=== PATIENT | female | born 1965 | race Caucasian/White ===

== ENCOUNTER 2018-07-09 03:44 | Emergency (ER) | payer OTHER, SELFPAY ==
[2018-07-09 03:46] VITALS: BP 130/84; PULSE 90; RESP 16; TEMP 36.6; O2SAT 98; BMI 28.3
--- NOTE | 2018-07-09 03:50 | RAD_ITS ---
STUDY: X-RAY - RIGHT WRIST REASON FOR EXAM: Female, 53 years old. Status post fall at work. Pain in the region of the navicular bone. TECHNIQUE: 4 view(s) of the wrist were obtained. COMPARISON: None. FINDINGS: Normal visualized distal radius. The ulnar styloid is truncated and the visualized styloid has a concave surface, possibly due to chronic erosion.. This might be the result of remote trauma, however, the eroded appearance suggests that there may be an overlying process such as synovial chondromatosis.. No widespread erosive destruction is seen, making pigmented villonodular synovitis unlikely. The ulna otherwise appears normal.. Normal radiocarpal articulation. Normal distal radioulnar articulation. The greater multangular bone is absent, which may represent remote trauma and subsequent resorption. Articular surfaces of the adjacent distal navicular and proximal first metacarpal have been eroded appearance which again may represent synovial chondromatosis. Otherwise normal carpal bones. Normal carpal articulations. There is disarticulation of the first metacarpal, due to destruction of the radial multangular.. Normal second through fifth carpometacarpal articulations. Normal visualized metacarpal bones. There is nonspecific soft tissue swelling. 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 Truncation of the ulnar styloid may also be due to an old fracture. 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 No evidence for acute fracture or acute dislocation.. Electronically Signed: Vasquez Lee MD at 4:17 EDT , Service support ,
--- NOTE | 2018-07-09 03:55 | ED.DCSUM_ITS ---
- ER Visit Summary Date of Service: 07/09/18 Chief Complaint: Right hand/wrist injury History of Present Illness: The patient is a 53 F who had surgery at the base of her right thumb in December of this year. She tripped and fell tonight at work putting her right hand out to catch herself. She now has some slight pain with mild swelling along the radial side of her wrist near the base of her thumb. She denies paresthesias. She is right-hand dominant Physical Examination: Vital signs are unremarkable. Patient sitting upright in bed no acute distress. Head neck examination was no sign of trauma. No C-spine tenderness. Pulse is regular. Back examination reveals mild tenderness in the right lumbar paraspinals. No lumbar tenderness. No overlying skin changes to this area. Right upper extremity examination reveals mild tenderness along the radial aspect of the right wrist. She has minimal edema. She has mild tenderness at the base of the thumb with axial load. She has full range of motion with normal cap refill. No tenderness noted at the elbow or shoulder. Test Results: Right wrist x-rays are read as chronic changes with no evidence of acute fracture. Emergency Department Course and Treatment: Patient will be given a thumb spica Velcro splint and follow-up with her hand surgeon if any ongoing difficulties. Treatment Plan: [] Disposition: Discharge Impression: Right wrist sprain status post fall Right lumbar paraspinal strain This note was generated with [employer] dictation software. It may contain incorrect words, spelling, and punctuation that were not noted in review of the chart prior to signing ED Disposition - Plan for ED Patient: Disposition: Home or Assisted Living Chief Complaint: Upper Extremity Injury Instructions: ED Sprain Wrist Referrals: [facility] [GROUP OF PHYSICIANS] - 2 Days Earl Lara MD [STAFF PHYSICIAN] - As Needed
--- NOTE | 2018-07-09 04:20 | ED.DEP ---
ED Disposition - Plan for ED Patient: Disposition: Home or Assisted Living Chief Complaint: Upper Extremity Injury Instructions: ED Sprain Wrist Referrals: Earl Lara MD [STAFF PHYSICIAN] - As Needed [facility] [GROUP OF PHYSICIANS] - 2 Days
== END 2018-07-09 04:35 | disposition home or self-care (01) ==
PROVIDERS: Emergency Provider Emergency Medicine; Family Provider Internal Medicine; PCP Internal Medicine
DX: S63.501A Unspecified sprain of right wrist, initial encounter (principal); S39.012A Strain of muscle, fascia and tendon of lower back, initial encounter; W01.0XXA Fall on same level from slipping, tripping and stumbling without subsequent striking against object, initial encounter; Y93.9 Activity, unspecified; Y99.0 Civilian activity done for income or pay; F32.9 Major depressive disorder, single episode, unspecified; Z87.891 Personal history of nicotine dependence
CPT/HCPCS: 73110; 99283

== ENCOUNTER 2021-12-21 15:12 | Emergency (ER) | payer BC, SELFPAY ==
[2021-12-21 15:13] VITALS: BP 133/72; PULSE 94; RESP 16; TEMP 36.9; O2SAT 98; BMI 26.4
--- NOTE | 2021-12-21 15:37 | ED.VIS.FEGU ---
HPI HPI - Female History of Present Illness Chief Complaint: Abd Pain Informant: patient Pain Pain: Positive for Pelvic Pain Onset: Days (3) Context: Gradual Onset Timing: Continuous Quality: Positive for Aching Location: Suprapubic Current Severity: Mild Maximum Severity: Moderate Worsened by: - (bearing down to urinate) Relieved by: - (nothing) Associated Symptoms Associated Symptoms: Positive for Frequency; Negative for Dysuria, Urgency and Hematuria Narrative Narrative: Patient having suprapubic discomfort and urinary frequency without hematuria, nausea, vomiting, fevers, low back discomfort aside from her chronic low back pain. No history of UTIs but she wonders if it is 1 because she has been urinating a lot without drinking more fluids than normal. She denies any leon dysuria but when she bears down it makes her suprapubic discomfort worse. It is not lateralizing. No history of any prior abdominal surgeries. [facility] Medical History (Updated 12/21/21 @ 18:[address] Earl Fatima MD) Anxiety and depression Home Medications bupropion HCl 150 mg PO BID 09/13/13 [History Last Taken 09/13/13 08:00] meloxicam 15 mg PO DAILY PRN PRN 09/13/13 [History Last Taken 09/13/13 08:00] pregabalin 75 mg PO BID 09/13/13 [History Last Taken 09/13/13 08:00] cyclobenzaprine 10 mg PO BID PRN PRN 10/19/13 [History Last Taken Unknown] furosemide 40 mg PO DAILY PRN 07/09/18 [History Last Taken Unknown] hydrocodone-acetaminophen 1 ea PO Q6H PRN 07/09/18 [History Last Taken Unknown] biotin 1 mg capsule 1 mg PO DAILY 07/11/18 [History Last Taken Unknown] calcium carbonate 260 mg calcium (648 mg) tablet 260 mg PO TID tab 07/11/18 [History Last Taken Unknown] cholecalciferol (vitamin D3) 25 mcg (1,000 unit) capsule 1,000 unit PO DAILY 07/11/18 [History Last Taken Unknown] ciprofloxacin HCl 500 mg PO BID #20 tablet 12/21/21 [Rx Last Taken Unknown] metronidazole 500 mg PO Q12H #20 tab 12/21/21 [Rx Last Taken Unknown] tramadol 50 mg PO Q4H PRN PRN 2 Days #10 tab 12/21/21 [Rx Last Taken Unknown] Allergy/AdvReac Type Severity Reaction Status Date / Time amoxicillin trihydrate Allergy Rash Verified 12/21/21 15:14 [From Augmentin] Penicillins Allergy Rash Verified 12/21/21 15:14 potassium clavulanate Allergy Rash Verified 12/21/21 15:14 [From Augmentin] morphine AdvReac Nausea/Vom/ Verified 12/21/21 15:14 Diarrhea Surgical History History of hysterectomy History of knee replacement history of thumb joint replacement Social History Smoking Status: Former smoker alcohol intake: never ROS ROS ED Constitutional Constitutional ED: Denies chills or fever(s) Eyes Eyes: Denies change in vision or diplopia ENT ENT ED: Denies rhinorrhea or sore throat Cardiovascular Cardiovascular: Denies chest pain or palpitations Respiratory/Chest Respiratory/Chest: Denies cough or dyspnea Gastrointestinal Gastrointestinal: Reports abdominal pain; Denies diarrhea, nausea or vomiting Genitourinary Genitourinary ED: Reports urinary frequency; Denies dysuria or hematuria Musculoskeletal Musculoskeletal: Reports as per HPI and back pain; Denies neck pain Integumentary Denies abscess or rash Neurologic Neurologic: Denies headache(s), paresthesias or weakness Psychiatric Psychiatric: Denies anxiety or suicidal thoughts EXAM Physical Exam Const Vital Signs: 12/21/21 15:13 Temperature 98.5 F Temperature Source Temporal Pulse Rate 94 Respiratory Rate 16 Blood Pressure 133/72 H Blood Pressure Mean 92 Pulse Ox 98 Oxygen Delivery Method Room Air Positive well nourished and well developed General Appearance ED: well developed and NAD HEENT Reports moist mucous membranes normocephalic and atraumatic Eyes PERRL and EOMs intact bilaterally Neck full ROM and supple Resp normal respiratory effort and clear to auscultation bilaterally Cardio regular rate, regular rhythm and no murmurs GI non-distended GI Narrative: Suprapubic tenderness without guarding or rebound tenderness, no right or left lower quadrant tenderness and otherwise benign abdomen. Auscultation: normoactive bowel sounds Palpation: soft Back/Spine no CVA tenderness General Back: other FROM Extremity normal to inspection General Extremety ED: Negative for edema, pulses abnormal or tenderness General Extremity: Negative for edema or pulses abnormal Neuro oriented x3, CN's II-XII intact bilaterally, no sensory deficits noted and gait normal Sensorium / Orientation: awake and alert Motor Exam: strength 5/5 throughout Skin no rashes or lesions noted and no wounds MDM MDM MDM Narrative Medical decision making narrative: Initial urinalysis obtained, it does not show evidence for infection. Therefore alternative etiologies were sought, labs were obtained including a CT of the abdomen and pelvis with IV contrast which shows acute diverticulitis. She does not have significant leukocytosis or leftward shift and she is clinically and hemodynamically stable. She was given pain medications after offered, and antibiotics. She agrees she can be treated as an outpatient we discussed reasons to return, and we also discussed follow-up. Lab Data Attestation: I reviewed the patient's lab results. Labs: Laboratory Results - last 24 hr 12/21/21 12/21/21 12/21/21 15:30 16:50 16:50 WBC 9.3 RBC 4.13 L Hgb 11.6 L Hct 36.3 L MCV 87.9 MCH 28.1 MCHC 32.0 RDW Std Deviation 39.9 RDW Coeff of Chrissy 12.4 Plt Count 297 MPV 9.8 Immature Gran % (Auto) 0.300 Neut % (Auto) 64.3 Lymph % (Auto) 22.0 [place] % (Auto) 10.5 H Eos % (Auto) 1.7 Baso % (Auto) 1.2 H Absolute Neuts (auto) 6.0 Absolute Lymphs (auto) 2.04 Nucleated RBC % 0 Sodium 138 Potassium 4.2 Chloride 106 Carbon Dioxide 28.0 Anion Gap 4 L BUN 9 Creatinine 0.76 Estim Creat Clear Calc 70.52 Est GFR (MDRD) Af Amer 100 Est GFR (MDRD) Non-Af 83 BUN/Creatinine Ratio 11.8 Glucose 101 Calcium 8.8 Urine Color Yellow Urine Clarity Clear Urine pH 6.5 Ur Specific [place] 1.015 Urine Protein Negative Urine Glucose (UA) Normal Urine Ketones Negative Urine Occult Blood Negative Urine Nitrite Negative Urine Bilirubin 1 H Urine Urobilinogen Normal Ur Leukocyte Esterase 25 H Urine RBC 0 SEEN Urine WBC 0 SEEN Ur Squamous Epith Cells 0 SEEN Urine Bacteria 0 SEEN Urine Mucus 0 SEEN Radiography Diagnostic Testing: Clinical Impression(s) from Imaging Studies Abdomen/Pelvis CT 12/21/21 17:10 IMPRESSION: Only axial images were provided for interpretation. Acute sigmoid diverticulitis. No free air or peridiverticular abscess. Electronically Signed: Sohail Whyte MD at 17:40 EDT , Discharge Plan Triage Chief Complaint: Abd Pain ED Provider: Earl Fatima Dx/Rx/DC Orders Clinical Impression: Acute diverticulitis Instructions: ED Diverticulitis Prescriptions: New metronidazole [metronidazole] 500 MG tablet 500 mg PO Q12H Qty: 20 RF: 0 ciprofloxacin HCl [ciprofloxacin HCl] 500 MG tablet 500 mg PO BID Qty: 20 RF: 0 tramadol 50 MG tablet 50 mg PO Q4H PRN PRN (Reason: Pain) 2 Days Qty: 10 RF: 0 No Action calcium carbonate 260 mg calcium (648 mg) tablet 260 mg PO TID RF: 0 cholecalciferol (vitamin D3) 1,000 unit capsule 1,000 unit PO DAILY RF: 0 biotin 1 mg capsule 1 mg PO DAILY RF: 0 bupropion HCl 150 MG tablet sustained-release 12 hr 150 mg PO BID RF: 0 meloxicam 15 MG tablet 15 mg PO DAILY PRN PRN (Reason: Pain) RF: 0 pregabalin 75 MG capsule 75 mg PO BID RF: 0 cyclobenzaprine 10 MG tablet 10 mg PO BID PRN PRN (Reason: Muscle Spasm) RF: 0 furosemide 40 MG tablet 40 mg PO DAILY PRN (Reason: DIURETIC) RF: 0 hydrocodone-acetaminophen 1 EACH tablet 1 ea PO Q6H PRN (Reason: Pain) RF: 0 Primary Care Provider: Ingrid Trejo Referrals: Ingrid Trejo MD [Primary Care Provider] - 1-2 Weeks Activity Restrictions/Additional Instructions: Avoid taking your Flexeril (cyclobenzaprine) while on the pain medication that you are prescribed. Disposition Disposition: Home, Self Care
[2021-12-21 15:48] LABS: Bacteria 0 SEEN /hpf (None Seen); Mucous, Urine 0 SEEN /hpf (<or=2+); Red Blood Cells-Urine 0 SEEN /hpf (0-5); Squamous Epithelial Cells - UA 0 SEEN /hpf (5-10); White Blood Cells 0 SEEN /hpf (0-5)
[2021-12-21 15:49] LABS: Color, Urine Yellow (Yellow); Glucose, Dipstick Normal (Normal); Ketone-Dipstick Negative (Negative); Leukocyte Esterase-Dipstick 25 /ul (Negative); Nitrite-Dipstick Negative (Negative); Occult Blood-Urine Negative /ul (Negative); Protein-Dipstick Negative (Negative); Specific Gravity, Urine 1.015 (1.002-1.030); Urine Clarity Clear (Clear); Urine Urobilinogen Normal (Normal); Urine pH 6.5 (5.0 - 8.0)
[2021-12-21 15:50] LABS: Urine Bilirubin Dipstick 1 mg/dL (Negative)
[2021-12-21 16:57] LABS: Absolute Lymphocyte Count 2.04 X10^3/uL (0.83-4.51); Basophil# 0.11 X10^3/uL; Basophil% 1.2 % (0-1); Eosinophil# 0.16 X10^3/uL; Eosinophils% 1.7 % (0-5); Hematocrit 36.3 % (37-47); Hemoglobin 11.6 g/dL (12.0-15.0); Lymphocyte # 2.04 X10^3/ul (0.83-4.51); Mean Corpuscular Hgb 28.1 pg (27.0-32.0); Mean Corpuscular Volume 87.9 fL (81-99); Mean Platelet Vol. 9.8 fl (6.2-12.0); Monocyte# 0.97 X10^3/uL; Monocyte% 10.5 % (0-10); NRBC Flagged by Analyzer 0 % (0-5); Neutrophil # 5.96 X10^3/uL (2.7-7.7); Neutrophil % 64.3 % (47-70); Platelet Count 297 K/mm3 (150-450); RBC Distribution Width CV 12.4 % (11.6-14.6); RBC Distribution Width SD 39.9 fl (35.1-43.9); Red Blood Count 4.13 M/mm3 (4.2-5.4); White Blood Count 9.3 K/mm3 (4.4-11.0)
--- NOTE | 2021-12-21 17:10 | CT_ITS ---
STUDY: CT ABDOMEN AND PELVIS WITH CONTRAST REASON FOR EXAM: Female, 56 years old. lower abd pain RADIATION DOSAGE (If Supplied By Facility): CTDIvol = ( 13.745 ) mGy, DLP = ( 856.15 ) mGycm TECHNIQUE: Transaxial images were obtained from the dome of the diaphragm to the symphysis pubis without oral contrast. IV 100mL Isovue-300 was administered. Sagittal and coronal images were reconstructed. Individualized dose optimization techniques were used for this CT. COMPARISON: None. FINDINGS: Only axial images were provided for interpretation. Minimal bibasilar dependent atelectasis. Gallbladder not seen and likely removed. Associated mild biliary dilatation. No focal hepatic lesion on this single phase study. Unremarkable spleen, pancreas, adrenals, and bilateral kidneys. No CT evidence of acute appendicitis. Moderate amount of retained stool in the colon with no evidence of bowel obstruction. Distal colonic diverticulosis. Circumferential wall thickening of the mid sigmoid colon with surrounding fat stranding, compatible with acute diverticulitis. No free air or peridiverticular abscess. Trace free fluid in the pelvis. Vascular constipation with no abdominal aortic aneurysm. No adenopathy. Sections through the pelvis demonstrate evidence of prior hysterectomy. No adnexal mass. Urinary bladder grossly unremarkable. Multilevel thoracolumbar spondylosis. Bilateral osteitis condensans ilii. CT/Abdomen/Pelvis W IV Cont ONLY IMPRESSION: Only axial images were provided for interpretation. Acute sigmoid diverticulitis. No free air or peridiverticular abscess. Electronically Signed: Sohail Whyte MD at 17:40 EDT ,
[2021-12-21 17:25] LABS: Anion Gap 4 (5-15); BUN 9 mg/dL (7-18); BUN/Creat Ratio 11.8 RATIO (10-20); Calcium,Total 8.8 mg/dL (8.5-10.1); Chloride 106 mmol/L (98-107); Creatinine, Serum 0.76 mg/dL (0.55-1.02); EST Glomerular Filtration Rate 83 mL/min (>60); Est Glom Filt Rate - Afr Amer 100 mL/min (>60); Estimated Creatinine Clearance 70.52 ml/min; Glucose 101 mg/dL (74-106); Potassium 4.2 mmol/L (3.5-5.1); Sodium Level 138 mmol/L (136-145)
[2021-12-21] MEDS: traMADol 50 MG Tablet PO (18:31)
[2021-12-21] MEDS: metroNIDAZOLE 500 MG Tablet PO (18:32)
[2021-12-21] MEDS: Ciprofloxacin 500 MG Tablet PO (18:32)
[2021-12-21] MEDS: Ketorolac 30 MG/ML Syringe IV (18:32)
== END 2021-12-21 18:40 | disposition home or self-care (01) ==
PROVIDERS: Emergency Provider Emergency Medicine; PCP Internal Medicine; Visit Provider Emergency Medicine
DX: K57.32 Diverticulitis of large intestine without perforation or abscess without bleeding (principal); Z87.891 Personal history of nicotine dependence
CPT/HCPCS: 74177; 80048; 81001; 85025; 96361; 96374; 99284; J7030; A4216

== ENCOUNTER 2021-12-28 02:29 | Emergency (ER) | payer BC, SELFPAY ==
[2021-12-28 02:31] VITALS: BP 138/80; PULSE 92; RESP 17; TEMP 36.3; O2SAT 98; BMI 27.8
--- NOTE | 2021-12-28 02:38 | EDS_ITS ---
HPI HPI - GI History of Present Illness Chief Complaint: Abd Pain Detail of Chief Complaint: Persistent abdominal pain since diagnosed with diverticulitis December 21 Informant: patient Abdominal Pain/Flank Pain Onset: Days Context: Gradual Onset Timing: Continuous Quality: Aching Location: LLQ and - (And suprapubic region) Current Severity: Mild Maximum Severity: Moderate Worsened by: Car ride and Movement Relieved by: Nothing Nausea/Vomiting/Emesis GI Symptom: Positive for Nausea; Negative for Vomiting Diarrhea/Melena/Hematochezia GI Symptom: Negative for Diarrhea, Melena and Hematochezia Associated Symptoms Associated Symptoms: Negative for Dysuria, Frequency, Hematuria and Urgency Narrative Narrative: Patient is a 56-year-old woman who was seen on December 21 and diagnosed with acute sigmoid diverticulitis. Patient was prescribed antibiotic and pain medicine. Patient states she is still having pain. Patient denies fever or chills. She does report nausea without vomiting. She denies melena, hematochezia or maroon-colored stool. She states the car ride to the emergency department from work and walking causes her increased pain. She states her appetite has been very poor. She has not had much to eat. She denies dysuria, frequency, urgency or hematuria. She is status post laparoscopic cholecystectomy and laparoscopic hysterectomy. She states both of her ovaries were not removed. She has no history of renal or ureterolithiasis. Her last colonoscopy was 4 years ago. Prior similar symptoms: Yes Recent Illness/Hospitalization: Yes [facility] Medical History (Updated 12/28/21 @ 03:[address] Franklin Bruce MD) Anxiety and depression Normal colonoscopy Home Medications bupropion HCl 150 mg PO BID 09/13/13 [History Last Taken 09/13/13 08:00] meloxicam 15 mg PO DAILY PRN PRN 09/13/13 [History Last Taken 09/13/13 08:00] pregabalin 75 mg PO BID 09/13/13 [History Last Taken 09/13/13 08:00] cyclobenzaprine 10 mg PO BID PRN PRN 10/19/13 [History Last Taken Unknown] furosemide 40 mg PO DAILY PRN 07/09/18 [History Last Taken Unknown] hydrocodone-acetaminophen 1 ea PO Q6H PRN 07/09/18 [History Last Taken Unknown] biotin 1 mg capsule 1 mg PO DAILY 07/11/18 [History Last Taken Unknown] calcium carbonate 260 mg calcium (648 mg) tablet 260 mg PO TID tab 07/11/18 [History Last Taken Unknown] cholecalciferol (vitamin D3) 25 mcg (1,000 unit) capsule 1,000 unit PO DAILY 07/11/18 [History Last Taken Unknown] ciprofloxacin HCl 500 mg PO BID #20 tablet 12/21/21 [Rx Last Taken Unknown] metronidazole 500 mg PO Q12H #20 tab 12/21/21 [Rx Last Taken Unknown] tramadol 50 mg PO Q4H PRN PRN 2 Days #10 tab 12/21/21 [Rx Last Taken Unknown] oxycodone-acetaminophen 1 tab PO Q6H PRN PRN 3 Days #12 tablet 12/28/21 [Rx Last Taken Unknown] Allergy/AdvReac Type Severity Reaction Status Date / Time amoxicillin trihydrate Allergy Rash Verified 12/28/21 02:34 [From Augmentin] Penicillins Allergy Rash Verified 12/28/21 02:34 potassium clavulanate Allergy Rash Verified 12/28/21 02:34 [From Augmentin] morphine AdvReac Nausea/Vom/ Verified 12/28/21 02:34 Diarrhea Surgical History History of hysterectomy History of knee replacement history of thumb joint replacement Social History (Updated 12/28/21 @ 02:[address] Franklin Bruce MD) Smoking Status: Former smoker alcohol intake: never substance use type: does not use ROS ROS ED Constitutional Constitutional ED: Denies chills, fever(s), subjective, sweats or weight loss ENT ENT ED: Denies ear pain, rhinorrhea or sore throat Cardiovascular Cardiovascular: Denies chest pain, palpitations or racing heartbeat Respiratory/Chest Respiratory/Chest: Denies cough, dyspnea or dyspnea on exertion Gastrointestinal Gastrointestinal: Reports abdominal pain, constipation and nausea; Denies diarrhea, melena or vomiting Genitourinary Genitourinary ED: Denies dysuria, hematuria or urinary frequency Musculoskeletal Musculoskeletal: Reports back pain; Denies arthralgias, myalgias or neck pain Integumentary Denies abscess, Abrasions or rash Neurologic Neurologic: Denies paresthesias or weakness Hematologic/Lymphatic Hematologic/Lymphatic: Denies easy bleeding or easy bruising EXAM Physical Exam Const Vital Signs: 12/28/21 02:31 Temperature 97.4 F L Temperature Source Temporal Pulse Rate 92 Respiratory Rate 17 Blood Pressure 138/80 H Blood Pressure Mean 99 Pulse Ox 98 Oxygen Delivery Method Room Air Positive well nourished and well developed General Appearance ED: well developed and NAD; Negative for pallor HEENT Reports moist mucous membranes normocephalic Eyes PERRL and EOMs intact bilaterally General Eye ED: Negative for pale conjunctiva or scleral icterus Neck no lymphadenopathy, supple and no JVD Resp normal respiratory effort and clear to auscultation bilaterally Cardio regular rate, regular rhythm, S1 normal heart sound, S2 normal heart sound and no murmurs GI non-distended and no masses; Negative for non-tender Inspection: Negative for abdominal distention Auscultation: hypoactive bowel sounds; Negative for normoactive bowel sounds Palpation: soft, tender LLQ and guarding LLQ; Negative for rigid, hepatomegaly, splenomegaly, mass, pulsatile mass or rebound tenderness present Back/Spine no CVA tenderness Extremity full ROM General Extremety ED: Negative for edema or tenderness General Extremity: Negative for edema Neuro CN's II-XII intact bilaterally and moves all extremities Sensorium / Orientation: alert, oriented to person, oriented to place and oriented to time Psych mental status grossly normal and thought process normal Skin no wounds General Skin Exam: Negative for jaundice or pallor Lesions: no lesions Rashes: no rashes MDM MDM MDM Narrative Medical decision making narrative: Patient presents because of persistent left lower quadrant abdominal pain. She was diagnosed with acute sigmoid diverticulitis. Will obtain CBC to assess white count and differential. Also because of poor p.o. intake will obtain basic metabolic panel to assess renal function, electrolytes and CO2/anion gap. Since her creatinine and GFR were normal on the she was treated with IV Toradol for her pain and Zofran for her nausea. Patient is lying on her left side. She has no discomfort. She was informed of results. She was informed of plan. She understands. Lab Data Attestation: I reviewed the patient's lab results. Lab results narrative: White count differential unchanged from the . Basic metabolic panel is remarkable for slight elevation in glucose of 121. Renal function is normal. Labs: Laboratory Results - last 24 hr 12/28/21 12/28/21 02:45 02:45 WBC 9.4 RBC 4.77 Hgb 13.1 Hct 42.3 MCV 88.7 MCH 27.5 MCHC 31.0 L RDW Std Deviation 38.1 RDW Coeff of Chrissy 11.9 Plt Count 399 MPV 9.4 Immature Gran % (Auto) 0.400 Neut % (Auto) 59.7 Lymph % (Auto) 30.8 [place] % (Auto) 6.4 Eos % (Auto) 1.2 Baso % (Auto) 1.5 H Absolute Neuts (auto) 5.6 Absolute Lymphs (auto) 2.89 Nucleated RBC % 0 Sodium 135 L Potassium 3.4 L Chloride 100 Carbon Dioxide 26.0 Anion Gap 9 BUN 7 Creatinine 1.00 Estim Creat Clear Calc 53.60 Est GFR (MDRD) Af Amer 73 Est GFR (MDRD) Non-Af 61 BUN/Creatinine Ratio 7.0 L Glucose 121 H Calcium 8.6 Discharge Plan Triage Chief Complaint: Abd Pain ED Provider: Franklin Bruce Dx/Rx/DC Orders Clinical Impression: Diverticulitis of sigmoid colon Instructions: Discharge Instructions for ..., ED Diverticulitis Prescriptions: New oxycodone-acetaminophen [oxycodone-acetaminophen] 1 TABLET tablet 1 tab PO Q6H PRN PRN (Reason: Pain) 3 Days Qty: 12 RF: 0 No Action calcium carbonate 260 mg calcium (648 mg) tablet 260 mg PO TID RF: 0 cholecalciferol (vitamin D3) 1,000 unit capsule 1,000 unit PO DAILY RF: 0 biotin 1 mg capsule 1 mg PO DAILY RF: 0 bupropion HCl 150 MG tablet sustained-release 12 hr 150 mg PO BID RF: 0 meloxicam 15 MG tablet 15 mg PO DAILY PRN PRN (Reason: Pain) RF: 0 pregabalin 75 MG capsule 75 mg PO BID RF: 0 cyclobenzaprine 10 MG tablet 10 mg PO BID PRN PRN (Reason: Muscle Spasm) RF: 0 furosemide 40 MG tablet 40 mg PO DAILY PRN (Reason: DIURETIC) RF: 0 hydrocodone-acetaminophen 1 EACH tablet 1 ea PO Q6H PRN (Reason: Pain) RF: 0 metronidazole [metronidazole] 500 MG tablet 500 mg PO Q12H Qty: 20 RF: 0 ciprofloxacin HCl [ciprofloxacin HCl] 500 MG tablet 500 mg PO BID Qty: 20 RF: 0 tramadol 50 MG tablet 50 mg PO Q4H PRN PRN (Reason: Pain) 2 Days Qty: 10 RF: 0 Primary Care Provider: Ingrid Trejo Referrals: Ingrid Trejo MD [Primary Care Provider] - 3-5 Days if not improving Disposition Disposition: Home, Self Care
[2021-12-28] MEDS: Ketorolac 15 MG/ML Vial IV (02:51)
[2021-12-28] MEDS: Ondansetron 4 MG/2 ML Vial IV (02:52)
[2021-12-28 02:54] LABS: Absolute Lymphocyte Count 2.89 X10^3/uL (0.83-4.51); Absolute Neutrophil Count 5.6 X10^3/uL (2.0-7.7); Basophil# 0.14 X10^3/uL; Basophil% 1.5 % (0-1); Eosinophil# 0.11 X10^3/uL; Eosinophils% 1.2 % (0-5); Hematocrit 42.3 % (37-47); Hemoglobin 13.1 g/dL (12.0-15.0); Lymphocyte # 2.89 X10^3/ul (0.83-4.51); Lymphocyte % 30.8 % (19-41); Mean Corpuscular Hgb 27.5 pg (27.0-32.0); Mean Corpuscular Volume 88.7 fL (81-99); Mean Platelet Vol. 9.4 fl (6.2-12.0); Monocyte% 6.4 % (0-10); NRBC Flagged by Analyzer 0 % (0-5); Neutrophil # 5.61 X10^3/uL (2.7-7.7); Neutrophil % 59.7 % (47-70); Platelet Count 399 K/mm3 (150-450); RBC Distribution Width CV 11.9 % (11.6-14.6); RBC Distribution Width SD 38.1 fl (35.1-43.9); Red Blood Count 4.77 M/mm3 (4.2-5.4); White Blood Count 9.4 K/mm3 (4.4-11.0)
[2021-12-28 03:09] LABS: Anion Gap 9 (5-15); BUN 7 mg/dL (7-18); Calcium,Total 8.6 mg/dL (8.5-10.1); Chloride 100 mmol/L (98-107); EST Glomerular Filtration Rate 61 mL/min (>60); Est Glom Filt Rate - Afr Amer 73 mL/min (>60); Glucose 121 mg/dL (74-106); Potassium 3.4 mmol/L (3.5-5.1); Sodium Level 135 mmol/L (136-145)
--- NOTE | 2021-12-28 03:38 | ED.RN ---
patient does not have her insurance card for pharmacy coverage and says it is a separate card so she will come back to get it or have her daughter get it sat [phone]
--- NOTE | 2021-12-28 03:40 | ED.RN ---
offered for pharm to run as seo pay to see hoe much it is for the rx but patient states she will just come back for it.
== END 2021-12-28 03:40 | disposition home or self-care (01) ==
PROVIDERS: Emergency Provider Emergency Medicine; PCP Internal Medicine; Visit Provider Emergency Medicine
DX: K57.32 Diverticulitis of large intestine without perforation or abscess without bleeding (principal); F32.A Depression, unspecified; F41.9 Anxiety disorder, unspecified; Z79.899 Other long term (current) drug therapy; Z87.891 Personal history of nicotine dependence
CPT/HCPCS: 80048; 85025; 96374; 96375; 99283; A4216; J2405

== ENCOUNTER 2022-05-17 06:13 | Emergency (ER) | payer OTHER, BC, SELFPAY ==
[2022-05-17 06:15] VITALS: BP 120/79; PULSE 89; RESP 18; TEMP 37.2; O2SAT 98; BMI 25.7
--- NOTE | 2022-05-17 06:33 | EDS_ITS ---
HPI History of Present Illness Chief Complaint: Upper Extremity Injury Informant: patient Narrative Narrative: [id number] female sent here from work for evaluation right shoulder pain has been intermittent for the past 2 months. 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 She was not evaluated. Symptoms worsen this evening. She is on Tylenol and Vicodin at home for headache and neck pain symptoms. Denies history of gastric ulcers or kidney injury. No paresthesias. She had a previous tennis elbow repair by Dr. Herber Tirado in the past. Prior similar symptoms: No [facility] Medical History Anxiety and depression Normal colonoscopy Home Medications bupropion HCl 150 mg tablet,12 hr sustained-release 150 mg PO BID 09/13/13 [History Last Taken 09/13/13 08:00] meloxicam 15 mg tablet 15 mg PO DAILY PRN PRN Pain 09/13/13 [History Last Taken 09/13/13 08:00] pregabalin 75 mg capsule 75 mg PO BID 09/13/13 [History Last Taken 09/13/13 08:00] cyclobenzaprine 10 mg tablet 10 mg PO BID PRN PRN Muscle Spasm 10/19/13 [History Last Taken Unknown] furosemide 40 mg tablet 40 mg PO DAILY PRN DIURETIC 07/09/18 [History Last Taken Unknown] hydrocodone-acetaminophen 5-325mg 5mg-325mg 1 ea PO Q6H PRN Pain 07/09/18 [History Last Taken Unknown] biotin 1 mg capsule 1 mg PO DAILY 07/11/18 [History Last Taken Unknown] calcium carbonate 260 mg calcium (648 mg) tablet 260 mg PO TID 07/11/18 [History Last Taken Unknown] cholecalciferol (vitamin D3) 25 mcg (1,000 unit) capsule 1,000 unit PO DAILY 07/11/18 [History Last Taken Unknown] ciprofloxacin HCl 500 mg tablet 500 mg PO BID #20 TABLETS 12/21/21 [Rx Last Taken Unknown] metronidazole 500 mg tablet 500 mg PO Q12H #20 tabs 12/21/21 [Rx Last Taken Unknown] tramadol 50 mg tablet 50 mg PO Q4H PRN PRN Pain 2 days #10 tabs 12/21/21 [Rx Last Taken Unknown] oxycodone-acetaminophen 5 mg-325 mg tablet 1 tab PO Q6H PRN PRN Pain 3 days #12 TABLETS 12/28/21 [Rx Last Taken Unknown] Allergy/AdvReac Type Severity Reaction Status Date / Time amoxicillin trihydrate Allergy Rash Verified 05/17/22 06:14 [From Augmentin] Penicillins Allergy Rash Verified 05/17/22 06:14 potassium clavulanate Allergy Rash Verified 05/17/22 06:14 [From Augmentin] morphine AdvReac Nausea/Vom/ Verified 05/17/22 06:14 Diarrhea Surgical History History of hysterectomy History of knee replacement history of thumb joint replacement Social History Smoking Status: Former smoker alcohol intake: never substance use type: does not use ROS ROS ED Constitutional Constitutional ED: Denies chills, fever(s) or sweats Eyes Eyes: Denies change in vision ENT ENT ED: Denies dysphagia or sore throat Cardiovascular Cardiovascular: Denies chest pain, leg edema, palpitations or racing heartbeat Respiratory/Chest Respiratory/Chest: Denies cough, dyspnea or dyspnea on exertion Gastrointestinal Gastrointestinal: Denies abdominal pain, diarrhea, nausea or vomiting Genitourinary Genitourinary ED: Denies dysuria, hematuria or urinary frequency Musculoskeletal Musculoskeletal: Reports extremity pain and other Details: Right shoulder pain. ; Denies back pain or neck pain Integumentary Denies rash or wounds Neurologic Neurologic: Denies headache(s), paresthesias or weakness EXAM Physical Exam Const Vital Signs: 05/17/22 06:15 Temperature 98.9 F Temperature Source Oral Pulse Rate 89 Respiratory Rate 18 Blood Pressure 120/79 Blood Pressure Mean 92 Pulse Ox 98 Positive well nourished and well developed General Appearance ED: well developed and NAD HEENT Reports moist mucous membranes normocephalic and atraumatic Eyes PERRL, EOMs intact bilaterally and conjunctivae normal General Eye ED: Yes normal appearance of both eyes Neck no lymphadenopathy and supple General: Negative for tenderness Chest Wall Chest: Negative for tenderness Resp normal respiratory effort and normal air movement Effort and Inspection: symmetric chest movement; Negative for respiratory distress Cardio regular rate, regular rhythm and no murmurs Peripheral Pulses: pulses 2+ throughout GI normal to inspection, nondistended, normoactive bowel sounds and non-tender Palpation: Negative for guarding or rebound tenderness present Back/Spine no CVA tenderness and no thoracic nor lumbar tenderness Extremity normal to inspection Extremity Narrative: Right upper extremity: Mild positive empty cans, reproducible pain with external rotation of the shoulder against resistance. Positive speeds test. Negative Apley's. No deformities. Skin intact. Neuro vas intact. General Extremety ED: Negative for edema or tenderness General Extremity: Negative for edema Neuro oriented x3 and no sensory deficits noted Sensorium / Orientation: awake and alert Skin no rashes or lesions noted and no wounds MDM MDM MDM Narrative Medical decision making narrative: Patient exam concerns for rotator cuffs strain along with biceps tendinitis of the right shoulder. Work restrictions given. She has Tylenol and Vicodin at home to take for pain. Discussed modified range of motion with work and activities. She will follow-up with occupational health for continued evaluation and clearance. Discharge Plan Triage Chief Complaint: Upper Extremity Injury ED Provider: Elvis Barbour Dx/Rx/DC Orders Clinical Impression: Strain of muscle(s) and tendon(s) of the rotator cuff of right shoulder, initial encounter, Biceps tendinitis of right shoulder Instructions: Repetitive Motion Injury Shoulder, Biceps Tendonitis Proximal Prescriptions: No Action calcium carbonate 260 mg calcium (648 mg) tablet 260 mg PO TID cholecalciferol (vitamin D3) 1,000 unit capsule 1,000 unit PO DAILY biotin 1 mg capsule 1 mg PO DAILY bupropion HCl 150 MG tablet sustained-release 12 hr 150 mg PO BID meloxicam 15 MG tablet 15 mg PO DAILY PRN PRN (Reason: Pain) pregabalin 75 MG capsule 75 mg PO BID cyclobenzaprine 10 MG tablet 10 mg PO BID PRN PRN (Reason: Muscle Spasm) furosemide 40 MG tablet 40 mg PO DAILY PRN (Reason: DIURETIC) hydrocodone-acetaminophen 1 EACH tablet 1 ea PO Q6H PRN (Reason: Pain) metronidazole [metronidazole] 500 MG tablet 500 mg PO Q12H Qty: 20 0RF ciprofloxacin HCl [ciprofloxacin HCl] 500 MG tablet 500 mg PO BID Qty: 20 0RF tramadol 50 MG tablet 50 mg PO Q4H PRN PRN (Reason: Pain) 2 Days Qty: 10 0RF oxycodone-acetaminophen [oxycodone-acetaminophen] 1 TABLET tablet 1 tab PO Q6H PRN PRN (Reason: Pain) 3 Days Qty: 12 0RF Primary Care Provider: Ingrid Trejo Referrals: Ingrid Trejo MD [Primary Care Provider] - [facility] - 3-5 Days Activity Restrictions/Additional Instructions: History exam concerns for rotator cuff strain with biceps tendinitis. Continue Tylenol every 6 hours. May use ibuprofen 600 mg every 6 hours also for additional pain control. Work restrictions as given. Follow-up with occupational health. Disposition Disposition: Home, Self Care Discharge Date/Time: 05/17/22 07:15
[2022-05-17 07:03] VITALS: BP 138/77; PULSE 62; RESP 15; O2SAT 97
== END 2022-05-17 07:15 | disposition home or self-care (01) ==
PROVIDERS: Emergency Provider Emergency Medicine; PCP Internal Medicine; Visit Provider Emergency Medicine
DX: S46.011A Strain of muscle(s) and tendon(s) of the rotator cuff of right shoulder, initial encounter (principal); M75.21 Bicipital tendinitis, right shoulder; Z87.891 Personal history of nicotine dependence; F41.9 Anxiety disorder, unspecified; F32.A Depression, unspecified; Z79.899 Other long term (current) drug therapy; X50.0XXA Overexertion from strenuous movement or load, initial encounter
CPT/HCPCS: 99282

== ENCOUNTER 2022-10-20 09:25 | Outpatient (RCR) | payer OTHER, BC, SELFPAY ==
--- NOTE | 2022-10-20 10:20 | HP.PTEVAL_ITS ---
Patient's Visit Information IVAN KHAN is a 57 year old F referred to Physical Therapy by Dr. 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 Date of Evaluation: 10/20/22 Physical Therapist: Kamaljit Rodriguez, DPT, OCS, CSCS - Visit Plan Frequency: 1x/Week Duration: 4 Months Plan: PROM only to g-h joint. weekly x 12-16 for PROM to start adn progressions once allowed. Current limitation to 50PROM elevation and 15 ext rotations PROM only. Doctor f/u 10/31, Ensure all other joints working full ROM - Subjective Large RCR 10/02/22. Was a repetitive motion injury. Been hurting for about a year. Insidious onset. Been in sling for 2 weeks but takes it off to sit at home. Pain level is about 5/10 worse in the morning. Sleeping not bad in a recliner, getting enough. Works 3rd shift at [employer]. Is off for 15 weeks ...maybe back in January. No exercises yet, uses ice packs that she uses. Has percoset but has not used it. Therapy prior to surgery did not help. Lives with dtr and can do what she needs to do with modifications and increase. Hobbies : crafting with hands and cannot right now. Is currently binge watching. - Pain r shoulder Pain Intensity (Out of 10): 5 Pain Intensity Range: 5 - Objective Walks in I, transfers I bed and chair. Incisions are healed and dry with mild scar tissue and no signs of excessive redness heat or swelling. PROM 50 elevation adn 30 ext rotation both where doctors limitations are for now. No AAROM or AROM allowed at g-h joint. Scap circles are limited on R 50% vs L. elbow, wrist and finger AROM WFL B. Strength elbow and shoulder not tested today. reflexes 2/3 bi and tri. Sensation WNL to gross light touch. Dons and doffs sling I today. - Balance/Special Test Scores Quick DASH Score: 79.5450 - Goals Goal 1:: ST: PROM to 150 as doctor allows elevation and 60 ext rotation Goal Time Frame: 4-6 Weeks Goal 2:: ST: sleep without interruption and pain 0-1/10 at rest. Goal Time Frame: 2-4 Weeks Goal 3:: LT: AROM full and painfree to 150 elevation and 65 ext rotation and PSIS IR when allowed by doctor Goal Time Frame: 8-12 Weeks Goal 4:: Do hair and put on shirt without pain and 90% better outside of work Goal Time Frame: 8-12 Weeks Goal 5:: Plant to return to work safely Goal Time Frame: 12-16 Weeks - Rehabilitation Potential Physical Therapy Diagnosis: RCR stiff and weak. Rehabilitation Potential: Good - Anticipated Interventions Patient/Client Instruction: Educate patient on: Condition, Plan of Care For the Purpose of:: To decrease pain, To increase ROM, To improve nutrient delivery to tissue, To improve muscle performance and motor function, To increase tolerance to activity/condition/position Therapeutic Exercise to Include: Strength training, Postural training, Flexibilty training, Passive ROM, Active ROM For the Purpose of:: To decrease pain, To increase ROM, To improve muscle performance and motor function, To increase tolerance to activity/condition/position Manual Therapy Techniques to Include: Scar massage, Passive ROM For the Purpose of:: To increase ROM, To improve nutrient delivery to tissue Cryotherapy (ice pack, ice massage): Yes For the Purpose of:: To decrease swelling/inflammation Thank you for the opportunity to evaluate your patient. For Medicare and Medicare HMO plans, please review the plan of care and approve it. It will need to be FAXED BACK to us at [phone] for Medicare purposes. For Medicare only, by signing this I certify the plan of care. Please let me know if there are questions or concerns regarding this plan of care. Physician Signature: Date:
--- NOTE | 2022-10-25 16:14 | HP.PT.NRP ---
IVAN KHAN was seen in my office for initial evaluation on 10/20/22. The following Plan of Care was established for this patient: Initial Frequency: 1x/Week Initial Duration: 4 Months Patient/Client Instruction: Educate patient on: Condition, Plan of Care For the Purpose of:: To decrease pain, To increase ROM, To improve nutrient delivery to tissue, To improve muscle performance and motor function, To increase tolerance to activity/condition/position Therapeutic Exercise to Include: Strength training, Postural training, Flexibilty training, Passive ROM, Active ROM For the Purpose of:: To decrease pain, To increase ROM, To improve muscle performance and motor function, To increase tolerance to activity/condition/position Manual Therapy Techniques to Include: Scar massage, Passive ROM For the Purpose of:: To increase ROM, To improve nutrient delivery to tissue Cryotherapy (ice pack, ice massage): Yes For the Purpose of:: To decrease swelling/inflammation This patient was last seen in our office 10/20/22. Pertinent comments regarding their Physical therapy will appear below: Pt seen for IE and then called to cancel her POC here at [facility] as she is going back to her old therapy place for her therapy. Will discontinue her chart at this time at her request. At this point I will be discontinuing this patient from physical therapy. I would be happy to see this patient again in the future if found appropriate by the physician. Thank you! Kamaljit Rodriguez, DPT, OCS, CSCS Balance/Gait/Functional tests - Balance/Special Test Scores Quick DASH Score: 79.5450
== END 2022-10-20 19:00 | disposition home or self-care (01) ==
LOC: PT 09:25
PROVIDERS: PCP Internal Medicine; Referring Provider Orthopaedic Surgery; Visit Provider Orthopaedic Surgery
DX: M75.01 Adhesive capsulitis of right shoulder (principal); M75.41 Impingement syndrome of right shoulder
CPT/HCPCS: 97110; 97161

== ENCOUNTER 2023-01-24 20:36 | Emergency (ER) | payer BC, SELFPAY ==
[2023-01-24 20:38] VITALS: BP 140/78; PULSE 83; RESP 18; TEMP 36.6; O2SAT 100; BMI 26.9
[2023-01-24 21:01] LABS: Bacteria 0 SEEN /hpf (None Seen); Mucous, Urine 0 SEEN /hpf (<or=2+); Red Blood Cells-Urine 0 SEEN /hpf (0-5); Squamous Epithelial Cells - UA 0 SEEN /hpf (5-10); White Blood Cells 0 SEEN /hpf (0-5)
--- NOTE | 2023-01-24 21:04 | CT_ITS ---
INDICATION: low abd pain, hx diverticulitis EXAMINATION: CT Abdomen And Pelvis W/ Contrast Injection TECHNIQUE: Helically acquired images were obtained of the abdomen and pelvis after IV contrast. A radiation dose optimization technique was used for this scan. IV Contrast dosage and agent: IV 100mL [id number] Oral contrast: None. COMPARISON: None. FINDINGS: Visualized lung bases: Unremarkable Liver: Unremarkable Gallbladder: Surgically absent. Spleen: Unremarkable Pancreas: Unremarkable Adrenal Glands: Unremarkable Kidneys: Unremarkable Vasculature: Unremarkable GI Tract: Unremarkable Lymphadenopathy: None Peritoneum: No ascites. Bladder: Unremarkable Reproductive organs: Unremarkable Bones/Soft tissues: Mild scattered degenerative changes of the visualized spine. CT/Abdomen/Pelvis W IV Cont ONLY IMPRESSION: No acute abnormalities in the abdomen or pelvis. Electronically Signed: Julian Singh MD at 22:15 EDT ,
--- NOTE | 2023-01-24 21:05 | ED.VIS.GI ---
HPI HPI - GI History of Present Illness Chief Complaint: Abd Pain Informant: patient Narrative Narrative: Patient complains of returning lower abdominal pain. She states she started about 2 3 weeks ago with lower abdominal pain and a little pressure in her back. This is typical when she has diverticulitis. Her last colonoscopy was just a few months ago. Evidently there is no inflammation at the time. She has never had surgery for the diverticulitis. She has had a hysterectomy and cholecystectomy in the past. She was placed on Cipro and Flagyl for about 7 days. She was getting better but not completely better. This ended about 1 week ago. Since then the symptoms have slowly been returning. She has some mild nausea but no vomiting. She is able to eat and drink but just does not have a great appetite. She has had some softer bowel movements but no blood. No urinary symptoms. Nothing specifically makes this significantly better or worse other than antibiotics as above. Of note, she is allergic to Augmentin. [facility] Medical History Anxiety and depression Normal colonoscopy Home Medications bupropion HCl 150 mg tablet,12 hr sustained-release 150 mg PO BID 09/13/13 [History Last Taken 09/13/13 08:00] meloxicam 15 mg tablet 15 mg PO DAILY PRN PRN Pain 09/13/13 [History Last Taken 09/13/13 08:00] pregabalin 75 mg capsule 75 mg PO BID 09/13/13 [History Last Taken 09/13/13 08:00] cyclobenzaprine 10 mg tablet 10 mg PO BID PRN PRN Muscle Spasm 10/19/13 [History Last Taken Unknown] furosemide 40 mg tablet 40 mg PO DAILY PRN DIURETIC 07/09/18 [History Last Taken Unknown] hydrocodone-acetaminophen 5-325mg 5mg-325mg 1 ea PO Q6H PRN Pain 07/09/18 [History Last Taken Unknown] biotin 1 mg capsule 1 mg PO DAILY 07/11/18 [History Last Taken Unknown] calcium carbonate 260 mg calcium (648 mg) tablet 260 mg PO TID 07/11/18 [History Last Taken Unknown] cholecalciferol (vitamin D3) 25 mcg (1,000 unit) capsule 1,000 unit PO DAILY 07/11/18 [History Last Taken Unknown] ciprofloxacin HCl 500 mg tablet 500 mg PO BID #20 TABLETS 12/21/21 [Rx Last Taken Unknown] metronidazole 500 mg tablet 500 mg PO Q12H #20 tabs 12/21/21 [Rx Last Taken Unknown] tramadol 50 mg tablet 50 mg PO Q4H PRN PRN Pain 2 days #10 tabs 12/21/21 [Rx Last Taken Unknown] oxycodone-acetaminophen 5 mg-325 mg tablet 1 tab PO Q6H PRN PRN Pain 3 days #12 TABLETS 12/28/21 [Rx Last Taken Unknown] Allergy/AdvReac Type Severity Reaction Status Date / Time amoxicillin trihydrate Allergy Rash Verified 01/24/23 20:40 [From Augmentin] Penicillins Allergy Rash Verified 01/24/23 20:40 potassium clavulanate Allergy Rash Verified 01/24/23 20:40 [From Augmentin] morphine AdvReac Nausea/Vom/ Verified 01/24/23 20:40 Diarrhea Surgical History History of hysterectomy History of knee replacement history of thumb joint replacement Social History Smoking Status: Former smoker alcohol intake: never substance use type: does not use ROS ROS ED Constitutional Constitutional ED: Denies chills or fever(s) ENT ENT ED: Denies rhinorrhea Cardiovascular Cardiovascular: Denies chest pain or palpitations Respiratory/Chest Respiratory/Chest: Denies cough Gastrointestinal Gastrointestinal: Reports abdominal pain, diarrhea and nausea; Denies constipation, melena or vomiting Genitourinary Genitourinary ED: Denies dysuria, hematuria or urinary frequency Musculoskeletal Musculoskeletal: Denies arthralgias Integumentary Denies rash Neurologic Neurologic: Denies paresthesias or weakness Hematologic/Lymphatic Hematologic/Lymphatic: Reports easy bleeding and easy bruising Allergic/Immunologic Allergic/Immunologic ED: Denies urticaria EXAM Physical Exam Narrative Exam Narrative: CONSTITUTIONAL: Patient is nontoxic in appearance. The patient looks comfortable. HEENT: No notable trauma. Mucous membranes are still moist. No sinus tenderness. EYES: No conjunctival injection. No proptosis. CARDIOVASCULAR: Regular rate. Regular rhythm. No notable murmur. No JVD. RESPIRATORY: No respiratory distress. Breathing is unlabored. No wheezes. No rhonchi. No rales. No pain with a deep breath. GASTROINTESTINAL: Not distended. Bowel sounds are normal. She does have some mild suprapubic and mild left lower quadrant tenderness. No guarding. No rebound. No palpable mass. No bruit. I feel no hernia or inguinal fullness. No umbilical hernia. GENITOURINARY: No CVA tenderness. MUSCULOSKELETAL: Atraumatic. No peripheral edema. No cord. No tenderness along the deep venous system. No asymmetry. No abdominal pain with rotation of lower extremities. NEUROLOGICAL: Patient is alert and appropriate. No focal deficit noted. SKIN: No noted rashes. No diaphoresis. PSYCHIATRIC: Patient is calm. Mood is appropriate. Const Vital Signs: 01/24/23 20:38 Temperature 97.9 F Temperature Source Temporal Pulse Rate 83 Respiratory Rate 18 Blood Pressure 140/78 H Blood Pressure Mean 98 Pulse Ox 100 Oxygen Delivery Method Room Air MDM MDM MDM Narrative Medical decision making narrative: Patient CBC shows no acute process. Patient's electrolytes are normal. Patient's liver function test are normal. Patient's urinalysis is normal My independent interpretation of her CT of the abdomen with IV contrast shows no sign of perforation abscess or diverticulitis. Final reading is similar. I discussed the findings with the patient. She is comfortable with this. I did state that her CT showed a moderate amount of stool through the colon. It may be that she has a component of constipation. We recommended some MiraLAX for a few days. Going back to a very bland clear liquid diet. If she develops fever or worsening pain she should return. I will write for some Zofran as she has occasionally felt a little nauseated but never vomited. Lab Data Attestation: I reviewed the patient's lab results. Labs: Laboratory Results - last 24 hr 01/24/23 01/24/23 01/24/23 20:35 20:55 20:55 WBC 8.9 RBC 4.40 Hgb 12.4 Hct 39.0 MCV 88.6 MCH 28.2 MCHC 31.8 L RDW Std Deviation 40.4 RDW Coeff of Chrissy 12.3 Plt Count 335 MPV 10.2 Immature Gran % (Auto) 0.200 Neut % (Auto) 44.1 L Lymph % (Auto) 46.1 H [place] % (Auto) 5.9 Eos % (Auto) 1.8 Baso % (Auto) 1.9 H Absolute Neuts (auto) 3.9 Absolute Lymphs (auto) 4.09 Nucleated RBC % 0 Sodium 142 Potassium 3.8 Chloride 107 Carbon Dioxide 29.0 Anion Gap 6 BUN 7 Creatinine 0.73 Estim Creat Clear Calc 72.54 Est GFR (MDRD) Af Amer 105 Est GFR (MDRD) Non-Af 87 BUN/Creatinine Ratio 9.6 L Glucose 104 Calcium 8.7 Total Bilirubin 0.30 AST 18 ALT 23 Alkaline Phosphatase 56 Total Protein 6.9 Albumin 3.4 Globulin 3.5 Albumin/Globulin Ratio 1.0 Urine Color Yellow Urine Clarity Clear Urine pH 8.0 Ur Specific [place] 1.015 Urine Protein Negative Urine Glucose (UA) Normal Urine Ketones Negative Urine Occult Blood Negative Urine Nitrite Negative Urine Bilirubin Negative Urine Urobilinogen Normal Ur Leukocyte Esterase Negative Urine RBC 0 SEEN Urine WBC 0 SEEN Ur Squamous Epith Cells 0 SEEN Urine Bacteria 0 SEEN Urine Mucus 0 SEEN Radiography Diagnostic Testing: Clinical Impression(s) from Imaging Studies Abdomen/Pelvis CT 01/24/23 21:04 IMPRESSION: No acute abnormalities in the abdomen or pelvis. Electronically Signed: Julian Singh MD at 22:15 EDT , Discharge Plan Triage Chief Complaint: Abd Pain ED Provider: Denilson Hernandez Dx/Rx/DC Orders Clinical Impression: Lower abdominal pain, Constipation in female, History of diverticulitis Instructions: ED Abdominal Pain Unkn Cause Fem Prescriptions: No Action calcium carbonate 260 mg calcium (648 mg) tablet 260 mg PO TID cholecalciferol (vitamin D3) 1,000 unit capsule 1,000 unit PO DAILY biotin 1 mg capsule 1 mg PO DAILY bupropion HCl 150 MG tablet sustained-release 12 hr 150 mg PO BID meloxicam 15 MG tablet 15 mg PO DAILY PRN PRN (Reason: Pain) pregabalin 75 MG capsule 75 mg PO BID cyclobenzaprine 10 MG tablet 10 mg PO BID PRN PRN (Reason: Muscle Spasm) furosemide 40 MG tablet 40 mg PO DAILY PRN (Reason: DIURETIC) hydrocodone-acetaminophen 1 EACH tablet 1 ea PO Q6H PRN (Reason: Pain) metronidazole [metronidazole] 500 MG tablet 500 mg PO Q12H Qty: 20 0RF ciprofloxacin HCl [ciprofloxacin HCl] 500 MG tablet 500 mg PO BID Qty: 20 0RF tramadol 50 MG tablet 50 mg PO Q4H PRN PRN (Reason: Pain) 2 Days Qty: 10 0RF oxycodone-acetaminophen [oxycodone-acetaminophen] 1 TABLET tablet 1 tab PO Q6H PRN PRN (Reason: Pain) 3 Days Qty: 12 0RF Primary Care Provider: Ingrid Trejo Referrals: Ingrid Trejo MD [Primary Care Provider] - 3-5 Days if not improving Disposition Disposition: Home, Self Care
[2023-01-24 21:08] LABS: Color, Urine Yellow (Yellow); Glucose, Dipstick Normal (Normal); Ketone-Dipstick Negative (Negative); Leukocyte Esterase-Dipstick Negative /ul (Negative); Nitrite-Dipstick Negative (Negative); Occult Blood-Urine Negative /ul (Negative); Protein-Dipstick Negative (Negative); Specific Gravity, Urine 1.015 (1.002-1.030); Urine Bilirubin Dipstick Negative (Negative); Urine Clarity Clear (Clear); Urine Urobilinogen Normal (Normal)
[2023-01-24] MEDS: 0.9% Normal Saline 1,000 ML 1000 ML IV (21:09)
[2023-01-24 21:15] LABS: Absolute Lymphocyte Count 4.09 X10^3/uL (0.83-4.51); Absolute Neutrophil Count 3.9 X10^3/uL (2.0-7.7); Basophil# 0.17 X10^3/uL; Basophil% 1.9 % (0-1); Eosinophil# 0.16 X10^3/uL; Eosinophils% 1.8 % (0-5); Hemoglobin 12.4 g/dL (12.0-15.0); Lymphocyte # 4.09 X10^3/ul (0.83-4.51); Lymphocyte % 46.1 % (19-41); Mean Corp Hgb Conc 31.8 g/dL (32-36); Mean Corpuscular Hgb 28.2 pg (27.0-32.0); Mean Corpuscular Volume 88.6 fL (81-99); Mean Platelet Vol. 10.2 fl (6.2-12.0); Monocyte# 0.52 X10^3/uL; Monocyte% 5.9 % (0-10); NRBC Flagged by Analyzer 0 % (0-5); Neutrophil # 3.92 X10^3/uL (2.7-7.7); Neutrophil % 44.1 % (47-70); Platelet Count 335 K/mm3 (150-450); RBC Distribution Width CV 12.3 % (11.6-14.6); RBC Distribution Width SD 40.4 fl (35.1-43.9); White Blood Count 8.9 K/mm3 (4.4-11.0)
[2023-01-24 21:17] LABS: AST(SGOT) 18 U/L (15-37); Alanine Aminotransfer ALT/SGPT 23 U/L (13-56); Albumin, Serum 3.4 g/dL (3.2-5.0); Alkaline Phosphatase 56 U/L (45-117); Anion Gap 6 (5-15); BUN 7 mg/dL (7-18); BUN/Creat Ratio 9.6 RATIO (10-20); Calcium,Total 8.7 mg/dL (8.5-10.1); Chloride 107 mmol/L (98-107); Creatinine, Serum 0.73 mg/dL (0.55-1.02); EST Glomerular Filtration Rate 87 mL/min (>60); Est Glom Filt Rate - Afr Amer 105 mL/min (>60); Estimated Creatinine Clearance 72.54 ml/min; Globulin 3.5 g/dL (2.2-4.2); Glucose 104 mg/dL (74-106); Potassium 3.8 mmol/L (3.5-5.1); Protein, Total 6.9 g/dL (6.4-8.2); Sodium Level 142 mmol/L (136-145)
[2023-01-24 23:28] VITALS: BP 132/69; PULSE 78; RESP 16; O2SAT 99
== END 2023-01-24 23:29 | disposition home or self-care (01) ==
PROVIDERS: Emergency Provider Emergency Medicine; PCP Internal Medicine; Visit Provider Emergency Medicine
DX: K59.00 Constipation, unspecified (principal); R10.32 Left lower quadrant pain; Z90.49 Acquired absence of other specified parts of digestive tract; Z87.19 Personal history of other diseases of the digestive system; Z87.891 Personal history of nicotine dependence
CPT/HCPCS: 74177; 80053; 81001; 85025; 96360; 99283; J7030; Q9967; A4216

== ENCOUNTER 2025-03-01 13:24 | Emergency (ER) | payer SELFPAY ==
[2025-03-01 13:25] VITALS: BP 120/68; PULSE 58; RESP 16; TEMP 36.7; O2SAT 99; BMI 26.4
--- OUTSIDE RECORDS SUMMARY | 2025-03-01 14:09 | XMS RPT_ITS | CCD ---
Author Organization [facility] CliniSyin Care Team Providers Care Training Developer Name Role Phone EARL SINGER Unavailable Unavailable EARL SINGER Unavailable Unavailable EARL SINGER Unavailable Unavailable VETOVITZ, HEATHER (PA) Unavailable Unavailabl e VETOVITZ, HEATHER (PA) Unavailable Unavailabl e VETOVITZ, HEATHER (PA) Unavailable Unavailabl e VETOVITZ, HEATHER (PA) Unavailable Unavailabl e VETOVITZ, HEATHER (PA) Unavailable Unavailabl e VETOVITZ, HEATHER (PA) Unavailable Unavailabl e VETOVITZ, HEATHER (PA) Unavailable Unavailabl e VETOVITZ, HEATHER (PA) Unavailable UnavailKatey Arboleda MD Primary Care Provider Katey Chester MD Primary Care Provider Pramod Cleaning Referring Unavailable Talampas, Katey D Primary Care Unavailable Pramod Cleaning Attending Unavailable Elvis Barbour Attending Unavailable Talampas, Katey D Primary Care Unavailable Talampas, Katey D Primary Care Unavailable Denilson Hernandez Attending Unavailable DILCIA VALDERRAMA MD Attending Unavailable ANTHONY ISRAEL Attending Unavailable Katey Chester MD Primary Care Provider DELMI DA SILVA Referring Unavailable TALAMPAS, KATEY D Primary Care Unavailable JOSH ALLISON Referring Unavailable TALAMPAS, KATEY D Primary Care Unavailable TALAMPAS, KATEY D Primary Care Unavailable TALAMPAS, KATEY D Attending Unavailable TALAMPAS, KATEY D Primary Care Unavailable CAROLYN HOYOS Attending Unavailable TALAMPAS, KATEY D Primary Care Unavailable CAROLYN HOYOS Attending Unavailable TALAMPAS, KATEY D Primary Care Unavailable CAROLYN HOYOS Attending Unavailable TALAMPAS, KATEY D Primary Care Unavailable TALAMPAS, KATEY D Referring Unavailable TALAMPAS, KATEY D Primary Care Unavailable TALAMPAS, KATEY D Attending Unavailable KEEGAN, JOSH Referring Unavailable TALAMPAS, KATEY D Primary Care Unavailable TALAMPAS, KATEY D Primary Care Unavailable LY, CAROLYN Referring Unavailable TALAMPAS, KATEY D Primary Care Unavailable LY, CAROLYN Referring Unavailable TALAMPAS, KATEY D Primary Care Unavailable TALAMPAS, KATEY D Attending Unavailable TALAMPAS, KATEY D Primary Care Unavailable DELMI DA SILVA Attending Unavailable TALAMPAS, KATEY D Primary Care Unavailable FELIBERTO MELCHOR Attending Unavailable TALAMPAS, KATEY D Primary Care Unavailable TALAMPAS, KATEY D Primary Care Unavailable LY, CAROLYN Referring Unavailable Price ELECTRIC 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.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 ERECTOR APPRENTICE, Heidy Unavailable [phone] Keegan ELECTRIC STOVE INSTALLER.MANAGER [employer]MENT [employer]ING, Josh Unavailable REFERRING, ANGI KOLB Attending Unavailable Allergies Allergy Classification Reported Allergen(s) Allergy Type Date of Onset Reaction(s) Facility (20 sources) morphine; Translations: [MORPHINE] Drug Allergy 2 Vomiting [facility] Repository (20 sources) Penicillins; Translations: [PENICILLINS] Propensity to adverse reactions to drug (disorder) 5 Other: See Comments [facility] Repository (20 sources) AMOXICILLIN-POT CLAVULANATE; Translations: [AMOXICILLIN-PO T CLAVULANATE] Propensity to adverse reactions to drug (disorder) 5 Rash [facility] Repository (20 sources) Amitriptyline; Translations: [AMITRIPTYLINE] Drug Allergy 1 Intolerance [facility] Work Phone: (3 sources) Amoxicillin; Translations: [amoxicillin trihydrate] Drug Allergy 2 Rash [facility] Repository (3 sources) potassium clavulanate; Translations: [potassium clavulanate] Allergy to substance 2 [facility] Repository Medications Current Medications Medication Drug Class(es) Dates Sig (Normalized) Sig (Original) acetaminophen 325 mg / HYDROcodone bitartrate 5 mg oral tablet (19 sources) Opioid Agonist Start: 02-11-2024 take 1 tablet by mouth twice daily as needed HYDROcodone-acetam inophen (NORCO) 5-325 mg per tablet Indications: Chronic midline low back pain with sciatica, sciatica laterality unspecified , Chronic SI joint pain Take 1 tablet by mouth two times a day as needed. 10/21/2023 Active Start: 07-09-2018 Hydrocodone-Ac etaminophen Active 1 EACH PO EVERY 6 HOURS July 09, 2018 3:51am Comment on above: Take 1 tablet by bib two times a day as needed. acetaminophen 325 mg / oxyCODONE hydrochloride 5 mg oral tablet (4 sources) Opioid Agonist Start: 12-28-2021 take 1 tablet by mouth every six hours as needed Oxycodone-Acetam inophen Active 1 TABLET PO EVERY 6 HOURS NEEDED 12 December 28, 2021 Start: 09-13-2013 End: 10-19-2013 take 1 tablet by mouth every four hours as needed Oxycodone-Acetaminophen Discontinued 1 TABLET PO EVERY 4 HOURS NEEDED September 13, 2013 11:30pm October 19, 2013 5:59pm azithromycin 250 mg oral tablet (2 sources) Macrolide Antimicrobial Start: 03-22-2024 End: 03-27-2024 take 2 tablets by mouth once daily, then take 1 tablet by mouth once daily azithromycin (ZITHROMAX) 250 mg tablet Take 2 tablets by mouth once daily for 1 day, THEN 1 tablet once daily for 4 days. 6 tablet 0 03/22/2024 03/27/2024 Active Start: 11-29-2022 End: 12-04-2022 azithromycin (ZITHROMAX Z-PA K) 250 mg tablet Indications: Acute non-recurrent maxillary sinusitis Take 2 tablets day one, then, 1 tablet daily until gone. 6 tablet 0 11/29/2022 12/04/2022 Comment on above: Take 2 tablets day o ne, then, 1 tablet daily until gone. biotin 1 mg oral capsule (2 sources) Start: 8 take 1 mg by mouth once daily Biotin Active 1 MG PO DAILY July 11, 2018 7:35am 12 hr buPROPion hydrochloride 150 mg extended release oral tablet (20 sources) Aminoketone Start: 2 End: 5 take 1 tablet by mouth twice daily buPROPion SR (WELLBUTRIN SR) 150 mg 12 hr tablet Indications: Dysthymic disorder Take 1 tablet by mouth two times a day. 180 tablet 12/01/2024 Active Start: 09-13-2013 take 1 tablet by bib th twice daily buPROPion SR (WELLBUTRIN SR) 150 mg 12 hr tablet Indications: Dysthymic disorder Take 1 tablet by mouth twice daily. 180 tablet 3 07/20/2021 Active Comment on above: Take 1 tablet by bib th twice daily. Take 1 tablet by bib th two times a day. calcium carbonate 648 mg oral tablet (2 sources) Start: 07-11-2018 take 260 mg by mouth three times daily Calcium Carbonate Active 260 MG PO THREE TIMES A DAY July 11, 2018 7:34am Calcium Carbonate / vitamin D3 (20 sources) calcium carbonate/vitamin D3 (CALCIUM + D ORAL) Take by mouth once daily. Active calcium carbonat e/vitamin D3 (CALCIUM + D ORAL) Take by mouth once daily. 0 Active Comment on above: Take by mouth once d aily. cholecalciferol 0.025 mg oral capsule (2 sources) Vitamin D Start: 8 take 1000 [IU] by mouth once daily Cholecalciferol (Vitamin D3) Active 1000 UNIT PO DAILY July 11, 2018 7:34am cholecalciferol, vitamin D3, (VITAMIN D3 ORAL) (20 sources) cholecalciferol, vitamin D3, (VITAMIN D3 ORAL) Take by mouth once daily. Active cholecalciferol, vitamin D3, (VITAMIN D3 ORAL) Take by mouth once daily. 0 Active Comment on above: Take by mouth once d aily. ciprofloxacin 500 mg oral tablet (7 sources) Quinolone Antimicrobial Start: 01-13-20 23 End: 01-20-20 23 take 1 tablet by mouth twice daily ciprofloxacin HCl (CIPRO) 500 mg tablet Indications: Diverticulitis Take 1 tablet by mouth twice daily for 7 days. 14 tablet 0 01/12/2023 01/19/2023 Active Start: 12-21-2021 End: 01-18-2022 take 1 tablet by mouth twice daily ciprofloxacin HCl (CIPRO) 500 mg tablet Indications: Diverticulitis Take 1 tablet by mouth twice daily for 7 days. 14 tablet 0 01/11/2022 01/18/2022 Active Comment on above: Take 1 tablet by bib twice daily for 7 days. clonazePAM 0.5 mg oral tablet (20 sources) Benzodiazepine Start: End: take 1-2 tablets by mouth at bedtime as needed for anxiety and anxiety, then take 1 tablet by mouth twice daily as needed for anxiety and anxiety clonazePAM (KLONOPIN) 0.5 mg tablet Indications: Insomnia, unspecified type , Anxiety , Bereavement reaction May take 1-2 tablets by mouth at bedtime as needed (insomnia and anxiety). May also take 1 tablet two times a day as needed (insomnia and anxiety). Do all this for 30 days. 60 tablet 10/25/2024 11/24/2024 Active Start: 08-03-2023 End: 10-23-2024 take 1-2 tablets by mouth at bedtime as needed for anxiety and anxiety, then take 1 tablet by mouth twice daily as needed for anxiety and anxiety clonazePAM (KLONOPIN) 0.5 mg tablet Indications: Insomnia, unspecified type , Anxiety , Bereavement reaction May take 1-2 tablets by mouth at bedtime as needed (insomnia and anxiety). May also take 1 tablet two times a day as needed (insomnia and anxiety). Do all this for 30 days. 60 tablet 02/23/2024 10/23/2024 Discontinued Start: 06-21-2023 End: 07-21-2023 take 1-2 tablets by mouth at bedtime as needed for anxiety and anxiety, then take 1 tablet by mouth twice daily as needed for anxiety and anxiety clonazePAM (KLONOPIN) 0.5 mg tablet Indications: Insomnia, unspecified type , Anxiety , Bereavement reaction May take 1-2 tablets by mouth at bedtime as needed (insomnia and anxiety). May also take 1 tablet two times a day as needed (insomnia and anxiety). Do all this for 30 days. 60 tablet 0 06/21/2023 07/21/2023 Active Start: 04-16-2023 End: 06-15-2023 clonazePAM (KLONOPIN) 0.5 mg tablet Indications: Insomnia, unspecified type , Anxiety , Bereavement reaction May take 1-2 tablets by mouth at bedtime as needed (insomnia and anxiety). May also take 1 tablet twice daily as needed (insomnia and anxiety). Do all this for 60 days. Do not start before April 16, 2023. 60 tablet 1 04/16/2023 06/15/2023 Active Start: 07-28-2022 End: 04-11-2023 take 1-2 tablets by mouth at bedtime as needed for anxiety and anxiety, then take 1 tablet by mouth twice daily as needed for anxiety and anxiety clonazePAM (KLONOPIN) 0.5 mg tablet Indications: Insomnia, unspecified type , Anxiety , Bereavement reaction May take 1-2 tablets by mouth at bedtime as needed (insomnia and anxiety). May also take 1 tablet twice daily as needed (insomnia and anxiety). Do all this for 60 days. 60 tablet 1 11/29/2022 02/07/2023 Discontinued Start: 11-25-2021 End: 06-20-2022 take 1-2 tablets by mouth at bedtime as needed for anxiety and anxiety, then take 1 tablet by mouth twice daily as needed for anxiety and anxiety clonazePAM (KLONOPIN) 0.5 mg tablet Indications: Insomnia, unspecified type , Anxiety , Bereavement reaction May take 1-2 tablets by mouth at bedtime as needed (insomnia and anxiety). May also take 1 tablet twice daily as needed (insomnia and anxiety). Do all this for 60 days. 60 tablet 1 02/14/2022 06/20/2022 Active Comment on above: May take 1-2 tablets by mouth at bedtime as needed (insomnia and anxiety). May also take 1 tablet twice daily as needed (insomnia and anxiety). Do all this for 60 days. May take 1-2 tablets by mouth at bedtime as needed (insomnia and anxiety). May also take 1 tablet twice daily as needed (insomnia and anxiety). Do all this for 60 days. Do not start before April 16, 2023. May take 1-2 tablets by mouth at bedtime as needed (insomnia and anxiety). May also take 1 tablet two times a day as needed (insomnia and anxiety). Do all this for 30 days. cyanocobalamin, vitamin B-12, (VITAMIN B-12 ORAL) (20 sources) cyanocobalamin, vitamin B-12, (VITAMIN B-12 ORAL) Take by mouth once daily. Active cyanocobalamin, vitamin B-12, (VITAMIN B-12 ORAL) Take by mouth once daily. 0 Active Comment on above: Take by mouth once d aily. cyclobenzaprine hydrochloride 10 mg oral tablet (20 sources) Muscle Relaxant Start: 014 End: 024 take 1 tablet by mouth twice daily as needed for muscle spasms cyclobenzaprine (FLEXERIL) 10 mg tablet Indications: Cervicalgia , Chronic midline low back pain with sciatica, sciatica laterality unspecified Take 1 tablet by mouth two times a day as needed for muscle spasm. 40 tablet 5 11/27/2023 Active Comment on above: Take 1 tablet by bib th twice daily as needed for muscle spasm. Take 1 tablet by bib th two times a day as needed for muscle spasm. dicyclomine hydrochloride 20 mg oral tablet (20 sources) Anticholinergic Start: 023 End: 023 take 1 tablet by mouth at bedtime dicyclomine (BENTYL) 20 mg tablet Take 1 tablet by mouth before meals and at bedtime. As directed 360 tablet 3 05/08/2023 Active Comment on above: Take 1 tablet by bib th before meals and at bedtime. Take 1 tablet by bib th before meals and at bedtime. As directed 24 hr etodolac 500 mg extended release oral tablet (20 sources) Nonsteroidal Anti-inflammatory Drug Start: 022 End: 025 take 1 tablet by mouth once daily etodolac (LODINE-XL) 500 mg 24 hr tablet Indications: Sternal pain Take 1 tablet by mouth once daily. 90 tablet 12/01/2024 Active Start: 03-05-2022 take 1 tablet by bib th once daily etodolac (LODINE-XL) 500 mg 24 hr tablet Indications: Sternal pain Take 1 tablet by mouth once daily. 30 tablet 11 03/05/2022 Active Start: 03-05-2022 take 1 tablet by bib th once daily etodolac (LODINE-XL) 500 mg 24 hr tablet Indications: Sternal pain Take 1 tablet by mouth once daily. 30 tablet 11 03/05/2022 Active Start: 03-05-2022 take 1 tablet by bib th once daily etodolac (LODINE-XL) 500 mg 24 hr tablet Indications: Sternal pain Take 1 tablet by mouth once daily. 30 tablet 11 03/05/2022 Active Start: 03-05-2022 take 1 tablet by bib th once daily etodolac (LODINE-XL) 500 mg 24 hr tablet Indications: Sternal pain Take 1 tablet by mouth once daily. 30 tablet 03/05/2022 Active Start: 03-05-2022 take 1 tablet by bib th once daily etodolac (LODINE-XL) 500 mg 24 hr tablet Indications: Sternal pain Take 1 tablet by mouth once daily. 30 tablet 03/05/2022 Active Start: 03-05-2022 take 1 tablet by bib th once daily etodolac (LODINE-XL) 500 mg 24 hr tablet Indications: Sternal pain Take 1 tablet by mouth once daily. 30 tablet 03/05/2022 Active Start: 03-05-2021 End: 01-06-2022 take 1 tablet by mouth once daily etodolac (LODINE-XL) 500 mg 24 hr tablet Indications: Sternal pain Take 1 tablet by mouth once daily. 30 tablet 03/05/2021 01/06/2022 Discontinued Start: 01-18-2015 End: 03-31-2015 take 300 mg by mouth three times daily at mealtime Etodolac Discontinued 300 MG PO 3 TIMES DAILY WITH MEALS January 18, 2015 1:24pm March 31, 2015 11:20am with food Comment on above: Take 1 tablet by bib once daily. fidaxomicin 200 mg oral tablet (2 sources) Macrolide Antibacterial Start: 02-01-20 End: 02-11-20 take 1 tablet by mouth twice daily fidaxomicin (DIFICID) 200 mg tablet Indications: C. difficile diarrhea Take 1 tablet by mouth twice daily for 10 days. 20 tablet 0 01/31/2023 02/10/2023 Active Comment on above: Take 1 tablet by bib twice daily for 10 days. fluticasone propionate 0.05 mg/actuat metered dose nasal spray (20 sources) Corticosteroid Start: 07-28-20 End: 02-22-20 take 2 spray(s) nasal route once daily for congestion fluticasone (FLONASE) 50 mcg/actuation nasal spray Use 2 Sprays in each nostril once daily. As directed for nasal and/or sinus congestion. Rinse mouth after use. 1 Each 02/23/2024 Active Start: 11-23-2020 take 2 spray(s) nasa l route once daily for congestion fluticasone (FLONASE) 50 mcg/actuation nasal spray Use 2 Sprays in each nostril once daily. As directed for nasal and/or sinus congestion. Rinse mouth after use. 1 Bottle 11 11/23/2020 Active Comment on above: Use 2 Sprays in each nostril once daily. As directed for nasal and/or sinus congestion. Rinse mouth after use. furosemide 20 mg oral tablet (20 sources) Loop Diuretic Start: 2 End: 4 take 1-2 tablets by mouth once daily for edema furosemide (LASIX) 20 mg tablet Indications: Fluid retention Take 1-2 tablets by mouth once daily. As directed for fluid retention 60 tablet 5 11/27/2023 Active Start: 09-06-2016 End: 07-09-2018 take 40 mg by mouth once daily Furosemide Active 40 MG PO DAILY July 09, 2018 3:51am Comment on above: Take 1-2 tablets by mouth once daily. As directed for fluid retention iv contrast (will be provided with radiology test) (20 sources) Start: 06-22-2023 iv contrast (will be provided with radiology test) CT ABD/PEL -Inject, intravenously, once for 1 dose.No IV access, insert saline lock prior to the beginning of sedation, infusion, injection of imaging exam. Discontinue saline lock post exam. If Pt. has a central line or IVAD, may access for administration according to line specific nursing protocol. Once exam is complete flush line and de-access according to line specific nursing protocol in the CT contrast administration guidelines link. 1 Each 06/22/2023 Active Start: 06-22-2023 iv contrast (w ill be provided with radiology test) CT ABD/PEL -Inject, intravenously, once for 1 dose.No IV access, insert saline lock prior to the beginning of sedation, infusion, injection of imaging exam. Discontinue saline lock post exam. If Pt. has a central line or IVAD, may access for administration according to line specific nursing protocol. Once exam is complete flush line and de-access according to line specific nursing protocol in the CT contrast administration guidelines link. 1 Each 0 06/22/2023 Active Comment on above: CT ABD/PEL -Inject, intravenously, once for 1 dose.No IV access, insert saline lock prior to the beginning of sedation, infusion, injection of imaging exam. Discontinue saline lock post exam. If Pt. has a central line or IVAD, may access for administration according to line specific nursing protocol. Once exam is complete flush line and de-access according to line specific nursing protocol in the CT contrast administration guidelines link. ketoconazole 20 mg/ml topical cream (18 sources) Azole Antifungal Start: End: ketoconazole (NIZORAL) 2 % cream Indications: Rash Apply 1 application to affected area once daily. Treat for 1 more week after rash resolves 15 g 02/22/2024 Active Comment on above: Apply 1 application to affected area once daily. Treat for 1 more week after rash resolves linaclotide 0.145 mg oral capsule (16 sources) Guanylate Cyclase-C Agonist Start: End: take 1 capsule by mouth once daily in the morning linaclotide (LINZESS) 145 mcg capsule Take 1 capsule by mouth daily at 6 am. 90 capsule 2 10/19/2023 Active Comment on above: Take 1 capsule by mo [facility] daily at 6 am. meloxicam 15 mg oral tablet (2 sources) Nonsteroidal Anti-inflammatory Drug Start: take 15 mg by mouth once daily as needed Meloxicam Active 15 MG PO DAILY NEEDED September 13, 2013 9:03pm metroNIDAZOLE 500 mg oral tablet (7 sources) Nitroimidazole Antimicrobial Start: End: take 1 tablet by mouth twice daily metroNIDAZOLE (FLAGYL) 500 mg tablet Indications: Diverticulitis Take 1 tablet by mouth twice daily for 7 days. 14 tablet 0 01/12/2023 01/19/2023 Active Start: 01-11-2022 End: 01-18-2022 take 1 tablet by mouth every eight hours metroNIDAZOLE (FLAGYL) 500 mg tablet Indications: Diverticulitis Take 1 tablet by mouth every 8 hours for 7 days. 21 tablet 0 01/11/2022 01/18/2022 Active Start: 12-21-2021 take 500 mg by mouth every twelve hours Metronidazole Active 500 MG PO Q12H December 21, 2021 6:16pm Comment on above: [facility] 7 days. Take 1 tablet by bib th twice daily for 7 days. pantoprazole 40 mg delayed release oral tablet (18 sources) Proton Pump Inhibitor Start: End: 5 take 1 tablet by mouth once daily pantoprazole DR (PROTONIX) 40 mg tablet Take 1 tablet by mouth once daily. 90 tablet 10/22/2024 04/20/2025 Active predniSONE 10 mg oral tablet (20 sources) Start: 5 predniSONE (DELTASONE) 10 mg tablet Indications: Chronic SI joint pain Take 2 pills as directed for flare up of back pain. 60 tablet 1 10/25/2024 Active Start: 02-14-2022 End: 10-23-2024 predniSONE (DELTASONE) 10 mg tablet Indications: Chronic SI joint pain Take 2 pills as directed for flare up of back pain. 60 tablet 1 02/22/2024 10/23/2024 Discontinued Start: 11-25-2021 End: 02-12-2022 predniSONE (DELTASONE) 10 mg tablet Indications: Chronic SI joint pain Take 2 pills as directed for flare up of back pain. 60 tablet 1 11/25/2021 02/12/2022 Discontinued Comment on above: Take 2 pills as dire cted for flare up of back pain. pregabalin 75 mg oral capsule (20 sources) Start: 4 take 2 capsules by mouth twice daily pregabalin 75 mg capsule Indications: Lumbar disc herniation with radiculopathy Take 2 capsules by mouth twice daily. 0 09/29/2013 Active Start: 09-13-2013 take 75 mg by mouth twice ignacio y Pregabalin Active 75 MG PO TWICE A DAY September 13, 2013 9:03pm Comment on above: Take 2 capsules by [facility] twice daily. psyllium 3400 mg powder for oral suspension (17 sources) Start: 4 Psyllium Husk-Aspartame (METAMUCIL SUGAR-FREE, ASPART,) 3.4 gram/5.8 gram powd Indications: Constipation, unspecified constipation type Take 1 Capful by mouth two times a day. 11/27/2023 Active Comment on above: Take 1 Capful by bib th two times a day. sennosides, detention 8.6 mg oral tablet (17 sources) Start: 4 take 2 tablets by mouth twice daily senna (SENOKOT) 8.6 mg tab Indications: Constipation, unspecified constipation type Take 2 tablets by mouth two times a day. 11/27/2023 Active Comment on above: Take 2 tablets by mo [facility] two times a day. sertraline 50 mg oral tablet (12 sources) Serotonin Reuptake Inhibitor Start: 2 End: 3 take 1 tablet by mouth once daily sertraline (ZOLOFT) 50 mg tablet Take 1 tablet by mouth once daily. 30 tablet 11 03/25/2022 03/25/2023 Active Start: 03-25-2021 End: 01-06-2022 take 1 tablet by mouth once daily sertraline (ZOLOFT) 50 mg tablet Take 1 tablet by mouth once daily. 30 tablet 5 03/25/2021 01/06/2022 Discontinued Comment on above: Take 1 tablet by bib once daily. TENS UNIT ELECTRODES (TENS UNITS ELECTRODES) 2X2 pads (20 sources) Start: 6 TENS UNIT ELECTRODES (TENS UNITS ELECTRODES) 2X2 pads Use electrodes with pads with TENS as directed for back pain. Dispense 1 set monthly 2 Each 5 11/26/2015 Active Comment on above: Use electrodes with pads with TENS as directed for back pain. Dispense 1 set monthly traMADol hydrochloride 50 mg oral tablet (2 sources) Opioid Agonist Start: 2 take 50 mg by mouth every four hours as needed Tramadol Active 50 MG PO EVERY 4 HOURS NEEDED 10 December 21, 2021 6:17pm Completed/Discontinued Medications Medication Drug Class(es) Dates Sig (Normalized) Sig (Original) diazePAM 5 mg oral tablet (2 sources) Benzodiazepine Start: 09-13-2013 End: 10-19-2013 take 5 mg by mouth three times daily Diazepam Discontinued 5 MG PO THREE TIMES A DAY September 13, 2013 11:30pm October 19, 2013 6:00pm enteric contrast (will be provided with radiology test) (9 sources) Start: 06-22-2023 End: 11-27-2023 enteric contrast (will be provided with radiology test) For CT ABD/PEL W IVCON Routine order Administer, As Directed One Time Only, via Oral, Rectal, both Oral and Rectal, Enteric Tube, Stoma or Indwelling Catheter, Enteric Contrast as designated per enteric contrast guidelines 1 Each 0 06/22/2023 11/27/2023 Discontinued (Other) Start: 06-22-[address] (will be provided with radiology test) For CT ABD/PEL W IVCON Routine order Administer, As Directed One Time Only, via Oral, Rectal, both Oral and Rectal, Enteric Tube, Stoma or Indwelling Catheter, Enteric Contrast as designated per enteric contrast guidelines 1 Each 0 06/22/2023 Active Comment on above: For CT ABD/PEL W IVC ON Routine order Administer, As Directed One Time Only, via Oral, Rectal, both Oral and Rectal, Enteric Tube, Stoma or Indwelling Catheter, Enteric Contrast as designated per enteric contrast guidelines naproxen 500 mg oral tablet (2 sources) Nonsteroidal Anti-inflammatory Drug Start: 09-13-19 End: 10-19-19 take 1 tablet by mouth twice daily Naproxen (Naprosyn) 500 MG tablet Discontinued 500 MG PO TWICE A DAY September 13, 2013 11:30pm October 19, 2013 5:59pm polyethylene glycol 3350 [id number] mg / potassium chloride 2970 mg / sodium bicarbonate 6740 mg / sodium chloride 5860 mg / sodium sulfate 89754 mg powder for oral solution (8 sources) Osmotic Laxative Start: 01-17-20 End: 11-30-19 peg 3350-Electrolytes (GOLYTELY) 236-22.74-6.74 -5.86 gram suspension Indications: Diverticulitis , Left lower quadrant abdominal pain Refer to printed prep instructions from your provider. 4000 mL 0 01/16/2022 11/29/2022 Discontinued Comment on above: Refer to printed pre p instructions from your provider. vancomycin 50 mg/ml oral solution (2 sources) Glycopeptide Antibacterial Start: 03-23-20 End: 04-06-20 take 2.5 mL by mouth four times daily Vancomycin HCl (FIRVANQ) 50 mg/mL oral liquid Indications: C. difficile diarrhea Take 2.5 mL by mouth four times daily for 14 days. 140 mL 0 03/23/2023 04/06/2023 Comment on above: Take 2.5 mL by mouth four times daily for 14 days. Problems Active Problems Problem Classification Problem Date Documented Da te Episodic/Chronic Adjustment disorders (5 sources) Bereavement; Translations: [Adjustment disorder, unspecified] Chronic Administrative/social admission (1 source) Bereavement; Translations: [Disappearance and of family member] Episodic Anxiety disorders (6 sources) Anxiety; Translations: [Anxiety disorder, unspecified] Chronic Diverticulosis and diverticulitis (9 sources) Diverticulitis of intestine; Translations: [Diverticulitis of intestine, part unspecified, without perforation or abscess without bleeding] Chronic Esophageal disorders (20 sources) Gastroesophageal reflux disease; Translations: [Gastro-esophageal reflux disease without esophagitis] 07-15-2005 Chronic Immunizations and screening for infectious disease (2 sources) Vaccination needed; Translations: [Encounter for immunization] Episodic Inflammation; infection of eye (except that caused by tuberculosis or sexually transmitteddisease) (20 sources) Bilateral punctate keratitis of eyes; Translations: [Punctate keratitis, bilateral] Onset: 8 07-25-2018 Chronic Mood disorders (20 sources) Dysthymia; Translations: [Dysthymic disorder] 07-15-2005 Chronic Nonspecific chest pain (6 sources) Chest pain; Translations: [Chest pain, unspecified] Episodic Open wounds of extremities (2 sources) Open wound of right lower leg; Translations: [Unspecified open wound, right lower leg, initial encounter] Episodic Osteoarthritis (20 sources) Primary osteoarthritis, right hand; Translations: [Unilateral primary osteoarthritis of first carpometacarpal joint, right hand] Onset: 2 Resolved: 5 12-13-2017 Chronic Other connective tissue disease (20 sources) History of total knee arthroplasty; Translations: [Presence of unspecified artificial knee joint] Onset: 2 09-05-2012 Chronic Other connective tissue disease (20 sources) Fibromyalgia; Translations: [Fibromyalgia] 04-26-2015 Episodic Other connective tissue disease (1 source) Biceps tendinitis; Translations: [Bicipital tendinitis, right shoulder] Episodic Other connective tissue disease (1 source) Swelling of lower limb; Translations: [Other specified soft tissue disorders] 05-13-2023 Episodic Other eye disorders (20 sources) Bilateral vitreous floaters; Translations: [Other vitreous opacities, bilateral] Onset: 8 07-25-2018 Chronic Other gastrointestinal disorders (3 sources) Constipation; Translations: [Constipation, unspecified] 03-28-2023 Episodic Other gastrointestinal disorders (2 sources) Constipation alternates with diarrhea; Translations: [Other specified symptoms and signs involving the digestive system and abdomen] 05-13-2023 Episodic Other gastrointestinal disorders (3 sources) History of diverticulitis; Translations: [Personal history of other diseases of the digestive system] 06-22-2023 Episodic Other gastrointestinal disorders (2 sources) Chronic constipation; Translations: [Other constipation] 10-19-2023 Episodic Other gastrointestinal disorders (2 sources) Abdominal bloating; Translations: [Abdominal distension (gaseous)] 01-18-2024 Episodic Other gastrointestinal disorders (1 source) Abdominal distension (gaseous); Translations: [Abdominal bloating] Onset: 4 Episodic Other gastrointestinal disorders (1 source) Other constipation; Translations: [Chronic constipation] Onset: 4 Episodic Other gastrointestinal disorders (1 source) Diarrhea; Translations: [Diarrhea, unspecified] 01-31-2023 Episodic Other screening for suspected conditions (not mental disorders or infectious disease) (8 sources) Patient encounter status; Translations: [Encounter for screening mammogram for malignant neoplasm of breast] Onset: Episodic Other skin disorders (2 sources) Eruption; Translations: [Rash and other nonspecific skin eruption] 12-01-2023 Episodic Other upper respiratory infections (1 source) Acute maxillary sinusitis; Translations: [Acute maxillary sinusitis, unspecified] Episodic Residual codes; unclassified (5 sources) Insomnia; Translations: [Insomnia, unspecified] Episodic Residual codes; unclassified (1 source) Body fluid retention; Translations: [Edema, unspecified] 12-01-2023 Episodic Residual codes; unclassified (1 source) Family history of celiac disease; Translations: [Family history of other diseases of the digestive system] 01-18-2024 Episodic Residual codes; unclassified (1 source) Family history of other diseases of the digestive system; Translations: [Family history of celiac disease] Onset: 4 Episodic Sprains and strains (5 sources) Low back strain; Translations: [Strain of muscle, fascia and tendon of lower back, initial encounter] Episodic Unclassified (1 source) Unknown / UNK(Unknown) Onset: 8 Past or Other Problems Problem Classification Problem Date Documented Da te Episodic/Chronic Abdominal pain (20 sources) Left lower quadrant pain; Translations: [Left lower quadrant pain] Onset: 09-23-2015 Resolved: 12-17-2017 Episodic Biliary tract disease (17 sources) Chronic cholecystitis without calculus; Translations: [Chronic cholecystitis] Onset: 11-10-2015 Resolved: 12-17-2017 12-17-2017 Episodic Blindness and vision defects (20 sources) Presbyopia; Translations: [Presbyopia] Onset: 07-25-2018 07-25-2018 Episodic Diabetes mellitus without complication (3 sources) Hyperglycemia; Translations: [Impaired fasting glucose] Onset: 05-16-2023 Episodic Gastritis and duodenitis (17 sources) Acute gastritis; Translations: [Acute gastritis] Resolved: 04-26-2015 04-26-2015 Episodic Intestinal infection (4 sources) Clostridium difficile diarrhea; Translations: [Enterocolitis due to Clostridium difficile, not specified as recurrent] Onset: 05-25-2023 03-23-2023 Episodic Joint disorders and dislocations; trauma-related (17 sources) Tear of meniscus of knee; Translations: [Unspecified tear of unspecified meniscus, current injury, right knee, initial encounter] Onset: 03-18-2012 Resolved: 04-26-2015 04-26-2015 Episodic Menstrual disorders (17 sources) Dysmenorrhea; Translations: [Dysmenorrhea, unspecified] Resolved: 04-23-2012 04-23-2012 Chronic Other and unspecified benign neoplasm (17 sources) Dermatofibroma of left lower limb; Translations: [Other benign neoplasm of skin of left lower limb, including hip] Onset: 01-08-2014 Resolved: 04-26-2015 04-26-2015 Episodic Other connective tissue disease (20 sources) Pain in right thumb; Translations: [Pain in right finger(s)] Onset: 12-13-2017 12-13-2017 Episodic Other connective tissue disease (17 sources) Enthesopathy of ankle AND/OR tarsus; Translations: [Other enthesopathy of unspecified foot and ankle] Onset: 10-02-2013 Resolved: 04-26-2015 04-26-2015 Episodic Other connective tissue disease (17 sources) Foot pain; Translations: [Pain in unspecified foot] Onset: 10-02-2013 Resolved: 04-26-2015 04-26-2015 Episodic Other connective tissue disease (1 source) Other specified soft tissue disorders; Translations: [Leg swelling] Onset: 05-16-2023 Episodic Other gastrointestinal disorders (1 source) Personal history of other diseases of the digestive system; Translations: [History of diverticulitis of colon] Onset: 07-04-2023 Episodic Other gastrointestinal disorders (1 source) Constipation, unspecified; Translations: [Constipation, unspecified constipation type] Onset: 05-25-2023 Episodic Other gastrointestinal disorders (1 source) Other specified symptoms and signs involving the digestive system and abdomen; Translations: [Alternating constipation and diarrhea] Onset: 05-16-2023 Episodic Other non-traumatic joint disorders (1 source) Pain in right shoulder; Translations: [Pain in right shoulder] Onset: 05-24-2022 Episodic Other non-traumatic joint disorders (17 sources) Pain in unspecified knee; Translations: [Pain in joint, lower leg] Onset: 12-14-2011 Resolved: 04-26-2015 04-26-2015 Episodic Screening and history of mental health and substance abuse codes (20 sources) Tobacco use and exposure - finding; Translations: [Personal history of nicotine dependence] Onset: 07-22-2012 04-26-2015 Episodic Spondylosis; intervertebral disc disorders; other back problems (20 sources) Neck pain; Translations: [Cervicalgia] Onset: 10-17-2013 Resolved: 04-26-2015 Episodic Unclassified (1 source) history of thumb joint replacement Viral infection (17 sources) Verruca vulgaris; Translations: [Viral wart, unspecified] Onset: 01-04-2014 Resolved: 04-26-2015 04-26-2015 Episodic Results Test Name Value Interpretation Reference Range Facility MRI SHOULDER W/O CONTRAST [facility] 11-05-2024 MRI SHOULDER W/O CONTRAST LEFT ORIGINAL EXAMINATION: MRI OF THE LEFT SHOULDER WITHOUT CONTRAST 11/05/2024 11:34 am TECHNIQUE: Multiplanar multisequence MRI of the left shoulder was performed without the administration of intravenous contrast. COMPARISON: MRI of the left shoulder dated 01/15/2023 HISTORY: ORDERING SYSTEM PROVIDED HISTORY: Reason for Exam: SPRAIN OF LT SHOULDER; TEAR OF LT SHOULDER Follow-up FINDINGS: There is motion degradation of images. There is no evidence of acute fracture, osteonecrosis or suspicious marrow lesion. Enthesopathy and subchondral cysts at the greater tuberosity at the supraspinatus footprint. Some focal marrow edema in the posterior lateral humeral head which may be related to internal impingement.. The acromioclavicular joint appears intact. A type 1 acromial undersurface is seen. The coracoclavicular and coracoacromial ligaments are intact. The teres minor is intact. Supraspinatus tendinosis with partial-thickness articular surface footprint tear measuring 1.0 cm by 0.9 cm medial to lateral. There are some areas of undersurface scarring. There are likely areas of focal pinhole perforation given that there is trivial subacromial subdeltoid bursitis. Low-grade undersurface tearing of the infraspinatus tendon involving the upper most fibers at the supraspinatus junction. The subscapularis is intact. The long head of the biceps tendon is maintained in anatomic location, without tear. There is no biceps tenosynovitis. There is no acute Hill-Sacks or Bankart lesion. Suboptimal visualization of the labrum with lack of intra-articular contrast. Posterosuperior labrum attenuated and blunted. Some questionable increased signal at the chondrolabral junction of the inferior labrum (series 10, image 11). No high-grade chondral lesions are present in the glenohumeral joint. There is no glenohumeral joint effusion or synovitis. The suprascapular and spinoglenoid notches as well as the quadrilateral space have preserved fat planes. There is no evidence of muscle atrophy or acute muscle denervation. IMPRESSION: 1. Supraspinatus tendinosis with partial-thickness articular surface footprint tear measuring 1.0 x 0.9 cm with some areas of scarring. There are likely areas of focal pinhole perforation given that there is trivial subacromial subdeltoid bursitis. 2. Low-grade undersurface tearing of the infraspinatus tendon involving the upper most fibers at the supraspinatus junction. There is also some bone marrow edema in the posterolateral humeral head which may be related to internal impingement. 3. Suboptimal visualization of the labrum with lack of intra-articular contrast. Posterosuperior labrum is attenuated and blunted. There is some questionable increased signal at the chondrolabral junction of the inferior labrum which may be related to posterosuperior to inferior labral tearing. As clinically warranted correlation can be made with MR arthrogram. Interpreted by: Estelita Tobin Preliminary Report By: Estelita Tobin Electronically signed By Estelita Tobin Dictated Date: 11/05/2024 2:01:27 PM Prelim Date: 11/05/2024 2:11:16 PM Sign Date: 11/05/2024 2:11:16 PM Ordering Provider: ANGI REFERRING Normal [facility] CNOVon 01-28-2024 CNOV Office Visit (OBGYWM ) IVAN KHAN ([id number]) 1965 F NFR Date Time Provider Department 01/28/24 8:20 AM FELIBERTO MELCHOR OBTABBY During your visit today, we recorded the following information about you: Blood pressure Weight Height 100/60 71.1 kg 1.6 m Feliberto Melchor MD 01/28/2024 9:09 AM Signed Manager Sterile offered: Patient accepts, visit chaperoned by Linda Lim LPN. Ivan is a 58 year old who presents for an annual gynecologic exam without complaints noting occ hot flashes. Pursuing disability related to a work related shoulder injury. Postmenopausal: Yes since age ~ 50 HRT use: No. Last Pap: 12/01/2002 HPV: N/A History of abnormal pap: Yes 30 years ago?? 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 Meniscus tear Rt knee Tenosynovitis of elbow right Tinnitus PAST SURGICAL HISTORY Procedure Laterality Date ABDOMINAL SURGERY HX ARTHRP INTERPOS INTERCARPAL/METACARPAL JOINTS Right 12/28/2017 Right thumb, CMC arthroplasty with ligament reconstruction and tendon interposition ARTHRP KNE CONDYLEANDPLATU MEDIALANDLAT COMPARTMENTS Right 2012 Knee replacement, total COLONOSCOPY 02/17/2022 repeat in 10 years COLONOSCOPY W/BIOPSY 12/17/2015 Normal; Diverticulosis sigmoid colon EGD TRANSORAL BIOPSY SINGLE/MULTIPLE 09/28/2015 EGD TRANSORAL BIOPSY SINGLE/MULTIPLE 12/17/2015 Minimal gastritis JOINT REPLACEMENT HX LAPS SURG CHOLECYSTECTOMY W/CHOLANGIOGRAPHY 10/26/2015 Normal IOC NEUROPLASTY AND/TRANSPOS MEDIAN NRV CARPAL TUNNE 12/1977 Carpal tunnel decomp right PAST SURGICAL HISTORY OF 1995 Right knee arthroscopy PAST SURGICAL HISTORY OF sinus surgery PAST SURGICAL HISTORY OF right elbow- tennis elbow PAST SURGICAL HISTORY OF Right Rotator cuff tear VAGINAL HYSTERECTOMY VAGINAL HYSTERECTOMY UTERUS 250 GM/< 2000 FAMILY HISTORY Problem Relation Age of Onset Breast Cancer Mother None Father Breast Cancer Sister Fibromyalgia, Mental Health Issues Liver Disease Sister other (Gall Bladder) Brother None Brother No Ocular Disease No Family History Colon Cancer No Family History SOCIAL HISTORY Social History Tobacco Use Smoking status: Former Packs/day: 0.50 Years: 15.00 Additional pack years: 0.00 Total pack years: 7.50 Types: Cigarettes Quit date: 10/11/2015 Years since quittin.3 Passive exposure: Never Smokeless tobacco: Former Quit date: 08/10/2013 Vaping Use Vaping Use: Never used Substance Use Topics Alcohol use: No Comment: occasionally Drug use: No REVIEW OF SYSTEMS Abdomen: Intermittent loose stools and constipation being being treated by GI in [place] Bladder: No dysuria, gross hematuria, urinary frequency, urinary urgency, or incontinence Breast: No breast lumps, nipple d/c, overlying skin changes, redness or skin retraction Allergies and current medication updated:Yes EXAM: Ht 5' 3 (1.60m) Wt 156 lb 12.8 oz (71.1kg) BMI 27.78 kg/(m2). GENERAL: pleasant, female in no apparent distress HEENT: Normocephalic, atraumatic, mucus membranes moist, and no lesions NECK: Supple, full range of motion, no adenopathy, and thyroid normal DERMATOLOGY: Normal, without lesions, non-icteric, and non-hirsute BREAST: soft, non-tender, symmetric, no dominant mass, normal nipple-areolar complex, no lymphadenopathy, and no nipple discharge CHEST: Normal inspiratory effort ABDOMEN: soft, non-tender, and no masses PELVIC: external genitalia normal, normal Bartholin's glands, urethra, [place]'s glands, no vulvar lesions, good vaginal support, physiologic discharge present, normal appearing perineal body and perianal region, atrophic changes BIMANUAL: no adnexal masses, non-tender, and uterus surgically absent RECTOVAGINAL: deferred. NEURO: alert and oriented x3,exam grossly non-focal EXTREMITIES: deferred ASSESSMENT/PLAN: 1) Health maintenance: Pap done with reflex HPV 2) Follow up one year or sooner as needed rto annual and prn Feliberto Melchor MD Allergies As of Date: 01/28/2024 Noted Allergy Reaction AUGMENTIN (AMOXICILLIN-POT CLAVUL*05/11/2005 2 - Rash ELAVIL (AMITRIPTYLINE) 03/25/2021 5 - Intolerance Comments: Woke up with panic attacks MORPHINE 01/08/2012 11 - Vomiting PENICILLINS 05/11/2005 14 - Other: See Comments Comments (more content not included)... Normal [facility] PAP TESTon 01-28-2024 ADEQUACY Satisfactory for interpretation. Normal [facility] Comment on above: Order Comment: Speci men Type: FLUID SPECIMENOrdering Facility: [facility] Address: [address] [place] [address] Performed By: #### L [id number] ####[facility] LAB[facility]IA [id number] [place] [address] [place] CASE REPORT Normal [facility] Comment on above: Order Comment: Speci men Type: FLUID SPECIMENOrdering Facility: [facility] Address: [address] [place] [address] Result Comment: Gyne cologic Cytology Report Case: [id number] Authorizing Provider: Feliberto Melchor MD Collected: 01/28/2024 09:16 AM Ordering Location: OB/Gynecology Received: 01/28/2024 12:15 PM First Screen: Finn, Selena, CT, ASCP Specimen: Pap Test, ThinPrep, Vagina Performed By: #### L [id number] ####[facility] LAB[facility] [id number] [address] [address] [place] CLINICAL HISTORY, CYTOLOGY, SIGN WIRER Hysterectomy, Total Normal [facility] Comment on above: Order Comment: Speci men Type: FLUID SPECIMENOrdering Facility: [facility] Address: [address] [place], [place] [id number] Performed By: #### L [id number] ####[facility] LAB[facility] [id number] [place] [address] [place] FINAL PERFORMING LAB Normal [facility] Comment on above: Order Comment: Speci men Type: FLUID SPECIMENOrdering Facility: [facility] Address: [address] [place] [address] Result Comment: Tech nical component, building custodial supervisor screening performed at [facility], [address] [place], [place] [id number] CLIA# [id number] Diagnostic interpretation performed at [facility], [address] [place], [place] [id number] CLIA# [id number] Tar Leveler: Bora Savage M.D. Performed By: #### L [id number] ####[facility] LAB[facility] [id number] [place] [address] [place] HPV REFLEX HPV if Atypical Normal [facility] Comment on above: Order Comment: Speci men Type: FLUID SPECIMENOrdering Facility: [facility] Address: [address] [place] [address] Performed By: #### L [id number] ####[facility] LAB[facility] [id number] [place] [id number] [place] INTERPRETATION, CYTOLOGY, SIGN WIRER Normal [facility] Comment on above: Order Comment: Speci men Type: FLUID SPECIMENOrdering Facility: [facility] Address: [address] [place] [address] Result Comment: Nega tive for intraepithelial lesion or malignancy. Performed By: #### L [id number] ####[facility] [id number] [place] [id number] [place] PAP DISCLAIMER COMMENT The Pap Smear is a screening test for cervical cancer. False negative results occur with all screening tests, emphasizing the need for rescreening at recommended intervals, and clinical correlation. Normal [facility] Comment on above: Order Comment: Speci men Type: FLUID SPECIMENOrdering Facility: [facility] Address: [address] [place] [address] Performed By: #### L [id number] ####[facility] LABIA [id number] [address] [place] PAP BRAZE OPERATOR COMMENT This specimen has be en analyzed by the ThinPrep Imaging System, an automated imaging and review system, which assists the laboratory in evaluating cells on ThinPrep Pap tests. Following automated imaging, selected singh from every slide are reviewed by a building custodial supervisor. Normal [facility] Comment on above: Order Comment: Speci men Type: FLUID SPECIMENOrdering Facility: [facility] Address: [address] [place] [address] Performed By: #### L [id number] ####[facility] LABIA [id number] [address] [place] CNCOon 01-22-2024 CNCO HNO ID: [id number] Author: COORDINATOR, MAMMOGRAPHY, ? Service: ? Author Type: Physician Type: Letter Filed: 01/22/2024 08:00 Note Text: January 22, 2024 PID: [id number] Ivan Khan [address] [place] [address] Dear Ms. Khan, We are pleased to inform you that the results of your recent breast imaging exam on 01/21/2024 are normal. Early detection of cancer is very important. We also understand recommendations regarding breast cancer screening are controversial. Please discuss with your primary care provider which strategy is best for you and whether a mammogram is right for you. Your imaging studies and report will be kept on file at [facility] as part of your permanent medical record and are available for your continuing care. Thank you for allowing us to help in meeting your health care needs. Sincerely, Dr. Yates Interpreting Radiologist [facility] (Normal over 40) Normal [facility] SCREENINGon 01-21-2024 [facility] SCREENING * * *Final Report* * * DATE OF EXAM: Jan 21 2024 1:14PM W 0581 - [facility] SCREENING / PROCEDURE REASON: Encounter for screening mammogram for breast cancer * * * * Physician Interpretation * * * * RESULT: #[id number] - [facility] SCREENING BILATERAL DIGITAL SCREENING MAMMOGRAM WITH CAD: 01/21/2024 HISTORY: /Screening Mammogram - patient reports NO breast symptoms /priors available for comparison Encounter For Screening Mammogram For Breast Cancer. RESULT: TECHNIQUE: The study was acquired using full field digital technology and interpreted from soft copy. Current study was also evaluated with a Computer Aided Detection (CAD). Comparison is made to exams dated: 12/28/2022 mammogram, 10/20/2021 mammogram, and 10/07/2020 mammogram - [facility]. There are scattered areas of fibroglandular density. No significant masses, calcifications, or other findings are seen in either breast. There has been no significant interval change. IMPRESSION: NEGATIVE There is no mammographic evidence of malignancy. A 1 year screening mammogram is recommended. Bill Yates M.D. tr/dann:01/22/2024 08:00:39 Vice President Research(s): RT Tawnya(R)(M), [facility] letter sent: Normal over 40 Mammogram BI-RADS: 1 Negative Multiple national specialty organizations have released breast cancer screening guidelines for women at average risk for developing breast cancer - guidelines that are based on both evidence and opinion, yet differ on when to start and how often to screen for breast cancer. With representation from Breast Imaging, Internal Medicine, Women's Health, Family Medicine, and Medical/Surgical Oncology, the [facility] has carefully reviewed the data and reached the following consensus: 1) All women should engage in shared decision-making with their providers to decide when to start and how often to screen; 2) All women should have the opportunity to start screening mammography at age 40; 3) For women ages 45-55, we recommend annual screening mammograms; 4) For women ages 55 and over, we support both the transition from an annual to a biennial interval if this aligns more with patient's values and preferences, or continuation with annual screening; 5) All women should discuss with their providers when to stop screening mammograms. Electric Cutter Operator: Dann Transcribe Date/Time: Jan 21 2024 12:56P Dictated by: BILL YATES MD This examination was interpreted and the report reviewed and electronically signed by: BILL YATES MD on Jan 22 2024 8:00AM EST [id number] Normal [facility] CELIAC SCREENon 01-18-2024 GLIAD DEAMIDATED IGA QUAL Negative Normal Negative, Test not Indicated [facility] Comment on above: Order Comment: Speci men Type: BLOOD SPECIMENOrdering Facility: [facility] Address: [address] [place] [address] Result Comment: This is used as an aid in diagnosis of celiac disease. Clinical correlation is required. The following results were obtained with an Gluster QUANTA Lite Gliadin IgA ANASTASIIA Gliadin. Gliadin IgA values obtained with different manufacturers' assay methods may not be used interchangeably. The magnitude of the reported IgA levels cannot be correlated to an endpoint titer. Performed By: #### L [id number] ####[facility] LAB[facility] [id number] [place] [address] [place] Gliadin peptide IgA Qn (S) 3 Units Normal <20 [facility] Comment on above: Order Comment: Speci men Type: BLOOD SPECIMENOrdering Facility: [facility] Address: [address] [place] [address] Performed By: #### L [id number] ####[facility] [id number] [place] [address] [place] INTERPRETATION No serological evide nce of celiac disease, however, if celiac disease is clinically suspected and patient is not on gluten-free diet, histological diagnosis may be considered. HLA testing may help with risk assessment. Normal [facility] Comment on above: Order Comment: Speci men Type: BLOOD SPECIMENOrdering Facility: [facility] Address: [address] [place] [address] Performed By: #### L [id number] ####[facility] LABIA [id number] [place] [address] [place] TRANSGLUTAMINASE IGA ABS INTERPRETATION Negative Normal Negative [facility] Comment on above: Order Comment: Speci men Type: BLOOD SPECIMENOrdering Facility: [facility] Address: [address] [place] [address] Result Comment: The following results were obtained with Invent[employer] Pro Hoop Strengthe R h-tTG IgA ANASTASIIA.???R h-tTG IgA values obtained with different manufacturers' assay methods may not be used interchangeably. The magnitude of the reported IgA levels cannot be corelated to an endpoint???concentration. This is used as an aid in diagnosis of celiac disease. Clinical correlation is required. Performed By: #### L [id number] ####[facility] LABIA [id number] [place] [address] [place] tTG IgA Qn (S) <2 Normal <4 [facility] Comment on above: Order Comment: Speci men Type: BLOOD SPECIMENOrdering Facility: [facility] Address: [address] [place] [address] Performed By: #### L [id number] ####[facility] LABIA [id number] [address] [place] [facility] Nurse Visit (JAEL) IVAN KHAN ([id number]) 1965 F NFR Date Time Provider Department 01/18/24 10:15 AM NURSE [facility] JAEL During your visit today, we recorded the following information about you: Luly Prado MA 01/18/2024 11:33 AM Signed H Pylori Breath test Results - NEGATIVE Allergies As of Date: 01/18/2024 Noted Allergy Reaction AUGMENTIN (AMOXICILLIN-POT CLAVUL*05/11/2005 2 - Rash ELAVIL (AMITRIPTYLINE) 03/25/2021 5 - Intolerance Comments: Woke up with panic attacks MORPHINE 01/08/2012 11 - Vomiting PENICILLINS 05/11/2005 14 - Other: See Comments Comments: augmentin cross sensitivity Date Reviewed: 01/18/2024 Reviewed by: Ryanne Acosta MA - Fully Assessed Reason for Visit: H. Pylori Breath Test [477] Visit Diagnosis:Abdominal bloating [R14.0] Order(s):BREATH TEST FOR HELICOBACTER PYLORI [SQHPYLBR] Order #: [id number] Prescriptions as of 01/18/2024 - pantoprazole DR (PROTONIX) 40 mg tablet Take 1 tablet by mouth once daily. - HYDROcodone-acetaminophen (NORCO) 5-325 mg per tablet Take 1 tablet by mouth two times a day as needed. - clonazePAM (KLONOPIN) 0.5 mg tablet May take 1-2 tablets by mouth at bedtime as needed (insomnia and anxiety). May also take 1 tablet two times a day as needed (insomnia and anxiety). Do all this for 30 days. - cyclobenzaprine (FLEXERIL) 10 mg tablet Take 1 tablet by mouth two times a day as needed for muscle spasm. - furosemide (LASIX) 20 mg tablet Take 1-2 tablets by mouth once daily. As directed for fluid retention - predniSONE (DELTASONE) 10 mg tablet Take 2 pills as directed for flare up of back pain. - buPROPion SR (WELLBUTRIN SR) 150 mg 12 hr tablet Take 1 tablet by mouth two times a day. - etodolac (LODINE-XL) 500 mg 24 hr tablet Take 1 tablet by mouth once daily. - Psyllium Husk-Aspartame (METAMUCIL SUGAR-FREE, ASPART,) 3.4 gram/5.8 gram powd Take 1 Capful by mouth two times a day. - senna (SENOKOT) 8.6 mg tab Take 2 tablets by mouth two times a day. - ketoconazole (NIZORAL) 2 % cream Apply 1 application to affected area once daily. Treat for 1 more week after rash resolves - linaclotide (LINZESS) 145 mcg capsule Take 1 capsule by mouth daily at 6 am. - iv contrast (will be provided with radiology test) CT ABD/PEL -Inject, intravenously, once for 1 dose.No IV access, insert saline lock prior to the beginning of sedation, infusion, injection of imaging exam. Discontinue saline lock post exam. If Pt. has a central line or IVAD, may access for administration according to line specific nursing protocol. Once exam is complete flush line and de-access according to line specific nursing protocol in the CT contrast administration guidelines link. - dicyclomine (BENTYL) 20 mg tablet Take 1 tablet by mouth before meals and at bedtime. As directed - fluticasone (FLONASE) 50 mcg/actuation nasal spray Use 2 Sprays in each nostril once daily. As directed for nasal and/or sinus congestion. Rinse mouth after use. - calcium carbonate/vitamin D3 (CALCIUM + D ORAL) Take by mouth once daily. - cholecalciferol, vitamin D3, (VITAMIN D3 ORAL) Take by mouth once daily. - cyanocobalamin, vitamin B-12, (VITAMIN B-12 ORAL) Take by mouth once daily. - TENS UNIT ELECTRODES (TENS UNITS ELECTRODES) 2X2 pads Use electrodes with pads with TENS as directed for back pain. Dispense 1 set monthly - pregabalin 75 mg capsule Take 2 capsules by mouth twice daily. Meds Comments as of 07/07/2015: No longer taking levaquin 07/07/15. Problem List As Of Date 01/18/2024 Noted Resolved ESOPHAGEAL REFLUX [K21.9] Acute gastritis [535.0] 04/26/2015 Dysmenorrhea [N94.6] 04/23/2012 DYSTHYMIC DISORDER [F34.1] Knee pain [M25.569] 12/14/2011 04/26/2015 Degenerative arthritis of right knee [M17.11] 01/08/2012 04/26/2015 Right knee meniscal tear [S83.206A] 03/18/2012 04/26/2015 History of tobacco use [Z87.891] 07/22/2012 History of total knee arthroplasty [Z96.659] 09/05/2012 Enthesopathy of ankle and tarsus, unspecified [*10/02/2013 04/26/2015 Foot pain [M79.673] 10/02/2013 04/26/2015 Back pain [M54.9] 10/17/2013 04/26/2015 Backache, unspecified [M54.9] 11/13/2013 Viral wart, Right thumb at prox mid lateral asp*01/04/2014 04/26/2015 Dermatofibroma of left lower leg [D23.72] 01/08/2014 04/26/2015 Fibromyalgia [M79.7] Pain of upper abdomen [R10.10] 09/23/2015 12/17/2017 Chronic cholecystitis without calculus [K81.1] 11/10/2015 12/17/2017 Primary osteoarthritis of first carpometacarpal*12/13/2017 Primary osteoarthritis of first carpometacarpal*12/13/2017 Pain of right thumb [M79.644] 12/13/2017 Vitreous floaters of both eyes [H43.393] 07/25/2018 Punctate keratitis, bilateral [H16.143] 07/25/2018 Presbyopia [H52.4] 07/25/2018 Visit Notes: >> Luly Prado MA SunJanuary 18, 2024 11:32 AM Status: Signed H Pylori Breath test Res (more content not included)... Normal [facility] CNOVon 01-18-2024 CNOV Office Visit (JAEL ) IVAN KHAN ([id number]) 1965 F NFR Date Time Provider Department 01/18/24 11:00 AM DELMI DA SILVA During your visit today, we recorded the following information about you: Pulse Blood pressure Weight Height 75/minute 109/68 73.9 kg 1.626 m Delmi Da Silva APRN.[employer] 01/18/2024 9:58 AM Addendum Thank you for seeing me in clinic today. It was very nice to meet you! As we discussed, my recommendations are as follows: Get abdominal XR 2. Celiac blood work 3. Start pantoprazole 40 mg daily- take 30 minutes before meals If you have any questions about the above treatment plan, please do not hesitate to send me a [employer] message or call. Delmi Da Silva APRN.Delmi Carney APRN.CNP 01/18/2024 12:30 PM Signed ESTABLISHED PATIENT VISIT REASON FOR VISIT: follow up HPI: Ivan Khan is a 58 year old female who presents for follow up for constipation. She is currently taking MiraLAX twice daily, senna 2 tablets twice daily, and Linzess 145 mcg 1-2 times a week as needed. She endorses with this regimen, she has bowel movements daily (3-4 times), these are always liquid, loose, and mushy. She denies any blood or black stool. She has tried decreasing MiraLAX in the past, and instantly has abdominal bloating and feels constipated. She will also get abdominal pain this is offering her lower abdomen that radiates to her back. This pain often improves after multiple bowel movements. She reports that her symptoms started after her . She endorses a 10 pound weight gain. She has recently experienced increase in heartburn, she takes Tums with some improvement. Patient denies dysphagia,, regurgitation, early satiety, nausea, vomiting, changes in appetite, change in bowel habits, unintentional weight loss or GI bleeding. Last EGD - 2015 Last colonoscopy -2021 known FHx of GI tract disease or malignancy. -daughter - celiac -son -Crohns Prior abdominopelvic surgeries include lap ph[place], hysterectomy Past Clinical Work-up: Last OV 10/19/23- Ly ASSESSMENT/PLAN Patient is a 58 year old year old femalewith PMH significant for GERD, fibromylagia, OA, dysthymic d/o, hx of diverticulosis and diverticulitis, hx of cdiff x 3-responded to therapy per pt who presents for follow up constipation, abd pain as described above. will switch to linzess 145 mcg daily -continue current bowel regimen until that gets approved other than the fiber for now. -low residue diet in case she is having a mild diverticulitis flare. Will hold on abx though unless symptoms worsen, then would repeat imaging to confirm prior to treatment given her hx of recurrent cdiff. -check abd XR to assess stool burden. -follow up in 3 months 07/06/23 CT ABD/PEL W IVCON No acute process in the abdomen or pelvis. Inflammatory changes in the sigmoid colon, noted on the prior study, are no longer seen. 06/22/23 last OV notes as follows Ivan Khan is a 58 year old female with PMH significant for GERD, fibromylagia, OA, dysthymic d/o, hx of diverticulosis and diverticulitis, hx of cdiff x 3-responded to therapy per pt who presents for constipation, diarrhea, generalized abdominal pain. Has been taking miralax and senna. Feels like she is going more frequently than previously but still has days where she does not go at all. Stools are still loose but pt taking miralax. Abd pain is better but still present. No new complaints otherwise. -continue miralax BID -increase senna to 2 tabs in the morning and 1 tab at night. -fiber rich diet -repeat CT to rule out smoldering diverticulitis, stricture, other 01/31/23 XR ABDOMEN 1V SUPINE Nonobstructive bowel gas pattern. 01/24/23 CTAP w/IV cpntrast was done for lower abdominal pain and h/o diverticulitis No acute abnormalities 02/17/22 Colonoscopy was done for Abdominal pain in the left lower quadrant, Abnormal CT of the GI tract, per Vero Hill MD Diverticulosis in the sigmoid colon. Non-bleeding external and internal hemorrhoids. No specimens collected. 12/17/15 EGD/colonoscopy were done per Dr. Morgan for epigastric pain, GERD and change in bowel habits Normal examined duodenum. Gastritis. Biopsied. Normal esophagus The entire examined colon is normal on direct and retroflexion views. The entire examined colon is normal. Biopsied. Diverticulosis in the sigmoid colon Path as follows: 1. Gastric antrum, biopsy Reactive gastropathy. 2. Cecum and sigmoid colon, biopsies No significant pathologic change. - No evidence of lymphocytic or collagenous colitis 10/28/15 path from cholecystectomy Gallbladder, cholecystectomy - Gallbladder parenchyma with mild chronic inflammation. ALLERGIES Allergen Reactions Augmentin [Amoxicil* Rash Elavil [Amitriptyli* Intolerance Woke up with panic attacks Morphine Vomitin (more content not included)... Normal [facility] CO2 post dose urea Qn (Exhl gas)on 01-18-2024 NEGATIVE [facility] CO2 post dose urea Qn (Exhl gas)Ordered By: Luly Prado on 01-18-2024 [facility] HISTORY PHYSICALon HISTORY PHYSICAL HNO ID: [id number] Author: DELMI DA SILVA APRN.[employer] Service: ? Author Type: Nurse Practitioner Type: H&P Filed: 01/18/2024 12:30 Note Text: ESTABLISHED PATIENT VISIT REASON FOR VISIT: follow up HPI: Ivan Khan is a 58 year old female who presents for follow up for constipation. She is currently taking MiraLAX twice daily, senna 2 tablets twice daily, and Linzess 145 mcg 1-2 times a week as needed. She endorses with this regimen, she has bowel movements daily (3-4 times), these are always liquid, loose, and mushy. She denies any blood or black stool. She has tried decreasing MiraLAX in the past, and instantly has abdominal bloating and feels constipated. She will also get abdominal pain this is offering her lower abdomen that radiates to her back. This pain often improves after multiple bowel movements. She reports that her symptoms started after her . She endorses a 10 pound weight gain. She has recently experienced increase in heartburn, she takes Tums with some improvement. Patient denies dysphagia,, regurgitation, early satiety, nausea, vomiting, changes in appetite,change in bowel habits, unintentional weight loss or GI bleeding. Last EGD - 2015 Last colonoscopy -2021 known FHx of GI tract disease or malignancy. -daughter - celiac -son -Crohns Prior abdominopelvic surgeries include lap philly, hysterectomy Past Clinical Work-up: Last OV 10/19/23- Ly ASSESSMENT/PLAN Patient is a 58 year old year old femalewith PMH significant for GERD, fibromylagia, OA, dysthymic d/o, hx of diverticulosis and diverticulitis, hx of cdiff x 3-responded to therapy per pt who presents for follow up constipation, abd pain as described above. will switch to linzess 145 mcg daily -continue current bowel regimen until that gets approved other than the fiber for now. -low residue diet in case she is having a mild diverticulitis flare. Will hold on abx though unless symptoms worsen, then would repeat imaging to confirm prior to treatment given her hx of recurrent cdiff. -check abd XR to assess stool burden. -follow up in 3 months 07/06/23 CT ABD/PEL W IVCON No acute process in the abdomen or pelvis. Inflammatory changes in the sigmoid colon, noted on the prior study, are no longer seen. 06/22/23 last OV notes as follows Ivan Khan is a 58 year old female with PMH significant for GERD, fibromylagia, OA, dysthymic d/o, hx of diverticulosis and diverticulitis, hx of cdiff x 3-responded to therapy per pt who presents for constipation, diarrhea, generalized abdominal pain. Has been taking miralax and senna. Feels like she is going more frequently than previously but still has days where she does not go at all. Stools are still loose but pt taking miralax. Abd pain is better but still present. No new complaints otherwise. -continue miralax BID -increase senna to 2 tabs in the morning and 1 tab at night. -fiber rich diet -repeat CT to rule out smoldering diverticulitis, stricture, other 01/31/23 XR ABDOMEN 1V SUPINE Nonobstructive bowel gas pattern. 01/24/23 CTAP w/IV cpntrast was done for lower abdominal pain and h/o diverticulitis No acute abnormalities 02/17/22 Colonoscopy was done for Abdominal pain in the left lower quadrant, Abnormal CT of the GI tract, per Vero Hill MD Diverticulosis in the sigmoid colon. Non-bleeding external and internal hemorrhoids. No specimens collected. 12/17/15 EGD/colonoscopy were done per Dr. Morgan for epigastric pain, GERD and change in bowel habits Normal examined duodenum. Gastritis. Biopsied. Normal esophagus The entire examined colon is normal on direct and retroflexion views. The entire examined colon is normal. Biopsied. Diverticulosis in the sigmoid colon Path as follows: 1. Gastric antrum, biopsy Reactive gastropathy. 2. Cecum and sigmoid colon, biopsies No significant pathologic change. - No evidence of lymphocytic or collagenous colitis 10/28/15 path from cholecystectomy Gallbladder, cholecystectomy - Gallbladder parenchyma with mild chronic inflammation. ALLERGIES Allergen Reactions Augmentin [Amoxicil* Rash Elavil [Amitriptyli* Intolerance Woke up with panic attacks Morphine Vomiting Penicillins Other: See Comments augmentin cross sensitivity PAST MEDICAL HISTORY Diagnosis Date Acute gastritis Carpal tunnel syndrome Degenerative arthritis of right knee Dysmenorrhea Dysthymic disorder Depression (non-psychotic) Esophageal reflux Fibromyalgia 2006 Headache(784.0) Knee pain Rt. Meniscus tear Rt knee Tenosynovitis of elbow right Tinnitus PAST SURGICAL HISTORY Procedure Laterality Date ABDOMINAL SURGERY HX ARTHRP INTERPOS INTERCARPAL/METACARPAL JOINTS Right 12/28/2017 Right thumb, CMC arthroplasty with ligament reconstruction and tendon interposition ARTHRP KNE CONDYLEANDPLATU MEDIALANDLAT COMPARTMENTS Right 2011 Knee replacement, total CO (more content not included)... Normal [facility] IgA SerPl-mCncon 01-18-2024 IgA [Mass/Vol] 124 mg/dL Normal 70-400 [facility] Comment on above: Order Comment: Speci men Type: BLOOD SPECIMENOrdering Facility: [facility] Address: [address] [place] [address] Performed By: #### 2 [id number] ####[facility] LAB[facility] [id number] [place] [address] [place] XR ABD 2V SUPINE W UPR/DECUB /CTLon 01-18-2024 XR ABD 2V SUPINE W UPR/DECUB/CTL * * *Final Report* * * DATE OF EXAM: Jan 18 2024 3:18PM [id number] - XR ABD 2V SUPINE W UPR/DECUB/CTL / PROCEDURE REASON: Chronic constipation * * * * Physician Interpretation * * * * EXAM TITLE: XR ABD 2V SUPINE W UPR/DECUB/CTL EXAM DATE/TIME: 01/18/2024 3:18 PM COMPARISON: X-ray abdomen on 01/31/2023 CLINICAL INDICATION/HISTORY: Chronic constipation. TECHNIQUE: AP views of the abdomen including upright view are presented. FINDINGS: Borderline distended small bowel loops seen in the left abdomen. No abnormally dilated large bowel loops identified. No evidence of free air. There are no abnormal calcifications. The bony structures appear intact. IMPRESSION: Borderline distended small bowel loops in the left abdomen. Electric Cutter Operator: JUMANA Transcribe Date/Time: Jan 23 2024 12:39P Dictated by : ANDERSON MOTA MD This examination was interpreted and the report reviewed and electronically signed by: ANDERSON MOTA MD on Jan 23 2024 12:41PM EST [id number] Normal [facility] CNOVon 11-27-2023 CNOV Office Visit (INTMWS ) IVAN KHAN ([id number]) 1965 F NFR Date Time Provider Department 11/27/23 9:40 AM KATEY CHESTER INTMWS During your visit today, we recorded the following information about you: Pulse Blood pressure Weight Height 84/minute 92/66 71.2 kg 1.638 m Katey Chester MD 12/01/2023 5:43 PM Signed This note was created using [employer]. Subjective Ivan Khan is a 58 year old female. Chief complaint Request for medication refills History of present illness - Reports feeling emotionally low due to the three-year anniversary of 's - Reports job loss after shoulder surgery in September - Reports financial difficulties due to job loss, but now receiving long-term disability payments - Reports bloating and weight gain - Reports trying alkaline water for two weeks - Reports skin inflammation and itching; has tried steroid cream for rash but only helps some for the itching but rash does not resolve. Past medical history - Reports chronic SI joint pain and back pain - Reports psoriasis Past surgical history Shoulder surgery in September Social history - Reports being single income family - Reports weekly visits to father - Reports interest in crafting Current medications - Clonazepam, Flexeril, Lasix, Lodine, Wellbutrin, Flonase, Linzess, Prednisone, Pregabalin - Whay-pvi-cbgzbhg: Metamucil, Senokot - Psoriasis cream Review of Systems Objective BP 92/66 Pulse 84 Ht 163.8 cm (5' 4.5) Wt 71.2 kg (157 lb) SpO2 98% BMI 26.53 kg/m? Physical Exam Constitutional: Appearance: Normal appearance. HENT: Head: Normocephalic. Eyes: Conjunctiva/sclera: Conjunctivae normal. Cardiovascular: Rate and Rhythm: Normal rate and regular rhythm. Heart sounds: Normal heart sounds. Pulmonary: Effort: Pulmonary effort is normal. Breath sounds: Normal breath sounds. Musculoskeletal: Right lower leg: No edema. Left lower leg: No edema. Skin: General: Skin is warm and dry. Neurological: General: No focal deficit present. Mental Status: She is alert and oriented to person, place, and time. Psychiatric: Mood and Affect: Mood normal. Behavior: Behavior normal. Thought Content: Thought content normal. Judgment: Judgment normal. Assessment and Plan Encounter Diagnosis ICD-10-CM 1. Chronic midline low back pain with sciatica, sciatica laterality unspecified M54.40 HYDROcodone-acetaminophen (NORCO) 5-325 mg per tablet G89.29 cyclobenzaprine (FLEXERIL) 10 mg tablet 2. Insomnia, unspecified type G47.00 clonazePAM (KLONOPIN) 0.5 mg tablet Medications still helping 3. Bereavement reaction F43.20 clonazePAM (KLONOPIN) 0.5 mg tablet Z63.4 Today is anniversary of 's . Doing okay considering.Continue present management 4. Anxiety F41.9 clonazePAM (KLONOPIN) 0.5 mg tablet Stable on current meds 5. Constipation, unspecified constipation type K59.00 Psyllium Husk-Aspartame (METAMUCIL SUGAR-FREE, ASPART,) 3.4 gram/5.8 gram powd senna (SENOKOT) 8.6 mg tab Following with GI though had to switch providers since hers left the Clinic.Doing fair on current meds 6. Cervicalgia M54.2 cyclobenzaprine (FLEXERIL) 10 mg tablet Pain better since not working now 7. Fluid retention R60.9 furosemide (LASIX) 20 mg tablet Controlled with as needed Lasix 8. Chronic SI joint pain M53.3 HYDROcodone-acetaminophen (NORCO) 5-325 mg per tablet G89.29 predniSONE (DELTASONE) 10 mg tablet Pain es better now since not working. Medication management still effective. 9. Dysthymic disorder F34.1 buPROPion SR (WELLBUTRIN SR) 150 mg 12 hr tablet Stable overalll. See above 10. Sternal pain R07.89 etodolac (LODINE-XL) 500 mg 24 hr tablet sternomanubrial junction and sternocostal margin 11. Rash R21 ketoconazole (NIZORAL) 2 % cream Treat for possible fungal superinfection over psoriasis type rash Plan - Recommendation to explore job services for training opportunities - Recommendation to explore [employer] as a potential business - Recommendation to try antifungal cream for skin inflammation - Recommendation to try coconut oil for skin irritation - Continue current medication management as note above. - Emotional support given. Does have support from family. Also supportive of father ( (her mom) had recently too. Prescription - Refills for Clonazepam, Flexeril, Lasix, Lodine, Wellbutrin, Linzess, Prednisone - Antifungal cream Appointments Next appointment in July I spent a total of 31 minutes on the date of the service which included [id number] patient care, completing clinical documentation, obtaining and/or reviewing separately obtained history, performing a medically appropriate examination, counseling and educating the patient/family/caregiver, and ordering medications, tests, or procedures. Note drafted (more content not included)... Normal [facility] [place] 10-23-2023 [place] Telephone (JAEL) IVAN KHAN ([id number]) 1965 F NFR Date Time Provider Department 10/23/23 CAROLYN HOYOS During your visit today, we recorded the following information about you: Dawood Hall LPN 10/23/2023 11:41 AM Signed PA for Linzess initiated through [facility] P[facility]RO:[id number] BERYL Leyva Danielle, LPN 10/23/2023 1:05 PM Signed PA for Linzess approved until 10/17/24. Medicaid # [id number] Dawood Hall LPN Allergies As of Date: 10/23/2023 Noted Allergy Reaction AUGMENTIN (AMOXICILLIN-POT CLAVUL*05/11/2005 2 - Rash ELAVIL (AMITRIPTYLINE) 03/25/2021 5 - Intolerance Comments: Woke up with panic attacks MORPHINE 01/08/2012 11 - Vomiting PENICILLINS 05/11/2005 14 - Other: See Comments Comments: augmentin cross sensitivity Date Reviewed: 08/03/2023 Reviewed by: Radha Grullon LPN - Fully Assessed Reason for Visit: Insurance Authorization [[id number]] Cmt: Linzess-APPROVED Prescriptions as of 10/23/2023 - linaclotide (LINZESS) 145 mcg capsule Take 1 capsule by mouth daily at 6 am. - clonazePAM (KLONOPIN) 0.5 mg tablet May take 1-2 tablets by mouth at bedtime as needed (insomnia and anxiety). May also take 1 tablet two times a day as needed (insomnia and anxiety). Do all this for 30 days. - iv contrast (will be provided with radiology test) CT ABD/PEL -Inject, intravenously, once for 1 dose.No IV access, insert saline lock prior to the beginning of sedation, infusion, injection of imaging exam. Discontinue saline lock post exam. If Pt. has a central line or IVAD, may access for administration according to line specific nursing protocol. Once exam is complete flush line and de-access according to line specific nursing protocol in the CT contrast administration guidelines link. - enteric contrast (will be provided with radiology test) For CT ABD/PEL W IVCON Routine order Administer, As Directed One Time Only, via Oral, Rectal, both Oral and Rectal, Enteric Tube, Stoma or Indwelling Catheter, Enteric Contrast as designated per enteric contrast guidelines - cyclobenzaprine (FLEXERIL) 10 mg tablet Take 1 tablet by mouth two times a day as needed for muscle spasm. - dicyclomine (BENTYL) 20 mg tablet Take 1 tablet by mouth before meals and at bedtime. As directed - etodolac (LODINE-XL) 500 mg 24 hr tablet Take 1 tablet by mouth once daily. - buPROPion SR (WELLBUTRIN SR) 150 mg 12 hr tablet Take 1 tablet by mouth twice daily. - fluticasone (FLONASE) 50 mcg/actuation nasal spray Use 2 Sprays in each nostril once daily. As directed for nasal and/or sinus congestion. Rinse mouth after use. - predniSONE (DELTASONE) 10 mg tablet Take 2 pills as directed for flare up of back pain. - furosemide (LASIX) 20 mg tablet Take 1-2 tablets by mouth once daily. As directed for fluid retention - calcium carbonate/vitamin D3 (CALCIUM + D ORAL) Take by mouth once daily. - cholecalciferol, vitamin D3, (VITAMIN D3 ORAL) Take by mouth once daily. - cyanocobalamin, vitamin B-12, (VITAMIN B-12 ORAL) Take by mouth once daily. - TENS UNIT ELECTRODES (TENS UNITS ELECTRODES) 2X2 pads Use electrodes with pads with TENS as directed for back pain. Dispense 1 set monthly - pregabalin 75 mg capsule Take 2 capsules by mouth twice daily. Meds Comments as of 07/07/2015: No longer taking levaquin 07/07/15. Problem List As Of Date 10/23/2023 Noted Resolved ESOPHAGEAL REFLUX [K21.9] Acute gastritis [535.0] 04/26/2015 Dysmenorrhea [N94.6] 04/23/2012 DYSTHYMIC DISORDER [F34.1] Knee pain [M25.569] 12/14/2011 04/26/2015 Degenerative arthritis of right knee [M17.11] 01/08/2012 04/26/2015 Right knee meniscal tear [S83.206A] 03/18/2012 04/26/2015 History of tobacco use [Z87.891] 07/22/2012 History of total knee arthroplasty [Z96.659] 09/05/2012 Enthesopathy of ankle and tarsus, unspecified [*10/02/2013 04/26/2015 Foot pain [M79.673] 10/02/2013 04/26/2015 Back pain [M54.9] 10/17/2013 04/26/2015 Backache, unspecified [M54.9] 11/13/2013 Viral wart, Right thumb at prox mid lateral asp*01/04/2014 04/26/2015 Dermatofibroma of left lower leg [D23.72] 01/08/2014 04/26/2015 Fibromyalgia [M79.7] Pain of upper abdomen [R10.10] 09/23/2015 12/17/2017 Chronic cholecystitis without calculus [K81.1] 11/10/2015 12/17/2017 Primary osteoarthritis of first carpometacarpal*12/13/2017 Primary osteoarthritis of first carpometacarpal*12/13/2017 Pain of right thumb [M79.644] 12/13/2017 Vitreous floaters of both eyes [H43.393] 07/25/2018 Punctate keratitis, bilateral [H16.143] 07/25/2018 Presbyopia [H52.4] 07/25/2018 Encounter Status:Closed by DAWOOD HALL LPN on 10/23/23 Normal [facility] CNOVon 10-19-2023 CNOV Office Visit (JAEL ) IVAN KHAN ([id number]) 1965 F NFR Date Time Provider Department 10/19/23 11:00 AM CAROLYN HOYOS During your visit today, we recorded the following information about you: Pulse Blood pressure Weight Height 77/minute 103/62 68.5 kg 1.638 m Carolyn Hoyos DO 10/19/2023 12:21 PM Signed Chief Compliant: follow up constipation, abd pain. HPI: Ivan Lozano Satish is a 58 year old female with PMH significant for GERD, fibromylagia, OA, dysthymic d/o, hx of diverticulosis and diverticulitis, hx of cdiff x 3-responded to therapy per pt who presents for follow up constipation, abd pain. Reviewed her CT abd/pel from 07/02. She reports was doing well actually until the last 4-5 days started having lower abd pain-mostly in the LLQ. Having bm on the miralax BID, senna 2 tabs BID and add metamucil but more incomplete also in this time. Feels different than her diverticulitis pain. No fevers, chills, nausea, vomiting, signs of bleeding. Took one of her dghts linzess tabs which she did feel helped her. No new complaints otherwise. 07/06/23 CT ABD/PEL W IVCON No acute process in the abdomen or pelvis. Inflammatory changes in the sigmoid colon, noted on the prior study, are no longer seen. 06/22/23 last OV notes as follows Ivan Khan is a 58 year old female with PMH significant for GERD, fibromylagia, OA, dysthymic d/o, hx of diverticulosis and diverticulitis, hx of cdiff x 3-responded to therapy per pt who presents for constipation, diarrhea, generalized abdominal pain. Has been taking miralax and senna. Feels like she is going more frequently than previously but still has days where she does not go at all. Stools are still loose but pt taking miralax. Abd pain is better but still present. No new complaints otherwise. -continue miralax BID -increase senna to 2 tabs in the morning and 1 tab at night. -fiber rich diet -repeat CT to rule out smoldering diverticulitis, stricture, other 01/31/23 XR ABDOMEN 1V SUPINE Nonobstructive bowel gas pattern. 01/24/23 CTAP w/IV cpntrast was done for lower abdominal pain and h/o diverticulitis No acute abnormalities 02/17/22 Colonoscopy was done for Abdominal pain in the left lower quadrant, Abnormal CT of the GI tract, per Vero Hill MD Diverticulosis in the sigmoid colon. Non-bleeding external and internal hemorrhoids. No specimens collected. 12/17/15 EGD/colonoscopy were done per Dr. Morgan for epigastric pain, GERD and change in bowel habits Normal examined duodenum. Gastritis. Biopsied. Normal esophagus The entire examined colon is normal on direct and retroflexion views. The entire examined colon is normal. Biopsied. Diverticulosis in the sigmoid colon Path as follows: 1. Gastric antrum, biopsy Reactive gastropathy. 2. Cecum and sigmoid colon, biopsies No significant pathologic change. - No evidence of lymphocytic or collagenous colitis 10/28/15 path from cholecystectomy Gallbladder, cholecystectomy - Gallbladder parenchyma with mild chronic inflammation. Component Latest Ref Rng AND Units 01/31/2023 03/21/2023 C. difficile PCR Negative for C. difficile toxin by PCR Positive for C. difficile toxin by PCR (A) Positive for C. difficile toxin by PCR (A) Occult Blood, Stool Negative Negative C. difficile Toxin EIA Negative for C. difficile toxin C. difficile toxin NOT DETECTED by EIA. C. difficile toxin NOT DETECTED by EIA. Component Latest Ref Rng AND Units 11/28/2022 05/16/2023 WBC 3.70 - 11.00 k/uL 7.95 10.13 RBC 3.90 - 5.20 m/uL 4.33 4.93 Hemoglobin 11.5 - 15.5 g/dL 12.4 13.9 Hematocrit 36.0 - 46.0 % 38.3 43.0 MCV 80.0 - 100.0 fL 88.5 87.2 MCH 26.0 - 34.0 pg 28.6 28.2 MCHC 30.5 - 36.0 g/dL 32.4 32.3 RDW-CV 11.5 - 15.0 % 12.7 12.9 Platelet Count 150 - 400 k/uL 304 342 MPV 9.0 - 12.7 fL 9.5 10.2 NRBC /100 WBC 0.0 Absolute nRBC <0.01 k/uL <0.01 <0.01 Neut% % 65.5 Abs Neut (ANC) 1.45 - 7.50 k/uL 6.64 Lymph% % 27.6 Abs Lymph 1.00 - 4.00 k/uL 2.80 [place]% % 4.3 Abs [place] <0.87 k/uL 0.44 Eosin% % 0.9 Abs Eosin <0.46 k/uL 0.09 Baso% % 1.7 Abs Baso <0.11 k/uL 0.17 (H) Platelet Estimate Adequate Red Cell Morph Reviewed: see results of individual morphologies Ovalocytes Few DTYPE Manual Protein, Total 6.3 - 8.0 g/dL 6.7 7.1 Albumin 3.9 - 4.9 g/dL 4.2 4.4 Calcium 8.5 - 10.2 mg/dL 9.2 9.7 Bilirubin, Total 0.2 - 1.3 mg/dL 0.4 0.3 Alkaline Phosphatase 34 - 123 U/L 70 87 AST 13 - 35 U/L 19 17 ALT 7 - 38 U/L 14 10 Glucose 74 - 99 mg/dL 111 (H) 103 (H) BUN 7 - 21 mg/dL 9 12 Creatinine 0.58 - 0.96 mg/dL 0.67 0.71 Sodium 136 - 144 mmol/L 138 137 Potassium 3.7 - 5.1 mmol/L 3.9 4.4 Chloride 97 - 105 mmol/L 101 103 CO2 22 - 30 mmol/L 27 23 Anion Gap 9 - 18 mmol/L 10 11 eGFR >=60 mL/min/1.73mA? 101 98 Cholesterol, Total <200 mg/dL 186 Triglyceride <150 mg/dL 104 HDL Cholesterol >39 mg/dL 85 (more content not included)... Normal [facility] CNOVon 08-03-2023 CNOV Office Visit (INTMWS ) IVAN KHAN ([id number]) 1965 F NFR Date Time Provider Department 08/03/23 9:20 AM KATEY CHESTER INTMWS During your visit today, we recorded the following information about you: Temperature Pulse Respiration Blood pressure 97.4 degrees 73/minute 18/minute 122/80 Weight 70.3 kg Katey Chester MD 09/07/2023 1:38 AM Signed This note was created using Netcordiar[employer]. Subjective Ivan Khan is a 58 year old female. Patient presents with: F/U 4 month SUBJECTIVE: Ivan Khan is a 58 year old year old lady here today for 4 month follow up appointment for review of medical conditions. [facility] paperwork reviewed. Will fax as directed. Still waiting to get back to work after healing from shoulder surgery. Plans for [place] travel. Ongoing GI issues going back and forth between diarrhea and constipation. Working with GI--trying to get appointment. PAST MEDICAL HISTORY Diagnosis Date Acute gastritis Carpal tunnel syndrome Degenerative arthritis of right knee Dysmenorrhea Dysthymic disorder Depression (non-psychotic) Esophageal reflux Fibromyalgia 2006 Headache(784.0) Knee pain Rt. Meniscus tear Rt knee Tenosynovitis of elbow right Tinnitus Current Outpatient Medications Medication Sig cyclobenzaprine (FLEXERIL) 10 mg tablet Take 1 tablet by mouth two times a day as needed for muscle spasm. clonazePAM (KLONOPIN) 0.5 mg tablet May take 1-2 tablets by mouth at bedtime as needed (insomnia and anxiety). May also take 1 tablet two times a day as needed (insomnia and anxiety). Do all this for 30 days. dicyclomine (BENTYL) 20 mg tablet Take 1 tablet by mouth before meals and at bedtime. As directed etodolac (LODINE-XL) 500 mg 24 hr tablet Take 1 tablet by mouth once daily. buPROPion SR (WELLBUTRIN SR) 150 mg 12 hr tablet Take 1 tablet by mouth twice daily. fluticasone (FLONASE) 50 mcg/actuation nasal spray Use 2 Sprays in each nostril once daily. As directed for nasal and/or sinus congestion. Rinse mouth after use. predniSONE (DELTASONE) 10 mg tablet Take 2 pills as directed for flare up of back pain. furosemide (LASIX) 20 mg tablet Take 1-2 tablets by mouth once daily. As directed for fluid retention calcium carbonate/vitamin D3 (CALCIUM + D ORAL) Take by mouth once daily. cholecalciferol, vitamin D3, (VITAMIN D3 ORAL) Take by mouth once daily. cyanocobalamin, vitamin B-12, (VITAMIN B-12 ORAL) Take by mouth once daily. TENS UNIT ELECTRODES (TENS UNITS ELECTRODES) 2X2 pads Use electrodes with pads with TENS as directed for back pain. Dispense 1 set monthly pregabalin 75 mg capsule Take 2 capsules by mouth twice daily. iv contrast (will be provided with radiology test) CT ABD/PEL -Inject, intravenously, once for 1 dose.No IV access, insert saline lock prior to the beginning of sedation, infusion, injection of imaging exam. Discontinue saline lock post exam. If Pt. has a central line or IVAD, may access for administration according to line specific nursing protocol. Once exam is complete flush line and de-access according to line specific nursing protocol in the CT contrast administration guidelines link. (Patient not taking: Reported on 08/03/2023) enteric contrast (will be provided with radiology test) For CT ABD/PEL W IVCON Routine order Administer, As Directed One Time Only, via Oral, Rectal, both Oral and Rectal, Enteric Tube, Stoma or Indwelling Catheter, Enteric Contrast as designated per enteric contrast guidelines (Patient not taking: Reported on 08/03/2023) No current facility-administered medications for this visit. Review of Systems Objective BP 122/80 Pulse 73 Temp 36.3 ?C (97.4 ?F) Resp 18 Wt 70.3 kg (155 lb) SpO2 100% BMI 26.61 kg/m? Last 5 Encounter Wt Readings: Date: Wt: 08/03/2023 70.3 kg (155 lb) 06/22/2023 70.3 kg (155 lb) 05/25/2023 70.3 kg (155 lb) 03/28/2023 68.9 kg (152 lb) 01/31/2023 68.5 kg (151 lb) Last 1 Waist Readings: Date: Waist: 04/26/15 38 (96 cm.) Estimated body mass index is 26.61 kg/m? as calculated from the following: Height as of 01/16/22: 162.6 cm (5' 4). Weight as of this encounter: 70.3 kg (155 lb). Last 5 Encounter BP Readings: Date: BP: 08/03/2023 122/80 06/22/2023 135/84 05/25/2023 121/81 03/28/2023 110/60 01/31/2023 110/70 Physical Exam Constitutional: Appearance: Normal appearance. HENT: Head: Normocephalic. Eyes: Conjunctiva/sclera: Conjunctivae normal. Cardiovascular: Rate and Rhythm: Normal rate and regular rhythm. Heart sounds: Normal heart sounds. Pulmonary: Effort: Pulmonary effort is normal. Breath sounds: Normal breath sounds. Abdominal: General: Abdomen is flat. Bowel sounds are normal. Palpations: Abdomen is soft. Musculoskeletal: Right lower leg: No edema. Left lower leg: No edema. Skin: General: Skin is (more content not included)... [facility] IV[facility] ([id number]) 1965 F NFR Date Time Provider Department 07/06/23 CAROLYN HOYOS During your visit today, we recorded the following information about you: Kerrie Pizano RN 07/06/2023 3:05 PM Signed ----- Message from Carolyn Hoyos DO sent at 07/06/2023 1:58 PM EDT ----- Please review results of CT with pt which reveal no acute abnormalities and resolution of previous inflammation seen in the sigmoid colon. Thanks cl Kerrie Pizano RN 07/06/2023 3:05 PM Signed Patient aware of results and/or instructions per Dr. Soha Pizano RN Allergies As of Date: 07/06/2023 Noted Allergy Reaction AUGMENTIN (AMOXICILLIN-POT CLAVUL*05/11/2005 2 - Rash ELAVIL (AMITRIPTYLINE) 03/25/2021 5 - Intolerance Comments: Woke up with panic attacks MORPHINE 01/08/2012 11 - Vomiting PENICILLINS 05/11/2005 14 - Other: See Comments Comments: augmentin cross sensitivity Date Reviewed: 07/03/2023 Reviewed by: Jazmin Avelar, RT(R) - Fully Assessed Reason for Visit: Results [95] Prescriptions as of 07/06/2023 - iv contrast (will be provided with radiology test) CT ABD/PEL -Inject, intravenously, once for 1 dose.No IV access, insert saline lock prior to the beginning of sedation, infusion, injection of imaging exam. Discontinue saline lock post exam. If Pt. has a central line or IVAD, may access for administration according to line specific nursing protocol. Once exam is complete flush line and de-access according to line specific nursing protocol in the CT contrast administration guidelines link. - enteric contrast (will be provided with radiology test) For CT ABD/PEL W IVCON Routine order Administer, As Directed One Time Only, via Oral, Rectal, both Oral and Rectal, Enteric Tube, Stoma or Indwelling Catheter, Enteric Contrast as designated per enteric contrast guidelines - cyclobenzaprine (FLEXERIL) 10 mg tablet Take 1 tablet by mouth two times a day as needed for muscle spasm. - clonazePAM (KLONOPIN) 0.5 mg tablet May take 1-2 tablets by mouth at bedtime as needed (insomnia and anxiety). May also take 1 tablet two times a day as needed (insomnia and anxiety). Do all this for 30 days. - dicyclomine (BENTYL) 20 mg tablet Take 1 tablet by mouth before meals and at bedtime. As directed - etodolac (LODINE-XL) 500 mg 24 hr tablet Take 1 tablet by mouth once daily. - buPROPion SR (WELLBUTRIN SR) 150 mg 12 hr tablet Take 1 tablet by mouth twice daily. - fluticasone (FLONASE) 50 mcg/actuation nasal spray Use 2 Sprays in each nostril once daily. As directed for nasal and/or sinus congestion. Rinse mouth after use. - predniSONE (DELTASONE) 10 mg tablet Take 2 pills as directed for flare up of back pain. - furosemide (LASIX) 20 mg tablet Take 1-2 tablets by mouth once daily. As directed for fluid retention - calcium carbonate/vitamin D3 (CALCIUM + D ORAL) Take by mouth once daily. - cholecalciferol, vitamin D3, (VITAMIN D3 ORAL) Take by mouth once daily. - cyanocobalamin, vitamin B-12, (VITAMIN B-12 ORAL) Take by mouth once daily. - TENS UNIT ELECTRODES (TENS UNITS ELECTRODES) 2X2 pads Use electrodes with pads with TENS as directed for back pain. Dispense 1 set monthly - pregabalin 75 mg capsule Take 2 capsules by mouth twice daily. Meds Comments as of 07/07/2015: No longer taking levaquin 07/07/15. Problem List As Of Date 07/06/2023 Noted Resolved ESOPHAGEAL REFLUX [K21.9] Acute gastritis [535.0] 04/26/2015 Dysmenorrhea [N94.6] 04/23/2012 DYSTHYMIC DISORDER [F34.1] Knee pain [M25.569] 12/14/2011 04/26/2015 Degenerative arthritis of right knee [M17.11] 01/08/2012 04/26/2015 Right knee meniscal tear [S83.206A] 03/18/2012 04/26/2015 History of tobacco use [Z87.891] 07/22/2012 History of total knee arthroplasty [Z96.659] 09/05/2012 Enthesopathy of ankle and tarsus, unspecified [*10/02/2013 04/26/2015 Foot pain [M79.673] 10/02/2013 04/26/2015 Back pain [M54.9] 10/17/2013 04/26/2015 Backache, unspecified [M54.9] 11/13/2013 Viral wart, Right thumb at prox mid lateral asp*01/04/2014 04/26/2015 Dermatofibroma of left lower leg [D23.72] 01/08/2014 04/26/2015 Fibromyalgia [M79.7] Pain of upper abdomen [R10.10] 09/23/2015 12/17/2017 Chronic cholecystitis without calculus [K81.1] 11/10/2015 12/17/2017 Primary osteoarthritis of first carpometacarpal*12/13/2017 Primary osteoarthritis of first carpometacarpal*12/13/2017 Pain of right thumb [M79.644] 12/13/2017 Vitreous floaters of both eyes [H43.393] 07/25/2018 Punctate keratitis, bilateral [H16.143] 07/25/2018 Presbyopia [H52.4] 07/25/2018 Encounter Status:Closed by KERRIE PIZANO RN on 07/06/23 Normal [facility] CT ABD/PEL W IVCONon 10-25-[address] ABD/PEL W IVCON * * *Final Report* * * DATE OF EXAM: Jul 04 2023 3:49PM [facility] 0530 - CT ABD/PEL W IVCON / PROCEDURE REASON: multiple diagnoses * * * * Physician Interpretation * * * * EXAMINATION: CT ABDOMEN AND PELVIS WITH IV CONTRAST CLINICAL HISTORY: Lower abdominal pain TECHNIQUE: CT of the abdomen and pelvis was performed using standard technique, scanning from just above the dome of the diaphragm to the symphysis pubis. MQ: CTAP_3 Contrast: IV: 100 ml of Omnipaque 300 Oral: 12 ml of Omni 240 10-25ml diluted with water CT Radiation dose: Integrated Dose-length product (DLP) for this visit = 375 mGy*cm. CT Dose Reduction Employed: Automated exposure control(AEC) and iterative recon COMPARISON: 12/21/2021. RESULT: Liver: A few subcentimeter low density foci are likely benign. Stable. No suspicious hepatic lesion Biliary: No bile duct dilation. Spleen: No mass. No splenomegaly. Pancreas: No mass or duct dilation. Adrenals: No mass. Kidneys: No suspicious mass or gross obstructive uropathy GI tract: No dilation or wall thickening. The appendix appears normal Lymph nodes: No abdominal or pelvic lymphadenopathy. Mesentery/Peritoneum: No ascites or mass. Retroperitoneum: No mass. Vasculature: - Abdominal aorta and iliac arteries: No aneurysm. - Celiac and SMA: Patent without stenosis. - Portal venous system (SMV, splenic vein, portal vein and branches): Patent. - Hepatic veins: Patent. Pelvis: No mass, ascites or fluid collection. Bones/Soft Tissues: No significant finding. Lower thorax: Minimal linear fibrosis at the left lung base. Photographic Equipment Inspector (topogram) images: No additional findings. IMPRESSION: No acute process in the abdomen or pelvis. Inflammatory changes in the sigmoid colon, noted on the prior study, are no longer seen. Electric Cutter Operator: JUMANA Transcribe Date/Time: Jul 06 2023 1:17P Dictated by : DENA CORDON MD This examination was interpreted and the report reviewed and electronically signed by: DENA CORDON MD on Jul 06 2023 1:24PM EST [id number] Normal [facility] CNOVon 06-22-2023 CNOV Office Visit (GASTNO ) IVAN KHAN ([id number]) 1965 F NFR Date Time Provider Department 06/22/23 12:20 PM CAROLYN HOYOS During your visit today, we recorded the following information about you: Pulse Blood pressure Weight 77/minute 135/84 70.3 kg Carolyn Hoyos DO 06/25/2023 3:30 PM Signed Chief Compliant: follow up irregular bm and abd pain. HPI: Ivanmarta Khan is a 58 year old female with PMH significant for GERD, fibromylagia, OA, dysthymic d/o, hx of diverticulosis and diverticulitis, hx of cdiff x 3-responded to therapy per pt who presents for constipation, diarrhea, generalized abdominal pain. Has been taking miralax and senna. Feels like she is going more frequently than previously but still has days where she does not go at all. Stools are still loose but pt taking miralax. Abd pain is better but still present. No new complaints otherwise. 05/25/23 last office visit notes as follows: Patient is a 58 year old year old female with PMH significant for GERD, fibromylagia, OA, dysthymic d/o, hx of diverticulosis and diverticulitis, hx of cdiff x 3-responded to therapy per pt who presents for constipation, diarrhea, generalized abdominal pain as described above. -increase miralax to BID -continue senna daily -fiber rich diet and increased water intake -follow up in 6 weeks. If not better, will consider repeat imaging. May also need repeat colonoscopy but pt reluctant. 01/31/23 XR ABDOMEN 1V SUPINE Nonobstructive bowel gas pattern. 01/24/23 CTAP w/IV cpntrast was done for lower abdominal pain and h/o diverticulitis No acute abnormalities 02/17/22 Colonoscopy was done for Abdominal pain in the left lower quadrant, Abnormal CT of the GI tract, per Vero Hill MD Diverticulosis in the sigmoid colon. Non-bleeding external and internal hemorrhoids. No specimens collected. 12/17/15 EGD/colonoscopy were done per Dr. Morgan for epigastric pain, GERD and change in bowel habits Normal examined duodenum. Gastritis. Biopsied. Normal esophagus The entire examined colon is normal on direct and retroflexion views. The entire examined colon is normal. Biopsied. Diverticulosis in the sigmoid colon Path as follows: 1. Gastric antrum, biopsy Reactive gastropathy. 2. Cecum and sigmoid colon, biopsies No significant pathologic change. - No evidence of lymphocytic or collagenous colitis 10/28/15 path from cholecystectomy Gallbladder, cholecystectomy - Gallbladder parenchyma with mild chronic inflammation. Component Latest Ref Rng AND Units 01/31/2023 03/21/2023 C. difficile PCR Negative for C. difficile toxin by PCR Positive for C. difficile toxin by PCR (A) Positive for C. difficile toxin by PCR (A) Occult Blood, Stool Negative Negative C. difficile Toxin EIA Negative for C. difficile toxin C. difficile toxin NOT DETECTED by EIA. C. difficile toxin NOT DETECTED by EIA. Component Latest Ref Rng AND Units 11/28/2022 03/28/2023 05/16/2023 WBC 3.70 - 11.00 k/uL 7.95 10.13 RBC 3.90 - 5.20 m/uL 4.33 4.93 Hemoglobin 11.5 - 15.5 g/dL 12.4 13.9 Hematocrit 36.0 - 46.0 % 38.3 43.0 MCV 80.0 - 100.0 fL 88.5 87.2 MCH 26.0 - 34.0 pg 28.6 28.2 MCHC 30.5 - 36.0 g/dL 32.4 32.3 RDW-CV 11.5 - 15.0 % 12.7 12.9 Platelet Count 150 - 400 k/uL 304 342 MPV 9.0 - 12.7 fL 9.5 10.2 NRBC /100 WBC 0.0 Absolute nRBC <0.01 k/uL <0.01 <0.01 Neut% % 65.5 Abs Neut (ANC) 1.45 - 7.50 k/uL 6.64 Lymph% % 27.6 Abs Lymph 1.00 - 4.00 k/uL 2.80 [place]% % 4.3 Abs [place] <0.87 k/uL 0.44 Eosin% % 0.9 Abs Eosin <0.46 k/uL 0.09 Baso% % 1.7 Abs Baso <0.11 k/uL 0.17 (H) Platelet Estimate Adequate Red Cell Morph Reviewed: see results of individual morphologies Ovalocytes Few DTYPE Manual Protein, Total 6.3 - 8.0 g/dL 6.7 7.1 Albumin 3.9 - 4.9 g/dL 4.2 4.4 Calcium 8.5 - 10.2 mg/dL 9.2 9.7 Bilirubin, Total 0.2 - 1.3 mg/dL 0.4 0.3 Alkaline Phosphatase 34 - 123 U/L 70 87 AST 13 - 35 U/L 19 17 ALT 7 - 38 U/L 14 10 Glucose 74 - 99 mg/dL 111 (H) 103 (H) BUN 7 - 21 mg/dL 9 12 Creatinine 0.58 - 0.96 mg/dL 0.67 0.71 Sodium 136 - 144 mmol/L 138 137 Potassium 3.7 - 5.1 mmol/L 3.9 4.4 Chloride 97 - 105 mmol/L 101 103 CO2 22 - 30 mmol/L 27 23 Anion Gap 9 - 18 mmol/L 10 11 eGFR >=60 mL/min/1.73mA? 101 98 Cholesterol, Total <200 mg/dL 186 Triglyceride <150 mg/dL 104 HDL Cholesterol >39 mg/dL 85 Non HDL Cholesterol <130 mg/dL 101 Fasting Time hrs 12 VLDL Cholesterol <30 mg/dL 21 TC:HDL Ratio <5.10 2.19 LDL Cholesterol <100 mg/dL 80 LDL:HDL Ratio <2.54 0.94 Hemoglobin A1C 4.3 - 5.6 % 5.1 Estimated Average Glucose mg/dL 100 Hemoglobin A1C (POCT) 4.2 - 5.6 % 5.4 TSH 0.270 - 4.200 mIU/L 0.460 Free T4 0.9 - 1.7 ng/dL 1.3 Free T3 2.3 - 4.1 pg/mL 3.0 buPROPion SR (WELLBUTRIN SR) 150 mg 12 hr tablet Take 1 tablet by mouth twice daily. calcium carbonate/vitamin D3 (CALCIUM + D ORAL) Take by bib (more content not included)... Normal [facility] CNOVon 05-25-2023 CNOV Office Visit (JAEL ) IVAN KHAN ([id number]) 1965 F NFR Date Time Provider Department 05/25/23 9:20 AM CAROLYN HOYOS During your visit today, we recorded the following information about you: Pulse Blood pressure Weight 66/minute 121/81 70.3 kg Carolyn Hoyos DO 05/25/2023 2:49 PM Signed Chief Compliant: Consultation requested by Dr. Katey Chester MD for an opinion regarding irregular bm. My final recommendations will be communicated back to the requesting physician by way of shared Medical record or letter to requesting physician via US mail. HPI: Ivan Lozano Satish is a 58 year old female with PMH significant for GERD, fibromylagia, OA, dysthymic d/o, hx of diverticulosis and diverticulitis, hx of cdiff x 3-responded to therapy per pt who presents for constipation, diarrhea, generalized abdominal pain. Pt reports that her bm have been very irregular since she has had diverticulitis and cdiff x 3 in the last yr. Ranges from constipation for several days followed by diarrhea for several days. Has associated lower abd pain-more so with the constipation. No fevers, chills, nausea, vomiting, dysphagia, sob, cp, palpitations, signs of bleeding. Has lost some wt since onset of symptoms-about 10 lbs since 11/30. Not eating as much due to symptoms. No fam hx of GI malignancy. Reviewed her most recent labs, imaging. Had colonoscopy in 03/01-reviewed below. Taking bentyl 4 times per day, miralax once daily, and senna with incomplete relief in symptoms. 03/28/23 consult to GI placed per Katey Chester MD for h/o c-diff, constipation, diarrhea, generalized abdominal pain Dicyclomine has been helping. Vancomycin had helped for first 2 days. Still on med. Diarrhea and constipation back and forth. If does not eat, does not get pain. If eats, gets constipation. Feels better when has diarrhea actually. Drinking bone broth from online tolerated. Has lost weight since November (about 10 pound). 01/31/23 XR ABDOMEN 1V SUPINE Nonobstructive bowel gas pattern. 01/24/23 CTAP w/IV cpntrast was done for lower abdominal pain and h/o diverticulitis No acute abnormalities 02/17/22 Colonoscopy was done for Abdominal pain in the left lower quadrant, Abnormal CT of the GI tract, per Vero Hill MD Diverticulosis in the sigmoid colon. Non-bleeding external and internal hemorrhoids. No specimens collected. 12/17/15 EGD/colonoscopy were done per Dr. Morgan for epigastric pain, GERD and change in bowel habits Normal examined duodenum. Gastritis. Biopsied. Normal esophagus The entire examined colon is normal on direct and retroflexion views. The entire examined colon is normal. Biopsied. Diverticulosis in the sigmoid colon Path as follows: 1. Gastric antrum, biopsy Reactive gastropathy. 2. Cecum and sigmoid colon, biopsies No significant pathologic change. - No evidence of lymphocytic or collagenous colitis 10/28/15 path from cholecystectomy Gallbladder, cholecystectomy - Gallbladder parenchyma with mild chronic inflammation. Component Latest Ref Rng AND Units 01/31/2023 03/21/2023 C. difficile PCR Negative for C. difficile toxin by PCR Positive for C. difficile toxin by PCR (A) Positive for C. difficile toxin by PCR (A) Occult Blood, Stool Negative Negative C. difficile Toxin EIA Negative for C. difficile toxin C. difficile toxin NOT DETECTED by EIA. C. difficile toxin NOT DETECTED by EIA. 01/12/23 treated with Flagyl and Cipro x 7 days 01/31/23 treated with Dificid x 10 days 03/23/23 treated with Vancomycin lq 125 mg QID X 14 days Component Latest Ref Rng AND Units 11/28/2022 05/16/2023 WBC 3.70 - 11.00 k/uL 7.95 10.13 RBC 3.90 - 5.20 m/uL 4.33 4.93 Hemoglobin 11.5 - 15.5 g/dL 12.4 13.9 Hematocrit 36.0 - 46.0 % 38.3 43.0 MCV 80.0 - 100.0 fL 88.5 87.2 MCH 26.0 - 34.0 pg 28.6 28.2 MCHC 30.5 - 36.0 g/dL 32.4 32.3 RDW-CV 11.5 - 15.0 % 12.7 12.9 Platelet Count 150 - 400 k/uL 304 342 MPV 9.0 - 12.7 fL 9.5 10.2 NRBC /100 WBC 0.0 Absolute nRBC <0.01 k/uL <0.01 <0.01 Neut% % 65.5 Abs Neut (ANC) 1.45 - 7.50 k/uL 6.64 Lymph% % 27.6 Abs Lymph 1.00 - 4.00 k/uL 2.80 [place]% % 4.3 Abs [place] <0.87 k/uL 0.44 Eosin% % 0.9 Abs Eosin <0.46 k/uL 0.09 Baso% % 1.7 Abs Baso <0.11 k/uL 0.17 (H) Platelet Estimate Adequate Red Cell Morph Reviewed: see results of individual morphologies Ovalocytes Few DTYPE Manual Protein, Total 6.3 - 8.0 g/dL 6.7 7.1 Albumin 3.9 - 4.9 g/dL 4.2 4.4 Calcium 8.5 - 10.2 mg/dL 9.2 9.7 Bilirubin, Total 0.2 - 1.3 mg/dL 0.4 0.3 Alkaline Phosphatase 34 - 123 U/L 70 87 AST 13 - 35 U/L 19 17 ALT 7 - 38 U/L 14 10 Glucose 74 - 99 mg/dL 111 (H) 103 (H) BUN 7 - 21 mg/dL 9 12 Creatinine 0.58 - 0.96 mg/dL 0.67 0.71 Sodium 136 - 144 mmol/L 138 137 Potassium 3.7 - 5.1 mmol/L 3.9 4.4 Chloride 97 - 105 mmol/L 101 103 CO2 22 - 30 mmol/L 27 23 Anion Gap 9 - 18 mmol/L 10 1 (more content not included)... Normal [facility] CBC W Auto Differential pane l (Bld)on 05-17-2023 Basophils (Bld) [#/Vol] 0.17 10*3/uL High <0.11 k/uL [facility] Basophils/100 WBC (Bld) 1.7 % [facility] Differential cell count method Nom (Bld) Manual [facility] Eosinophils (Bld) [#/Vol] 0.09 10*3/uL <0.46 k/uL [facility] Eosinophils/100 WBC (Bld) 0.9 % [facility] Erythrocyte distribution width (RBC) [Ratio] 12.9 % 11.5 - 15.0 % [facility] Hematocrit (Bld) [Volume fraction] 43.0 % 36.0 - 46.0 % [facility] Hemoglobin (Bld) [Mass/Vol] 13.9 g/dL 11.5 - 15.5 g/dL [facility] Lymphocytes (Bld) [#/Vol] 2.80 10*3/uL 1.00 - 4.00 k/uL [facility] Lymphocytes/100 WBC (Bld) 27.6 % [facility] MCH (RBC) [Entitic mass] 28.2 pg 26.0 - 34.0 pg [facility] MCHC (RBC) [Mass/Vol] 32.3 g/dL 30.5 - 36.0 g/dL [facility] MCV (RBC) [Entitic vol] 87.2 fL 80.0 - 100.0 fL [facility] Monocytes (Bld) [#/Vol] 0.44 10*3/uL <0.87 k/uL [facility] Monocytes/100 WBC (Bld) 4.3 % [facility] Neutrophils (Bld) [#/Vol] 6.64 10*3/uL 1.45 - 7.50 k/uL [facility] Neutrophils/100 WBC (Bld) 65.5 % [facility] Nucleated RBC (Bld) [#/Vol] <0.01 k/uL [facility] Nucleated RBC/100 WBC (Bld) [Ratio] 0.0 /100 WBC [facility] Ovalocytes LM Ql (Bld) Few [facility] Platelet mean volume (Bld) [Entitic vol] 10.2 fL 9.0 - 12.7 fL [facility] Platelets (Bld) [#/Vol] 342 10*3/uL 150 - 400 k/uL [facility] Platelets Estimate (Bld) [#/Vol] Adequate [facility] RBC (Bld) [#/Vol] 4.93 10*6/uL 3.90 - 5.2 0 m/uL [facility] Red Cell Morph Reviewed: see result s of individual morphologies [facility] WBC (Bld) [#/Vol] 10.13 10*3/uL 3.70 - 11.00 k/uL [facility] T3 FREE Don 05-17-2023 Free T3 [Mass/Vol] 3.0 pg/mL 2.3 - 4.1 pg/mL [facility] T4 FREE/FREE THYROXon 2022 Free T4 [Mass/Vol] 1.3 ng/dL 0.9 - 1.7 ng/dL [facility] TSH Don 05-17-2023 TSH Qn 0.460 m[IU]/L 0.270 - 4.200 mIU/L [facility] CBC W Auto Differential pane l (Bld)on 05-16-2023 Basophils (Bld) [#/Vol] 0.17 10*3/uL High <0.11 [facility] Comment on above: Order Comment: Speci men Type: BLOOD SPECIMENOrdering Facility: [facility] Address: [address] [place] [id number] Performed By: #### 5 7021-8 ####[facility] MILLTOWNCLIA [id number] [address] LABCLIA [id number] [place] [address] [place] Basophils/100 WBC (Bld) 1.7 % Normal [facility] Comment on above: Order Comment: Speci men Type: BLOOD SPECIMENOrdering Facility: [facility] Address: [address] Performed By: #### 5 7021-8 ####[facility] MILLWNCLIA [id number] [address] LABCLIA [id number] [place] [address] [place] Differential cell count method Nom (Bld) Manual Normal [facility] Comment on above: Order Comment: Speci men Type: BLOOD SPECIMENOrdering Facility: [facility] Address: [address] [place], [place] [address] Performed By: #### 5 7021-8 ####[facility] MILLWNCLIA [id number] [address] LABCLIA [id number] [place] [address] [place] Eosinophils (Bld) [#/Vol] 0.09 10*3/uL Normal <0.46 [facility] Comment on above: Order Comment: Speci men Type: BLOOD SPECIMENOrdering Facility: [facility] Address: [address] [place] [address] Performed By: #### 5 7021-8 ####[facility] MILLTOWNCLIA [id number] [address] LABCLIA [id number] [place] [address] [place] Eosinophils/100 WBC (Bld) 0.9 % Normal [facility] Comment on above: Order Comment: Speci men Type: BLOOD SPECIMENOrdering Facility: [facility] Address: [address] [place] [address] Performed By: #### 5 7021-8 ####[facility] HOSPITALWNCLIA [id number] [address] LABCLIA [id number] [place] [address] [place] Erythrocyte distribution width (RBC) [Ratio] 12.9 % Normal 11.5-15.0 [facility] Comment on above: Order Comment: Speci men Type: BLOOD SPECIMENOrdering Facility: [facility] Address: [address] [place] [address] Performed By: #### 5 7021-8 ####[facility] HOSPITALWNCLIA [id number] [address] LABCLIA [id number] [place] [address] [place] Hematocrit (Bld) [Volume fraction] 43.0 % Normal 36.0-46.0 [facility] Comment on above: Order Comment: Speci men Type: BLOOD SPECIMENOrdering Facility: [facility] Address: [address] [place], [place] [address] Performed By: #### 5 7021-8 ####[facility] MILLTOWNCLIA [id number] [address] LABCLIA [id number] [place] [address] [place] Hemoglobin (Bld) [Mass/Vol] 13.9 g/dL Normal 11.5-15.5 [facility] Comment on above: Order Comment: Speci men Type: BLOOD SPECIMENOrdering Facility: [facility] Address: [address] [place] [address] Performed By: #### 5 7021-8 ####[facility] MILLTOWNCLIA [id number] [address] LABCLIA [id number] [place] [address] [place] Lymphocytes (Bld) [#/Vol] 2.80 10*3/uL Normal 1.00-4.00 [facility] Comment on above: Order Comment: Speci men Type: BLOOD SPECIMENOrdering Facility: [facility] Address: [address] [place] [address] Performed By: #### 5 7021-8 ####[facility] MILLTOWNCLIA [id number] [address] LABCLIA [id number] [address] [place] Lymphocytes/100 WBC (Bld) 27.6 % Normal [facility] Comment on above: Order Comment: Speci men Type: BLOOD SPECIMENOrdering Facility: [facility] Address: [address] [place] [address] Performed By: #### 5 7021-8 ####[facility] HOSPITALWNCLIA [id number] [address] LABCLIA [id number] [place] [address] [place] MCH (RBC) [Entitic mass] 28.2 pg Normal 26.0-34.0 [facility] Comment on above: Order Comment: Speci men Type: BLOOD SPECIMENOrdering Facility: [facility] Address: [address] [place] [address] Performed By: #### 5 7021-8 ####[facility] MILLTOWNCLIA [id number] [address] LABCLIA [id number] [place] [address] [place] MCHC (RBC) [Mass/Vol] 32.3 g/dL Normal 30.5-36.0 [facility] Comment on above: Order Comment: Speci men Type: BLOOD SPECIMENOrdering Facility: [facility] Address: [address] [address] Performed By: #### 5 7021-8 ####[facility] HOSPITALWNCLIA [id number] [address] LABCLIA [id number] [place] [address] [place] MCV (RBC) [Entitic vol] 87.2 fL Normal 80.0-100.0 [facility] Comment on above: Order Comment: Speci men Type: BLOOD SPECIMENOrdering Facility: [facility] Address: [address] [place], [place] [address] Performed By: #### 5 7021-8 ####[facility] HOS[facility]ITALWNCLIA [id number] [address] LABCLIA [id number] [place] [address] [place] Monocytes (Bld) [#/Vol] 0.44 10*3/uL Normal <0.87 [facility] Comment on above: Order Comment: Speci men Type: BLOOD SPECIMENOrdering Facility: [facility] Address: [address] Performed By: #### 5 7021-8 ####[facility] MILLTOWNCLIA [id number] [address] LABCLIA [id number] [place] [address] [place] Monocytes/100 WBC (Bld) 4.3 % Normal [facility] Comment on above: Order Comment: Speci men Type: BLOOD SPECIMENOrdering Facility: [facility] Address: [address] [place] [address] Performed By: #### 5 7021-8 ####[facility] HOSPITALWNCLIA [id number] [address] LABCLIA [id number] [place] [address] [place] Neutrophils (Bld) [#/Vol] 6.64 10*3/uL Normal 1.45-7.50 [facility] Comment on above: Order Comment: Speci men Type: BLOOD SPECIMENOrdering Facility: [facility] Address: [address] [place], [place] [address] Performed By: #### 5 7021-8 ####[facility]ALLIA [id number] [address] LABCLIA [id number] [place] [address] [place] Neutrophils/100 WBC (Bld) 65.5 % Normal [facility] Comment on above: Order Comment: Speci men Type: BLOOD SPECIMENOrdering Facility: [facility] Address: [address] [place], [place] [address] Performed By: #### 5 7021-8 ####[facility]ALL[facility] [id number] [address] LABCLIA [id number] [place] [address] [place] Nucleated RBC (Bld) [#/Vol] 10*3/uL Normal <0.01 [facility] Comment on above: Order Comment: Speci men Type: BLOOD SPECIMENOrdering Facility: [facility] Address: [address] Performed By: #### 5 7021-8 ####[facility] MILLWNCLIA [id number] [address] LABCLIA [id number] [address] [place] Nucleated RBC/100 WBC (Bld) [Ratio] 0.0 /100 WBC Normal [facility] Comment on above: Order Comment: Speci men Type: BLOOD SPECIMENOrdering Facility: [facility] Address: [address] [place] [address] Performed By: #### 5 7021-8 ####[facility]PITALNIKOLASLIA [id number] [address] LABCLIA [id number] [place] [address] [place] Ovalocytes LM Ql (Bld) Few Normal [facility] Comment on above: Order Comment: Speci men Type: BLOOD SPECIMENOrdering Facility: [facility] Address: [address] [place], [place] [address] Performed By: #### 5 7021-8 ####[facility]ITALNIKOLASLIA [id number] [address] LABCLIA [id number] [place] [address] [place] Platelet mean volume (Bld) [Entitic vol] 10.2 fL Normal 9.0-12.7 [facility] Comment on above: Order Comment: Speci men Type: BLOOD SPECIMENOrdering Facility: [facility] Address: [address] [place], [place] [address] Performed By: #### 5 7021-8 ####[facility] HOSPITALWNIKOLASLIA [id number] [place] [address] [place] [facility] LABCLIA [id number] [place] [address] [place] Platelets (Bld) [#/Vol] 342 10*3/uL Normal 150-400 [facility] Comment on above: Order Comment: Speci men Type: BLOOD SPECIMENOrdering Facility: [facility] Address: [address] [place] [address] Performed By: #### 5 7021-8 ####[facility] MILLTOWNCLIA [id number] [address] LABCLIA [id number] [place] [address] [place] Platelets Estimate (Bld) [#/Vol] Adequate Normal [facility] Comment on above: Order Comment: Speci men Type: BLOOD SPECIMENOrdering Facility: [facility] Address: [address] [address] Performed By: #### 5 7021-8 ####[facility] MILLWNCLIA [id number] [address] LABCLIA [id number] [place] [address] [place] RBC (Bld) [#/Vol] 4.93 10*6/uL Normal 3.90-5.20 [facility] Comment on above: Order Comment: Speci men Type: BLOOD SPECIMENOrdering Facility: [facility] Address: [address] Performed By: #### 5 7021-8 ####[facility] MILLTOWNCLIA [id number] [address] LABCLIA [id number] [place] [address] [place] RED CELL MORPH Reviewed: see result s of individual morphologies Normal [facility] Comment on above: Order Comment: Speci men Type: BLOOD SPECIMENOrdering Facility: [facility] Address: [address] [place] [address] Performed By: #### 5 7021-8 ####[facility]ITALNCLIA [id number] [address] LABCLIA [id number] [place] [address] [place] WBC (Bld) [#/Vol] 10.13 10*3/uL Normal 3.70-11.00 [facility] Comment on above: Order Comment: Speci men Type: BLOOD SPECIMENOrdering Facility: [facility] Address: [address] [place] [address] Performed By: #### 5 7021-8 ####[facility]ITALNCLIA [id number] [address] LABCLIA [id number] [address] [place] Comprehensive metabolic 2000 panelon 05-16-2023 Albumin [Mass/Vol] 4.4 g/dL 3.9 - 4.9 g/dL [facility] ALP [Catalytic activity/Vol] 87 U/L 34 - 123 U/L [facility] ALT [Catalytic activity/Vol] 10 U/L 7 - 38 U/L [facility] Anion gap [Moles/Vol] 11 mmol/L 9 - 18 mmol/L [facility] AST [Catalytic activity/Vol] 17 U/L 13 - 35 U/L [facility] Bilirubin [Mass/Vol] 0.3 mg/dL 0.2 - 1.3 mg/dL [facility] Calcium [Mass/Vol] 9.7 mg/dL 8.5 - 10. 2 mg/dL [facility] Chloride [Moles/Vol] 103 mmol/L 97 - 105 mmol/L [facility] CO2 [Moles/Vol] 23 mmol/L 22 - 30 mmol/L [facility] Creatinine [Mass/Vol] 0.71 mg/dL 0.58 - 0.96 mg/dL [facility] Estimated Glomerular Filtration Rate 98 mL/min/1.73m >=60 mL/min/1.73 m [facility] Glucose [Mass/Vol] 103 mg/dL High 74 - 99 mg/dL [facility] Potassium [Moles/Vol] 4.4 mmol/L 3.7 - 5.1 mmol/L [facility] Protein [Mass/Vol] 7.1 g/dL 6.3 - 8.0 g/dL [facility] Sodium [Moles/Vol] 137 mmol/L 136 - 144 mmol/L [facility] Urea nitrogen [Mass/Vol] 12 mg/dL 7 - 21 mg/dL [facility] Albumin [Mass/Vol] 4.4 g/dL Normal 3.9-4.9 [facility] Comment on above: Order Comment: Speci men Type: BLOOD SPECIMENOrdering Facility: [facility] Address: [address] [place] [address] Performed By: #### 2 4323-8 ####[facility]ITALLIA [id number] [place] [address] [place] ALP [Catalytic activity/Vol] 87 U/L Normal 34-123 [facility] Comment on above: Order Comment: Speci men Type: BLOOD SPECIMENOrdering Facility: [facility] Address: [address] [place] [address] Performed By: #### 2 4323-8 ####[facility] HOS[facility]ITALWNCLIA [id number] [place] [address] [place] ALT [Catalytic activity/Vol] 10 U/L Normal 7-38 [facility] Comment on above: Order Comment: Speci men Type: BLOOD SPECIMENOrdering Facility: [facility] Address: [address] [place] [address] Performed By: #### 2 4323-8 ####[facility]ALL[facility] [id number] [place] [address] [place] Anion gap [Moles/Vol] 11 mmol/L Normal 9-18 [facility] Comment on above: Order Comment: Speci men Type: BLOOD SPECIMENOrdering Facility: [facility] Address: [address] [place] [address] Performed By: #### 2 4323-8 ####[facility] [id number] [place] [address] [place] AST [Catalytic activity/Vol] 17 U/L Normal 13-35 [facility] Comment on above: Order Comment: Speci men Type: BLOOD SPECIMENOrdering Facility: [facility] Address: [address] [place] [address] Performed By: #### 2 4323-8 ####[facility] [id number] [place] [address] [place] Bilirubin [Mass/Vol] 0.3 mg/dL Normal 0.2-1.3 [facility] Comment on above: Order Comment: Speci men Type: BLOOD SPECIMENOrdering Facility: [facility] Address: [address] [place] [address] Performed By: #### 2 4323-8 ####[facility] [id number] [place] [address] [place] Calcium [Mass/Vol] 9.7 mg/dL Normal 8.5-10.2 [facility] Comment on above: Order Comment: Speci men Type: BLOOD SPECIMENOrdering Facility: [facility] Address: [address] [place] [address] Performed By: #### 2 4323-8 ####[facility] [id number] [place] [address] [place] Chloride [Moles/Vol] 103 mmol/L Normal 97-105 [facility] Comment on above: Order Comment: Speci men Type: BLOOD SPECIMENOrdering Facility: [facility] Address: [address] [place], [place] [address] [address] Performed By: #### 2 4323-8 ####[facility] HOSPITALWNCLIA [id number] [address] [place] [facility] CO2 [Moles/Vol] 23 mmol/L Normal 22-30 [facility] Comment on above: Order Comment: Speci men Type: BLOOD SPECIMENOrdering Facility: [facility] Address: [facility] [place] [address] Performed By: #### 2 4323-8 ####[facility]ITALNCLI [id number] [address] OF [facility] Creatinine [Mass/Vol] 0.71 mg/dL Normal 0.58-0.96 [facility] Comment on above: Order Comment: Speci men Type: BLOOD SPECIMENOrdering Facility: [facility] Address: [address] [place] [address] Performed By: #### 2 4323-8 ####[facility]ITAL[facility]CLIA [id number] [address] Creatinine and Glomerular filtration rate.predicted panel (S/P/Bld) 98 mL/min/1.73m??? Normal >=60 [facility] Comment on above: Order Comment: Speci men Type: BLOOD SPECIMENOrdering Facility: [facility] Address: [address] [place] [address] Result Comment: Linda mated Glomerular Filtration Rate (eGFR) is calculated using the 2020 CKD-EPI creatinine equation. This equation utilizes serum creatinine, sex, and age as parameters. The creatinine assay has traceable calibration to isotope dilution-mass spectrometry. Refer to KDIGO guidelines for clinical interpretation. In patients with unstable renal function, e.g. those with acute kidney injury, the eGFR may not accurately reflect actual GFR. Performed By: #### 2 4323-8 ####[facility]ERTOWNCLIA [id number] [place] [address] [place] Glucose [Mass/Vol] 103 mg/dL High 74-99 [facility] Comment on above: Order Comment: Speci men Type: BLOOD SPECIMENOrdering Facility: [facility] Address: [address] [place] [address] Result Comment: The [place] Diabetes Association (ADA) provides guidance for cutoff values for fasting glucose and random glucose. The ADA defines fasting as no caloric intake for at least 8 hours. Fasting plasma glucose results between 100 to 125 mg/dL indicate increased risk for diabetes (prediabetes). Fasting plasma glucose results greater than or equal to 126 mg/dL meet the criteria for diagnosis of diabetes. In the absence of unequivocal hyperglycemia, results should be confirmed by repeat testing. In a patient with classic symptoms of hyperglycemia or hyperglycemic crisis, random plasma glucose results greater than or equal to 200 mg/dL meet the criteria for diagnosis of diabetes. Reference: Standards of Medical Care in Diabetes 2016, [place] Diabetes Association. Diabetes Care. 2016.39(Suppl 1). Performed By: #### 2 4323-8 ####[facility] MILLTOWNCLIA [id number] [place] [address] [place] Potassium [Moles/Vol] 4.4 mmol/L Normal 3.7-5.1 [facility] Comment on above: Order Comment: Speci men Type: BLOOD SPECIMENOrdering Facility: [facility] Address: [address] [place] [address] Performed By: #### 2 4323-8 ####[facility] MILLTOWNCLIA [id number] [place] [address] [place] Protein [Mass/Vol] 7.1 g/dL Normal 6.3-8.0 [facility] Comment on above: Order Comment: Speci men Type: BLOOD SPECIMENOrdering Facility: [facility] Address: [address] [place] [address] Performed By: #### 2 4323-8 ####[facility] MILLTOWNCLIA [id number] [place] [address] [place] Sodium [Moles/Vol] 137 mmol/L Normal 136-144 [facility] Comment on above: Order Comment: Claytoni men Type: BLOOD SPECIMENOrdering Facility: [facility] Address: [address] [place] [address] Performed By: #### 2 4323-8 ####[facility] [id number] [place] [address] [place] Urea nitrogen [Mass/Vol] 12 mg/dL Normal 7-21 [facility] Comment on above: Order Comment: Claytoni men Type: BLOOD SPECIMENOrdering Facility: [facility] Address: [address] [place] [address] Performed By: #### 2 4323-8 ####[facility] [id number] [place] [address] [place] HbA1c (Bld)on 05-16-2023 Average glucose Estimated from glycated hemoglobin (Bld) [Mass/Vol] 100 mg/dL Normal [facility] Comment on above: Order Comment: Claytoni men Type: BLOOD SPECIMENOrdering Facility: [facility] Address: [address] [place] [address] Result Comment: eAG: (Estimated average glucose) is a calculated value from HgbA1c and is district sales representative of the average blood glucose level in the last 2-3 month period. Performed By: #### 5 5454-3 ####[facility] LABCLIA [id number] [place] [address] [place] HbA1c (Bld) [Mass fraction] 5.1 % Normal 4.3-5.6 [facility] Comment on above: Order Comment: Varun alexandrea Type: BLOOD SPECIMENOrdering Facility: [facility] Address: [address] [place] [address] Result Comment: Amer [place] Diabetes Association guidelines indicate that patients with HgbA1c in the range 5.7-6.4% are at increased risk for development of diabetes, and intervention by lifestyle modification may be beneficial. HgbA1c greater or equal to 6.5% is considered diagnostic of diabetes. Performed By: #### 5 5454-3 ####[facility] LABCLIA [id number] [place] [address] [place] T3Free SerPl-mCncon 05-16-20 23 Free T3 [Mass/Vol] 3.0 pg/mL Normal 2.3-4.1 [facility] Comment on above: Order Comment: Speci men Type: BLOOD SPECIMENOrdering Facility: [facility] Address: [address] [place] [address] Performed By: #### 3 051-0, 7, 3015-3 ####[facility] LABIA [id number] [address] [place] T4 Free SerPl-mCncon 023 Free T4 [Mass/Vol] 1.3 ng/dL Normal 0.9-1.7 [facility] Comment on above: Order Comment: Speci men Type: BLOOD SPECIMENOrdering Facility: [facility] Address: [address] [place] [address] Performed By: #### 3 051-0, 7, 6-3 ####[facility] HOSPITALIA [id number] [address] [place] TSH SerPl-aCncon 05-16-2023 TSH Qn 0.460 m[IU]/L Normal 0.270-4.200 [facility] Comment on above: Order Comment: Speci men Type: BLOOD SPECIMENOrdering Facility: [facility] Address: [address] [place] [address] Performed By: #### 3 051-0, 7, 6-3 ####[facility] LABIA [id number] [address] [place] CNOVon 03-28-2023 CNOV Office Visit (INTMWS ) IVAN KHAN ([id number]) 1965 F NFR Date Time Provider Department 03/28/23 9:00 AM KATEY CHESTER INTMWS During your visit today, we recorded the following information about you: Temperature Pulse Respiration Blood pressure 97.8 degrees 78/minute 18/minute 110/60 Weight 68.9 kg Katey Chester MD 05/01/2023 11:41 PM Signed This note was created using NetcordiariLinguaNext. Subjective Ivan Khan is a 57 year old female. Patient presents with: 4 month follow up SUBJECTIVE: Ivan Khan is a 57 year old year old lady here today for 4 month follow up month follow up appointment for review of medical conditions. Dicyclomine has been helping. Vancomycin had helped for first 2 days. Still on med. Diarrhea and constipation back and forth. If does not eat, does not get pain. If eats, gets constipation. Feels better when has diarrhea actually. Drinking bone broth from online tolerated. Has lost weight since November (about 10 pound). Has not heard back from online scheduling about appointment with Dr. Davalos at [place]. Able to stay hydrated. No fevers. No blood in stool. Still off work since recovering from shoulder surgery. PAST MEDICAL HISTORY Diagnosis Date Acute gastritis Carpal tunnel syndrome Degenerative arthritis of right knee Dysmenorrhea Dysthymic disorder Depression (non-psychotic) Esophageal reflux Fibromyalgia 2006 Headache(784.0) Knee pain Rt. Meniscus tear Rt knee Tenosynovitis of elbow right Tinnitus Current Outpatient Medications Medication Sig Vancomycin HCl (FIRVANQ) 50 mg/mL oral liquid Take 2.5 mL by mouth four times daily for 14 days. dicyclomine (BENTYL) 20 mg tablet Take 1 tablet by mouth before meals and at bedtime. clonazePAM (KLONOPIN) 0.5 mg tablet May take 1-2 tablets by mouth at bedtime as needed (insomnia and anxiety). May also take 1 tablet twice daily as needed (insomnia and anxiety). Do all this for 60 days. etodolac (LODINE-XL) 500 mg 24 hr tablet Take 1 tablet by mouth once daily. cyclobenzaprine (FLEXERIL) 10 mg tablet Take 1 tablet by mouth twice daily as needed for muscle spasm. buPROPion SR (WELLBUTRIN SR) 150 mg 12 hr tablet Take 1 tablet by mouth twice daily. fluticasone (FLONASE) 50 mcg/actuation nasal spray Use 2 Sprays in each nostril once daily. As directed for nasal and/or sinus congestion. Rinse mouth after use. predniSONE (DELTASONE) 10 mg tablet Take 2 pills as directed for flare up of back pain. furosemide (LASIX) 20 mg tablet Take 1-2 tablets by mouth once daily. As directed for fluid retention calcium carbonate/vitamin D3 (CALCIUM + D ORAL) Take by mouth once daily. cholecalciferol, vitamin D3, (VITAMIN D3 ORAL) Take by mouth once daily. cyanocobalamin, vitamin B-12, (VITAMIN B-12 ORAL) Take by mouth once daily. TENS UNIT ELECTRODES (TENS UNITS ELECTRODES) 2X2 pads Use electrodes with pads with TENS as directed for back pain. Dispense 1 set monthly pregabalin 75 mg capsule Take 2 capsules by mouth twice daily. No current facility-administered medications for this visit. Review of Systems Objective BP 110/60 Pulse 78 Temp 36.6 ?C (97.8 ?F) Resp 18 Wt 68.9 kg (152 lb) SpO2 99% BMI 26.09 kg/m? Physical Exam Constitutional: Appearance: Normal appearance. HENT: Head: Normocephalic. Eyes: Conjunctiva/sclera: Conjunctivae normal. Cardiovascular: Rate and Rhythm: Normal rate and regular rhythm. Heart sounds: Normal heart sounds. Pulmonary: Effort: Pulmonary effort is normal. Breath sounds: Normal breath sounds. Skin: General: Skin is warm and dry. Neurological: General: No focal deficit present. Mental Status: She is alert and oriented to person, place, and time. Psychiatric: Mood and Affect: Mood normal. Behavior: Behavior normal. Thought Content: Thought content normal. Judgment: Judgment normal. Last labs: Component Latest Ref Rng AND Units 11/01/2020 10/20/2021 01/11/2022 11/28/2022 WBC 3.70 - 11.00 k/uL 8.21 9.57 11.12 (H) 7.95 RBC 3.90 - 5.20 m/uL 4.75 4.30 4.57 4.33 Hemoglobin 11.5 - 15.5 g/dL 13.2 12.1 12.6 12.4 Hematocrit 36.0 - 46.0 % 41.7 37.9 40.8 38.3 MCV 80.0 - 100.0 fL 87.8 88.1 89.3 88.5 MCH 26.0 - 34.0 pg 27.8 28.1 27.6 28.6 MCHC 30.5 - 36.0 g/dL 31.7 31.9 30.9 32.4 RDW-CV 11.5 - 15.0 % 13.3 14.1 13.0 12.7 Platelet Count 150 - 400 k/uL 303 337 394 304 MPV 9.0 - 12.7 fL 9.6 9.4 10.1 9.5 Neut% % 49.7 Abs Neut (ANC) 1.45 - 7.50 k/uL 5.52 Lymph% % 41.0 Abs Lymph 1.00 - 4.00 k/uL 4.56 (H) [place]% % 5.8 Abs [place] <0.87 k/uL 0.65 Eosin% % 1.5 Abs Eosin <0.46 k/uL 0.17 Baso% % 1.6 Abs Baso <0.11 k/uL 0.18 (H) Immature Gran % % 0.4 IMMATURE GRANS (ABS) <0.10 k/uL 0.04 NRBC /100 WBC 0.0 Absolute nRBC <0.01 k/uL <0.01 <0.01 <0.01 <0.01 DTYPE Auto Protein, Total 6.3 - 8.0 g/dL 6.4 6.4 6.8 6.7 Albumin (more content not included)... Normal [facility] HEMOGLOBIN A1C (POC)on 03-28 HbA1c (Bld) [Mass fraction] 5.4 % 4.2 - 5.6 % [facility] C diff Tox gens Stl Ql JON+p robeon 03-21-2023 C. difficile toxin genes JON+probe Ql (Stl) Positive Abnormal Negative for C. difficile toxin by PCR [facility] Comment on above: Order Comment: Varun lechuga Type: STOOL SPECIMENOrdering Facility: [facility] Address: [address] [place] [address] Result Comment: A po sitive PCR result may indicate C.difficile infection or colonization. The positive predictive value of this test for C.difficile infection is highest for patients with clinically significant diarrhea (>=3 unformed stools in 24h) who do not have an alternative explanation (e.g., recent receipt of laxatives). Toxin EIA testing will also be performed as recommended by IDSA clinical practice guidelines for institutions without pre-agreed criteria for specimen submission. Performed By: #### 5 4067-4, CDEIA ####[facility] LABCLIA [id number] [address] [place] C. DIFFICILE TOXIN BY EIAon 03-21-2023 C. difficile toxin A+B IA Ql (Stl) Not detected Normal Negative for C. difficile toxin [facility] Comment on above: Order Comment: Varun lechuga Type: STOOL SPECIMENOrdering Facility: [facility] Address: [address] [place] [address] Result Comment: Toxi n EIA is less sensitive than cell cytotoxin and PCR assays. Clinical correlation of PCR positive/toxin EIA negative results is required to distinguish C. difficle colonization from disease. Performed By: #### 5 4067-4, CDEIA ####[facility] LABCLIA [id number] [place] [address] [place] XR Abdomen Supine and Uprigh ton 01-31-2023 IMPRESSION: Nonobstr uctive bowel gas pattern. Electric Cutter Operator: PSCB Transcribe Date/Time: Jan 31 2023 5:15P Dictated by : ANDERSON MOTA MD This examination was interpreted and the report reviewed and electronically signed by: ANDERSON MOTA MD on Jan 31 2023 5:16PM [facility] DIVISION OF RADIOLOGY * * *Final Report* * * DATE OF EXAM: Jan 31 2023 8:17AM WOX [id number] - XR ABDOMEN 1V SUPINE / PROCEDURE REASON: multiple diagnoses * * * * Physician Interpretation * * * * EXAM TITLE: XR ABDOMEN 1V SUPINE EXAM DATE/TIME: 01/31/2023 8:17 AM COMPARISON: None. CLINICAL INDICATION/HISTORY: Diarrhea. TECHNIQUE: AP views of the abdomen are presented. FINDINGS: No abnormally dilated bowel loops identified. Tiny phleboliths seen in the pelvis. There are no abnormal calcifications. The bony structures appear intact. DIVISION OF RADIOLOGY [facility]23 * * *Final Report* * * DATE OF EXAM: Jan 31 2023 8:17AM WOX 5289 - XR ABDOMEN 1V SUPINE / PROCEDURE REASON: multiple diagnoses * * * * Physician Interpretation * * * * EXAM TITLE: XR ABDOMEN 1V SUPINE EXAM DATE/TIME: 01/31/2023 8:17 AM COMPARISON: None. CLINICAL INDICATION/HISTORY: Diarrhea. TECHNIQUE: AP views of the abdomen are presented. FINDINGS: No abnormally dilated bowel loops identified. Tiny phleboliths seen in the pelvis. There are no abnormal calcifications. The bony structures appear intact. IMPRESSION IMPRESSION: Nonobstructive bowel gas pattern. Electric Cutter Operator: PSCB Transcribe Date/Time: Jan 31 2023 5:15P Dictated by : ANDERSON MOTA MD This examination was interpreted and the report reviewed and electronically signed by: ANDERSON MOTA MD on Jan 31 2023 5:16PM EST [facility] Radiology Study observation (narrative) [facility] XR Abdomen Supine and Uprigh tOrdered By: [facility] Provider on 01-31-2023 [facility] Abdomen/Pelvis W IV Cont ONL Yon 01-24-2023 Abdomen/Pelvis W IV Cont ONLY [facility] Imaging Services [address] [place] [address] Abdomen/Pelvis W IV Cont ONLY MR#: [id number] Acct: [id number] Name: IVAN KHAN Rep #: [id number] : 1965 F 57 From: Julian berkowitz MD PCP: Dr. Katey Chester MD Status: REG ER Study: Abdomen/Pelvis W IV Cont ONLY Date of Exam: Exam# [id number] Ordering Dr: Denilson Hernandez MD INDICATION: low abd pain, hx diverticulitis EXAMINATION: CT Abdomen And Pelvis W/ Contrast Injection TECHNIQUE: Helically acquired images were obtained of the abdomen and pelvis after IV contrast. A radiation dose optimization technique was used for this scan. IV Contrast dosage and agent: IV 100mL [id number] Oral contrast: None. COMPARISON: None. FINDINGS: Visualized lung bases: Unremarkable Liver: Unremarkable Gallbladder: Surgically absent. Spleen: Unremarkable Pancreas: Unremarkable Adrenal Glands: Unremarkable Kidneys: Unremarkable Vasculature: Unremarkable GI Tract: Unremarkable Lymphadenopathy: None Peritoneum: No ascites. Bladder: Unremarkable Reproductive organs: Unremarkable Bones/Soft tissues: Mild scattered degenerative changes of the visualized spine. CT/Abdomen/Pelvis W IV Cont ONLY IMPRESSION: No acute abnormalities in the abdomen or pelvis. Electronically Signed: Julian Singh MD at 22:15 EDT , CC: Dr. Katey Chester MD; Dr. Denilosn Hernandez MD Electric Cutter Operator: Signed Normal [facility] CBC W/Diff, Automatedon 01-08 Absolute Lymph 4.09 X10 3/uL Normal 0.83-4.51 [facility] Comment on above: Performed By: #### L 500.4050, L100.0100 #### [facility] Laboratory [address] [facility] [place] [place], [address] Absolute Neut 3.9 X10 3/uL Normal 2.0-7.7 [facility] Comment on above: Performed By: #### L 500.4050, L100.0100 #### [facility] [address] [place], [address] Basophils/100 WBC (Bld) 1.9 % High 0-1 [facility] Comment on above: Performed By: #### L 500.4050, L100.0100 #### [facility] [address] [place], [address] Eosinophils/100 WBC (Bld) 1.8 % Normal 0-5 [facility] Comment on above: Performed By: #### L 500.4050, L100.0100 #### [facility] [address] [place], [address] Erythrocyte distribution width (RBC) [Ratio] 12.3 % Normal 11.6-14.6 [facility] Comment on above: Performed By: #### L 500.4050, L100.0100 #### [facility] [address] [place], [address] Hematocrit (Bld) [Volume fraction] 39.0 % Normal 37-47 [facility] Comment on above: Performed By: #### L 500.4050, L100.0100 #### [facility] [address] [place], [address] Hemoglobin (Bld) [Mass/Vol] 12.4 g/dL Normal 12.0-15.0 [facility] Comment on above: Performed By: #### L 500.4050, L100.0100 #### [facility] [address] [place], [address] IG% 0.200 Normal 0.0-0.9 [facility] Comment on above: Result Comment: IG% - Immature Granulocytes (promyelocytes, myelocytes and metamyelocytes) > 1% indicates that a LEFT SHIFT is Present. Performed By: #### L 500.4050, L100.0100 #### [facility] [address] [place], [address] Lymphocytes/100 WBC (Bld) 46.1 % High 19-41 [facility] Comment on above: Performed By: #### L 500.4050, L100.0100 #### [facility] [address] [place], [address] MCH (RBC) [Entitic mass] 28.2 pg Normal 27.0-32.0 [facility] Comment on above: Performed By: #### L 500.4050, L100.0100 #### [facility] [address] [place], [address] MCHC (RBC) [Mass/Vol] 31.8 g/dL Low 32-36 [facility] Comment on above: Performed By: #### L 500.4050, L100.0100 #### [facility] [address] [place], [address] MCV (RBC) [Entitic vol] 88.6 fL Normal 81-99 [facility] Comment on above: Performed By: #### L 500.4050, L100.0100 #### [facility] [address] [place], [address] Monocytes/100 WBC (Bld) 5.9 % Normal 0-10 [facility] Comment on above: Performed By: #### L 500.4050, L100.0100 #### [facility] [address] [place], [address] Neutrophils/100 WBC (Bld) 44.1 % Low 47-70 [facility] Comment on above: Performed By: #### L 500.4050, L100.0100 #### [facility] [address] [place], [address] Nucleated RBC (Bld) [#/Vol] 0 10*3/uL Normal 0-5 [facility] Comment on above: Performed By: #### L 500.4050, L100.0100 #### [facility] [address] [place], [address] Platelet mean volume (Bld) [Entitic vol] 10.2 fL Normal 6.2-12.0 [facility] Comment on above: Performed By: #### L 500.4050, L100.0100 #### [facility] [address] [place], [address] Platelets (Bld) [#/Vol] 335 10*3/uL Normal 150-450 [facility] Comment on above: Performed By: #### L 500.4050, L100.0100 #### [facility] [address] [place], [address] RBC (Bld) [#/Vol] 4.40 10*6/uL Normal 4.2-5.4 [facility] Comment on above: Performed By: #### L 500.4050, L100.0100 #### [facility] [address] [place], [address] RDW SD 40.4 fl Normal 35.1-43.9 [facility] Comment on above: Performed By: #### L 500.4050, L100.0100 #### [facility] [address] [place], [address] WBC (Bld) [#/Vol] 8.9 10*3/uL Normal 4.4-11.0 [facility] Comment on above: Performed By: #### L 500.4050, L100.0100 #### [facility] [address] [place], [address] Comprehensive Metabolic Prof [facility] 01-24-2023 Albumin [Mass/Vol] 3.4 g/dL Normal 3.2-5.0 [facility] Comment on above: Performed By: #### L 500.4050, L100.0100 #### [facility] [address] [place], [address] Albumin/Globulin [Mass ratio] 1.0 {ratio} Normal 0.9-2.4 [facility] Comment on above: Performed By: #### L 500.4050, L100.0100 #### [facility] [address] [place], [address] ALK P 56 U/L Normal 45-117 [facility] Comment on above: Performed By: #### L 500.4050, L100.0100 #### [facility] [address] [place], [address] ALT [Catalytic activity/Vol] 23 U/L Normal 13-56 [facility] Comment on above: Performed By: #### L 500.4050, L100.0100 #### [facility] [address] [place], [address] AST [Catalytic activity/Vol] 18 U/L Normal 15-37 [facility] Comment on above: Performed By: #### L 500.4050, L100.0100 #### [facility] [address] [place], [address] Bilirubin [Mass/Vol] 0.30 mg/dL Normal 0.20-1.00 [facility] Comment on above: Result Comment: For patients on eltrombopag therapy, use of Dimension [place] TBIL is not recommended. Performed By: #### L 500.4050, L100.0100 #### [facility] [address] [place], [address] BUN/CRE 9.6 RATIO Low 10-20 [facility] Comment on above: Performed By: #### L 500.4050, L100.0100 #### [facility] [address] [place], [address] CA,Total 8.7 mg/dL Normal 8.5-10.1 [facility] Comment on above: Performed By: #### L 500.4050, L100.0100 #### [facility] [address] [place], [address] Chloride [Moles/Vol] 107 mmol/L Normal 98-107 [facility] Comment on above: Performed By: #### L 500.4050, L100.0100 #### [facility] [address] [place], [address] CO2 [Moles/Vol] 29.0 mmol/L Normal 21.0-32.0 [facility] Comment on above: Performed By: #### L 500.4050, L100.0100 #### [facility] [address] [place], [address] Creatinine [Mass/Vol] 0.73 mg/dL Normal 0.55-1.02 [facility] Comment on above: Result Comment: The validity of the calculated GFR GFRAA in patients over 70 years has not been determined. Clinical correlation is essential. Performed By: #### L 500.4050, L100.0100 #### [facility] [address] [place], [address] ECRCL 72.54 ml/min Normal [facility] Comment on above: Performed By: #### L 500.4050, L100.0100 #### [facility] [address] [place], [address] EST GFR - AA 105 mL/min Normal >60 [facility] Comment on above: Result Comment: Afri can Danish GFR Calc Performed By: #### L 500.4050, L100.0100 #### [facility] [address] [place], [address] GAP 6 Normal 5-15 [facility] Comment on above: Performed By: #### L 500.4050, L100.0100 #### [facility] [address] [place], [address] GFR/1.73 sq M.predicted among non-blacks MDRD (S/P/Bld) [Vol rate/Area] 87 mL/min/{1.73_m2} Normal >60 [facility] Comment on above: Result Comment: Non- GFR Calc Performed By: #### L 500.4050, L100.0100 #### [facility] [address] [place], [address] Globulin (S) [Mass/Vol] 3.5 g/dL Normal 2.2-4.2 [facility] Comment on above: Performed By: #### L 500.4050, L100.0100 #### [facility] [address] [place], [address] Glucose [Mass/Vol] 104 mg/dL Normal 74-106 [facility] Comment on above: Result Comment: Fast ing Glucose result from 100 to 125 mg/dL suggests IMPAIRED HOMEOSTASIS per A.D.A. criteria. Performed By: #### L 500.4050, L100.0100 #### [facility] [address] [place], [address] Potassium [Moles/Vol] 3.8 mmol/L Normal 3.5-5.1 [facility] Comment on above: Performed By: #### L 500.4050, L100.0100 #### [facility] [address] [place], [address] Sodium [Moles/Vol] 142 mmol/L Normal 136-145 [facility] Comment on above: Performed By: #### L 500.4050, L100.0100 #### [facility] [address] [place], [address] T PROT 6.9 g/dL Normal 6.4-8.2 [facility] Comment on above: Performed By: #### L 500.4050, L100.0100 #### [facility] [address] [place], [address] Urea nitrogen [Mass/Vol] 7 mg/dL Normal 7-18 [facility] Comment on above: Performed By: #### L 500.4050, L100.0100 #### [facility] [address] [place], [address] Emergency Department Summary on 01-24-2023 Emergency Department Summary [facility] Medical Records Department [address] [place] [address] Emergency Department Summary 01/24/23 MR#: [id number] Acct: [id number] Name: IVAN KHAN Rep #: [id number] : 1965 57 From: Denilson Hernandez MD PCP: Dr. Katey Chester MD Status:REG ER Location: ED HPI HPI - GI History of Present Illness Chief Complaint: Abd Pain Informant: patient Narrative Narrative: Patient complains of returning lower abdominal pain. She states she started about 2 3 weeks ago with lower abdominal pain and a little pressure in her back. This is typical when she has diverticulitis. Her last colonoscopy was just a few months ago. Evidently there is no inflammation at the time. She has never had surgery for the diverticulitis. She has had a hysterectomy and cholecystectomy in the past. She was placed on Cipro and Flagyl for about 7 days. She was getting better but not completely better. This ended about 1 week ago. Since then the symptoms have slowly been returning. She has some mild nausea but no vomiting. She is able to eat and drink but just does not have a great appetite. She has had some softer bowel movements but no blood. No urinary symptoms. Nothing specifically makes this significantly better or worse other than antibiotics as above. Of note, she is allergic to Augmentin. [facility] Medical History Anxiety and depression Normal colonoscopy Home Medications bupropion HCl 150 mg tablet,12 hr sustained-release 150 mg PO BID 09/13/13 [History Last Taken 09/13/13 08:00] meloxicam 15 mg tablet 15 mg PO DAILY PRN PRN Pain 09/13/13 [History Last Taken 09/13/13 08:00] pregabalin 75 mg capsule 75 mg PO BID 09/13/13 [History Last Taken 09/13/13 08:00] cyclobenzaprine 10 mg tablet 10 mg PO BID PRN PRN Muscle Spasm 10/19/13 [History Last Taken Unknown] furosemide 40 mg tablet 40 mg PO DAILY PRN DIURETIC 07/09/18 [History Last Taken Unknown] hydrocodone-acetaminophen 5-325mg 5mg-325mg 1 ea PO Q6H PRN Pain 07/09/18 [History Last Taken Unknown] biotin 1 mg capsule 1 mg PO DAILY 11/01/18 [History Last Taken Unknown] calcium carbonate 260 mg calcium (648 mg) tablet 260 mg PO TID 07/11/18 [History Last Taken Unknown] cholecalciferol (vitamin D3) 25 mcg (1,000 unit) capsule 1,000 unit PO DAILY 07/11/18 [History Last Taken Unknown] ciprofloxacin HCl 500 mg tablet 500 mg PO BID #20 TABLETS 12/21/21 [Rx Last Taken Unknown] metronidazole 500 mg tablet 500 mg PO Q12H #20 tabs 12/21/21 [Rx Last Taken Unknown] tramadol 50 mg tablet 50 mg PO Q4H PRN PRN Pain 2 days #10 tabs 12/21/21 [Rx Last Taken Unknown] oxycodone-acetaminophen 5 mg-325 mg tablet 1 tab PO Q6H PRN PRN Pain 3 days #12 TABLETS 12/28/21 [Rx Last Taken Unknown] Allergy/AdvReac Type Severity Reaction Status Date / Time amoxicillin trihydrate Allergy Rash Verified 01/24/23 20:40 [From Augmentin] Penicillins Allergy Rash Verified 01/24/23 20:40 potassium clavulanate Allergy Rash Verified 01/24/23 20:40 [From Augmentin] morphine AdvReac Nausea/Vom/ Verified 01/24/23 20:40 Diarrhea Surgical History History of hysterectomy History of knee replacement history of thumb joint replacement Social History Smoking Status: Former smoker alcohol intake: never substance use type: does not use ROS ROS ED Constitutional Constitutional ED: Denies chills or fever(s) ENT ENT ED: Denies rhinorrhea Cardiovascular Cardiovascular: Denies chest pain or palpitations Respiratory/Chest Respiratory/Chest: Denies cough Gastrointestinal Gastrointestinal: Reports abdominal pain, diarrhea and nausea; Denies constipation, melena or vomiting Genitourinary Genitourinary ED: Denies dysuria, hematuria or urinary frequency Musculoskeletal Musculoskeletal: Denies arthralgias Integumentary Denies rash Neurologic Neurologic: Denies paresthesias or weakness Hematologic/Lymphatic Hematologic/Lymphatic: Reports easy bleeding and easy bruising Allergic/Immunologic Allergic/Immunologic ED: Denies urticaria EXAM Physical Exam Narrative Exam Narrative: CONSTITUTIONAL: Patient is nontoxic in appearance. The patient looks comfortable. HEENT: No notable trauma. Mucous membranes are still moist. No sinus tenderness. EYES: No conjunctival injection. No proptosis. CARDIOVASCULAR: Regular rate. Regular rhythm. No notable murmur. No JVD. RESPIRATORY: No respiratory distress. Breathing is unlabored. No wheezes. No rhonchi. No rales. No pain with a deep breath. GASTROINTESTINAL: Not distended. Bowel sounds are normal. She does have some mild suprapubic and mild left lower quadrant tenderness. No guarding. No rebound. No palpable mass. No bruit. I feel no hernia o (more content not included)... Normal [facility] Urinalysis, Completeon 01-24 BACTERIA 0 SEEN Normal None Seen [facility] Comment on above: Order Comment: CLEAN CATCH Performed By: #### L 400.0001 #### [facility] [address] [place], [address] EPI,SQUAMOUS 0 SEEN Normal 5-10 [facility] Comment on above: Order Comment: CLEAN CATCH Performed By: #### L 400.0001 #### [facility] [address] [place], [address] Mucus Ql (Urine sed) 0 SEEN Normal [facility] Comment on above: Order Comment: CLEAN CATCH Performed By: #### L 400.0001 #### [facility] [address] [place], [address] RBC 0 SEEN Normal 0-5 [facility] Comment on above: Order Comment: CLEAN CATCH Performed By: #### L 400.0001 #### [facility] [address] [place], [address] WBC 0 SEEN Normal 0-5 [facility] Comment on above: Order Comment: CLEAN CATCH Performed By: #### L 400.0001 #### [facility] [address] [place], [address] MRI SHOULDER W/O CONTRAST LE FTon 01-15-2023 MRI SHOULDER W/O CONTRAST LEFT ORIGINAL EXAMINATION: MRI OF THE LEFT SHOULDER WITHOUT CONTRAST01/15/2023 9:22 am TECHNIQUE: Multiplanar multisequence MRI of the left shoulder was performed without the administration of intravenous contrast. COMPARISON: None HISTORY: ORDERING SYSTEM PROVIDED HISTORY: Reason for Exam: LEFT SHOULDER SPRAIN. FINDINGS: MUSCLES AND TENDONS: Low-grade partial articular sided tearing is noted of the far anterior and anterior supraspinatus tendon with retraction to the humeral head vertex. Intermediate grade partial articular sided tearing is noted of the mid supraspinatus tendon extending to the anterior infraspinatus tendon with retraction to the level of the humeral head vertex. These findings are superimposed upon mild tendinosis. For the remainder of the infraspinatus tendon appears intact. The teres minor tendon is intact. The subscapularis tendon is intact. The tendon of the long head of the biceps is intact and is seated within the bicipital groove distally. No significant rotator cuff muscle atrophy is evident. No mass is evident at the suprascapular notch, spinoglenoid notch, or the quadrilateral space. OSSEOUS STRUCTURES AND JOINTS: No displaced glenoid labral tear is evident on this non-arthrographic examination. There is suspicion for a tear of the posterosuperior through posteroinferior labrum. Scattered labral degeneration. There is no significant degenerative change of the glenohumeral joint. There is very mild degenerative change of the acromioclavicular joint with capsular distension and minimal reactive marrow edema. The acromion is Type I in morphology with mild lateral downsloping. There is no significant glenohumeral joint effusion. No fracture or dislocation is evident. Cystic changes are seen at the greater tubercle of the humerus. Marrow edema is noted of the coracoid process at the origin of the short head biceps/coracobrachialis tendons with surrounding soft tissue edema, nonspecific. Bone marrow signal intensity is otherwise within normal limits. No visualized marrow replacing osseous lesions. SOFT TISSUES: There is small volume of fluid in the subacromial subdeltoid bursa. There is no significant volume of fluid in the subcoracoid bursa. Associated soft tissues of the shoulder are grossly unremarkable. IMPRESSION: 1. Partial tearing of the supraspinatus and infraspinatus tendons superimposed upon tendinosis with retraction. Mild subacromial-subdeltoid bursitis. 2. Suspicion for posterosuperior through posteroinferior labral tear. Consider confirmation with MR arthrogram. 3. Nonspecific bone marrow edema of the coracoid process of the scapula without macrotrabecular fracture. Surrounding soft tissue edema. An osseous contusion or stress related changes are considered. Interpreted by: Anthony Flores DO Preliminary Report By: Anthony Flores DO Electronically signed By Anthony Flores DO Dictated Date: 01/15/2023 9:50:45 AM Prelim Date: 01/15/2023 10:02:34 AM Sign Date: 01/15/2023 10:02:34 AM Ordering Provider: DILCIA Aguilera [facility] [place] YOANA SCREENINGon 12-28-2022 [facility] Inital Evaluation (1) - PTon 10-20-2022 Inital Evaluation (1) - PT [facility] Physical Therapy [facility] [address] [place] [address]. [address] [place] [address] / REHABILITATION SERVICES INITIAL EVALUATION MR#: [id number] Acct: [id number] Name: IVAN KHAN Rep #: [id number] : 1965 57 From: Kamaljit Rodriguez DPT, OCS, CSCS Referring Dr.: Dr. Pramod Cleannig MD Status: REG RCR Insurance: SELF INS [facility] Patient's Visit Information IVAN KHAN is a 57 year old F referred to Physical Therapy by Dr. 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 Date of Evaluation: 10/20/22 Physical Therapist: Kamaljit Rodriguez DPT, OCS, CSCS - Visit Plan Frequency: 1x/Week Duration: 4 Months Plan: PROM only to g-h joint. weekly x 12-16 for PROM to start adn progressions once allowed. Current limitation to 50PROM elevation and 15 ext rotations PROM only. Doctor f/u 10/31, Ensure all other joints working full ROM - Subjective Large RCR 10/02/22. Was a repetitive motion injury. Been hurting for about a year. Insidious onset. Been in sling for 2 weeks but takes it off to sit at home. Pain level is about 5/10 worse in the morning. Sleeping not bad in a recliner, getting enough. Works 3rd shift at [employer]. Is off for 15 weeks ...maybe back in January. No exercises yet, uses ice packs that she uses. Has percoset but has not used it. Therapy prior to surgery did not help. Lives with dtr and can do what she needs to do with modifications and increase. Hobbies : crafting with hands and cannot right now. Is currently binge watching. - Pain r shoulder Pain Intensity (Out of 10): 5 Pain Intensity Range: 5 - Objective Walks in I, transfers I bed and chair. Incisions are healed and dry with mild scar tissue and no signs of excessive redness heat or swelling. PROM 50 elevation adn 30 ext rotation both where doct ors limitations are for now. No AAROM or AROM allowed at g-h joint. Scap circles are limited on R 50% vs L. elbow, wrist and finger AROM WFL B. Strength elbow and shoulder not tested today. reflexes 2/3 bi and tri. Sensation WNL to gross light touch. Dons and doffs sling I today. - Balance/Special Test Scores Quick DASH Score: 79.5450 - Goals Goal 1:: ST: PROM to 150 as doctor allows elevation and 60 ext rotation Goal Time Frame: 4-6 Weeks Goal 2:: ST: sleep without interruption and pain 0-1/10 at rest. Goal Time Frame: 2-4 Weeks Goal 3:: LT: AROM full and painfree to 150 elevation and 65 ext rotation and PSIS IR when allowed by doctor Goal Time Frame: 8-12 Weeks Goal 4:: Do hair and put on shirt without pain and 90% better outside of work Goal Time Frame: 8-12 Weeks Goal 5:: Plant to return to work safely Goal Time Frame: 12-16 Weeks - Rehabilitation Potential Physical Therapy Diagnosis: RCR stiff and weak. Rehabilitation Potential: Good - Anticipated Interventions Patient/Client Instruction: Educate patient on: Condition, Plan of Care For the Purpose of:: To decrease pain, To increase ROM, To improve nutrient delivery to tissue, To improve muscle performance and motor function, To increase tolerance to activity/condition/position Therapeutic Exercise to Include: Strength training, Postural training, Flexibilty training, Passive ROM, Active ROM For the Purpose of:: To decrease pain, To increase ROM, To improve muscle performance and motor function, To increase tolerance to activity/condition/position Manual Therapy Techniques to Include: Scar massage, Passive ROM For the Purpose of:: To increase ROM, To improve nutrient delivery to tissue Cryotherapy (ice pack, ice massage): Yes For the Purpose of:: To decrease swelling/inflammation Thank you for the opportunity to evaluate your patient. For Medicare and Medicare HMO plans, please review the plan of care and approve it. It will need to be FAXED BACK to us at [phone] for Medicare purposes. For Medicare only, by signing this I certify the plan of care. Please let me know if there are questions or concerns regarding this plan of care. Physician Signature: D ate: 10/20/22 1020 CC: Dr. Pramod Cleaning MD; Dr. Katey Chester MD EBG Signed Normal [facility] MRI SHOULDER W/O CONTRAST [facility] 07-18-2022 MRI SHOULDER W/O CONTRAST RIGHT ORIGINAL EXAMINATION: MRI OF THE RIGHT SHOULDER WITHOUT CONTRAST 07/17/2022 9:26 am TECHNIQUE: Multiplanar multisequence MRI of the right shoulder was performed without the administration of intravenous contrast. COMPARISON: None. HISTORY: ORDERING SYSTEM PROVIDED HISTORY: Reason for Exam: STRAIN TO RIGHT ROTATOR CUFF FINDINGS: Lateral downsloping of the acromion noted. There is mild right acromioclavicular joint arthrosis. Fluid noted in the subacromial subdeltoid bursa. Supraspinatus and infraspinatus tendinosis noted. Thinning of the distal supraspinatus tendon is compatible with intermediate grade partial tearing. There is a questionable focal full-thickness component of the anterior insertional fibers. The subscapularis tendon appears intact. The long head biceps tendon appears normal. Teres minor tendon is within normal limits. Fluid identified in the subacromial subdeltoid bursa. No asymmetric muscle atrophy or intramuscular edema identified. No aggressive bony lesion. Hyperintense focus in the greater tuberosity may relate to a cyst The glenohumeral joint is normally aligned. No high-grade glenohumeral cartilage defects seen. The labrum is grossly intact. Glenohumeral ligament complexes are within normal limits. IMPRESSION: Thinning of the supraspinatus tendon is compatible with intermediate grade partial tearing. There may be a focal full-thickness component of the tear involving the anterior insertional fibers. Infraspinatus tendinosis Mild right acromioclavicular joint arthrosis. There is exaggerated lateral downsloping of the acromion Fluid in the subacromial subdeltoid bursa may be indicative of bursitis Interpreted by: Anthony Israel MD Preliminary Report By: Anthony Israel MD Electronically signed By Anthony Israel MD Dictated Date: 07/18/2022 8:03:23 AM Prelim Date: 07/18/2022 8:12:32 AM Sign Date: 07/18/2022 8:12:32 AM Ordering Provider: DILCIA Aguilera [facility] [place] Emergency Department Summary on 05-17-2022 Emergency Department Summary [facility] Medical Records Department [address] [place] [address] Emergency Department Summary 05/17/22 MR#: [id number] Acct: [id number] Name: IVAN KHAN Rep #: [id number] : 1965 57 From: Elvis Valenzuela PCP: Dr. Katey Chester MD Status:DEP ER Location: ED HPI History of Present Illness Chief Complaint: Upper Extremity Injury Informant: patient Narrative Narrative: [id number] female sent here from work for evaluation right shoulder pain has been intermittent for the past 2 months. 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 She was not evaluated. Symptoms worsen this evening. She is on Tylenol and Vicodin at home for headache and neck pain symptoms. Denies history of gastric ulcers or kidney injury. No paresthesias. She had a previous tennis elbow repair by Dr. Herber Rivers in the past. Prior similar symptoms: No [facility] Medical History Anxiety and depression Normal colonoscopy Home Medications bupropion HCl 150 mg tablet,12 hr sustained-release 150 mg PO BID 09/13/13 [History Last Taken 09/13/13 08:00] meloxicam 15 mg tablet 15 mg PO DAILY PRN PRN Pain 09/13/13 [History Last Taken 09/13/13 08:00] pregabalin 75 mg capsule 75 mg PO BID 09/13/13 [History Last Taken 09/13/13 08:00] cyclobenzaprine 10 mg tablet 10 mg PO BID PRN PRN Muscle Spasm 10/19/13 [History Last Taken Unknown] furosemide 40 mg tablet 40 mg PO DAILY PRN DIURETIC 07/09/18 [History Last Taken Unknown] hydrocodone-acetaminophen 5-325mg 5mg-325mg 1 ea PO Q6H PRN Pain 07/09/18 [History Last Taken Unknown] biotin 1 mg capsule 1 mg PO DAILY 07/11/18 [History Last Taken Unknown] calcium carbonate 260 mg calcium (648 mg) tablet 260 mg PO TID 07/11/18 [History Last Taken Unknown] cholecalciferol (vitamin D3) 25 mcg (1,000 unit) capsule 1,000 unit PO DAILY 07/11/18 [History Last Taken Unknown] ciprofloxacin HCl 500 mg tablet 500 mg PO BID #20 TABLETS 12/21/21 [Rx Last Taken Unknown] metronidazole 500 mg tablet 500 mg PO Q12H #20 tabs 12/21/21 [Rx Last Taken Unknown] tramadol 50 mg tablet 50 mg PO Q4H PRN PRN Pain 2 days #10 tabs 12/21/21 [Rx Last Taken Unknown] oxycodone-acetaminophen 5 mg-325 mg tablet 1 tab PO Q6H PRN PRN Pain 3 days #12 TABLETS 12/28/21 [Rx Last Taken Unknown] Allergy/AdvReac Type Severity Reaction Status Date / Time amoxicillin trihydrate Allergy Rash Verified 05/17/22 06:14 [From Augmentin] Penicillins Allergy Rash Verified 05/17/22 06:14 potassium clavulanate Allergy Rash Verified 05/17/22 06:14 [From Augmentin] morphine AdvReac Nausea/Vom/ Verified 05/17/22 06:14 Diarrhea Surgical History History of hysterectomy History of knee replacement history of thumb joint replacement Social History Smoking Status: Former smoker alcohol intake: never substance use type: does not use ROS ROS ED Constitutional Constitutional ED: Denies chills, fever(s) or sweats Eyes Eyes: Denies change in vision ENT ENT ED: Denies dysphagia or sore throat Cardiovascular Cardiovascular: Denies chest pain, leg edema, palpitations or racing heartbeat Respiratory/Chest Respiratory/Chest: Denies cough, dyspnea or dyspnea on exertion Gastrointestinal Gastrointestinal: Denies abdominal pain, diarrhea, nausea or vomiting Genitourinary Genitourinary ED: Denies dysuria, hematuria or urinary frequency Musculoskeletal Musculoskeletal: Reports extremity pain and other Details: Right shoulder pain. ; Denies back pain or neck pain Integumentary Denies rash or wounds Neurologic Neurologic: Denies headache(s), paresthesias or weakness EXAM Physical Exam Const Vital Signs: 05/17/22 06:15 Temperature 98.9 F Temperature Source Oral Pulse Rate 89 Respiratory Rate 18 Blood Pressure 120/79 Blood Pressure Mean 92 Pulse Ox 98 Positive well nourished and well developed General Appearance ED: well developed and NAD HEENT Reports moist mucous membranes normocephalic and atraumatic Eyes PERRL, EOMs intact bilaterally and conjunctivae normal General Eye ED: Yes normal appearance of both eyes Neck no lymphadenopathy and supple General: Negative for tenderness Chest Wall Chest: Negative for tenderness Resp normal respiratory effort and normal air movement Effort and Inspection: symmetric chest movement; Negative for respiratory distress Cardio regular rate, regular rhythm and no murmurs Peripheral Pulses: pulses 2+ throughout GI normal to inspection, nondistended, normoactive bowel sounds and non-tender Palpation: Negative for guarding or rebound tenderness present Back/Spine no C (more content not included)... Normal [facility] Absolute lymphocyte counton 12-28-2021 Lymphocytes Auto (Unsp spec) [#/Vol] 2.89 10*3/uL 0.83-4.51 [facility] Work Phone: Basophil percentageon 2021 Basophils/100 WBC (Bld) 1.5 % 0-1 [facility] Work Phone: Chloride [Moles/Vol] 100 mmol/L 98-107 [facility] Work Phone: [phone] Eosinophils/100 WBC (Bld) 1.2 % 0-5 [facility] Work Phone: Glucose [Mass/Vol] 121 mg/dL 74-106 [facility] Work Phone: Comment on above: Fasting Glucose resu lt from 100 to 125 mg/dL suggests IMPAIRED HOMEOSTASIS per A.D.A. criteria. Neutrophils (Bld) [#/Vol] 5.6 10*3/uL 2.0-7.7 [facility] Work Phone: [phone] Neutrophils/100 WBC (Bld) 59.7 % 47-70 [facility] Work Phone: Potassium [Moles/Vol] 3.4 mmol/L 3.5-5.1 [facility] Work Phone: Sodium [Moles/Vol] 135 mmol/L 136-145 [facility] Work Phone: WBC (Bld) [#/Vol] 9.4 10*3/uL 4.4-11.0 [facility] Work Phone: Blood erythrocytes count (nu mber/volume)on 12-28-2021 RBC (Bld) [#/Vol] 4.77 10*6/uL 4.2-5.4 [facility] Work Phone: Blood hemoglobin measurement (mass/volume)on 12-28-2021 Hemoglobin (Bld) [Mass/Vol] 13.1 g/dL 12.0-15.0 [facility] Work Phone: [phone] Blood lymphocytes/100 leukoc yteson 12-28-2021 Lymphocytes/100 WBC (Bld) 30.8 % 19-41 [facility] Work Phone: [phone] Blood monocytes/100 leukocyt eson 12-28-2021 Monocytes/100 WBC (Bld) 6.4 % 0-10 [facility] Work Phone: Blood platelet mean volumeon 12-28-2021 Platelet mean volume (Bld) [Entitic vol] 9.4 fL 6.2-12.0 [facility] Work Phone: Determination of erythrocyte mean corpuscular volume (MCV)on 12-28-2021 MCV (RBC) [Entitic vol] 88.7 fL 81-99 [facility] Work Phone: Hematocrit Auto (Bld) [Volum e fraction]on 12-28-2021 Hematocrit (Bld) [Volume fraction] 42.3 % 37-47 [facility] Work Phone: Laboratory - Chemistry and C hemistry - challengeon 12-28-2021 CO2 [Moles/Vol] 26.0 mmol/L 21.0-32.0 [facility] Work Phone: Urea nitrogen/Creatinin e [Mass ratio] 7.0 mg/mg 10-20 [facility] Work Phone: Laboratory - Hematology and Cell countson 12-28-2021 Erythrocyte distribution width (RBC) [Entitic vol] 38.1 fL 35.1-43.9 [facility] Work Phone: Erythrocyte distribution width (RBC) [Ratio] 11.9 % 11.6-14.6 [facility] Work Phone: Immature granulocytes/100 WBC (Bld) 0.400 % 0.0-0.9 [facility] Work Phone: Comment on above: IG% - Immature Granu locytes (promyelocytes, myelocytes and metamyelocytes) > 1% indicates that a LEFT SHIFT is Present. MCH (RBC) [Entitic mass] 27.5 pg 27.0-32.0 [facility] Work Phone: Nucleated RBC/100 WBC (Bld) [Ratio] 0 % 0-5 [facility] Work Phone: MCHC Auto (RBC) [Mass/Vol]on 12-28-2021 MCHC (RBC) [Mass/Vol] 31.0 g/dL 32-36 [facility] Work Phone: No Panel Informationon 12-28 Estimated Creatinine Clearance Calc 53.60 ml/min [facility] Work Phone: Estimated GFR (MDRD) Amer 73 mL/min >60 [facility] Work Phone: Comment on above: GFR Calc Estimated GFR (MDRD) Non-Af Amer 61 mL/min >60 [facility] Work Phone: Comment on above: Non- GFR Calc Platelets bldon 12-28-2021 Platelets (Bld) [#/Vol] 399 10*3/uL 150-450 [facility] Work Phone: Serum or plasma calcium ashley urement (mass/volume)on 12-28-2021 Calcium [Mass/Vol] 8.6 mg/dL 8.5-10.1 [facility] Work Phone: Serum or plasma creatinine m easurement (mass/volume)on 12-28-2021 Creatinine [Mass/Vol] 1.00 mg/dL 0.55-1.02 [facility] Work Phone: Comment on above: The validity of the calculated GFR & GFRAA in patients over 70 years has not been determined. Clinical correlation is essential. Serum or plasma urea nitroge n measurement (mass/volume)on 12-28-2021 Urea nitrogen [Mass/Vol] 7 mg/dL 7-18 [facility] Work Phone: Thin prep Papanicolaou smear with manual screeningon 12-28-2021 Thin prep Papanicolaou smear with manual screening 9 5-15 [facility] Work Phone: Absolute lymphocyte counton 12-21-2021 Lymphocytes Auto (Unsp spec) [#/Vol] 2.04 10*3/uL 0.83-4.51 [facility] Work Phone: Basophil percentageon 2021 Basophils/100 WBC (Bld) 1.2 % 0-1 [facility] Work Phone: Chloride [Moles/Vol] 106 mmol/L 98-107 [facility] Work Phone: Eosinophils/100 WBC (Bld) 1.7 % 0-5 [facility] Work Phone: Glucose [Mass/Vol] 101 mg/dL 74-106 [facility] Work Phone: Comment on above: Fasting Glucose resu lt from 100 to 125 mg/dL suggests IMPAIRED HOMEOSTASIS per A.D.A. criteria. Neutrophils (Bld) [#/Vol] 6.0 10*3/uL 2.0-7.7 [facility] Work Phone: Neutrophils/100 WBC (Bld) 64.3 % 47-70 [facility] Work Phone: Potassium [Moles/Vol] 4.2 mmol/L 3.5-5.1 [facility] Work Phone: Comment on above: Moderate Hemolysis, Result may be falsely increased. Sodium [Moles/Vol] 138 mmol/L 136-145 [facility] Work Phone: WBC (Bld) [#/Vol] 9.3 10*3/uL 4.4-11.0 [facility] Work Phone: Basophil percentage 0 SEEN /hpf [facility] Work Phone: Bilirubin Test strip Ql (U)o n 12-21-2021 Bilirubin Ql (U) 1 mg/dL Negative [facility] Work Phone: Comment on above: COLOR OF URINE MAY A FFECT DIPSTICK RESULTS. Blood erythrocytes count (nu mber/volume)on 12-21-2021 RBC (Bld) [#/Vol] 4.13 10*6/uL 4.2-5.4 [facility] Work Phone: Blood hemoglobin measurement (mass/volume)on 12-21-2021 Hemoglobin (Bld) [Mass/Vol] 11.6 g/dL 12.0-15.0 [facility] Work Phone: Blood lymphocytes/100 leukoc yteson 12-21-2021 Lymphocytes/100 WBC (Bld) 22.0 % 19-41 [facility] Work Phone: Blood monocytes/100 leukocyt eson 12-21-2021 Monocytes/100 WBC (Bld) 10.5 % 0-10 [facility] Work Phone: Blood platelet mean volumeon 12-21-2021 Platelet mean volume (Bld) [Entitic vol] 9.8 fL 6.2-12.0 [facility] Work Phone: Determination of erythrocyte mean corpuscular volume (MCV)on 12-21-2021 MCV (RBC) [Entitic vol] 87.9 fL 81-99 [facility] Work Phone: Hematocrit Auto (Bld) [Volum e fraction]on 12-21-2021 Hematocrit (Bld) [Volume fraction] 36.3 % 37-47 [facility] Work Phone: Ketones Test strip Ql (U)on 12-21-2021 Ketones Ql (U) Negative Negative [facility] Work Phone: Laboratory - Chemistry and C hemistry - challengeon 12-21-2021 CO2 [Moles/Vol] 28.0 mmol/L 21.0-32.0 [facility] Work Phone: Urea nitrogen/Creatinin e [Mass ratio] 11.8 mg/mg 10-20 [facility] Work Phone: Laboratory - Hematology and Cell countson 12-21-2021 Erythrocyte distribution width (RBC) [Entitic vol] 39.9 fL 35.1-43.9 [facility] Work Phone: Erythrocyte distribution width (RBC) [Ratio] 12.4 % 11.6-14.6 [facility] Work Phone: Immature granulocytes/100 WBC (Bld) 0.300 % 0.0-0.9 [facility] Work Phone: Comment on above: IG% - Immature Granu locytes (promyelocytes, myelocytes and metamyelocytes) > 1% indicates that a LEFT SHIFT is Present. MCH (RBC) [Entitic mass] 28.1 pg 27.0-32.0 [facility] Work Phone: Nucleated RBC/100 WBC (Bld) [Ratio] 0 % 0-5 [facility] Work Phone: MCHC Auto (RBC) [Mass/Vol]on 12-21-2021 MCHC (RBC) [Mass/Vol] 32.0 g/dL 32-36 [facility] Work Phone: Mucus LM Ql (Urine sed)on Mucus Ql (Urine sed) 0 SEEN /hpf [facility] Work Phone: Nitrite Test strip Ql (U)on 12-21-2021 Nitrite Ql (U) Negative Negative [facility] Work Phone: No Panel Informationon 12-21 Estimated Creatinine Clearance Calc 70.52 ml/min [facility] Work Phone: Estimated GFR (MDRD) Amer 100 mL/min >60 [facility] Work Phone: Comment on above: GFR Calc Estimated GFR (MDRD) Non-Af Amer 83 mL/min >60 [facility] Work Phone: Comment on above: Non- GFR Calc Platelets bldon 12-21-2021 Platelets (Bld) [#/Vol] 297 10*3/uL 150-450 [facility] Work Phone: Protein Test strip Ql (U)on 12-21-2021 Protein Ql (U) Negative Negative [facility] Work Phone: Serum or plasma calcium ashley urement (mass/volume)on 12-21-2021 Calcium [Mass/Vol] 8.8 mg/dL 8.5-10.1 [facility] Work Phone: Serum or plasma creatinine m easurement (mass/volume)on 12-21-2021 Creatinine [Mass/Vol] 0.76 mg/dL 0.55-1.02 [facility] Work Phone: Comment on above: The validity of the calculated GFR & GFRAA in patients over 70 years has not been determined. Clinical correlation is essential. Serum or plasma urea nitroge n measurement (mass/volume)on 12-21-2021 Urea nitrogen [Mass/Vol] 9 mg/dL 7-18 [facility] Work Phone: Squamous epithelial cells de tection in urine sediment by light microscopyon 12-21-2021 Epithelial cells.squamous LM Ql (Urine sed) 0 SEEN /hpf [facility] Work Phone: Thin prep Papanicolaou smear with manual screeningon 12-21-2021 Thin prep Papanicolaou smear with manual screening 4 5-15 [facility] Work Phone: Urine blood detectionon 12-09 RBC Ql (U) Negative Negative [facility] Work Phone: RBC Ql (U) 0 SEEN /hpf [facility] Work Phone: Urine clarityon 12-21-2021 Clarity (U) Clear Clear [facility] Work Phone: Urine color determinationon 12-21-2021 Color (U) Yellow Yellow [facility] Work Phone: Urine glucose detectionon Glucose Ql (U) Normal mg/dl Normal [facility] Work Phone: Urine leukocyte esterase det ection by dipstickon 12-21-2021 Leukocyte esterase Test strip Ql (U) 25 /ul Negative [facility] Work Phone: Urine pHon 12-21-2021 pH (U) 6.5 [pH] [facility] Work Phone: Urine sediment bacteria coun t by microscopy (number/high power field)on 12-21-2021 Bacteria LM.HPF (Urine sed) [#/Area] 0 /[HPF] None Seen [facility] Work Phone: Urine specific gravity measu rementon 12-21-2021 Specific gravity (U) [Rel density] 1.015 [facility] Work Phone: Urobilinogen Auto test strip Ql (U)on 12-21-2021 Urobilinogen Ql (U) Normal mg/dl Normal [facility] Work Phone: CNTHERAPYon 03-28-2018 CNTHERAPY OT/PT/Speech Visit ([facility]) IVAN MARVIN ([id number]) 1965 F NFRDate Time Provider Department03/28/18 1:30 PM SANDI RIVERS (OT) [facility]Encounter Number: [id number] Time Provider Department Silver03/28/2018 1:30 PM [id number] RIVERS *[facility] Discharge [750]Primary Visit Diagnosis:Primary osteoarthritis of first carpometacarpal joint of right hand [M18.11] Other Visit Diagnosis:Primary osteoarthritis of first carpometacarpal joint of left hand [M18.12]Allergies As of Date: 03/28/2018 Noted Allergy ReactionAUGMENTIN (AMOXICILLIN-POT CLAVUL*05/11/2005 2 - RashMORPHINE 01/08/2012 11 - VomitingPENICILLINS 05/11/2005 14 - Other: See Comments Comments: augmentin cross sensitivityDate Reviewed: 03/25/2018Reviewed by: Earl Singer - Fully AssessedPrescriptions as of 03/28/2018 Sig: BUPROPION HCL SR 150 MG TABLE* Take 1 tablet by mouth twice * AMITRIPTYLINE 25 MG TABLET Take 1-2 tablets by mouth meg* CYCLOBENZAPRINE 10 MG TABLET Take 1 tablet by mouth twice * CALCIUM + D ORAL Take by mouth once daily. VITAMIN D3 ORAL Take by mouth once daily. VITAMIN B-12 ORAL Take by mouth once daily. ETODOLAC ER 500 MG TABLET,EXT* Take 1 tablet by mouth once d* FLUTICASONE 50 MCG/ACTUATION * Use 2 Sprays in each nostril * FUROSEMIDE 20 MG TABLET Take 1-2 tablets by mouth onc* TENS UNIT ELECTRODES 2 X 2 * Use electrodes with pads with* PREGABALIN 75 MG CAPSULE Take 2 capsules by mouth twic*Progress Notes:Sandi Rivers, OT/L 03/28/2018 5:23 PM SignedEpisode Visit Count: 7Therapist That Will Oversee The Plan Of Care: Sandi RiversStart of Care Date: 01/29/18Plan of Care Certification Date: 01/29/18Patient Identified by Name and Date of : YesREHABILITATION AND SPORTS THERAPYOCCUPATIONAL THERAPY DISCONTINUANCE OF CAREPLAN OF CARE UPDATE:Assessment: Ivan Khan is discontinued from Occupational Therapy services dueto goal achievement and maximal benefit.. Patient was seen for 7 visits fromStart of Care Date: 01/29/18 to 03/28/2018 and treatment included: Therapeuticexercise, Manual therapy and Modalities.Goals for Episode of Care created on 01/29/18 through 05/01/18Patient will report a good understanding of diagnosis and OT recommendations forprogression of program METPatient will demonstrate independence with ongoing home exercise program METPatient will increase AROM of right thumb Mp flex to 50 degrees, IP flexion to30 degrees and radial and palmar abduction to 50 degrees in order to be able tograsp an item. METPatient will independently demonstrate correct application of wrist thumborthosis and verbalize understanding of proper wear/care by end of session.METPatient will demonstrate decreased edema of right hand pt will be independent inedema reduction techniques METPatient will report a good understanding of the use of modalities to help managediscomfort and promote healing METPatient will independently demonstrate scar massage/management in order todecrease scar adherence METSUBJECTIVE:Pain Score: 3/10Pain Location: Hand - Right;Thumb - RightFrequency: IntermittentPost Treatment Pain Score: No ChangePain Location: Wrist - Right;Thumb - RightOBJECTIVE MEASURES WITH LEVEL OF FUNCTION:Hand EvaluationElbow/Wrist AROM: Limitations as notedLimitations as noted: RightThumb AROM: Limitations as notedLimitations as noted: RightStrength: Dynamometer / Senior Hardware Design Engineer;Pinch MeterR Senior Hardware Design Engineer Position 2 (lbs): 29 lbsR Lateral Pinch (lbs): 8 lbsR Tripod Pinch (lbs): 6.5 lbsR Tip Pinch (lbs): 7 lbsHand AROMR Thumb MP Flexion : 45 DegreesR Thumb IP Flexion : 47 DegreesR Thumb Radial Abduction: 70 DegreesR Thumb Palmar Abduction: 70 DegreesUE AROMR Wrist Extension: 60 DegreesR Wrist Flexion: 65 DegreesR Wrist Radial Deviation: 15 DegreesR Wrist Ulnar Deviation: 25 DegreesTREATMENT:Therapeutic Exercise:1: wrist flex, ext, deviation and sup/pro2: thumb flex/ext, radial and palmar abduction3: BTE see record of treatment in scanned medical records4: with medium soft putty gripSkilled Intervention: Patient was educated in proper exercise technique andpurpose for exercises.Skilled judgment was provided in selection of appropriate interventions.Correct performance of therapeutic exercises was facilitated with verbal cuing.Modalities:Fluidotherapy Body Region Treated - Fluidotherapy: right handPatient Position: seatedTemperature: 109Minute(s): 10Activity 1: while performing AROMSee flowsheet for details regarding treatment. Skilled Intervention: Properadministration and selection of modality based on clinical presentation,deficits, and needs. Patient response monitored throughout treatment.Billing:Kristen: Therapeutic Exercise (53183): 1:1 time:30 minutes (2 units: 23-37 mins)Fluidotherapy (02998) 1 unit(s)Total time: 40 minutesSandi Rivers OT/MYLENE Normal [facility] PROGRESSon 03-28-2018 Protein HNO ID: [id number] thor: Sandi RiversSer: (none)Author Type: Occupational TherapistType: Progress NotesFiled: 03/28/2018 5:23 PMNote Text:Episode Visit Count: 7Therapist That Will Oversee The Plan Of Care: Sandi RiversStart of Care Date: 01/29/18Plan of Care Certification Date: 01/29/18Patient Identified by Name and Date of : YesREHABILITATION AND SPORTS THERAPYOCCUPATIONAL THERAPY DISCONTINUANCE OF CAREPLAN OF CARE UPDATE:Assessment: Ivan Khan is discontinued from Occupational Therapyservices due to goal achievement and maximal benefit.. Patient was seenfor 7 visits from Start of Care Date: 01/29/18 to 03/28/2018 and treatmentincluded: Therapeutic exercise, Manual therapy and Modalities.Goals for Episode of Care created on 01/29/18 through 05/01/18Patient will report a good understanding of diagnosis and OTrecommendations for progression of program METPatient will demonstrate independence with ongoing home exercise programMETPatient will increase AROM of right thumb Mp flex to 50 degrees, IPflexion to 30 degrees and radial and palmar abduction to 50 degrees inorder to be able to grasp an item. METPatient will independently demonstrate correct application of wrist thumborthosis and verbalize understanding of proper wear/care by end ofsession.METPatient will demonstrate decreased edema of right hand pt will beindependent in edema reduction techniques METPatient will report a good understanding of the use of modalities to helpmanage discomfort and promote healing METPatient will independently demonstrate scar massage/management in order todecrease scar adherence METSUBJECTIVE:Pain Score: 3/10Pain Location: Hand - Right;Thumb - RightFrequency: IntermittentPost Treatment Pain Score: No ChangePain Location: Wrist - Right;Thumb - RightOBJECTIVE MEASURES WITH LEVEL OF FUNCTION:Hand EvaluationElbow/Wrist AROM: Limitations as notedLimitations as noted: RightThumb AROM: Limitations as notedLimitations as noted: RightStrength: Dynamometer / Senior Hardware Design Engineer;Pinch MeterR Senior Hardware Design Engineer Position 2 (lbs): 29 lbsR Lateral Pinch (lbs): 8 lbsR Tripod Pinch (lbs): 6.5 lbsR Tip Pinch (lbs): 7 lbsHand AROMR Thumb MP Flexion : 45 DegreesR Thumb IP Flexion : 47 DegreesR Thumb Radial Abduction: 70 DegreesR Thumb Palmar Abduction: 70 DegreesUE AROMR Wrist Extension: 60 DegreesR Wrist Flexion: 65 DegreesR Wrist Radial Deviation: 15 DegreesR Wrist Ulnar Deviation: 25 DegreesTREATMENT:Therapeutic Exercise:1: wrist flex, ext, deviation and sup/pro2: thumb flex/ext, radial and palmar abduction3: BTE see record of treatment in scanned medical records4: with medium soft putty gripSkilled Intervention: Patient was educated in proper exercise techniqueand purpose for exercises.Skilled judgment was provided in selection of appropriate interventions.Correct performance of therapeutic exercises was facilitated with verbalcuing.Modalities:Fluidot herapyBody Region Treated - Fluidotherapy: right handPatient Position: seatedTemperature: 109Minute(s): 10Activity 1: while performing AROMSee flowsheet for details regarding treatment. Skilled Intervention:Proper administration and selection of modality based on clinicalpresentation, deficits, and needs. Patient response monitored throughouttreatment.Billing:Me pinoa: Therapeutic Exercise (34392): 1:1 time:30 minutes (2 units: 23-37mins)Fluidotherapy (78614) 1 unit(s)Total time: 40 minutesSandi Rivers OT[facility] CNTHERAPYon 03-21-2018 CNTHERAPY OT/PT/Speech Visit (OTC) IVAN MARVIN ([id number]) 1965 F NFRDate Time Provider Department03/21/18 1:30 PM SANDI RIVERS (OT) [facility]Encounter Number: [id number] Time Provider Department Silver03/21/2018 1:30 PM [id number] RIVERS [facility] [504]Primary Visit Diagnosis:Primary osteoarthritis of first carpometacarpal joint of right hand [M18.11]Allergies As of Date: 03/21/2018 Noted Allergy ReactionAUGMENTIN (AMOXICILLIN-POT CLAVUL*05/11/2005 2 - RashMORPHINE 01/08/2012 11 - VomitingPENICILLINS 05/11/2005 14 - Other: See Comments Comments: augmentin cross sensitivityDate Reviewed: 03/21/2018Reviewed by: Camille Flores LPN - Fully AssessedPrescriptions as of 03/21/2018 Sig: BUPROPION HCL SR 150 MG TABLE* Take 1 tablet by mouth twice * AMITRIPTYLINE 25 MG TABLET Take 1-2 tablets by mouth meg* CYCLOBENZAPRINE 10 MG TABLET Take 1 tablet by mouth twice * CALCIUM + D ORAL Take by mouth once daily. VITAMIN D3 ORAL Take by mouth once daily. VITAMIN B-12 ORAL Take by mouth once daily. ETODOLAC ER 500 MG TABLET,EXT* Take 1 tablet by mouth once d* FLUTICASONE 50 MCG/ACTUATION * Use 2 Sprays in each nostril * FUROSEMIDE 20 MG TABLET Take 1-2 tablets by mouth onc* TENS UNIT ELECTRODES 2 X 2 * Use electrodes with pads with* PREGABALIN 75 MG CAPSULE Take 2 capsules by mouth twic*Progress Notes:Sandi Rivers OT/Corey 03/21/2018 2:21 PM SignedEpisode Visit Count: 6Therapist That Will Oversee The Plan Of Care: Sandi RiversStart of Care Date: 01/29/18Plan of Care Certification Date: 01/29/18Patient Identified by Name and Date of : YesREHABILITATION AND SPORTS THERAPYOCCUPATIONAL THERAPY TREATMENT NOTEASSESSMENT: Ivan Khan demonstrated difficulty with gripping and pinching.The patient will continue to benefit from continued skilled occupational therapyfor exercises, modalities and manual techniquesPLAN FOR NEXT VISIT:progress return to work tasksSUBJECTIVE:Pt reports she ran the vacuum and had pain in her hand for about 10 minutesPain Score: 4/10Pain Location: Hand - RightFrequency: IntermittentPost Treatment Pain Score: 4/10Pain Location: Thumb - RightPost Treatment Pain Description: SharpOBJECTIVE MEASURES WITH LEVEL OF FUNCTION:Pt arrived with no splint on handTREATMENT:Therapeutic Exercise:1: wrist flex, ext, deviation and sup/pro2: thumb flex/ext, radial and palmar abduction3: BTE see record of treatment in scanned medical recordsSkilled Intervention: Patient was educated in proper exercise technique andpurpose for exercises.Skilled judgment was provided in selection of appropriate interventions.Correct performance of therapeutic exercises was facilitated with verbal cuing.Manual Therapy:1: scar massageSkilled Intervention: Manual skills to improve joint mobility, ROM, and decreasepain. Utilized anatomy knowledge of the therapist, and assessment of patient'sresponse to intervention.Modalities:Fluido therapyBody Region Treated - Fluidotherapy: right handPatient Position: seatedTemperature: 109Minute(s): 10Activity 1: while performing AROMSee flowsheet for details regarding treatment. Skilled Intervention: Properadministration and selection of modality based on clinical presentation,deficits, and needs. Patient response monitored throughout treatment.Billing:Kearney: Therapeutic Exercise (63034): 1:1 time:25 minutes (1 unit: 8-22 mins)Manual Therapy (16948): 1:1 time: 5 minutes (no charge)Fluidotherapy (05931) 1 unit(s)Total time: 45 minutesSandi Rivers OT/MYLENE Normal [facility] PROGRESSon 03-21-2018 Protein HNO ID: [id number] thor: Sandi Boyd: (none)Author Type: Occupational TherapistType: Progress NotesFiled: 03/21/2018 2:21 PMNote Text:Episode Visit Count: 6Therapist That Will Oversee The Plan Of Care: Sandi Floresart of Care Date: 01/29/18Plan of Care Certification Date: 01/29/18Patient Identified by Name and Date of : YesREHABILITATION AND SPORTS THERAPYOCCUPATIONAL THERAPY TREATMENT NOTEASSESSMENT: Ivan Khan demonstrated difficulty with gripping andpinching. The patient will continue to benefit from continued skilledoccupational therapy for exercises, modalities and manual techniquesPLAN FOR NEXT VISIT:progress return to work tasksSUBJECTIVE:Pt reports she ran the vacuum and had pain in her hand for about 10minutesPain Score: 4/10Pain Location: Hand - RightFrequency: IntermittentPost Treatment Pain Score: 4/10Pain Location: Thumb - RightPost Treatment Pain Description: SharpOBJECTIVE MEASURES WITH LEVEL OF FUNCTION:Pt arrived with no splint on handTREATMENT:Therapeutic Exercise:1: wrist flex, ext, deviation and sup/pro2: thumb flex/ext, radial and palmar abduction3: BTE see record of treatment in scanned medical recordsSkilled Intervention: Patient was educated in proper exercise techniqueand purpose for exercises.Skilled judgment was provided in selection of appropriate interventions.Correct performance of therapeutic exercises was facilitated with verbalcuing.Manual Therapy:1: scar massageSkilled Intervention: Manual skills to improve joint mobility, ROM, anddecrease pain. Utilized anatomy knowledge of the therapist, and assessmentof patient's response to intervention.Modalities:Fluido therapyBody Region Treated - Fluidotherapy: right handPatient Position: seatedTemperature: 109Minute(s): 10Activity 1: while performing AROMSee flowsheet for details regarding treatment. Skilled Intervention:Proper administration and selection of modality based on clinicalpresentation, deficits, and needs. Patient response monitored throughouttreatment.Billing: maryann: Therapeutic Exercise (89720): 1:1 time:25 minutes (1 unit: 8-22mins)Manual Therapy (23131): 1:1 time: 5 minutes (no charge)Fluidotherapy (00091) 1 unit(s)Total time: 45 minutesSandi Rivers OT/[facility] CNTHERAPYon 03-07-2018 [facility]APY [facility] IV[facility]VIN ([id number]) 1965 F NFRDate Time Provider Department03/07/18 1:30 PM SANDI RIVERS (OT) OTCEncounter Number: [id number] Time Provider Department Silver03/07/2018 1:30 PM [id number] RIVERS [facility] Progress Note [1595]Reason For Visit History RecordedPrimary Visit Diagnosis:Primary osteoarthritis of first carpometacarpal joint of right hand [M18.11]Allergies As of Date: 03/07/2018 Noted Allergy ReactionAUGMENTIN (AMOXICILLIN-POT CLAVUL*05/11/2005 2 - RashMORPHINE 01/08/2012 11 - VomitingPENICILLINS 05/11/2005 14 - Other: See Comments Comments: augmentin cross sensitivityDate Reviewed: 02/21/2018Reviewed by: Earl Singer - Fully AssessedPrescriptions as of 03/07/2018 Sig: CYCLOBENZAPRINE 10 MG TABLET Take 1 tablet by mouth twice * CALCIUM + D ORAL Take by mouth once daily. VITAMIN D3 ORAL Take by mouth once daily. VITAMIN B-12 ORAL Take by mouth once daily. ETODOLAC ER 500 MG TABLET,EXT* Take 1 tablet by mouth once d* FLUTICASONE 50 MCG/ACTUATION * Use 2 Sprays in each nostril * BUPROPION HCL SR 150 MG TABLE* Take 1 tablet by mouth twice * FUROSEMIDE 20 MG TABLET Take 1-2 tablets by mouth onc* TENS UNIT ELECTRODES 2 X 2 * Use electrodes with pads with* PREGABALIN 75 MG CAPSULE Take 2 capsules by mouth twic*Progress Notes:Sandi Rivers OT/L 03/07/2018 5:21 PM SignedEpisode Visit Count: 5Therapist That Will Oversee The Plan Of Care: Sandi RiversStart of Care Date: 01/29/18Plan of Care Certification Date: 01/29/18Patient Identified by Name and Date of : YesREHABILITATION AND SPORTS THERAPYOCCUPATIONAL THERAPY PROGRESS REPORTPLAN OF CARE UPDATE:Assessment: Ivan Khan exhibits difficulty with strength and repeated use ofhand . She continues to be limited with gripping pinch. She is progressing asexpected towards her therapy goals as demonstrated by: documented subjectiveinformation on progress and documented objective information regarding ADL's,strength, range of motion and overall function. She will benefit from continuedskilled therapy requiring exercises, manual techniques and modalities in orderto improve function.Functional gains: Increased endurance / activity toleranceIncreased independence with HEPIncreased ROMGoals for Episode of Care created on 01/29/18 through 05/01/18Patient will report a good understanding of diagnosis and OT recommendations forprogression of program PROGRESSINGPatient will demonstrate independence with ongoing home exercise programPROGRESSINGPatient will increase AROM of right thumb Mp flex to 50 degrees, IP flexion to30 degrees and radial and palmar abduction to 50 degrees in order to be able tograsp an item. METPatient will independently demonstrate correct application of wrist thumborthosis and verbalize understanding of proper wear/care by end of session.METPatient will demonstrate decreased edema of right hand pt will be independent inedema reduction techniques METPatient will report a good understanding of the use of modalities to help managediscomfort and promote healing METPatient will independently demonstrate scar massage/management in order todecrease scar adherence METPlanned Interventions, Frequency, and Duration: 1x/week, 3 weeksTotal Number of Visits Planned: 3Patient to be seen for Custom orthosis fabrication;Therapeutic exercise;Manualtherapy;Modalit iesPrognosis: GoodGood due to: current objective clinical presentationPLAN FOR NEXT VISIT: progress activities in order to be able to return to workSUBJECTIVE:Pt reports she has not been using splint much has been trying to use hand asnormal as possiblePain Score: 4/10Pain Location: Thumb - RightDescription: SoreFrequency: IntermittentPost Treatment Pain Score: 3/10Pain Location: Thumb - RightPost Treatment Pain Description: SharpOBJECTIVE MEASURES WITH LEVEL OF FUNCTION:Hand EvaluationR Senior Hardware Design Engineer Position 2 (lbs): 15 lbsR Lateral Pinch (lbs): 7 lbsR Tripod Pinch (lbs): 4 lbsR Tip Pinch (lbs): 5 lbsHand AROMR Thumb MP Flexion : 54 DegreesR Thumb IP Flexion : 54 DegreesR Thumb Radial Abduction: 65 DegreesR Thumb Palmar Abduction: 65 DegreesTREATMENT:Therapeutic Exercise:1: wrist flex, ext, deviation and sup/pro2: thumb flex/ext, radial and palmar abduction3: BTE see record of treatment in scanned medical records5: scar and retrograde massageSkilled Intervention: Patient was educated in proper exercise technique andpurpose for exercises.Modalities:Fluidothe rapyBody Region Treated - Fluidotherapy: right handPatient Position: seatedTemperature: 109Minute(s): 10Activity 1: while performing AROMSee flowsheet for details regarding treatment. Skilled Intervention: Properadministration and selection of modality based on clinical presentation,deficits, and needs. Patient response monitored throughout treatment.Billing:Peterson: Therapeutic Exercise (91005): 1:1 time:30 minutes (2 units: 23-37 mins)Fluidotherapy (53814) 1 unit(s)Total time: 40 minutesSandi Rivers OT/MYLENE Normal [facility] PROGRESSon 03-07-2018 Protein HNO ID: [id number] thor: Sandi (Ot) Oliver: (none)Author Type: Occupational TherapistType: Progress NotesFiled: 03/07/2018 5:21 PMNote Text:Episode Visit Count: 5Therapist That Will Oversee The Plan Of Care: Sandi Floresart of Care Date: 01/29/18Plan of Care Certification Date: 01/29/18Patient Identified by Name and Date of : YesREHABILITATION AND SPORTS THERAPYOCCUPATIONAL THERAPY PROGRESS REPORTPLAN OF CARE UPDATE:Assessment: Ivan Khan exhibits difficulty with strength and repeateduse of hand . She continues to be limited with gripping pinch. She isprogressing as expected towards her therapy goals as demonstrated by:documented subjective information on progress and documented objectiveinformation regarding ADL's, strength, range of motion and overallfunction. She will benefit from continued skilled therapy requiringexercises, manual techniques and modalities in order to improve function.Functional gains: Increased endurance / activity toleranceIncreased independence with HEPIncreased ROMGoals for Episode of Care created on 01/29/18 through 05/01/18Patient will report a good understanding of diagnosis and OTrecommendations for progression of program PROGRESSINGPatient will demonstrate independence with ongoing home exercise programPROGRESSINGPatient will increase AROM of right thumb Mp flex to 50 degrees, IPflexion to 30 degrees and radial and palmar abduction to 50 degrees inorder to be able to grasp an item. METPatient will independently demonstrate correct application of wrist thumborthosis and verbalize understanding of proper wear/care by end ofsession.METPatient will demonstrate decreased edema of right hand pt will beindependent in edema reduction techniques METPatient will report a good understanding of the use of modalities to helpmanage discomfort and promote healing METPatient will independently demonstrate scar massage/management in order todecrease scar adherence METPlanned Interventions, Frequency, and Duration: 1x/week, 3 weeksTotal Number of Visits Planned: 3Patient to be seen for Custom orthosis fabrication;Therapeuticexercis e;Manual therapy;ModalitiesPrognosis: GoodGood due to: current objective clinical presentationPLAN FOR NEXT VISIT: progress activities in order to be able to return toworkSUBJECTIVE:Pt reports she has not been using splint much has been trying to use handas normal as possiblePain Score: 4/10Pain Location: Thumb - RightDescription: SoreFrequency: IntermittentPost Treatment Pain Score: 3/10Pain Location: Thumb - RightPost Treatment Pain Description: SharpOBJECTIVE MEASURES WITH LEVEL OF FUNCTION:Hand EvaluationR Senior Hardware Design Engineer Position 2 (lbs): 15 lbsR Lateral Pinch (lbs): 7 lbsR Tripod Pinch (lbs): 4 lbsR Tip Pinch (lbs): 5 lbsHand AROMR Thumb MP Flexion : 54 DegreesR Thumb IP Flexion : 54 DegreesR Thumb Radial Abduction: 65 DegreesR Thumb Palmar Abduction: 65 DegreesTREATMENT:Therapeutic Exercise:1: wrist flex, ext, deviation and sup/pro2: thumb flex/ext, radial and palmar abduction3: BTE see record of treatment in scanned medical records5: scar and retrograde massageSkilled Intervention: Patient was educated in proper exercise techniqueand purpose for exercises.Modalities:Fluidothe rapyBody Region Treated - Fluidotherapy: right handPatient Position: seatedTemperature: 109Minute(s): 10Activity 1: while performing AROMSee flowsheet for details regarding treatment. Skilled Intervention:Proper administration and selection of modality based on clinicalpresentation, deficits, and needs. Patient response monitored throughouttreatment.Billing: maryann: Therapeutic Exercise (56326): 1:1 time:30 minutes (2 units: 23-37mins)Fluidotherapy (98184) 1 unit(s)Total time: 40 minutesSandi Rivers OT/MYLENE [facility] CNTHERAPYon 02-26-2018 CNTHERAPY OT/PT/Speech Visit ([facility]) IVAN MARVIN ([id number]) 1965 F NFRDate Time Provider Department02/26/18 1:45 PM SANDI RIVERS (OT) OTMMCEncounter Number: [id number] Time Provider Department Silver02/26/2018 1:45 PM [id number] RIVERS *[facility] Masood CReason for Visit: Occupational Therapy [504]Primary Visit Diagnosis:Primary osteoarthritis of first carpometacarpal joint of right hand [M18.11]Allergies As of Date: 02/26/2018 Noted Allergy ReactionAUGMENTIN (AMOXICILLIN-POT CLAVUL*05/11/2005 2 - RashMORPHINE 01/08/2012 11 - VomitingPENICILLINS 05/11/2005 14 - Other: See Comments Comments: augmentin cross sensitivityDate Reviewed: 02/21/2018Reviewed by: Earl Singer - Fully AssessedPrescriptions as of 02/26/2018 Sig: CYCLOBENZAPRINE 10 MG TABLET Take 1 tablet by mouth twice * CALCIUM + D ORAL Take by mouth once daily. VITAMIN D3 ORAL Take by mouth once daily. VITAMIN B-12 ORAL Take by mouth once daily. ETODOLAC ER 500 MG TABLET,EXT* Take 1 tablet by mouth once d* FLUTICASONE 50 MCG/ACTUATION * Use 2 Sprays in each nostril * BUPROPION HCL SR 150 MG TABLE* Take 1 tablet by mouth twice * FUROSEMIDE 20 MG TABLET Take 1-2 tablets by mouth onc* TENS UNIT ELECTRODES 2 X 2 * Use electrodes with pads with* PREGABALIN 75 MG CAPSULE Take 2 capsules by mouth twic*Progress Notes:Sandi Rivres OT/L 02/26/2018 2:32 PM SignedEpisode Visit Count: Visit count could not be calculated. Make sure you areusing a visit which is associated with an episode.Therapist That Will Oversee The Plan Of Care: Sandi RiversStart of Care Date: 01/29/18Plan of Care Certification Date: 01/29/18Patient Identified by Name and Date of : YesSurgical Procedure Date: 12/28/17REHABILITATION AND SPORTS THERAPYOCCUPATIONAL THERAPY TREATMENT NOTEASSESSMENT: Ivan Khan demonstrated difficulty with strength in hand abilityto use hand for heavier tasks. The patient will continue to benefit fromcontinued skilled occupational therapy for exercises, manual techniques anmodalitiesPLAN FOR NEXT VISIT:assess tolerance to BTE additional task for return to work goalSUBJECTIVE:Pt reports she only uses splint on occasion, tried to go swimming and it washard reports she needs to lift 12# parts at workPain Score: 5/10Pain Location: Thumb - RightDescription: SoreOBJECTIVE MEASURES WITH LEVEL OF FUNCTION:TREATMENT:Therapeutic Exercise:1: wrist flex, ext, deviation and sup/pro2: thumb flex/ext, radial and palmar abduction3: BTE see record of treatment in scanned medical records4: scar massageSkilled Intervention: Patient was educated in proper exercise technique andpurpose for exercises.Skilled judgment was provided in selection of appropriate interventions.Correct performance of therapeutic exercises was facilitated with verbal andvisual cuing.Modalities:Fluidotherapy Body Region Treated - Fluidotherapy: right handPatient Position: seatedTemperature: 109Minute(s): 10See flowsheet for details regarding treatment. Skilled Intervention: Properadministration and selection of modality based on clinical presentation,deficits, and needs. Patient response monitored throughout treatment.Billing:Kristen: Therapeutic Exercise (81035): 1:1 time:30 minutes (2 units: 23-37 mins)Fluidotherapy (55709) 1 unit(s)Total time: 40 minutesVeryarelis Rivers OT/MYLENE Normal [facility] PROGRESSon 02-26-2018 Protein HNO ID: [id number] thor: Sandi Boyd: (none)Author Type: Occupational TherapistType: Progress NotesFiled: 02/26/2018 2:32 PMNote Text:Episode Visit Count: Visit count could not be calculated. Make sure youare using a visit which is associated with an episode.Therapist That Will Oversee The Plan Of Care: Sandi Zuniga of Care Date: 01/29/18Plan of Care Certification Date: 01/29/18Patient Identified by Name and Date of : YesSurgical Procedure Date: 12/28/17REHABILITATION AND SPORTS THERAPYOCCUPATIONAL THERAPY TREATMENT NOTEASSESSMENT: Ivan Khan demonstrated difficulty with strength in handability to use hand for heavier tasks. The patient will continue tobenefit from continued skilled occupational therapy for exercises, manualtechniques an modalitiesPLAN FOR NEXT VISIT:assess tolerance to BTE additional task for return to work goalSUBJECTIVE:Pt reports she only uses splint on occasion, tried to go swimming and itwas hard reports she needs to lift 12# parts at workPain Score: 5/10Pain Location: Thumb - RightDescription: SoreOBJECTIVE MEASURES WITH LEVEL OF FUNCTION:TREATMENT:Therapeutic Exercise:1: wrist flex, ext, deviation and sup/pro2: thumb flex/ext, radial and palmar abduction3: BTE see record of treatment in scanned medical records4: scar massageSkilled Intervention: Patient was educated in proper exercise techniqueand purpose for exercises.Skilled judgment was provided in selection of appropriate interventions.Correct performance of therapeutic exercises was facilitated with verbaland visual cuing.Modalities:Fluidotherapy Body Region Treated - Fluidotherapy: right handPatient Position: seatedTemperature: 109Minute(s): 10See flowsheet for details regarding treatment. Skilled Intervention:Proper administration and selection of modality based on clinicalpresentation, deficits, and needs. Patient response monitored throughouttreatment.Billing:Me wolf: Therapeutic Exercise (66439): 1:1 time:30 minutes (2 units: 23-37mins)Fluidotherapy (38714) 1 unit(s)Total time: 40 minutesSandi Rivers OT/[facility] CNTHERAPYon 02-21-2018 CNTHERAPY OT/PT/Speech Visit ([facility]) JAYE IVAN SPEAR ([id number]) 1965 F NFRDate Time Provider Department02/21/18 2:15 PM SANDI RIVERS (OT) OTMMCEncounter Number: [id number] Time Provider Department Center02/21/2018 2:15 PM [id number] RIVERS *[facility]ational Therapy [504]Primary Visit Diagnosis:Primary osteoarthritis of first carpometacarpal joint of right hand [M18.11]Allergies As of Date: 02/21/2018 Noted Allergy ReactionAUGMENTIN (AMOXICILLIN-POT CLAVUL*05/11/2005 2 - RashMORPHINE 01/08/2012 11 - VomitingPENICILLINS 05/11/2005 14 - Other: See Comments Comments: augmentin cross sensitivityDate Reviewed: 02/21/2018Reviewed by: Earl Sniger - Fully AssessedPrescriptions as of 02/21/2018 Sig: CYCLOBENZAPRINE 10 MG TABLET Take 1 tablet by mouth twice * CALCIUM + D ORAL Take by mouth once daily. VITAMIN D3 ORAL Take by mouth once daily. VITAMIN B-12 ORAL Take by mouth once daily. ETODOLAC ER 500 MG TABLET,EXT* Take 1 tablet by mouth once d* FLUTICASONE 50 MCG/ACTUATION * Use 2 Sprays in each nostril * BUPROPION HCL SR 150 MG TABLE* Take 1 tablet by mouth twice * FUROSEMIDE 20 MG TABLET Take 1-2 tablets by mouth onc* TENS UNIT ELECTRODES 2 X 2 * Use electrodes with pads with* PREGABALIN 75 MG CAPSULE Take 2 capsules by mouth twic*Progress Notes:Sandi Rivers OT/L 02/21/2018 3:41 PM SignedEpisode Visit Count: 4Therapist That Will Oversee The Plan Of Care: Sandi RiversStart of Care Date: 01/29/18Plan of Care Certification Date: 01/29/18Patient Identified by Name and Date of : YesREHABILITATION AND SPORTS THERAPYOCCUPATIONAL THERAPY TREATMENT NOTEASSESSMENT: Ivan Khan demonstrated difficulty with repeated or heavy use ofhand pt limited in both director of medical education and pinch strength. The patient will continue tobenefit from continued skilled occupational therapy for modalities, manualtechniques and execisesPLAN FOR NEXT VISIT:progress report trial BTE for work simSUBJECTIVE:Pt reports she saw MD and was encouraged to use hand and not use splint unlessshe needs it, has a 5# weight restriction so will not be going back to work fora month, reports she was shredding papers and is more sore because she over diditPain Score: 5/10Pain Location: Thumb - RightDescription: SoreFrequency: ContinuousPost Treatment Pain Score: 3/10Pain Location: Thumb - RightPost Treatment Pain Description: SharpOBJECTIVE MEASURES WITH LEVEL OF FUNCTION:Hand EvaluationStrength: Dynamometer / Senior Hardware Design Engineer;Pinch MeterR Senior Hardware Design Engineer Position 2 (lbs): 15 lbsL Senior Hardware Design Engineer Position 2 (lbs): 41 lbsR Lateral Pinch (lbs): 7 lbsR Tripod Pinch (lbs): 4 lbsR Tip Pinch (lbs): 5 lbsL Lateral Pinch (lbs): 14 lbsL Tripod Pinch (lbs): 12 lbsL Tip Pinch (lbs): 10 lbsTREATMENT:Therapeutic Exercise:1: wrist flex, ext, deviation and sup/pro2: thumb flex/ext, radial and palmar abduction3: with 1# weight wrist flex, wrist ext, sup/pro and deviation x 104: with soft putty director of medical education, digit extension roll digit extension into flattenedputty digit flexion, and tripod pinch5: scar and retrograde massageSkilled Intervention: Patient was educated in proper exercise technique andpurpose for exercises.Skilled judgment was provided in selection of appropriate interventions.Provided written instruction for home exercise program to facilitate properperformance and compliance.Correct performance of therapeutic exercises was facilitated with verbal andvisual cuing.Modalities:Fluidotherapy Body Region Treated - Fluidotherapy: right handPatient Position: seatedTemperature: 109Minute(s): 10Activity 1: while performing AROMSee flowsheet for details regarding treatment. Skilled Intervention: Properadministration and selection of modality based on clinical presentation,deficits, and needs. Patient response monitored throughout treatment.Noahing:Kristen: Therapeutic Exercise (11281): 1:1 time:30 minutes (2 units: 23-37 mins)Fluidotherapy (55074) 1 unit(s)Total time: 40 minutesSOO Dubon Annota jacob image of OT HAND WRIST STRENGTHENING last updated by Sandi Rivers on 02/21/2018 2:38 PMAnnotated image of OT HAND THERAPUTTY EXERCISES PG 1 last updated by Sandi Rivers on 02/21/2018 2:38 PMAnnotated image of OT HAND THERAPUTTY EXERCISES PG 2 last updated by Sandi Rivers on 02/21/2018 2:38 PM [facility] PROGRESSon 02-21-2018 Protein HNO ID: [id number] thor: Sandi RiversService: (none)Author Type: Occupational TherapistType: Progress NotesFiled: 02/21/2018 3:41 PMNote Text:Episode Visit Count: 4Therapist That Will Oversee The Plan Of Care: Sandi RiversStart of Care Date: 01/29/18Plan of Care Certification Date: 01/29/18Patient Identified by Name and Date of : YesREHABILITATION AND SPORTS THERAPYOCCUPATIONAL THERAPY TREATMENT NOTEASSESSMENT: Ivan Khan demonstrated difficulty with repeated or heavyuse of hand pt limited in both director of medical education and pinch strength. The patient willcontinue to benefit from continued skilled occupational therapy formodalities, manual techniques and execisesPLAN FOR NEXT VISIT:progress report trial BTE for work simSUBJECTIVE:Pt reports she saw MD and was encouraged to use hand and not use splintunless she needs it, has a 5# weight restriction so will not be going backto work for a month, reports she was shredding papers and is more sorebecause she over did itPain Score: 5/10Pain Location: Thumb - RightDescription: SoreFrequency: ContinuousPost Treatment Pain Score: 3/10Pain Location: Thumb - RightPost Treatment Pain Description: SharpOBJECTIVE MEASURES WITH LEVEL OF FUNCTION:Hand EvaluationStrength: Dynamometer / Senior Hardware Design Engineer;Pinch MeterR Senior Hardware Design Engineer Position 2 (lbs): 15 lbsL Senior Hardware Design Engineer Position 2 (lbs): 41 lbsR Lateral Pinch (lbs): 7 lbsR Tripod Pinch (lbs): 4 lbsR Tip Pinch (lbs): 5 lbsL Lateral Pinch (lbs): 14 lbsL Tripod Pinch (lbs): 12 lbsL Tip Pinch (lbs): 10 lbsTREATMENT:Therapeutic Exercise:1: wrist flex, ext, deviation and sup/pro2: thumb flex/ext, radial and palmar abduction3: with 1# weight wrist flex, wrist ext, sup/pro and deviation x 104: with soft putty director of medical education, digit extension roll digit extension intoflattened putty digit flexion, and tripod pinch5: scar and retrograde massageSkilled Intervention: Patient was educated in proper exercise techniqueand purpose for exercises.Skilled judgment was provided in selection of appropriate interventions.Provided written instruction for home exercise program to facilitateproper performance and compliance.Correct performance of therapeutic exercises was facilitated with verbaland visual cuing.Modalities:Fluidotherapy Body Region Treated - Fluidotherapy: right handPatient Position: seatedTemperature: 109Minute(s): 10Activity 1: while performing AROMSee flowsheet for details regarding treatment. Skilled Intervention:Proper administration and selection of modality based on clinicalpresentation, deficits, and needs. Patient response monitored throughouttreatment.Billing: maryann: Therapeutic Exercise (71084): 1:1 time:30 minutes (2 units: 23-37mins)Fluidotherapy (38836) 1 unit(s)Total time: 40 minutesSandi Rivers OT/[facility] [facility] CNTHERAPYon 02-14-2018 CNTHERAPY [facility] ([id number]) 1965 F NFRDate Time Provider Department02/14/18 2:15 PM SANDI RIVERS (MICHAEL) OTMMCEncounter Number: [id number] Time Provider Department Silver02/14/2018 2:15 PM [id number] RIVERS *[facility] [504]Primary Visit Diagnosis:Primary osteoarthritis of first carpometacarpal joint of right hand [M18.11]Allergies As of Date: 02/14/2018 Noted Allergy ReactionAUGMENTIN (AMOXICILLIN-POT CLAVUL*05/11/2005 2 - RashMORPHINE 01/08/2012 11 - VomitingPENICILLINS 05/11/2005 14 - Other: See Comments Comments: augmentin cross sensitivityDate Reviewed: 01/29/2018Reviewed by: Earl Singer - Fully AssessedPrescriptions as of 02/14/2018 Sig: CYCLOBENZAPRINE 10 MG TABLET Take 1 tablet by mouth twice * CALCIUM + D ORAL Take by mouth once daily. VITAMIN D3 ORAL Take by mouth once daily. VITAMIN B-12 ORAL Take by mouth once daily. ETODOLAC ER 500 MG TABLET,EXT* Take 1 tablet by mouth once d* FLUTICASONE 50 MCG/ACTUATION * Use 2 Sprays in each nostril * BUPROPION HCL SR 150 MG TABLE* Take 1 tablet by mouth twice * FUROSEMIDE 20 MG TABLET Take 1-2 tablets by mouth onc* TENS UNIT ELECTRODES 2 X 2 * Use electrodes with pads with* PREGABALIN 75 MG CAPSULE Take 2 capsules by mouth twic*Progress Notes:Sandi Rivers OT/L 02/14/2018 2:59 PM SignedEpisode Visit Count: 3Therapist That Will Oversee The Plan Of Care: Sandi RiversStart of Care Date: 01/29/18Plan of Care Certification Date: 01/29/18Patient Identified by Name and Date of : YesREHABILITATION AND SPORTS THERAPYOCCUPATIONAL THERAPY TREATMENT NOTEASSESSMENT: Ivan Khan demonstrated difficulty with heavy use of hand andimprovements in basic ADL. The patient will continue to benefit from continuedskilled occupational therapy for exercises, modalities an manual techniquesPLAN FOR NEXT VISIT:light weight and putty exercisesSUBJECTIVE:Pt feels hand is improving, get sore after last sessionPain Score: 5/10Pain Location: Thumb - RightDescription: SharpFrequency: IntermittentOBJECTIVE MEASURES WITH LEVEL OF FUNCTION:Hand EvaluationThumb AROM: Limitations as notedLimitations as noted: RightHand AROMR Thumb MP Flexion : 47 DegreesR Thumb IP Flexion : 48 DegreesR Thumb Radial Abduction: 65 DegreesR Thumb Palmar Abduction: 50 DegreesTREATMENT:Therapeutic Exercise:1: wrist flex, ext, deviation and sup/pro2: thumb flex/ext, radial and palmar abduction3: instructed pt in weaning out of splint may use soft support prn4: medium pegs5: small pegs notched6: soft sponge director of medical education and manipulateSkilled Intervention: Patient was educated in proper exercise technique andpurpose for exercises.Skilled judgment was provided in selection of appropriate interventions.Correct performance of therapeutic exercises was facilitated with verbal cuing.Modalities:Fluidotherapy Body Region Treated - Fluidotherapy: right handPatient Position: seatedTemperature: 109See flowsheet for details regarding treatment. Skilled Intervention: Properadministration and selection of modality based on clinical presentation,deficits, and needs. Patient response monitored throughout treatment.Billing:Kristen: Therapeutic Exercise (21537): 1:1 time:30 minutes (2 units: 23-37 mins)Fluidotherapy (19611) 1 unit(s)Total time: 40 minutesSandi Rivers OT/MYLENE Normal [facility] PROGRESSon 02-14-2018 Protein HNO ID: [id number] thor: Sandi Boyd: (none)Author Type: Occupational TherapistType: Progress NotesFiled: 02/14/2018 2:59 PMNote Text:Episode Visit Count: 3Therapist That Will Oversee The Plan Of Care: Sandi RiversSouth [place] of Care Date: 01/29/18Plan of Care Certification Date: 01/29/18Patient Identified by Name and Date of : YesREHABILITATION AND SPORTS THERAPYOCCUPATIONAL THERAPY TREATMENT NOTEASSESSMENT: Ivan Khan demonstrated difficulty with heavy use of handand improvements in basic ADL. The patient will continue to benefit fromcontinued skilled occupational therapy for exercises, modalities an manualtechniquesPLAN FOR NEXT VISIT:light weight and putty exercisesSUBJECTIVE:Pt feels hand is improving, get sore after last sessionPain Score: 5/10Pain Location: Thumb - RightDescription: SharpFrequency: IntermittentOBJECTIVE MEASURES WITH LEVEL OF FUNCTION:Hand EvaluationThumb AROM: Limitations as notedLimitations as noted: RightHand AROMR Thumb MP Flexion : 47 DegreesR Thumb IP Flexion : 48 DegreesR Thumb Radial Abduction: 65 DegreesR Thumb Palmar Abduction: 50 DegreesTREATMENT:Therapeutic Exercise:1: wrist flex, ext, deviation and sup/pro2: thumb flex/ext, radial and palmar abduction3: instructed pt in weaning out of splint may use soft support prn4: medium pegs5: small pegs notched6: soft sponge director of medical education and manipulateSkilled Intervention: Patient was educated in proper exercise techniqueand purpose for exercises.Skilled judgment was provided in selection of appropriate interventions.Correct performance of therapeutic exercises was facilitated with verbalcuing.Modalities:Fluidot herapyBody Region Treated - Fluidotherapy: right handPatient Position: seatedTemperature: 109See flowsheet for details regarding treatment. Skilled Intervention:Proper administration and selection of modality based on clinicalpresentation, deficits, and needs. Patient response monitored throughouttreatment.Billing:Me pinoa: Therapeutic Exercise (74043): 1:1 time:30 minutes (2 units: 23-37mins)Fluidotherapy (08536) 1 unit(s)Total time: 40 minutesSandi Rivers OT/[facility] CNTHERAPYon 02-07-2018 CNTHERAPY OT/PT/Speech Visit ([facility]) IVAN MARVIN ([id number]) 1965 F NFRDate Time Provider Department02/07/18 2:15 PM SANDI RIVERS (OT) OTMMCEncounter Number: [id number] Time Provider Department Silver02/07/2018 2:15 PM [id number] RIVERS *[facility]ational Therapy [504]Primary Visit Diagnosis:Primary osteoarthritis of first carpometacarpal joint of right hand [M18.11]Allergies As of Date: 02/07/2018 Noted Allergy ReactionAUGMENTIN (AMOXICILLIN-POT CLAVUL*05/11/2005 2 - RashMORPHINE 01/08/2012 11 - VomitingPENICILLINS 05/11/2005 14 - Other: See Comments Comments: augmentin cross sensitivityDate Reviewed: 01/29/2018Reviewed by: Earl Singer - Fully AssessedPrescriptions as of 02/07/2018 Sig: CALCIUM + D ORAL Take by mouth once daily. VITAMIN D3 ORAL Take by mouth once daily. VITAMIN B-12 ORAL Take by mouth once daily. ETODOLAC ER 500 MG TABLET,EXT* Take 1 tablet by mouth once d* CYCLOBENZAPRINE 10 MG TABLET Take 1 tablet by mouth twice * FLUTICASONE 50 MCG/ACTUATION * Use 2 Sprays in each nostril * BUPROPION HCL SR 150 MG TABLE* Take 1 tablet by mouth twice * FUROSEMIDE 20 MG TABLET Take 1-2 tablets by mouth onc* TENS UNIT ELECTRODES 2 X 2 * Use electrodes with pads with* PREGABALIN 75 MG CAPSULE Take 2 capsules by mouth twic*Progress Notes:Sandi Rivers, OT/L 02/07/2018 6:38 PM SignedEpisode Visit Count: 2Therapist That Will Oversee The Plan Of Care: Sandi RiversStart of Care Date: 01/29/18Plan of Care Certification Date: 01/29/18Patient Identified by Name and Date of : YesREHABILITATION AND SPORTS THERAPYOCCUPATIONAL THERAPY TREATMENT NOTEASSESSMENT: Ivan Khan demonstrated difficulty with heavy or repeated use ofhand. The patient will continue to benefit from continued skilled occupationaltherapy for exercises, manual techniques and modalitiesPLAN FOR NEXT VISIT:progress functional tasks pegs, spongeSUBJECTIVE:Pt reports she has had some edema and had to adjust splint straps, otherwise ptreporting no problem with splint reports dressing is getting easierPain Score: 4/10Pain Location: Wrist - Right;Thumb - RightDescription: StiffnessFrequency: IntermittentPain Location: Wrist - RightOBJECTIVE MEASURES WITH LEVEL OF FUNCTION:Hand AROMR Thumb MP Flexion : 37 DegreesR Thumb IP Flexion : 38 DegreesR Thumb Radial Abduction: 50 DegreesR Thumb Palmar Abduction: 70 DegreesTREATMENT:Therapeutic Exercise:1: wrist flex, ext, deviation and sup/pro2: thumb flex/ext, radial and palmar abduction3: adjusted splinting straps4: ball rolling on tabletop for wrist AAROMSkilled Intervention: Patient was educated in proper exercise technique andpurpose for exercises.Skilled judgment was provided in selection of appropriate interventions.Provided written instruction for home exercise program to facilitate properperformance and compliance.Manual Therapy:1: scar massage2: scar mobilization with dycem3: issued silicone instructed in wear schedule and precautionsSkilled Intervention: Manual skills to improve joint mobility, ROM, and decreasepain. Utilized anatomy knowledge of the therapist, and assessment of patient'sresponse to intervention.Modalities:Fluido therapyBody Region Treated - Fluidotherapy: right handPatient Position: seatedTemperature: 109Minute(s): 10Activity 1: while performing AROMSee flowsheet for details regarding treatment. Skilled Intervention: Properadministration and selection of modality based on clinical presentation,deficits, and needs. Patient response monitored throughout treatment.Billing:Kristen: Therapeutic Exercise (75741): 1:1 time:20 minutes (1 unit: 8-22 mins)Manual Therapy (82304): 1:1 time: 10 minutes (1 unit: 8-22 mins)Fluidotherapy (13824) 1 unit(s)Total time: 40 minutesVeryarelis Rivers OT/MYLENE Normal [facility] PROGRESSon 02-07-2018 Protein HNO ID: [id number] thor: Sandi RiversService: (none)Author Type: Occupational TherapistType: Progress NotesFiled: 02/07/2018 6:38 PMNote Text:Episode Visit Count: 2Therapist That Will Oversee The Plan Of Care: Sandi Zuniga of Care Date: 01/29/18Plan of Care Certification Date: 01/29/18Patient Identified by Name and Date of : YesREHABILITATION AND SPORTS THERAPYOCCUPATIONAL THERAPY TREATMENT NOTEASSESSMENT: Ivan Marta Khan demonstrated difficulty with heavy or repeateduse of hand. The patient will continue to benefit from continued skilledoccupational therapy for exercises, manual techniques and modalitiesPLAN FOR NEXT VISIT:progress functional tasks pegs, spongeSUBJECTIVE:Pt reports she has had some edema and had to adjust splint straps,otherwise pt reporting no problem with splint reports dressing is gettingeasierPain Score: 4/10Pain Location: Wrist - Right;Thumb - RightDescription: StiffnessFrequency: IntermittentPain Location: Wrist - RightOBJECTIVE MEASURES WITH LEVEL OF FUNCTION:Hand AROMR Thumb MP Flexion : 37 DegreesR Thumb IP Flexion : 38 DegreesR Thumb Radial Abduction: 50 DegreesR Thumb Palmar Abduction: 70 DegreesTREATMENT:Therapeutic Exercise:1: wrist flex, ext, deviation and sup/pro2: thumb flex/ext, radial and palmar abduction3: adjusted splinting straps4: ball rolling on tabletop for wrist AAROMSkilled Intervention: Patient was educated in proper exercise techniqueand purpose for exercises.Skilled judgment was provided in selection of appropriate interventions.Provided written instruction for home exercise program to facilitateproper performance and compliance.Manual Therapy:1: scar massage2: scar mobilization with dycem3: issued silicone instructed in wear schedule and precautionsSkilled Intervention: Manual skills to improve joint mobility, ROM, anddecrease pain. Utilized anatomy knowledge of the therapist, and assessmentof patient's response to intervention.Modalities:Fluido therapyBody Region Treated - Fluidotherapy: right handPatient Position: seatedTemperature: 109Minute(s): 10Activity 1: while performing AROMSee flowsheet for details regarding treatment. Skilled Intervention:Proper administration and selection of modality based on clinicalpresentation, deficits, and needs. Patient response monitored throughouttreatment.Billing: maryann: Therapeutic Exercise (52947): 1:1 time:20 minutes (1 unit: 8-22mins)Manual Therapy (96025): 1:1 time: 10 minutes (1 unit: 8-22 mins)Fluidotherapy (41342) 1 unit(s)Total time: 40 minutesSandi Rivers [facility] 01-29-2018 CNTHERAPY OT/PT/Speech Visit ([facility]) JAYE IVAN SPEAR ([id number]) 1965 F NFRDate Time Provider Department01/29/18 2:30 PM SANDI RIVERS (OT) OTMMCEncounter Number: [id number] Time Provider Department Silver01/29/2018 2:30 PM [id number] RIVERS *[facility] CReason for Visit: OT EVAL [748]Primary Visit Diagnosis:Arthritis of hand, right [M19.041]Allergies As of Date: 01/29/2018 Noted Allergy ReactionAUGMENTIN (AMOXICILLIN-POT CLAVUL*05/11/2005 2 - RashMORPHINE 01/08/2012 11 - VomitingPENICILLINS 05/11/2005 14 - Other: See Comments Comments: augmentin cross sensitivityDate Reviewed: 01/29/2018Reviewed by: Earl Singer - Fully AssessedPrescriptions as of 01/29/2018 Sig: CALCIUM + D ORAL Take by mouth once daily. VITAMIN D3 ORAL Take by mouth once daily. VITAMIN B-12 ORAL Take by mouth once daily. ETODOLAC ER 500 MG TABLET,EXT* Take 1 tablet by mouth once d* CYCLOBENZAPRINE 10 MG TABLET Take 1 tablet by mouth twice * FLUTICASONE 50 MCG/ACTUATION * Use 2 Sprays in each nostril * BUPROPION HCL SR 150 MG TABLE* Take 1 tablet by mouth twice * FUROSEMIDE 20 MG TABLET Take 1-2 tablets by mouth onc* TENS UNIT ELECTRODES 2 X 2 * Use electrodes with pads with* PREGABALIN 75 MG CAPSULE Take 2 capsules by mouth twic*Progress Notes:Sandi Rivers OT/L 01/29/2018 4:30 PM SignedEpisode Visit Count: 1Therapist That Will Oversee The Plan Of Care: Sandi RiversStart of Care Date: 01/29/18Plan of Care Certification Date: 01/29/18Patient Identified by Name and Date of : [facility] REHABILITATION AND SPORTS THERAPYOCCUPATIONAL THERAPY EVALUATIONPLAN OF CARE:Assessment: Ivan Khan presents with the diagnosis of CMC arthroplasty.She presents with impairments of AROM, edema and scar. She may benefit fromskilled occupational therapy services to improve function.Prognosis: GoodGood due to: current objective clinical presentationGoals for Episode of Care created on 01/29/18 through 05/01/18Patient will report a good understanding of diagnosis and OT recommendations forprogression of programPatient will demonstrate independence with ongoing home exercise programPatient will increase AROM of right thumb Mp flex to 50 degrees, IP flexion to30 degrees and radial and palmar abduction to 50 degrees in order to be able tograsp an item.Patient will independently demonstrate correct application of wrist thumborthosis and verbalize understanding of proper wear/care by end of session.METPatient will demonstrate decreased edema of right hand pt will be independent inedema reduction techniquesPatient will report a good understanding of the use of modalities to helpmanage discomfort and promote healingPatient will independently demonstrate scar massage/management in order todecrease scar adherenceG CODE REPORTINGBased on clinical assessment and the score on the Quick Dash Assessment Tool,the G code and corresponding severity modifiers are documented below.Evaluation: 01/29/2018Current Status: Carrying, Moving and Handling Objects: G8984 CK 40-59%impairedGoal Status: Carrying, Moving and Handling Objects: G8985 CJ 20-39% impairedPlanned Interventions, Frequency, and Duration:Current Frequency: 1x/weekDuration: 8 weeksTotal Number of Visits Planned: 8Patient to be see for Custom orthosis fabrication;Therapeutic exercise;Manualtherapy;Modalit iesPLAN FOR NEXT VISIT: check splint scar massage trial fluidoPatient demonstrates good understanding of plan of care and treatment. 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 EnvironmentPatient Lives With: Significant OtherPain Score: 7/10Pain Location: Wrist - Right;Thumb - RightDescription: SharpFrequency: ContinuousPost Treatment Pain Score: 7/10Pain Location: Thumb - RightPost Treatment Pain Description: SharpOBJECTIVE MEASURES WITH LEVEL OF FUNCTION:Hand EvaluationSkin / Wound: ScarScar: Tender;Mild adheranceEdema Location: right handEdema Description: MildEdema Measurements: Wrist (DWC) (cm)R Wrist (DWC) (cm): 14.8L Wrist (DWC) (cm): 14.3Elbow/Wrist AROM: Limitations as notedLimitations as noted: RightHand AROM: WFLThumb AROM: Limitations as notedLimitations as noted: RightSensation: Reports tingling or numbness (at distal aspect of thumb)Dexterity/Coordination: Not TestedHand AROMR Thumb MP Flexion : 40 DegreesR Thumb IP Flexion : 15 DegreesR Thumb Radial Abduction: 45 DegreesR Thumb Palmar Abduction: 45 DegreesUE AROMR Forearm Supination: 90 DegreesR Forearm Pronation: 90 DegreesR Wrist Extension: 50 DegreesR Wrist Flexion: 35 DegreesR Wrist Radial Deviation: 15 DegreesR Wrist Ulnar Deviation: 20 DegreesEducation:EducationLear keisha Preferences: Demonstration;ExplanationBarri ers: NoneLearning/educational needs: Plan of Care;Home exercise program;Brace FitEducation Provided: Yes, see treatment interventions for education providedEducation Provided To: PatientEducation Mode/Type: Demonstration;Explanation/Disc ussionTREATMENT:EvaluationTher apeutic Exercise:1: wrist flex, ext, deviation and sup/pro2: thumb flex/ext, radial and palmar abduction3: fabriated forearm based thumb spica splint4: instructed in wear scheduel and precautions for splint5: supplied with contact information in case pt has issues with splint fitSkilled Intervention: Patient was educated in proper exercise technique andpurpose for exercises.Self-Alf Management:1: instructed in use of ice with precautions2: instructed in light activities only with splint on3: instructed in scar massageSkilled Intervention: Skilled judgment in the selection of proper modificationfor activity of daily living/home management based on clinical presentation,deficits, and needs.OT fabricated custom orthosis: forearm based thumb splint L3808 (b) WHFOcustom (mid forearm/ long oppon/ wrist-thumb/ gutter) . Custom orthosis toprovide Pt practiced orthosis application, donning on/off while under OT'ssupervision. and to promote healing. Patient was instructed in its wearingschedule except to exercise and bathe. Skilled Intervention: Clinical knowledgeand skills required for custom orthotic fabrication and wearing scheduleBilling:Kearney: Evaluation - Low Complexity ( 88739)Self Care / Home Management (24264): 1:1 time:10 minutes (1 unit: 8-22 mins)Therapeutic Exercise (75102): 1:1 time:10 minutes (1 unit: 8-22 mins)Custom forearm based thumb spica splintTotal time: 60 minutesSandi Rivers OT/MYLENE Mayuri otated image of OT HAND POST-OP EX'S [id number] last updated by Sandi Rivers on 01/29/2018 3:10 PMAnnotated image of OT HAND TENDON GLIDING THUMB EX'S last updated by Sandi Rivers on 01/29/2018 3:10 PM Normal [facility] PROGRESSon 01-29-2018 Protein HNO ID: [id number] thor: Sandi RiversSer: (none)Author Type: Occupational TherapistType: Progress NotesFiled: 01/29/2018 4:30 PMNote Text:Episode Visit Count: 1Therapist That Will Oversee The Plan Of Care: Sandi RiversStart of Care Date: 01/29/18Plan of Care Certification Date: 01/29/18Patient Identified by Name and Date of : [facility] REHABILITATION AND SPORTS THERAPYOCCUPATIONAL THERAPY EVALUATIONPLAN OF CARE:Assessment: Ivan Khan presents with the diagnosis of CMCarthroplasty. She presents with impairments of AROM, edema and scar. Shemay benefit from skilled occupational therapy services to improvefunction.Prognosis: GoodGood due to: current objective clinical presentationGoals for Episode of Care created on 01/29/18 through 05/01/18Patient will report a good understanding of diagnosis and OTrecommendations for progression of programPatient will demonstrate independence with ongoing home exercise programPatient will increase AROM of right thumb Mp flex to 50 degrees, IPflexion to 30 degrees and radial and palmar abduction to 50 degrees inorder to be able to grasp an item.Patient will independently demonstrate correct application of wrist thumborthosis and verbalize understanding of proper wear/care by end ofsession.METPatient will demonstrate decreased edema of right hand pt will beindependent in edema reduction techniquesPatient will report a good understanding of the use of modalities to helpmanage discomfort and promote healingPatient will independently demonstrate scar massage/management in order todecrease scar adherenceG CODE REPORTINGBased on clinical assessment and the score on the Quick Dash AssessmentTool, the G code and corresponding severity modifiers are documentedbelow.Evaluation: 01/29/2018Current Status: Carrying, Moving and Handling Objects: G8984 CK 40-59%impairedGoal Status: Carrying, Moving and Handling Objects: G8985 CJ 20-39%impairedPlanned Interventions, Frequency, and Duration:Current Frequency: 1x/weekDuration: 8 weeksTotal Number of Visits Planned: 8Patient to be see for Custom orthosis fabrication;Therapeuticexercis e;Manual therapy;ModalitiesPLAN FOR NEXT VISIT: check splint scar massage trial fluidoPatient demonstrates good understanding of plan of care and treatment.The above goals and plan of care were discussed and agreed upon bypatient/family.SUBJECTIVE: Ivan Khan is a 52 year old female seen today for recentsurgeryFunctional Limitations: cleaning;cooking;dressing;groo juan;feeding self(writing)Prior Level of Function: Independent without limitationsRelevant HistoryRight or Left Handed: RightEmployment: Etcher [employer] Bo[employer]: See 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,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 EnvironmentPatient Lives With: Significant OtherPain Score: 7/10Pain Location: Wrist - Right;Thumb - RightDescription: SharpFrequency: ContinuousPost Treatment Pain Score: 7/10Pain Location: Thumb - RightPost Treatment Pain Description: SharpOBJECTIVE MEASURES WITH LEVEL OF FUNCTION:Hand EvaluationSkin / Wound: ScarScar: Tender;Mild adheranceEdema Location: right handEdema Description: MildEdema Measurements: Wrist (DWC) (cm)R Wrist (DWC) (cm): 14.8L Wrist (DWC) (cm): 14.3Elbow/Wrist AROM: Limitations as notedLimitations as noted: RightHand AROM: WFLThumb AROM: Limitations as notedLimitations as noted: RightSensation: Reports tingling or numbness (at distal aspect of thumb)Dexterity/Coordination: Not TestedHand AROMR Thumb MP Flexion : 40 DegreesR Thumb IP Flexion : 15 DegreesR Thumb Radial Abduction: 45 DegreesR Thumb Palmar Abduction: 45 DegreesUE AROMR Forearm Supination: 90 DegreesR Forearm Pronation: 90 DegreesR Wrist Extension: 50 DegreesR Wrist Flexion: 35 DegreesR Wrist Radial Deviation: 15 DegreesR Wrist Ulnar Deviation: 20 DegreesEducation:EducationLear keisha Preferences: Demonstration;ExplanationBarri ers: NoneLearning/educational needs: Plan of Care;Home exercise program;Brace FitEducation Provided: Yes, see treatment interventions for educationprovidedEducation Provided To: PatientEducation Mode/Type: Demonstration;Explanation/Disc ussionTREATMENT:EvaluationTher apeutic Exercise:1: wrist flex, ext, deviation and sup/pro2: thumb flex/ext, radial and palmar abduction3: fabriated forearm based thumb spica splint4: instructed in wear scheduel and precautions for splint5: supplied with contact information in case pt has issues with splint fitSkilled Intervention: Patient was educated in proper exercise techniqueand purpose for exercises.Self-Alf Management:1: instructed in use of ice with precautions2: instructed in light activities only with splint on3: instructed in scar massageSkilled Intervention: Skilled judgment in the selection of propermodification for activity of daily living/home management based onclinical presentation, deficits, and needs.OT fabricated custom orthosis: forearm based thumb splint L3808 (b)WHFO custom (mid forearm/ long oppon/ wrist-thumb/ gutter) . Customorthosis to provide Pt practiced orthosis application, donning on/offwhile under OT's supervision. and to promote healing. Patient wasinstructed in its wearing schedule except to exercise and bathe. SkilledIntervention: Clinical knowledge and skills required for custom orthoticfabrication and wearing scheduleBilling:Peterson: Evaluation - Low Complexity ( 04949)Self Care / Home Management (83626): 1:1 time:10 minutes (1 unit: 8-22mins)Therapeutic Exercise (49731): 1:1 time:10 minutes (1 unit: 8-22 mins)Custom forearm based thumb spica splintTotal time: 60 minutesSandi Rivers, OT/LCHT [facility] Protein HNO ID: [id number] thor: Bing (Ct) DAMION Stoutervice: (none)Author Type: Clinical TechnicianType: Progress NotesFiled: 01/29/2018 10:50 AMNote Text:NAME:Ivan KhanDATE: January 29, 2018CCF#: [id number] Extremity X-Ray(s): Hand, right COMPLETEDTECH ID SIGN: ZACH ZAVALA [facility] XR HAND 3V PA/LAT/OBL RTon 0 01-29-2018 XR HAND 3V PA/LAT/OBL RT * * *Final Report* * *DATE OF EXAM: Jan 29 2018 10:12AM LAURA 5346 - XR HAND 3V PA/LAT/OBL RT / REASON: M18.11-Unilateral primary osteoarthritis of first carpometacarpal joint, right h * * * * Physician Interpretation * * * * PROCEDURE: Right handINDICATION: Unilateral primary osteoarthritis of first carpometacarpal joint, right hand .TECHNIQUE: XR HAND 3V PA/LAT/OBL RTCOMPARISON: Right wrist//18FINDINGS:Interval surgical resection of the trapezius carpal bone. Small bony fragments or calcifications in the operative site. Mild degenerative change with joint space narrowing and minimal spurring at the scaphoid trapezoid articulation. Mild/moderate osteoarthrosis of all DIP joints with marginal spur formation. No erosions.IMPRESSION: Interval resection of the trapezius. Degenerative changesTranscriptionist: JUMANA Transcribe Date/Time: Jan 29 2018 8:49PDictated by : SANJEEV PORTILLO MDThis examination was interpreted and the report reviewed and electronically signed by: SANJEEV PORTILLO MD on Jan 29 2018 8:51PM [id number] [facility] ANES Renetta 12-28-2017 ANES POST HNO ID: [id number] thor: FATEMEH Samuelservice: AnesthesiologyAuthor Type: AnesthesiologistType: Anesthesia PostOpFiled: 12/28/2017 11:07 AMNote Text:POST ANESTHESIA EVALUATION NOTESERVICE DATE: 12/28/2017SERVICE TIME: 1107DOB: 1965Vitals: 12/28/1809Temp: 37 ?C (98.6 ?F) 36.4 ?C (97.5 ?F) 12/28/1809BP: 148/78 145/81 141/78 142/75 12/28/1809Pulse: 83 73 72 73 12/28/1809Resp: 10 14 16 18 12/28/1809SpO2: 95% 96% 96% 97%Validated Vital Signs: YesPOST ANES STATUS: No apparent anesthetic complications. The patient isappropriately hydrated with stable respiratory and cardiovascular status.Patient has safe and adequate airway control. The patient has appropriatepain relief and no significant post operative nausea or vomiting. Thepatient has achieved baseline mental status.Further assessment by Anesthesia Service: NoneOther Remarks:SIGNATURE: Steven Kenyon MD PATIENT NAME: Ivan KhanDATE: December 28, 2017 : 11:07 AM PAGER/CONTACT #: [facility] PREOPon 12-28-2017 ANES PREOP HNO ID: [id number] thor: FATEMEH Samuelservice: AnesthesiologyAuthor Type: AnesthesiologistType: Anesthesia PreOpFiled: 12/28/2017 7:09 AMNote Text: ANESTHESIOLOGY DAY OF SURGERY NOTESERVICE DATE: 12/28/2017SERVICE TIME: 0705DOB: 1965Procedure(s) (LRB):ARTHROPLASTY CARPOMETACARPAL JOINTS (Right)Surgeon(s):Earl SingerEstimated body mass index is 27.38 kg/(m2) as calculated from thefollowing: Height as of 12/17/17: 163.8 cm (5' 4.5). Weight as of 4/9/18: 73.5 kg (162 lb).Most recent hematocrit and potassium results:Hematocrit 37.6 12/17/2017Potassium 4.3 12/17/2017ANES DOS/PREOP NOTE:Vitals:There were no vitals filed for this visit.ACTIVE PROBLEM LISTEsophageal RefluxDysthymic DisorderHistory of Tobacco UseHistory of Total Knee ArthroplastyBackache, UnspecifiedFibromyalgiaPrimary Osteoarthritis of First Carpometacarpal Joint of Right HandPrimary Osteoarthritis of First Carpometacarpal Joint of Left HandPain of Right ThumbPAST MEDICAL HISTORYDiagnosis Date- Acute gastritis- Carpal tunnel syndrome- Degenerative arthritis of right knee- Dysmenorrhea- Dysthymic disorder Depression (non-psychotic)- Esophageal reflux- Fibromyalgia 2006- Headache(784.0)- Knee pain Rt.- Meniscus tear Rt knee- Tenosynovitis of elbow right- TinnitusPAST SURGICAL HISTORYProcedure Laterality Date- COLONOSCOPY W/BIOPSY 12/17/2015 Normal; Diverticulosis sigmoid colon- EGD W/O BRS SPECIMEN W/BX 09/28/15- EGD W/O BRS SPECIMEN W/BX 12/17/2015 Minimal gastritis- LAP CHOLECYSTECT/CHOLANGIOGRAPHY 10/26/15 Normal IOC- PAST SURGICAL HISTORY OF 1995 Right knee arthroscopy- PAST SURGICAL HISTORY OF sinus surgery- PAST SURGICAL HISTORY OF right elbow- tennis elbow- REVISE MEDIAN N/CARPAL TUNNEL SURG 12/1977 Carpal tunnel decomp right- TOTAL KNEE REPLACEMENT Right 2012 Knee replacement, total- VAGINAL HYSTERECTOMY 1999FAMILY HISTORYProblem Relation Age of Onset- Breast Cancer Mother- None Father- Gall Bladder [OTHER] Brother- Breast Cancer Sister Fibromyalgia, Mental Health Issues- None BrotherSocial History:Social HistorySubstance Use Topics- Smoking status: Former Smoker Packs/day: 0.50 Years: 15.00 Types: Cigarettes Quit date: 10/11/2015- Smokeless tobacco: Former User Quit date: 08/10/2013- Alcohol use NoNo current facility-administered medications on file prior to encounter.Current Outpatient Prescriptions on File Prior to Encounter:etodolac (LODINE-XL) 500 mg 24 hr tablet Take 1 tablet by mouth oncedaily.cyclobenzaprine (FLEXERIL) 10 mg tablet Take 1 tablet by mouth twice dailyas needed for Muscle Spasm.fluticasone (FLONASE) 50 mcg/actuation nasal spray Use 2 Sprays in eachnostril once daily. As directed for nasal and/or sinus congestion. Rinsemouth after use.buPROPion SR (WELLBUTRIN SR) 150 mg 12 hr tablet Take 1 tablet by mouthtwice daily.furosemide (LASIX) 20 mg tablet Take 1-2 tablets by mouth once daily. Asdirected for fluid retentionTENS UNIT ELECTRODES (TENS UNITS ELECTRODES) 2X2 pads Use electrodeswith pads with TENS as directed for back pain. Dispense 1 set monthlypregabalin 75 mg capsule Take 2 capsules by mouth twice daily.Current Facility-Administered Medications:lactated ringers infusion 5-30 mL/hr INTRAVENOUS CONTINUOUS Heather (Pa)Vetovitzclindamycin 600 mg in D5W 50 mL (CLEOCIN) 600 mg INTRAVENOUS Pre-Op OnceSondra (Pa) VetovitzAllergies:ALLERGIESAll ergen Reactions- Augmentin [Amoxicil* Rash- Morphine Vomiting- Penicillins Other: See Comments augmentin cross sensitivityDOS EXAM: Adequate NPO status: YesAnesthetic risks, benefits, alternatives, personnel and consent discussed:YesPatient agrees to proceed: YesPrevious Anesthesia: No history of adverse event.Airway Assessment: MP 1; Neck ROM: Full ROM without neurologic symptoms;Airway Evaluation: No significant abnormalitiesSymptoms of Sleep Apnea: Age over 50 (52 year old)Dentition: Teeth intactAdditional Physical Exam:Lungs: Patient health status unchanged since recent history and physical.See history and physical for exam findings.Cardiac: Patient health status unchanged since recent history andphysical. See history and physical for exam findings.Blood Products: Not anticipated for this procedure.Anesthetic Plan: MAC with Sedation and Standard ASA MonitorsPain Management Plan: Parenteral or Oral and Peripheral Nerve BlockASA Class: 2Chronic Beta Jamar medication administered within 24 hours: N/AI have interviewed and examined the patient. I have reviewed the medicalrecord and/or the pre-anesthesia evaluation, pertinent labs, and testresults.Significant changes in the patient's condition since the History andPhysical, not otherwise documented in primary service progress notes: NoThis contains updated information obtained within 48 hours ofSurgery/Procedure.SIGNATURE: Steven Kenyon MD PATIENT NAME: Ivan KhanDATE: December 28, 2017 : 7:08 AM CSN: [id number] [facility] NURSING PROGon 12-28-2017 NURSING PROG HNO ID: [id number] thor: Abdulaziz (Rn) Mirta, RNService: NursingAuthor Type: Registered NurseType: Nursing Progress NoteFiled: 12/28/2017 8:12 AMNote Text:Dr. Kenyon at bedside for Right axillary nerve block. RN at bedside,pt monitored throughout, BP 138/80 Pulse 76 Temp 37 ?C (98.6 ?F)(Temporal Artery) Resp 16 Ht 163.8 cm (5' 4.5) Wt 73.5 kg (162 lb) SpO2 100% BMI 27.38 kg/m2 . Pt tolerated procedure withoutdifficulty. [facility] OPERATIVE NOon 12-28-2017 OPERATIVE NO HNO ID: [id number] thor: Earl Carrollvice: Orthopaedic SurgeryAuthor Type: PhysicianType: Operative ReportFiled: 12/28/2017 10:20 AMNote Text:OPERATIVE/PROCEDURE REPORTLOG ID: [id number]/PROCEDURE DATE: 12/28/2017INCISION/PROCEDURE START TIME: 8:44 AMINCISION CLOSE/PROCEDURE END TIME: 10:04 AMSURGEON(S)/PROCEDURALIST(S) AND WATCH ASSEMBLER(S):Surgeon(s) and Role: * Earl Singer - PrimaryPhysician Backup Operator: Rebecca Romero (Pa) VetovitzProcedure(s):Right thumb, CMC arthroplasty with ligament reconstruction and tendoninterposition.Anesthesia : General with regional.Procedure Details:PROCEDURE:? On 12/28/2017, the patient was identified in the preoperativearea and? marked on the Right thumb accordingly.? She had a regional blockplaced per? the anesthetic team.? Pt. Received 600 mg of Clindaymycinwithin one hour of incision or tourniquet. She was placed in a supineposition and placed an arm? board on the Right.? A well padded tourniquetwas applied and set at 250 mmHg.? An appropriate time out was conductedwith all in agreement,? Signed? consent form was on the chart and imageswere available for viewing and all in the? room were in agreement.? Theupper extremity was then exsanguinated with an Esmarch bandage and the?tourniquet was applied at 250 mmHg.? A longitudinal incision wasidentified over? the dorsal portion of the CMC joint.? I made the incisionapproximately 3 cm, centered over this.? Furthermore, a palmar incisionwas marked over the palmaris longus tendon at the? flexure crease of thewrist.? Superficial skin incision was made with a 15 blade and this was?then bluntly dissected with Littler scissors.? I was able to identify thebranches of the radial? sensory nerve and these were identified andprotected with retraction throughout? the case.? I then came down throughthe interval of the APL and EPB tendons and? came directly down to theperiosteum and divided the capsule over the top of the? joint, coming downon the trapezium.? The radial artery was identified clearly in? theproximal portion of the incision and protected throughout the case with a?Ragnell retractor.? I then painstakingly dissected the soft tissues offthe? trapezium and identified all the borders of the bone including thesurrounding? joint spaces.? The CMC joint showed no cartilage andsclerotic surface, bone on bone appearance. Large osteophyte in thegutter between first and second metacarpal heads as well as a large pieceon the most radial side of the bone. Once the soft tissues wereappropriately released from the? trapezium protecting the adjacentcartilage and soft tissues, I used a? reciprocating saw to place a scoredcross in the bone quartering it.? I then? finished the osteotomies with a1/4-inch osteotome.? I then removed, in a? piecemeal fashion, thetrapezium while protecting the underlying FCR tendon.? This? wasidentified and shown to be in continuity.? I placed a 3-0 Tevdek suture?through the volar capsule.? I then focused my attention on preparing? thesite for the tendon graft.? Starting on the dorsal surface of the thumbwith? my exiting point just slightly on the volar side of the base of themetacarpal,? sequential drill bits were used to fashion the tunnel for thegraft and to re-create the beak ligament.? The? positioning was to myliking and the tunnel and the joint were copiously irrigated? to removeany bony debris.? Then focused my attention on the palmar incision which?was made again superficially with a 15 blade.? The central superficialvein was? identified and ligated with bipolar, and the palmaris longustendon was identified? and freed of any of its soft tissue adhesions.? Awhip stitch was placed with a 3-? 0 Maxon suture and the tendon wasdivided at the wrist crease and a tendon? stripper was then passedatraumatically, retrieving an excellent palmaris graft.? Some of themuscle portion was appropriately cleaned off, and then passed the? graftaround the FCR tendon in the trapeziectomy site, bringing it up throughthe? drill hole, affectively recreating the beak ligament.? This was tiedupon itself? and secured in place with the Tevdek suture.? A number [id number] from? the tendon were secured, and the remaining portionof the tendon was rolled into? an anchovy and secured nicely down in thetrapeziectomy site, successfully? interposing the tendon and securing itin place with the previously placed Tevdek? suture in the volar capsule.?This showed a nice suspension with recreation of the? beak ligament andinterposition to my liking.? At this time, the tourniquet was? taken downand hemostasis was observed with bipolar electrocautery.? The wound was?copiously irrigated with normal saline and we began our closure.? Iclosed? the redundant dorsal capsule, in a vest over pants fashion withwith 3-0 Biosyn?sutures.? Again, the radial sensory nerve was identifiedand shown? to be in continuity at the end of the case, and I closed downthe subcutaneous? tissues over the joint with buried 3-0 Biosyn suture.?Final skin closure was? completed with a 4-0 Biosyn subcuticular weaveboth on the dorsal side and the? palmar incisions.? Steri-Strips, Xeroformgauze, sterile 4 x 4, Webril padding,? and a well positioned thumb spicasplint with the IP joint free, which was secured? with a light Yeison wrapand Tim bandage.? There were no complications during the? procedure.?Patient was safely awoken after we placed a light soft bandage on the?shoulder, and she was taken to the Postoperative Suite in stablecondition.Pre-Op/Pre-Pro cedure Diagnosis: Right thumb, CMC osteoarthritis.Post-Op/Post-Pr ocedure Diagnosis: sameEstimated Blood Loss: 0 mlSpecimens: NoneImplantable Devices: NoneDrains: NoneComplications: NonePARTICIPATION IN SURGERY/PROCEDURE: I performed the procedure withassistance.No qualified resident/fellow was available.SIGNATURE: Earl Singer MD PATIENT NAME: Ivan KhanDATE: December 28, 2017 : 10:12 AM PAGER/CONTACT #: [facility] PT EDon 12-28-2017 PT ED HNO ID: [id number] thor: Abdulaziz CoyleRn) MARYJO Kirbyervice: NursingAuthor Type: Registered NurseType: Patient EducationFiled: 12/28/2017 11:55 AMNote Text:POST OP LEARNING RESPONSEINSTRUCTION PROVIDED TO: Patient and family memberMETHOD OF INSTRUCTION: Teach Back .Individual instructionWritten instruction - handoutsVerbal instructionPATIENT / FAMILY RESPONSE: Verbalizes understanding of: [id number]-Xza rect actions to take to reduce post procedurecomplicationsFOLLOW-U P PLAN: Complete - No need for follow-upPatient instructed to call with any further issuesSUPPLEMENTAL MATERIAL: NoneREFERRAL (RECOMMENDATION): NoneElectronically Signed By: Abdulaziz Kirby RN In Department: [facility] PT ED HNO ID: [id number] thor: MARYJO Gaines Rnervice: NursingAuthor Type: Registered NurseType: Patient EducationFiled: 12/28/2017 7:02 AMNote Text:PRE OP LEARNING ASSESSMENTPROCEDURE/SURGERY: right metacarpal arthroplastyREADINESS TO LEARNCOGNITIVE ABILITY: Alert and orientedMOTIVATION TO LEARN: InterestedFAMILY SUPPORT: High - Very involved in pt carePATIENT LEARNS BEST BY: Verbal InstructionFACTORS AFFECTING LEARNING: NonePHYSICAL LIMITATIONS AFFECTING LEARNING: NoneElectronically Signed By: Paulina Mota RN [facility] NURSING PROGon 12-18-2017 NURSING PROG HNO ID: [id number] thor: Urmila (Rn) MARYJO Larsonervice: (none)Author Type: Registered NurseType: Nursing Progress NoteFiled: 12/18/2017 1:42 PMNote Text:PACC Nurse Progress NoteHistory AND Physical:PACC Visit Date: 12/17/2017Original HANDP Date: 12/17/2017ED visit Date: N/AOutside HANDP Scanned Date: N/ALabs Within Last 6 Months:CBC: Date 12/17/2017 within acceptable limits for planned procedureBMP/CMP: Date 12/17/2017 WNLImaging Within Last 12 Months:X-ray - R and L wrist x-ray results in EPICDate of test: 12/13/2017Cardiac Testing:N/ALast Menstrual Period:LMP Date: N/APostmenopausal >1yr: Yes,S/P Hysterectomy: YesBMI Percentile (PEDS):N/ARisk Assessment:N/AAnesthesia Review:N/ANarrative:N/APre-op Considerations:HysterectomyCha rt Check:Jeanette Tobar 2017 1:41 PM [facility] HOSPon 12-13-2017 HOSP Patient:Ivan KhanN: Height:5' 4.5(1.638 m)Weight:162 lb (73.483 kg)Outpatient Medications as of 12/28/17:calcium carbonate/vitamin D3 (CALCIUM + D ORAL)cholecalciferol, vitamin D3, (VITAMIN D3 ORAL)cyanocobalamin, vitamin B-12, (VITAMIN B-12 ORAL)etodolac (LODINE-XL) 500 mg 24 hr tabletcyclobenzaprine (FLEXERIL) 10 mg tabletfluticasone (FLONASE) 50 mcg/actuation nasal spraybuPROPion SR (WELLBUTRIN SR) 150 mg 12 hr tabletfurosemide (LASIX) 20 mg tabletTENS UNIT ELECTRODES (TENS UNITS ELECTRODES) 2X2 padspregabalin 75 mg capsuleAdmission/Clinic Administered Medications as of 12/28/17:lactated ringers infusionclindamycin 600 mg in D5W 50 mL (CLEOCIN)Problem List:Esophageal reflux [K21.9]Dysthymic disorder [F34.1]History of tobacco use [Z87.891]History of total knee arthroplasty [Z96.659]Backache, unspecified [M54.9]Fibromyalgia [M79.7]Primary osteoarthritis of first carpometacarpal joint of right hand [M18.11]Primary osteoarthritis of first carpometacarpal joint of left hand [M18.12]Pain of right thumb [M79.644]Allergies:Augmentin [Amoxicillin-Pot Clavulanate]MorphinePenicillin sDate Verified: 12/28/17Lab ValuesLab Value Units Date High LowPOTA* 4.3 mmol/L 12/17/2017 5.1 3.7HEMA* 37.6 % 12/17/2017 46.0 36.0Progress Notes ([facility]):Tasha Peterson, RN, RN 12/14/2017 10:24 AM SignedType of form: FMLAForm received via walk inWhen form is completed, Call patients [phone] has been placed in nurses bin.Tasha Peterson, RNPatimame signed wrong release. Called Eugene and informed him patientwill need to sign medical release of information and have her place ofemployment fax to office. States understanding.Sofia Sharpe RN 12/17/2017 10:17 AM SignedCalled pt. and states she is expecting to be off work [address] Singer. Paperwork completed accordingly and to provider inbox for reviewand signature.Susie Paredes Ma 12/25/2017 1:59 PM SignedPaperwork has been completed and faxed to employer. Confirmation received.Copy sent for scanning.Progress Notes ([facility]):Sofia Sharpe RN 12/13/2017 10:44 AM AddendumPt. scheduled for right carpal metacarpal arthroplasty with ligamentreconstruction and tendon interposition on 12-28-17 in [place]. Surgical requestplaced. She would like OT at [place]. Post ops mailed to pt.Suhail Sharpe RN 12/13/2017 10:19 AM SignedCalled to verify that this is not work related and he states it is not.Kirti Hodges [facility] 12/13/2017 10:49 AM SignedNoted in [place].Sofia Sharpe RN 12/13/2017 1:20 PM SignedOR on schedule. Normal [facility] Vital Signs Date Time Vital Sign Value Performing Clinician Facility 01-28-2024 08:08-0400 Body height 160 cm Feliberto Melchor MD Work Phone: [facility] 01-28-2024 08:08-0400 Body mass index (BMI) [Ratio] 27.78 kg/m2 Feliberto Melchor MD Work Phone: [facility] 01-28-2024 08:08-0400 Body weight 71.12 kg Feliberto Melchor MD Work Phone: [facility] 01-28-2024 08:08-0400 Diastolic blood pressure 60 mm[Hg] Feliberto Melchor MD Work Phone: [facility] 01-28-2024 08:08-0400 Systolic blood pressure 100 mm[Hg] Feliberto Melchor MD Work Phone: [facility] 01-18-2024 09:37-0400 Body height 162.6 cm Delmi Da Silva [employer]LECTRIC [employer]OVE IN[employer]ER.[employer] Work Phone: [facility] 01-18-2024 09:37-0400 Body mass index (BMI) [Ratio] 27.98 kg/m2 Delmi Da Silva ELECTRIC STOVE INSTALLER.MA[employer]GER [employer] Work Phone: [facility] 01-18-2024 09:37-0400 Body weight 73.94 kg Delmi Da Silva ELECTRIC STOVE INSTALLER.MA[employer]GER [employer] Work Phone: [facility] 01-18-2024 09:37-0400 Diastolic blood pressure 68 mm[Hg] Delmi Alvarengaell ELECTRIC STOVE INSTALLER.MANAGER [employer] Work Phone: [facility] 01-18-2024 09:37-0400 Heart rate 75 /min Delmi Da Silva ELECTRIC STOVE INSTALLER.MANAGER [employer] Work Phone: [facility] 01-18-2024 09:37-0400 Systolic blood pressure 109 mm[Hg] Delmi Avinash ELECTRIC STOVE INSTALLER.MANAGER [employer] Work Phone: [facility] 11-27-2023 10:15-0400 Body height 163.8 cm Katey Chester MD Work Phone: [facility] 11-27-2023 10:15-0400 Body weight 71.22 kg Katey Chester MD Work Phone: [facility] 11-27-2023 10:15-0400 Diastolic blood pressure 66 mm[Hg] Katey Chester MD Work Phone: [facility] 11-27-2023 10:15-0400 Heart rate 84 /min Katey Chester MD Work Phone: [facility] 11-27-2023 10:15-0400 SaO2% (BldA) [Mass fraction] 98 % Katey Chester MD Work Phone: [facility] 11-27-2023 10:15-0400 Systolic blood pressure 92 mm[Hg] Katey Chester MD Work Phone: [facility] 10-19-2023 10:50-0500 Body height 163.8 cm Carolyn Ly DO Work Phone: [facility] 10-19-2023 10:50-0500 Body weight 68.49 kg Carolyn Ly DO Work Phone: [facility] 10-19-2023 10:50-0500 Diastolic blood pressure 62 mm[Hg] Carolyn Ly DO Work Phone: [facility] 10-19-2023 10:50-0500 Heart rate 77 /min Carolyn Ly DO Work Phone: [facility] 10-19-2023 10:50-0500 Systolic blood pressure 103 mm[Hg] Carolyn Ly DO Work Phone: [facility] 06-22-2023 12:13-0400 Body weight 70.31 kg Carolyn Ly DO Work Phone: [facility] 06-22-2023 12:13-0400 Diastolic blood pressure 84 mm[Hg] Carolyn Ly DO Work Phone: [facility] 06-22-2023 12:13-0400 Heart rate 77 /min Carolyn Ly DO Work Phone: [facility] 06-22-2023 12:13-0400 Systolic blood pressure 135 mm[Hg] Carolyn Ly DO Work Phone: [facility] 05-25-2023 09:03-0400 Body weight 70.31 kg Carolyn Ly DO Work Phone: [facility] 05-25-2023 09:03-0400 Diastolic blood pressure 81 mm[Hg] Carolyn Ly DO Work Phone: [facility] 05-25-2023 09:03-0400 Heart rate 66 /min Carolyn Ly DO Work Phone: [facility] 05-25-2023 09:03-0400 Systolic blood pressure 121 mm[Hg] Carolyn Ly DO Work Phone: [facility] 03-28-2023 09:14-0400 Body temperature 97.81 [degF] Katey Chester MD Work Phone: [facility] 03-28-2023 09:14-0400 Body weight 68.95 kg Katey Chester MD Work Phone: [facility] 03-28-2023 09:14-0400 Diastolic blood pressure 60 mm[Hg] Katey Chester MD Work Phone: [facility] 03-28-2023 09:14-0400 Heart rate 78 /min Katey Chester MD Work Phone: [facility] 03-28-2023 09:14-0400 Respiratory rate 18 /min Katey Chester MD Work Phone: [facility] 03-28-2023 09:14-0400 SaO2% (BldA) [Mass fraction] 99 % Katey Chester MD Work Phone: [facility] 03-28-2023 09:14-0400 Systolic blood pressure 110 mm[Hg] Katey Chester MD Work Phone: [facility] 11-29-2022 08:50-0400 Body temperature 98.01 [degF] Katey Chester MD Work Phone: [facility] [facility] 11-29-2022 08:50-0400 Body weight 70.31 kg Katey Chester MD Work Phone: [facility] 11-29-2022 08:50-0400 Diastolic blood pressure 62 mm[Hg] Katey Chester MD Work Phone: [facility] 11-29-2022 08:50-0400 Heart rate 86 /min Katey Chester MD Work Phone: [facility] 11-29-2022 08:50-0400 Respiratory rate 18 /min Katey Chester MD Work Phone: [facility] 11-29-2022 08:50-0400 SaO2% (BldA) [Mass fraction] 97 % Katey Chester MD Work Phone: [facility] 11-29-2022 08:50-0400 Systolic blood pressure 118 mm[Hg] Katey Chester MD Work Phone: [facility] 05-17-2022 07:03-0400 Diastolic blood pressure 77 mm[Hg] [facility] Work Phone: 05-17-2022 07:03-0400 Heart rate 62 /min [facility] Work Phone: 05-17-2022 07:03-0400 Respiratory rate 15 /min [facility] Work Phone: 05-17-2022 07:03-0400 SaO2% (BldA) [Mass fraction] 97 % [facility] Work Phone: 05-17-2022 07:03-0400 Systolic blood pressure 138 mm[Hg] [facility] Work Phone: 05-17-2022 06:15-0400 Body height 162.56 cm [facility] Work Phone: 05-17-2022 06:15-0400 Body mass index (BMI) [Ratio] 25.7 kg/m2 [facility] Work Phone: 05-17-2022 06:15-0400 Body temperature 98.9 [degF] [facility] Work Phone: 05-17-2022 06:15-0400 Body weight 68.03 kg [facility] Work Phone: 03-20-2022 09:05-0400 Body weight 69.4 kg Katey Chester MD Work Phone: [facility] 03-20-2022 09:05-0400 Diastolic blood pressure 78 mm[Hg] Katey Chester MD Work Phone: [facility] 03-20-2022 09:05-0400 Heart rate 86 /min Katey Chester MD Work Phone: [facility] 03-20-2022 09:05-0400 SaO2% (BldA) [Mass fraction] 98 % Katey Chester MD Work Phone: [facility] 03-20-2022 09:05-0400 Systolic blood pressure 122 mm[Hg] Katey Chester MD Work Phone: [facility] 01-16-2022 09:11-0400 Body height 162.6 cm Vero Hill MD Work Phone: [facility] 01-16-2022 09:11-0400 Body temperature 98.1 [degF] Vero Hill MD Work Phone: [facility] 01-16-2022 09:11-0400 Body weight 71.94 kg Vero Hill MD Work Phone: [facility] 01-16-2022 09:11-0400 Diastolic blood pressure 82 mm[Hg] Vero Hill MD Work Phone: [facility] 01-16-2022 09:11-0400 Heart rate 84 /min Vero Hill MD Work Phone: [facility] 01-16-2022 09:11-0400 SaO2% (BldA) [Mass fraction] 98 % Vero Hill MD Work Phone: [facility] 01-16-2022 09:11-0400 Systolic blood pressure 130 mm[Hg] Vero Hill MD Work Phone: [facility] 01-11-2022 11:20-0400 Body weight 72.58 kg Liyah Tannhof ELECTRIC STOVE INSTALLER.MANAGER [employer]ING Work Phone: [facility] 01-11-2022 11:20-0400 Diastolic blood pressure 76 mm[Hg] Liyah Tannhof ELECTRIC STOVE INSTALLER.MANAGER [employer]ING Work Phone: [facility] 01-11-2022 11:20-0400 Heart rate 81 /min Liyah Tannhof ELECTRIC STOVE INSTALLER.MANAGER [employer]ING Work Phone: [facility] 01-11-2022 11:20-0400 Respiratory rate 16 /min Liyah Tannhof ELECTRIC STOVE INSTALLER.MANAGER [employer]ING Work Phone: [facility] 01-11-2022 11:20-0400 SaO2% (BldA) [Mass fraction] 98 % Liyah Tannhof ELECTRIC STOVE INSTALLER.MANAGER [employer]ING Work Phone: [facility] 01-11-2022 11:20-0400 Systolic blood pressure 122 mm[Hg] Liyah Tannhof ELECTRIC STOVE INSTALLER.MANAGER [employer]ING Work Phone: [facility] 01-06-2022 09:40-0400 Body weight 71.67 kg Heidy Price ELECTRIC STOVE INSTALLER.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 ERECTOR APPRENTICE Work Phone: [facility] 01-06-2022 09:40-0400 Diastolic blood pressure 68 mm[Hg] Heidy Price ELECTRIC STOVE INSTALLER.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 ERECTOR APPRENTICE Work Phone: [facility] 01-06-2022 09:40-0400 Heart rate 84 /min Heidy Price ELECTRIC STOVE INSTALLER.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 ERECTOR APPRENTICE Work Phone: [facility] 01-06-2022 09:40-0400 Respiratory rate 16 /min Heidy Price ELECTRIC STOVE INSTALLER.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 ERECTOR APPRENTICE Work Phone: [facility] 01-06-2022 09:40-0400 Systolic blood pressure 122 mm[Hg] Heidy Price ELECTRIC STOVE INSTALLER.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 ERECTOR APPRENTICE Work Phone: [facility] 12-28-2021 02:31-0400 Body height 162.56 cm [facility] Work Phone: 12-28-2021 02:31-0400 Body mass index (BMI) [Ratio] 27.8 kg/m2 [facility] Work Phone: 12-28-2021 02:31-0400 Body temperature 97.4 [degF] [facility] Work Phone: 12-28-2021 02:31-0400 Body weight 73.4 kg [facility] Work Phone: 12-28-2021 02:31-0400 Diastolic blood pressure 80 mm[Hg] [facility] Work Phone: 12-28-2021 02:31-0400 Heart rate 92 /min [facility] Work Phone: 12-28-2021 02:31-0400 Respiratory rate 17 /min [facility] Work Phone: 12-28-2021 02:31-0400 SaO2% (BldA) [Mass fraction] 98 % [facility] Work Phone: 12-28-2021 02:31-0400 Systolic blood pressure 138 mm[Hg] [facility] Work Phone: 12-21-2021 15:13-0400 Body mass index (BMI) [Ratio] 26.4 kg/m2 [facility] Work Phone: 12-21-2021 15:13-0400 Body temperature 98.5 [degF] [facility] Work Phone: 12-21-2021 15:13-0400 Body weight 70 kg [facility] Work Phone: 12-21-2021 15:13-0400 Diastolic blood pressure 72 mm[Hg] [facility] Work Phone: 12-21-2021 15:13-0400 Heart rate 94 /min [facility] Work Phone: 12-21-2021 15:13-0400 Respiratory rate 16 /min [facility] Work Phone: 12-21-2021 15:13-0400 SaO2% (BldA) [Mass fraction] 98 % [facility] Work Phone: 12-21-2021 15:13-0400 Systolic blood pressure 133 mm[Hg] [facility] Work Phone: Encounters Encounter Date Encounter Type Care Provider Facility Start: 11-30-2024 End: 12-01-2024 Refill Katey Chester MD Work Phone: [facility] [place] Comment on above: Refill Request Start: 11-05-2024 End: 11-05-2024 ambulatory PHY WO ID REFERRING Facility:[facility] Start: 11-05-2024 End: 11-05-2024 Patient encounter procedure PHY WO ID REFERRING [facility] Start: 10-23-2024 End: 10-31-2024 Refill Josh Allison ELECTRIC STOVE INSTALLER.MANAGER [employer]ING Work Phone: [facility] [place] Comment on above: Refill Request Start: 10-22-2024 End: 10-22-2024 Refill Delmi Da Silva ELECTRIC STOVE INSTALLER.MANAGER [employer]ING Work Phone: Gastroenterology Comment on above: Refill Request Start: 04-27-2024 End: 04-30-2024 Refill Delmi Da Silva ELECTRIC STOVE INSTALLER.MANAGER [employer]ING Work Phone: Gastroenterology Comment on above: Refill Request (Pant oprazole 40mg/) Start: 03-17-2024 ambulatory Katey perez MD Work Phone: [facility] [place] Comment on above: Sinus infection Start: 02-25-2024 Refill Delmi billingsley ELECTRIC STOVE INSTALLER.MANAGER [employer]ING Work Phone: Gastroenterology Comment on above: Refill Request Start: 02-22-2024 Refill Katey perez MD Work Phone: [facility] [place] Comment on above: Refill Request Start: 01-28-2024 End: 01-28-2024 ambulatory FELIBERTO MELCHOR Facility[facility] Start: 01-28-2024 End: 01-28-2024 Patient encounter procedure Feliberto Melchor MD Work Phone: OB/Gynecology Comment on above: Encounter for gyneco logical examination (general) (routine) without abnormal findings (Primary Dx); Encounter for screening mammogram for breast cancer; Encounter for screening for malignant neoplasm of vagina Start: 01-28-2024 End: 01-28-2024 Patient encounter status Feliberto Melchor MD Work Phone: [facility] Start: 01-22-2024 Documentation procedure Mammog rodrigo Coordinator [facility] Department Start: 01-22-2024 Letter encounter Mammography Coordinator [facility] Start: 01-21-2024 End: 01-21-2024 ambulatory JOSH ALLISON Facility[facility] Start: 01-21-2024 End: 01-21-2024 Subsequent hospital visit by physician [facility] Comment on above: Encounter for screen ing mammogram for breast cancer [Z12.31] Start: 01-18-2024 End: 01-18-2024 ambulatory DELMI DA SILVA Facility[facility] Start: 01-18-2024 End: 01-18-2024 Subsequent hospital visit by physician [facility] Flannery Work Phone: Radiology Comment on above: Chronic constipation [K59.09] Start: 01-18-2024 End: 01-18-2024 Patient encounter procedure Delmi Da Silva ELECTRIC STOVE INSTALLER.MANAGER [employer]ING Work Phone: Gastroenterology Comment on above: Family history of ce liac disease (Primary Dx); Abdominal bloating Start: 01-18-2024 End: 01-18-2024 ambulatory KATEY CHESTER Facility[facility] Start: 01-18-2024 End: 01-18-2024 Nursing evaluation of patient and report Nurse [facility] Work Phone: Gastroenterology Comment on above: Abdominal bloating Start: 01-14-2024 ambulatory Katey perez MD Work Phone: [facility] [place] Comment on above: Mammogram Start: 11-27-2023 End: 11-27-2023 [facility] Start: 11-27-2023 End: 11-27-2023 Office outpatient visit 25 minutes Katey Chester MD Work Phone: [facility] [place] Comment on above: Chronic midline low back pain with sciatica, sciatica laterality unspecified (Primary Dx); Insomnia, unspecified type; Bereavement reaction; Anxiety; Constipation, unspecified constipation type; Cervicalgia; Fluid retention; Chronic SI joint pain; Dysthymic disorder; Sternal pain; Rash Start: 10-23-2023 Telephone encounter Carolyn Hoyos DO Work Phone: Gastroenterology Comment on above: Insurance Authorizat ion ([employer]-APPROVED ) Start: 10-19-2023 End: 10-19-2023 [facility] Start: 10-19-2023 End: 10-19-2023 Patient encounter procedure Carolyn Ly DO Work Phone: Gastroenterology Comment on above: Chronic constipation (Primary Dx); Lower abdominal pain; History of diverticulitis of colon Start: 08-03-2023 End: 08-03-2023 [facility] KATEY REBOLLARSANJANA Facility[facility] Start: 07-28-2023 ambulatory Katey perez MD Work Phone: [facility] [place] Comment on above: FMLA Start: 07-20-2023 ambulatory Katey perez MD Work Phone: [facility] [place] Comment on above: Fmla renewal Start: 07-06-2023 Telephone encounter Carolyn Ly DO Work Phone: Gastroenterology Comment on above: Results Start: 07-04-2023 End: 07-04-2023 ambulatory KATEY CHESTER Facility[facility] Start: 07-04-2023 End: 07-04-2023 Subsequent hospital visit by physician [facility] Comment on above: Lower abdominal pain [R10.30] Start: 06-22-2023 End: 06-22-2023 ambulatory KATEY CHESTER Facility[facility] Start: 06-22-2023 End: 06-22-2023 Patient encounter procedure Carolyn Ly DO Work Phone: Gastroenterology Comment on above: Lower abdominal pain (Primary Dx); History of diverticulitis of colon; Alternating constipation and diarrhea Start: 05-25-2023 End: 05-25-2023 ambulatory CAROLYN LY Facility[facility] Start: 05-25-2023 End: 05-25-2023 Patient encounter procedure Carolyn Ly DO Work Phone: Gastroenterology Comment on above: C. difficile diarrhe a; Constipation, unspecified constipation type; Generalized abdominal pain Start: 05-16-2023 End: 05-16-2023 ambulatory JOSH ALLISON Facility[facility] Start: 05-08-2023 Refill Katey perez MD Work Phone: [facility] [place] Comment on above: Refill Request Start: 04-12-2023 ambulatory Katey perez MD Work Phone: [facility] Start: 04-12-2023 Patient encounter procedure Katey Chester MD Work Phone: [facility] [place] Comment on above: Referral Start: 03-28-2023 End: 03-28-2023 ambulatory KATEY CHESTER Facility[facility] Start: 03-28-2023 End: 03-28-2023 Office outpatient visit 25 minutes Katey Chester MD Work Phone: [facility] [place] Comment on above: Elevated fasting blo od sugar (Primary Dx); C. difficile diarrhea; Anxiety; Constipation, unspecified constipation type; Insomnia, unspecified type; Bereavement reaction; Generalized abdominal pain Start: 03-23-2023 ambulatory Josh Allison APRN.MANAGER [employer]ING Work Phone: [facility] [place] Comment on above: Results Start: 03-23-2023 E-mail encounter fro m caregiver Josh Allison APRN.MANAGER [employer]MENT [employer]ANKING Work Phone: [facility] Start: 03-21-2023 End: 03-21-2023 ambulatory KATEY CHESTER [facility] Start: 03-01-2023 ambulatory Katey perez MD Work Phone: [facility] Start: 03-01-2023 Patient encounter procedure Katey Chester MD Work Phone: [facility] [place] Comment on above: Referral Start: 02-07-2023 Refill Heidy Price APRN.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 ERECTOR APPRENTICE Work Phone: [facility] [place] Comment on above: Refill Request Start: 01-31-2023 End: 01-31-2023 Subsequent hospital visit by physician [facility] [place] Work Phone: Radiology Comment on above: Diarrhea, unspecifie d type [R19.7] Start: 01-24-2023 End: 01-25-2023 Emergency department patient visit Katey Chester Facility:[facility] Start: 01-15-2023 End: 01-16-2023 ambulatory DILCIA VALDERRAMA MD Facility:[facility] Start: 01-15-2023 End: 01-15-2023 Patient encounter procedure DILCIA VALDERRAMA MD [facility] Start: 01-12-2023 End: 01-12-2023 Patient encounter procedure Josh Allsion APRN.MANAGER [employer]ING Work Phone: [facility] [place] Comment on above: Diverticulitis (Prim krystina Dx) Start: 01-11-2023 ambulatory Katey perez MD Work Phone: [facility] [place] Comment on above: Diverticulitis Start: 12-29-2022 Documentation procedure Mammog rodrigo Coordinator [facility] Start: 12-29-2022 Letter encounter Mammography Coordinator [facility] Department Start: 12-28-2022 End: 12-28-2022 Subsequent hospital visit by physician [facility] Comment on above: Encounter for screen ing mammogram for breast cancer [Z12.31] Start: 11-29-2022 End: 11-29-2022 Office outpatient visit 25 minutes Katey Chester MD Work Phone: [facility] [place] Comment on above: Encounter for immuni zation (Primary Dx); Acute non-recurrent maxillary sinusitis; Cervicalgia; Chronic midline low back pain with sciatica, sciatica laterality unspecified; Dysthymic disorder; Insomnia, unspecified type; Anxiety; Bereavement reaction; Elevated fasting glucose Start: 11-27-2022 Telephone encounter Katey carey MD Work Phone: [facility] [place] Comment on above: Orders Start: 10-20-2022 End: 10-20-2022 ambulatory Pramod Cleaning Facility:[facility] Start: 10-12-2022 ambulatory Katey perez MD Work Phone: [facility] [place] Comment on above: Mammogram Start: 07-17-2022 End: 07-18-2022 ambulatory ANTHONYMJ STOVALLJAVIER Facility:[facility] Start: 07-17-2022 End: 07-17-2022 Patient encounter procedure DILCIA VALDRERAMA MD [facility] Start: 05-17-2022 End: 05-17-2022 Emergency department patient visit Elvis Barbour Facility:[facility] Start: 05-17-2022 End: 05-17-2022 Emergency department patient visit [facility] Start: 03-21-2022 ambulatory Katey perez MD Work Phone: [facility] [place] Comment on above: FMLA paperwork Start: 03-21-2022 E-mail encounter fro m caregiver Katey Chester MD Work Phone: [facility] Start: 03-20-2022 End: 03-20-2022 Office outpatient visit 25 minutes Katey Chester MD Work Phone: [facility] [place] Comment on above: Cervicalgia (Primary Dx); Chronic midline low back pain with sciatica, sciatica laterality unspecified; Bereavement; Anxiety; Need for vaccination Start: 02-12-2022 Refill Katey perez MD Work Phone: [facility] [place] Comment on above: Refill Request Start: 01-16-2022 Telephone encounter Vero Aldridge MD Work Phone: General Surgery Comment on above: 02/17 [facility] Start: 01-16-2022 End: 01-16-2022 Patient encounter procedure Vero Hill MD Work Phone: General Surgery Comment on above: Left lower quadrant abdominal pain (Primary Dx); Diverticulitis Start: 01-13-2022 Telephone encounter Liyah mosquera ELECTRIC STOVE INSTALLER.MANAGER [employer]ANKING Work Phone: [facility] [place] Comment on above: Results Start: 01-11-2022 Telephone encounter Katey carey MD Work Phone: [facility] [place] Comment on above: Lower abdominal pain Start: 01-11-2022 End: 01-11-2022 Patient encounter procedure Liyah Garcia ELECTRIC STOVE INSTALLER.MANAGER [employer]ANKING Work Phone: [facility] [place] Comment on above: Diverticulitis (Prim krystina Dx) Start: 01-06-2022 End: 01-06-2022 Patient encounter procedure Heidy Price ELECTRIC STOVE INSTALLER.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 ERECTOR APPRENTICE Work Phone: [facility] [place] Comment on above: Diverticulitis (Prim krystina Dx); Sternal pain Start: 12-28-2021 End: 12-28-2021 Emergency department patient visit [facility] Start: 12-21-2021 End: 12-21-2021 [facility] Start: 12-21-2021 ambulatory Katey perez MD Work Phone: [facility] [place] Comment on above: Lower abdominal pain Start: 12-06-2021 Refill Katey perez MD Work Phone: [facility] [place] Comment on above: Refill Request Start: 03-28-2018 End: 03-28-[address] [facility] Start: 03-21-2018 End: 03-21-2018 Patient encounter [facility]ATHER JonnaPA) [facility] Start: 03-07-2018 End: 03-07-[address] [facility] Start: 02-26-2018 End: 02-26-[address] [facility] Start: 02-21-2018 End: 02-21-[address] [facility] Start: 02-14-2018 End: 02-14-[address] [facility] ([facility] Start: 02-07-2018 End: 02-07-[address] [facility] ([facility] Start: 01-29-2018 End: 01-29-[address] [facility] Start: 01-29-2018 End: 01-29-2018 Patient encounter [facility] Start: 12-28-2017 End: 12-28-2017 Patient encounter [facility] Procedures Date Procedure Procedure Detail Performing Clinician Start: 01-18-2024 BREATH TEST H PYLORI Sa prashanth Da Silva APRN.MANAGER [employer]ING Work Phone: Start: 07-04-2023 Ct abdomen & pelvis w/contrast material Carolyn Hoyos DO Work Phone: Start: 03-28-2023 Hemoglobin A1c/Hemoglobin.total in Blood Katey Chester MD Work Phone: Start: 01-31-2023 Radiologic exam abdo men 1 view Josh Allison ELECTRIC STOVE INSTALLER.MANAGER [employer]ING Work Phone: Start: 12-28-2022 End: 12-28-2022 Mammography Josh Allison APRN.CN P Work Phone: Start: 11-28-2022 Lipid 1996 panel - S karis or Plasma Katey Chester MD Work Phone: Start: 02-17-2022 Colonoscopy Vero Hill MD Work Phone: Start: 12-21-2021 Computed tomography of abdomen and pelvis with intravenous contrast Start: 10-20-2021 Mammography Katey delcid MD Work Phone: Start: 12-17-2015 Colonoscopy Katey delcid MD Work Phone: Plan of Treatment Date Care Activity Detail Author Start: 2039 RSV Vaccine (1 - 1-d ose 75+ series) RSV Vaccine (1 - 1-dose 75+ series) [facility] Start: 11-29-2032 Urine microalbumin profile [facility] Start: 02-18-2032 Colonoscopy COLONOSCOPY [facility] Start: 02-18-2032 COLORECTAL CANCER SCREENING COLORECTAL CANCER SCREENING [facility] Start: 02-18-2032 Screening for malign ant neoplasm of colon [facility] Start: 11-29-2027 Lipid 1996 panel - Serum or Plasma Lipid Screening [facility] Start: 11-29-2027 Lipid panel Lipid Screening [facility] Start: 11-29-2027 LIPID SCREEN LIPID SCREEN [facility] Start: 10-20-2026 LIPID SCREEN LIPID SCREEN [facility] Start: 05-16-2026 Diabetes Screening Diabetes Screenin g [facility] Start: 03-28-2026 DIABETES SCREEN DIABETES SCREEN [facility] Start: 12-16-2025 Colonoscopy COLONOSCOPY [facility] Start: 12-16-2025 COLORECTAL CANCER SCREENING COLORECTAL CANCER SCREENING [facility] Start: 11-28-2025 DIABETES SCREEN DIABETES SCREEN [facility] Start: 04-10-2025 End: 04-10-2025 Patient encounter procedure 04/10/2025 4:20 PM EDT Office Visit [facility] [place] [address] [place], [place] [id number] Katey Chester MD [address] [place], [place] [id number] F/U 4 month [facility] [place] Comment on above: F/U 4 month Start: 01-28-2025 End: 01-28-2025 Patient encounter procedure Mammogram Comment on above: Encounter for screen ing mammogram for breast cancer [Z12.31] annual Start: 01-20-2025 Screening for malign ant neoplasm of breast Mammogram Screening [facility] Start: 01-11-2025 DIABETES SCREEN DIABETES SCREEN [facility] Start: 10-20-2024 DIABETES SCREEN DIABETES SCREEN [facility] Start: 08-05-2024 End: 08-05-2024 Patient encounter procedure 08/05/2024 8:20 AM EST Office Visit [facility] [address] [place] [address] Katey Chester MD [address] [facility] [place] [address] F/U 4 month [facility] [place] Comment on above: F/U 4 month Start: 05-11-2024 Covid-19 Vaccine () Covid-19 Vaccine () [facility] Start: 05-11-2024 Influenza vaccination Influenza Vacc ine (#1) [facility] Start: 2024 RSV Vaccine (1 - 1-d ose 60+ series) RSV Vaccine (1 - 1-dose 60+ series) [facility] Start: 04-02-2024 End: 04-02-2024 Patient encounter procedure 04/02/2024 9:20 AM EDT Office Visit [facility] [address] [place] [address] Katey Chester MD [address] [facility] [place] [address] 4 month follow up [facility] [place] Comment on above: 4 month follow up Start: 02-01-2024 FECAL OCCULT BLOOD FECAL OCCULT BLOO D [facility] Start: 02-01-2024 Screening for malign ant neoplasm of colon Fecal Occult Blood [facility] Start: 01-28-2024 End: 01-28-2024 Patient encounter procedure 01/28/2024 8:20 AM EDT Office Visit OB/Gynecology [address] [place] [address] Feliberto Melchor MD [address] [place] [address] Annual OB/Gynecology Comment on above: Annual Start: 01-18-2024 End: 04-18-2024 CELIAC SCREEN WITH REFLEX [facility] Work Phone: Comment on above: Expected: 01/18/2024 , Expires: 04/18/2024 Start: 12-29-2023 Mammography [facility] Start: 12-29-2023 Screening for malign ant neoplasm of breast Mammogram Screening [facility] Start: 07-28-2023 COVID-19 VACCINE (3 - Booster for Pfizer series) COVID-19 VACCINE (3 - Booster for Pfizer series) [facility] Comment on above: Postponed from 03/16 (Declined at this time) Start: 07-28-2023 COVID-19 VACCINE (3 - Pfizer series) COVID-19 VACCINE (3 - Pfizer series) [facility] Comment on above: Postponed from 03/16 (Declined at this time) Start: 07-28-2023 HEPATITIS B (1 of 3 - 3-dose series) HEPATITIS B (1 of 3 - 3-dose series) [facility] Comment on above: Postponed from 04/24 (Declined at this time) Start: 07-28-2023 Hepatitis B Vaccine (1 of 3 - 3-dose series) Hepatitis B Vaccine (1 of 3 - 3-dose series) [facility] Comment on above: Postponed from 04/24 (Declined at this time) Start: 05-11-2023 Covid-19 Vaccine ( season) Covid-19 Vaccine ( season) [facility] Start: 05-11-2023 Influenza vaccination [facility] Start: 11-27-2022 End: 01-27-2023 CBC panel - Blood by Automated count CBC Lab Routine Encounter for long-term current use of medication Expected: 11/27/2022, Expires: 01/27/2023 [facility] Work Phone: Comment on above: Expected: 11/27/2022 , Expires: 01/27/2023 Start: 11-27-2022 End: 01-27-2023 Comprehensive metabolic 2000 panel - Serum or Plasma COMP METABOLIC PANEL Lab Routine Encounter for long-term current use of medication Expected: 11/27/2022, Expires: 01/27/2023 [facility] Work Phone: Comment on above: Expected: 11/27/2022 , Expires: 01/27/2023 Start: 11-27-2022 End: 01-27-2023 Lipid 1996 panel - Serum or Plasma LIPID PANEL BASIC Lab Routine Encounter for long-term current use of medication Expected: 11/27/2022, Expires: 01/27/2023 [facility] Work Phone: Comment on above: Expected: 11/27/2022 , Expires: 01/27/2023 Start: 11-27-2022 End: 01-27-2023 LIPID PANEL, NONFASTING LIPID PANEL, NONFASTING Lab Routine Encounter for long-term current use of medication Expected: 11/27/2022, Expires: 01/27/2023 [facility] Work Phone: Comment on above: Expected: 11/27/2022 , Expires: 01/27/2023 Start: 10-20-2022 Mammography MAMMOGRAM [facility] Start: 07-31-2022 Urine microalbumin profile DTAP,TDAP,TD (3 - Td or Tdap) [facility] Start: 07-20-2022 SHINGRIX VACCINE (1 of 2) SHINGRIX VACCINE (1 of 2) [facility] Comment on above: Postponed from 04/24 (Declined at this time) Start: 05-15-2022 SHINGRIX VACCINE (2 of 2) SHINGRIX VACCINE (2 of 2) [facility] Start: 05-11-2022 Influenza vaccination INFLUENZA (#1) [facility] Start: 01-11-2022 End: 03-13-2022 Amylase [Enzymatic activity/volume] in Serum or Plasma [facility] Work Phone: Comment on above: Expected: 01/11/2022 , Expires: 03/13/2022 Start: 01-11-2022 End: 03-13-2022 CBC W Auto Differential panel - Blood [facility] Work Phone: Comment on above: Expected: 01/11/2022 , Expires: 03/13/2022 Start: 01-11-2022 End: 03-13-2022 Comprehensive metabolic 2000 panel - Serum or Plasma [facility] Work Phone: Comment on above: Expected: 01/11/2022 , Expires: 03/13/2022 Start: 01-11-2022 End: 03-13-2022 Lipase [Enzymatic activity/volume] in Serum or Plasma [facility] Work Phone: Comment on above: Expected: 01/11/2022 , Expires: 03/13/2022 Start: 06-21-2021 COVID-19 VACCINE (3 - Booster for Pfizer series) COVID-19 VACCINE (3 - Booster for Pfizer series) [facility] Start: 04-26-2016 FECAL OCCULT BLOOD FECAL OCCULT BLOO D [facility] Start: 05-04-2015 Pneumococcal Vaccine : 50+ (2 of 2 - PCV) Pneumococcal Vaccine: 50+ (2 of 2 - PCV) [facility] Start: 2009 COLOGUARD (FIT-DNA) COLOGUARD (FIT-D NA) [facility] Start: [address] COLONOGRAPHY [facility] Start: 2009 Screening for malign ant neoplasm of colon [facility] Start: 2009 SIGMOIDOSCOPY SIGMOIDOSCOPY [facility] Start: 1982 Anxiety Screening Anxiety Screening [facility] End: 01-16-2023 COLONOSCOPY DIAGNOSTIC COLONOSCOPY DIAGNOSTIC Endoscopy Routine Diverticulitis Left lower quadrant abdominal pain 1 Occurrences starting 01/16/2022 until 01/16/2023 [facility] Work Phone: Comment on above: 1 Occurrences starti ng 01/16/2022 until 01/16/2023 End: 07-21-2024 Ct abdomen & pelvis w/contrast material CT ABD/PEL W IVCON Radiology Routine Lower abdominal pain History of diverticulitis of colon 1 Occurrences starting 06/22/2023 until 07/21/2024 [facility] Work Phone: Comment on above: 1 Occurrences starti ng 06/22/2023 until 07/21/2024 End: 11-16-2023 YOANA SCREENING YOANA SCREENING Radiology Routine Encounter for screening mammogram for breast cancer 1 Occurrences starting 10/17/2022 until 11/16/2023 [facility] Work Phone: Comment on above: 1 Occurrences starti ng 10/17/2022 until 11/16/2023 End: 02-12-2025 MG Breast Screening YOANA SCREENING Radiology Routine Encounter for screening mammogram for breast cancer 1 Occurrences starting 01/18/2024 until 02/12/2025 [facility] Work Phone: Comment on above: 1 Occurrences starti ng 01/18/2024 until 02/12/2025 MG Breast Screening YOANA SCREENIN G Radiology Routine Encounter for screening mammogram for breast cancer 01/21/2024 1:14 PM EDT [facility] Work Phone: End: 02-26-2025 MG Breast Screening YOANA SCREENING Radiology Routine Encounter for gynecological examination (general) (routine) without abnormal findings Encounter for screening mammogram for breast cancer 1 Occurrences starting 01/28/2024 until 02/26/2025 [facility] Work Phone: Comment on above: 1 Occurrences starti ng 01/28/2024 until 02/26/2025 PAP TEST PAP TEST Lab [facility] kirk Encounter for gynecological examination (general) (routine) without abnormal findings Encounter for screening for malignant neoplasm of vagina 01/28/2024 9:16 AM EDT [facility] Patient Education [facility] Work Phone: Patient referral [facility] Work Phone: End: 11-17-2024 XR Abdomen Supine and Upright XR ABDOMEN 2V ROUTINE SUPINE W UPRIGHT/DECUB/CTL Radiology Routine Chronic constipation 1 Occurrences starting 10/19/2023 until 11/17/2024 [facility] Work Phone: Comment on above: 1 Occurrences starti ng 10/19/2023 until 11/17/2024 XR Abdomen Supine an d Upright XR ABDOMEN 2V ROUTINE SUPINE W UPRIGHT/DECUB/CTL Radiology Routine Chronic constipation 01/18/2024 3:18 PM EDT [facility] Immunizations Immunization Date Immunization Notes Care Provider Aicha monroe 08-03-2023 COVID-19 vaccine, ag e 12+ yr, season (PFIZER-BIONTVideoPros) Carolyn Hoyos DO Work Phone: [facility] 08-03-2023 influenza, injectabl e, quadrivalent, contains preservative Carolyn Hoyos DO Work Phone: [facility] 08-03-2023 influenza virus vacc ine, unspecified formulation Katey Chester MD Work Phone: [facility] 11-29-2022 tetanus and diphther ia toxoids, adsorbed, preservative free, for adult use (5 Lf of tetanus toxoid and 2 Lf of diphtheria toxoid) Katey Chester MD Work Phone: [facility] 11-29-2022 TD(adult) unspecifie d formulation Katey Chester MD Work Phone: [facility] Work Phone: 07-28-2022 influenza, injectabl e, quadrivalent, contains preservative Katey Chester MD Work Phone: [facility] 07-28-2022 zoster vaccine recombinant Katey Chester MD Work Phone: [facility] 07-28-2022 influenza virus vacc ine, unspecified formulation Katey Chester MD Work Phone: [facility] 03-20-2022 zoster vaccine recombinant Katey Chester MD Work Phone: [facility] 07-20-2021 influenza, injectabl e, quadrivalent, contains preservative Katey Chester MD Work Phone: [facility] 07-19-2020 influenza, injectabl e, quadrivalent, contains preservative Katey Chester MD Work Phone: [facility] 07-15-2019 influenza, injectabl e, quadrivalent, contains preservative Katey Chester MD Work Phone: [facility] Work Phone: 06-01-2015 influenza, seasonal, injectable Katey Chester MD Work Phone: [facility] 05-04-2014 pneumococcal polysaccharide vaccine, 23 valent Katey Cehster MD Work Phone: [facility] 07-31-2012 tetanus toxoid, redu vince diphtheria toxoid, and acellular pertussis vaccine, adsorbed Katey Chester MD Work Phone: [facility] 06-12-2012 influenza virus vacc ine, unspecified formulation Katey Chester MD Work Phone: [facility] 02-08-2001 diphtheria and tetan us toxoids, adsorbed for pediatric use Katey Chester MD Work Phone: [facility] Work Phone: Payers Date Payer Category Payer Medicaid [id number] 2023 Unknown [id number] 2023 Unknown [id number] 2022 Self-pay [id number] 2022 Unknown [id number] 2022 Unknown [id number] 2016 Unknown [id number] 2014 Unknown [employer] C[employer] PPO OOS [id number] 2014-Present [phone] [address] [place] [address] PPO [id number] 2014 Unknown [id number] 2003 Unknown [id number] 1964 Unknown [id number] 1964 Unknown [id number] 1964 Unknown [id number] Unknown [id number] Unknown [id number] Unknown [id number] Social History Date Type Detail Facility Start: 10-21-2015 End: 01-28-2024 Tobacco smoking status NHIS Ex-smoker [facility] Start: 10-11-2000 End: 10-11-2015 History of tobacco use Current smoker [facility] Start: 10-11-2000 End: 10-11-2015 History of tobacco use Cigarette Smoker [facility] Start: 10-21-2015 End: 01-31-2023 Cigarettes smoked current (pack per day) - Reported 0.5 [facility] Start: 10-21-2015 End: 01-28-2024 Tobacco use and exposure Former smokeless tobacco user [facility] End: 08-10-2013 History of tobacco use User of smokeless tobacco [facility] Start: 07-20-2021 End: 01-28-2024 Alcohol intake Current non-drinker of alcohol (finding) [facility] Start: 07-19-2020 End: 11-28-2022 History SDOH Alcohol Frequency 3 [facility] Start: 07-19-2020 History SDOH Alcohol Std Drinks 98 [facility] Start: 07-19-2020 End: 07-20-2021 History SDOH Alcohol Binge 2 [facility] Start: 07-19-2020 History SDOH Social Connections Phone 4 [facility] Start: 07-19-2020 End: 07-20-2021 History SDOH Social Connections Hindu 1 [facility] Start: 07-19-2020 Education 21 [facility] Start: 1965 Sex Assigned At Female C [facility] Start: 11-15-2021 End: 03-20-2022 Exposure to SARS-CoV-2 (event) Not sure [facility] Start: 12-28-2021 End: 05-17-2022 Tobacco smoking status NHIS Unknown if ever smoked [facility] Work Phone: Start: 02-17-2022 History SDOH Alcohol Comment occasionally [facility] Tobacco smoking status [facility] Start: 07-19-2020 End: 01-31-2023 Social connection and isolation panel [facility] Do you belong to any clubs or organizations such as catholic groups, unions, fraternal or athletic groups, or school groups? No [facility] Marital Status Not on file [place] [facility] How often to you hav e a drink containing alcohol? Monthly or less [facility] How many standard drinks containing alcohol do you have on a typical day? 1 or 2 [facility] How often do you hav e 6 or more drinks on 1 occasion? Never [facility] How hard is it for y ou to pay for the very basics like food, housing, medical care, and heating Somewhat hard [facility] Do you feel stress - tense, restless, nervous, or anxious, or unable to sleep at night because your mind is troubled all the time - these days [OSQ] Only a little [facility] (I/We) worried caesar er (my/our) food would run out before (I/we) got money to buy more. Never true [facility] Start: 07-19-2020 Gender identity Identifies as female gender (finding) [facility] Start: 07-19-2020 Sexual orientation Choose not to dis close [facility] Are you now , , , , never or living with a partner? [facility] Do you feel stress - tense, restless, nervous, or anxious, or unable to sleep at night because your mind is troubled all the time - these days [OSQ] Very much [facility] Start: 07-06-2022 Sex Female (finding) [facility] NEGATED: Highlighted rowStart: NINF History of tobacco use Passive smoker [facility] Medical Equipment Procedure Code Equipment Code Equipment Original Text Equipment Identifier Dates Jcarlos Bn Smpx P Radpq Fd Strl - [id number] Start: 08-07-2012 Comment on above: Description: BONE CE MENT [employer] Implant - [id number] Start: 11-26-2013 Comment on above: Description: screw Comp Fem 3 Rt Kn Cr Jcarlos Trthln - [id number] Start: 08-07-2012 Comment on above: Description: CRUCIAT E RETAINING FEMORAL Comp Pat 9mm 29m m Asym Trthln - [id number] Start: 08-07-2012 Comment on above: Description: ASYMMET VICTOR HUGO PATELLA Ins Tib 3 9mm Kn X3 Cs Trthln - [id number] Start: 08-07-2012 Comment on above: Description: TIBIAL BEARING INSERT Baseplt Tib Trthln 3 Prim - [id number] Start: 08-07-2012 Comment on above: Description: PRIMARY TIBIAL BASEPLATE Screw Bn 2mm 12m m Qfix Ti - [id number] Start: 11-26-2013 Comment on above: Description: screw Functional Status Date Assessment Result Facility 07-23-2014 Are you deaf, or do you have serious difficulty hearing No 07/23/2014 4:03 PM Paulina WiseRn) (Hist), RN No [facility] 07-23-2014 Are you blind, or do you have serious difficulty seeing, even when wearing glasses No 07/23/2014 4:03 PM Paulina WiseRn) (Hist), RN No [facility] 07-23-2014 Do you have serious difficulty walking or climbing stairs No 07/23/2014 4:03 PM Paulina WiseRn) (Hist), RN No [facility] 07-23-2014 Do you have difficul ty dressing or bathing No 07/23/2014 4:03 PM Paulina WiseRn) (Hist), RN No [facility] 07-23-2014 Because of a physica l, mental, or emotional condition, do you have difficulty doing errands alone such as visiting a physician's office or shopping No 07/23/2014 4:03 PM Paulina Wise (Rn) (Hist), RN No [facility] Mental Status Date Assessment Result Facility 07-23-2014 Because of a physica l, mental, or emotional condition, do you have serious difficulty concentrating, remembering, or making decisions No 07/23/2014 4:03 PM Paulina Wise (Rn) (Hist), RN No [facility] Clinical Notes 11-10-2015 to 12-01-2024 Telephone Encounter - Mi Acosta LPN - 12/01/2024 4:06 PM EDTTelephone Encounter - Mi Acosta LPN - 12/01/2024 4:06 PM EDT Note Date & Type Note Facility 12-01-2024 Telephone encount er Note Patient notified that prescription were sent to the pharmacy. Attempted to schedule sooner appointment with Dr. Chester for Annual but patient states she just qualified for soc sec and medicare doesn't kick in until some time in March so April is the soonest she will be able to come in. [facility] 12-01-2024 Miscellaneous Notes Formattin g of this note might be different from the original. Patient notified that prescription were sent to the pharmacy. Attempted to schedule sooner appointment with Dr. Chester for Annual but patient states she just qualified for soc sec and medicare doesn't kick in until some time in March so April is the soonest she will be able to come in. Last visit 11/2023, endorse sooner / annual appt with Katey Chester MD if willing. Rx sent. Prescription Refill Information The patient has been identified by name and date of : Yes Caregiver verified no other encounters exist for this prescription request: Yes Caregiver confirmed with patient/requestor that no other refills are due, in the near future, with this provider at this time: Yes The last office visit in the department: 11/27/23 Does the patient have a future office visit with this provider/department: Yes 04/10/25 Requested Prescriptions Pending Prescriptions Disp Refills buPROPion SR (WELLBUTRIN SR) 150 mg 12 hr tablet 180 tablet 3 Sig: Take 1 tablet by mouth two times a day. etodolac (LODINE-XL) 500 mg 24 hr tablet 30 tablet 11 Sig: Take 1 tablet by mouth once daily. Aura Alvarez LPN December 01, 2024 1:29 PM documented in this encounter [facility] 12-01-2024 Telephone encount er Note Last visit 11/2023, endorse sooner / annual appt with Katey Chester MD if willing. Rx sent. [facility] 12-01-2024 Telephone encount er Note Prescription Refill Information The patient has been identified by name and date of : Yes Caregiver verified no other encounters exist for this prescription request: Yes Caregiver confirmed with patient/requestor that no other refills are due, in the near future, with this provider at this time: Yes The last office visit in the department: 11/27/23 Does the patient have a future office visit with this provider/department: Yes 04/10/25 Requested Prescriptions Pending Prescriptions Disp Refills buPROPion SR (WELLBUTRIN SR) 150 mg 12 hr tablet 180 tablet 3 Sig: Take 1 tablet by mouth two times a day. etodolac (LODINE-XL) 500 mg 24 hr tablet 30 tablet 11 Sig: Take 1 tablet by mouth once daily. Aura Alvarez LPN December 01, 2024 1:29 PM [facility] 11-05-2024 Note Exam Date Time Procedure Performing Provider Status 11/05/24 11:29 AM MRI Shoulder w/o Contrast Left ESTELITA TOBIN MD; Auth (Verified) [id number] ORIGINAL EXAMINATION: MRI OF THE LEFT SHOULDER WITHOUT CONTRAST 11/05/2024 11:34 am TECHNIQUE: Multiplanar multisequence MRI of the left shoulder was performed without the administration of intravenous contrast. COMPARISON: MRI of the left shoulder dated 01/15/2023 HISTORY: ORDERING SYSTEM PROVIDED HISTORY: Reason for Exam: SPRAIN OF LT SHOULDER; TEAR OF LT SHOULDER Follow-up FINDINGS: There is motion degradation of images. There is no evidence of acute fracture, osteonecrosis or suspicious marrow lesion. Enthesopathy and subchondral cysts at the greater tuberosity at the supraspinatus footprint. Some focal marrow edema in the posterior lateral humeral head which may be related to internal impingement.. The acromioclavicular joint appears intact. A type 1 acromial undersurface is seen. The coracoclavicular and coracoacromial ligaments are intact. The teres minor is intact. Supraspinatus tendinosis with partial-thickness articular surface footprint tear measuring 1.0 cm by 0.9 cm medial to lateral. There are some areas of undersurface scarring. There are likely areas of focal pinhole perforation given that there is trivial subacromial subdeltoid bursitis. Low-grade undersurface tearing of the infraspinatus tendon involving the upper most fibers at the supraspinatus junction. The subscapularis is intact. The long head of the biceps tendon is maintained in anatomic location, without tear. There is no biceps tenosynovitis. There is no acute Hill-Sacks or Bankart lesion. Suboptimal visualization of the labrum with lack of intra-articular contrast. Posterosuperior labrum attenuated and blunted. Some questionable increased signal at the chondrolabral junction of the inferior labrum (series 10, image 11). No high-grade chondral lesions are present in the glenohumeral joint. There is no glenohumeral joint effusion or synovitis. The suprascapular and spinoglenoid notches as well as the quadrilateral space have preserved fat planes. There is no evidence of muscle atrophy or acute muscle denervation. IMPRESSION: 1. Supraspinatus tendinosis with partial-thickness articular surface footprint tear measuring 1.0 x 0.9 cm with some areas of scarring. There are likely areas of focal pinhole perforation given that there is trivial subacromial subdeltoid bursitis. 2. Low-grade undersurface tearing of the infraspinatus tendon involving the upper most fibers at the supraspinatus junction. There is also some bone marrow edema in the posterolateral humeral head which may be related to internal impingement. 3. Suboptimal visualization of the labrum with lack of intra-articular contrast. Posterosuperior labrum is attenuated and blunted. There is some questionable increased signal at the chondrolabral junction of the inferior labrum which may be related to posterosuperior to inferior labral tearing. As clinically warranted correlation can be made with MR arthrogram. Interpreted by: Estelita Tobin Preliminary Report By: Estelita Tobin Electronically signed By Estelita Tobin Dictated Date: 11/05/2024 2:01:27 PM Prelim Date: 11/05/2024 2:11:16 PM Sign Date: 11/05/2024 2:11:16 PM Ordering Provider: [facility]02-21-2025 Telephone encounter Note* Telephone Encounter - Mi Acosta LPN - 10/31/2024 8:25 AM EST [employer] message sent to patient with phone number so she can contact them [facility]02-21-2025 Miscellaneous Notes* Telephone Encounter - Mi Acosta LPN - 10/31/2024 8:25 AM EST [employer] message sent to patient with phone number so she can contact them * Telephone Encounter - Katey Chester MD - 10/28/2024 3:09 PM EST Recommend she discuss with Financial Counselors for options for getting appointments covered or cost of appointments discounted, etc. * Telephone Encounter - Ashlyn Alfred LPN - 10/27/2024 3:47 PM EST Spoke with pt to get a sooner apt booked and she reports she does not have insurance. Please advise. Ashlyn Alfred LPN * Telephone Encounter - Katey Chester MD - 10/25/2024 10:45 AM EST Last filled February 2024. Noted follow up appointment in the fall were cancelled and not rescheduled. Last seen November 2023 Next appointment not till April. Help schedule sooner follow up November or December. The following approved medication requests have been transmitted electronically. Requested Prescriptions Signed Prescriptions Disp Refills clonazePAM (KLONOPIN) 0.5 mg tablet 60 tablet 0 Sig: May take 1-2 tablets by mouth at bedtime as needed (insomnia and anxiety). May also take 1 tablet two times a day as needed (insomnia and anxiety). Do all this for 30 days. Authorizing Provider: KATEY CHESTER MD * Telephone Encounter - Lupe Wise LPN - 10/23/2024 1:36 PM EST Patient has been identified by name and date of : Yes Patient phones for refill(s): Requested Prescriptions Pending Prescriptions Disp Refills clonazePAM (KLONOPIN) 0.5 mg tablet 60 tablet 0 Sig: May take 1-2 tablets by mouth at bedtime as needed (insomnia and anxiety). May also take 1 tablet two times a day as needed (insomnia and anxiety). Do all this for 30 days. Date of last office visit in primary care: 11/27/2023 Date of next office visit in primary care: 10/23/2024 Please advise. Thank you. Lupe Wise LPN. documented in this encounter[facility] Tele[facility] encounter Note * Telephone Encounter - Katey Chester MD - 10/28/2024 3:09 PM EST Recommend she discuss with Financial Counselors for options for getting appointments covered or cost of appointments discounted, etc. [facility]02-17-2025 Telephone encounter Note* Telephone Encounter - Ashlyn Alfred LPN - 10/27/2024 3:47 PM EST Spoke with pt to get a sooner apt booked and she reports she does not have insurance. Please advise. Ashlyn Alfred LPN [facility]02-15-2025 Telephone encounter Note* Telephone Encounter - Katey Chester MD - 10/25/2024 10:45 AM EST Last filled February 2024. Noted follow up appointment in the fall were cancelled and not rescheduled. Last seen November 2023 Next appointment not till April. Help schedule sooner follow up November or December. The following approved medication requests have been transmitted electronically. Requested Prescriptions Signed Prescriptions Disp Refills clonazePAM (KLONOPIN) 0.5 mg tablet 60 tablet 0 Sig: May take 1-2 tablets by mouth at bedtime as needed (insomnia and anxiety). May also take 1 tablet two times a day as needed (insomnia and anxiety). Do all this for 30 days. Authorizing Provider: KATEY CHESTER MD [facility]02-15-2025 Telephone encounter Note* Telephone Encounter - Katey Chester MD - 10/25/2024 9:46 AM EST The following approved medication requests have been transmitted electronically. Requested Prescriptions Signed Prescriptions Disp Refills predniSONE (DELTASONE) 10 mg tablet 60 tablet 1 Sig: Take 2 pills as directed for flare up of back pain. Authorizing Provider: KATEY CHESTER MD Last filled February 2024 [facility]02-[facility] Miscellaneous Notes* Telephone Encounter - Katey Chester MD - 10/25/2024 9:46 AM EST The following approved medication requests have been transmitted electronically. Requested Prescriptions Signed Prescriptions Disp Refills predniSONE (DELTASONE) 10 mg tablet 60 tablet 1 Sig: Take 2 pills as directed for flare up of back pain. Authorizing Provider: KATEY CHESTER MD Last filled February 2024 * Telephone Encounter - Lupe Wise LPN - 10/23/2024 1:35 PM EST Patient has been identified by name and date of : Yes Patient phones for refill(s): Requested Prescriptions Pending Prescriptions Disp Refills predniSONE (DELTASONE) 10 mg tablet 60 tablet 1 Sig: Take 2 pills as directed for flare up of back pain. Date of last office visit in primary care: 11/27/2023 Date of next office visit in primary care: 04/10/2025 Please advise. Thank you. Lupe Wise LPN. documented in this encounterProm[facility]02-[facility] Telephone encounter Note * Telephone Encounter - Lupe Wise LPN - 10/23/2024 1:36 PM EST Patient has been identified by name and date of : Yes Patient phones for refill(s): Requested Prescriptions Pending Prescriptions Disp Refills clonazePAM (KLONOPIN) 0.5 mg tablet 60 tablet 0 Sig: May take 1-2 tablets by mouth at bedtime as needed (insomnia and anxiety). May also take 1 tablet two times a day as needed (insomnia and anxiety). Do all this for 30 days. Date of last office visit in primary care: 11/27/2023 Date of next office visit in primary care: 10/23/2024 Please advise. Thank you. Lupe Wise LPN. [facility]02-13-2025 Telephone encounter Note* Telephone Encounter - Lupe Wise LPN - 10/23/2024 1:35 PM EST Patient has been identified by name and date of : Yes Patient phones for refill(s): Requested Prescriptions Pending Prescriptions Disp Refills predniSONE (DELTASONE) 10 mg tablet 60 tablet 1 Sig: Take 2 pills as directed for flare up of back pain. Date of last office visit in primary care: 11/27/2023 Date of next office visit in primary care: 04/10/2025 Please advise. Thank you. Lupe Wise LPN. [facility]02-12-2025 Telephone encounter Note* Telephone Encounter - Bel Sandoval LPN - 10/22/2024 12:14 PM EST Patient requesting refill: [facility] 01/18/2024 Next appointment not scheduled. My Chart message sent to the patient to call office and schedule f/u Please review and sign if you agree. Thank You Bel Sandoval LPN Requested Prescriptions Pending Prescriptions Disp Refills pantoprazole DR (PROTONIX) 40 mg tablet 90 tablet 0 Sig: Take 1 tablet by mouth once daily. [facility]02-12-2025 Miscellaneous Notes* Telephone Encounter - Bel Sandoval LPN - 10/22/2024 12:14 PM EST Patient requesting refill: [facility] 01/18/2024 Next appointment not scheduled. My Chart message sent to the patient to call office and schedule f/u Please review and sign if you agree. Thank You Bel Sandoval LPN Requested Prescriptions Pending Prescriptions Disp Refills pantoprazole DR (PROTONIX) 40 mg tablet 90 tablet 0 Sig: Take 1 tablet by mouth once daily. documented in this encounterProm[facility]08-[facility]24 Telephone encounter Note * Telephone Encounter - Ryanne Acosta MA - 04/28/2024 7:03 AM EDT Patient phones requesting refills as follows: Requested Prescriptions Pending Prescriptions Disp Refills pantoprazole DR (PROTONIX) 40 mg tablet 30 tablet 5 Sig: Take 1 tablet by mouth once daily. Please review and advise. Ryanne Acosta MA [facility]08-19-2024 Miscellaneous Notes* Telephone Encounter - Ryanne Acosta MA - 04/28/2024 7:03 AM EDT Patient phones requesting refills as follows: Requested Prescriptions Pending Prescriptions Disp Refills pantoprazole DR (PROTONIX) 40 mg tablet 30 tablet 5 Sig: Take 1 tablet by mouth once daily. Please review and advise. Ryanne Acosta MA documented in this encounterPromed[facility]07-13-2024 Telephone encounter Note * Telephone Encounter - Katey Chester MD - 03/22/2024 2:10 AM EDT See MyChart reply The following approved medication requests have been transmitted electronically. Requested Prescriptions Signed Prescriptions Disp Refills azithromycin (ZITHROMAX) 250 mg tablet 6 tablet 0 Sig: Take 2 tablets by mouth once daily for 1 day, THEN 1 tablet once daily for 4 days. 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 [facility] Miscellaneous Notes* Telephone Encounter - Katey Chester MD - 03/22/2024 2:10 AM EDT See MyChart reply The following approved medication requests have been transmitted electronically. Requested Prescriptions Signed Prescriptions Disp Refills azithromycin (ZITHROMAX) 250 mg tablet 6 tablet 0 Sig: Take 2 tablets by mouth once daily for 1 day, THEN 1 tablet once daily for 4 days. 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 documented in this encounterProm[facility]06-17-[facility]24 Telephone encounter Note * Telephone Encounter - Allyn Carr RN - 02/25/2024 9:47 AM EDT Fax from pharmacy requesting refill. Please E-Scribe. Requested Prescriptions Pending Prescriptions Disp Refills pantoprazole DR (PROTONIX) 40 mg tablet 30 tablet 5 Sig: Take 1 tablet by mouth once daily. Pharmacy Name / Store Number: [facility] Allyn Carr RN [facility]06-17-[facility]24 Miscellaneous Notes* Telephone Encounter - Allyn Carr RN - 02/25/2024 9:47 AM EDT Fax from pharmacy requesting refill. Please E-Scribe. Requested Prescriptions Pending Prescriptions Disp Refills pantoprazole DR (PROTONIX) 40 mg tablet 30 tablet 5 Sig: Take 1 tablet by mouth once daily. Pharmacy Name / Store Number: [facility] Allyn Carr RN documented in this encounterProm[facility]06-14-2024 Telephone encounter Note * Telephone Encounter - Mi Acosta LPN - 02/22/2024 11:35 AM EDT Prescription Refill Information The patient has been identified by name and date of : Yes Caregiver verified no other encounters exist for this prescription request: Yes Caregiver confirmed with patient/requestor that no other refills are due, in the near future, with this provider at this time: Yes The last office visit in the department: 11/27/23 Does the patient have a future office visit with this provider/department: Yes Requested Prescriptions Pending Prescriptions Disp Refills predniSONE (DELTASONE) 10 mg tablet 60 tablet 1 Sig: Take 2 pills as directed for flare up of back pain. Mi Acosta LPN February 22, 2024 11:36 AM [facility]06-14-2024 Miscellaneous Notes* Telephone Encounter - Mi Acosta LPN - 02/22/2024 11:35 AM EDT Prescription Refill Information The patient has been identified by name and date of : Yes Caregiver verified no other encounters exist for this prescription request: Yes Caregiver confirmed with patient/requestor that no other refills are due, in the near future, with this provider at this time: Yes The last office visit in the department: 11/27/23 Does the patient have a future office visit with this provider/department: Yes Requested Prescriptions Pending Prescriptions Disp Refills predniSONE (DELTASONE) 10 mg tablet 60 tablet 1 Sig: Take 2 pills as directed for flare up of back pain. Mi Acosta LPN February 22, 2024 11:36 AM documented in this encounterPromedica [facility]06-14-2024 Miscellaneous Notes* Telephone Encounter - Mi Acosta LPN - 02/22/2024 11:31 AM EDT Prescription Refill Information The patient has been identified by name and date of : Yes Caregiver verified no other encounters exist for this prescription request: Yes Caregiver confirmed with patient/requestor that no other refills are due, in the near future, with this provider at this time: Yes The last office visit in the department: 11/27/23 Does the patient have a future office visit with this provider/department: Yes Requested Prescriptions Pending Prescriptions Disp Refills ketoconazole (NIZORAL) 2 % cream 15 g 0 Sig: Apply 1 application to affected area once daily. Treat for 1 more week after rash resolves Mi Acosta LPN February 22, 2024 11:31 AM documented in this encounterProm[facility]06-14-2024 Telephone encounter Note * Telephone Encounter - Mi Acosta LPN - 02/22/2024 11:31 AM EDT Prescription Refill Information The patient has been identified by name and date of : Yes Caregiver verified no other encounters exist for this prescription request: Yes Caregiver confirmed with patient/requestor that no other refills are due, in the near future, with this provider at this time: Yes The last office visit in the department: 11/27/23 Does the patient have a future office visit with this provider/department: Yes Requested Prescriptions Pending Prescriptions Disp Refills ketoconazole (NIZORAL) 2 % cream 15 g 0 Sig: Apply 1 application to affected area once daily. Treat for 1 more week after rash resolves Mi Acosta LPN February 22, 2024 11:31 AM [facility]05-[facility] NoteHNO ID: [id number] Author: FELIBERTO MELCHOR MD Service: ? Author Type: Physician Type: Progress Notes Filed: 01/28/2024 09:09 Note Text: Manager Sterile offered: Patient accepts, visit chaperoned by Linda Lim LPN. Ivan is a 58 year old who presents for an annual gynecologic exam without complaints noting occ hot flashes. Pursuing disability related to a work related shoulder injury. Postmenopausal: Yes since age ~ 50 HRT use: No. Last Pap: 12/01/2002 HPV: N/A History of abnormal pap: Yes 30 years ago?? 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 Meniscus tear Rt knee Tenosynovitis of elbow right Tinnitus PAST SURGICAL HISTORY Procedure Laterality Date ABDOMINAL SURGERY HX ARTHRP INTERPOS INTERCARPAL/METACARPAL JOINTS Right 12/28/2017 Right thumb, CMC arthroplasty with ligament reconstruction and tendon interposition ARTHRP KNE CONDYLEANDPLATU MEDIALANDLAT COMPARTMENTS Right 2011 Knee replacement, total COLONOSCOPY 02/17/2022 repeat in 10 years COLONOSCOPY W/BIOPSY 12/17/2015 Normal; Diverticulosis sigmoid colon EGD TRANSORAL BIOPSY SINGLE/MULTIPLE 09/28/2015 EGD TRANSORAL BIOPSY SINGLE/MULTIPLE 12/17/2015 Minimal gastritis JOINT REPLACEMENT HX LAPS SURG CHOLECYSTECTOMY W/CHOLANGIOGRAPHY 10/26/2015 Normal IOC NEUROPLASTY AND/TRANSPOS MEDIAN NRV CARPAL TUNNE 12/1977 Carpal tunnel decomp right PAST SURGICAL HISTORY OF 1995 Right knee arthroscopy PAST SURGICAL HISTORY OF sinus surgery PAST SURGICAL HISTORY OF right elbow- tennis elbow PAST SURGICAL HISTORY OF Right Rotator cuff tear VAGINAL HYSTERECTOMY VAGINAL HYSTERECTOMY UTERUS 250 GM/< 2000 FAMILY HISTORY Problem Relation Age of Onset Breast Cancer Mother None Father Breast Cancer Sister Fibromyalgia, Mental Health Issues Liver Disease Sister other (Gall Bladder) Brother None Brother No Ocular Disease No Family History Colon Cancer No Family History SOCIAL HISTORY Social History Tobacco Use Smoking status: Former Packs/day: 0.50 Years: 15.00 Additional pack years: 0.00 Total pack years: 7.50 Types: Cigarettes Quit date: 10/11/2015 Years since quittin.3 Passive exposure: Never Smokeless tobacco: Former Quit date: 08/10/2013 Vaping Use Vaping Use: Never used Substance Use Topics Alcohol use: No Comment: occasionally Drug use: No REVIEW OF SYSTEMS Abdomen: Intermittent loose stools and constipation being being treated by GI in [place] Bladder: No dysuria, gross hematuria, urinary frequency, urinary urgency, or incontinence Breast: No breast lumps, nipple d/c, overlying skin changes, redness or skin retraction Allergies and current medication updated:Yes EXAM: Ht 5' 3 (1.60m) Wt 156 lb 12.8 oz (71.1kg) BMI 27.78 kg/(m2). GENERAL: pleasant, female in no apparent distress HEENT: Normocephalic, atraumatic, mucus membranes moist, and no lesions NECK: Supple, full range of motion, no adenopathy, and thyroid normal DERMATOLOGY: Normal, without lesions, non-icteric, and non-hirsute BREAST: soft, non-tender, symmetric, no dominant mass, normal nipple-areolar complex, no lymphadenopathy, and no nipple discharge CHEST: Normal inspiratory effort ABDOMEN: soft, non-tender, and no masses PELVIC: external genitalia normal, normal Bartholin's glands, urethra, [place]'s glands, no vulvar lesions, good vaginal support, physiologic discharge present, normal appearing perineal body and perianal region, atrophic changes BIMANUAL: no adnexal masses, non-tender, and uterus surgically absent RECTOVAGINAL: deferred. NEURO: alert and oriented x3,exam grossly non-focal EXTREMITIES: deferred ASSESSMENT/PLAN: 1) Health maintenance: Pap done with reflex HPV 2) Follow up one year or sooner as needed rto annual and prn Feliberto Melchor, [facility]05-20-2024 History of Present illness Narrative* Feliberto Melchor MD - 01/28/2024 8:07 AM EDT Manager Sterile offered: Patient accepts, visit chaperoned by Linda Lim LPN. Ivan is a 58 year old who presents for an annual gynecologic exam without complaints noting occ hot flashes. Pursuing disability related to a work related shoulder injury. Postmenopausal: Yes since age ~ 50 HRT use: No. Last Pap: 12/01/2002 HPV: N/A History of abnormal pap: Yes 30 years ago?? 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 Meniscus tear Rt knee Tenosynovitis of elbow right Tinnitus PAST SURGICAL HISTORY Procedure Laterality Date ABDOMINAL SURGERY HX ARTHRP INTERPOS INTERCARPAL/METACARPAL JOINTS Right 12/28/2017 Right thumb, CMC arthroplasty with ligament reconstruction and tendon interposition ARTHRP KNE CONDYLE&PLATU MEDIAL&LAT COMPARTMENTS Right 2011 Knee replacement, total COLONOSCOPY 02/17/2022 repeat in 10 years COLONOSCOPY W/BIOPSY 12/17/2015 Normal; Diverticulosis sigmoid colon EGD TRANSORAL BIOPSY SINGLE/MULTIPLE 09/28/2015 EGD TRANSORAL BIOPSY SINGLE/MULTIPLE 12/17/2015 Minimal gastritis JOINT REPLACEMENT HX LAPS SURG CHOLECYSTECTOMY W/CHOLANGIOGRAPHY 10/26/2015 Normal IOC NEUROPLASTY &/TRANSPOS MEDIAN NRV CARPAL TUNNE 12/1977 Carpal tunnel decomp right PAST SURGICAL HISTORY OF 1995 Right knee arthroscopy PAST SURGICAL HISTORY OF sinus surgery PAST SURGICAL HISTORY OF right elbow- tennis elbow PAST SURGICAL HISTORY OF Right Rotator cuff tear VAGINAL HYSTERECTOMY VAGINAL HYSTERECTOMY UTERUS 250 GM/< 2000 FAMILY HISTORY Problem Relation Age of Onset Breast Cancer Mother None Father Breast Cancer Sister Fibromyalgia, Mental Health Issues Liver Disease Sister other (Gall Bladder) Brother None Brother No Ocular Disease No Family History Colon Cancer No Family History SOCIAL HISTORY Social History Tobacco Use Smoking status: Former Packs/day: 0.50 Years: 15.00 Additional pack years: 0.00 Total pack years: 7.50 Types: Cigarettes Quit date: 10/11/2015 Years since quittin.3 Passive exposure: Never Smokeless tobacco: Former Quit date: 08/10/2013 Vaping Use Vaping Use: Never used Substance Use Topics Alcohol use: No Comment: occasionally Drug use: No REVIEW OF SYSTEMS Abdomen: Intermittent loose stools and constipation being being treated by GI in [place] Bladder: No dysuria, gross hematuria, urinary frequency, urinary urgency, or incontinence Breast: No breast lumps, nipple d/c, overlying skin changes, redness or skin retraction Allergies and current medication updated:Yes EXAM: Ht 5' 3 (1.60m) Wt 156 lb 12.8 oz (71.1kg) BMI 27.78 kg/(m^2). GENERAL: pleasant, female in no apparent distress HEENT: Normocephalic, atraumatic, mucus membranes moist, and no lesions NECK: Supple, full range of motion, no adenopathy, and thyroid normal DERMATOLOGY: Normal, without lesions, non-icteric, and non-hirsute BREAST: soft, non-tender, symmetric, no dominant mass, normal nipple-areolar complex, no lymphadenopathy, and no nipple discharge CHEST: Normal inspiratory effort ABDOMEN: soft, non-tender, and no masses PELVIC: external genitalia normal, normal Bartholin's glands, urethra, [place]'s glands, no vulvar lesions, good vaginal support, physiologic discharge present, normal appearing perineal body and perianal region, atrophic changes BIMANUAL: no adnexal masses, non-tender, and uterus surgically absent RECTOVAGINAL: deferred. NEURO: alert and oriented x3,exam grossly non-focal EXTREMITIES: deferred ASSESSMENT/PLAN: 1) Health maintenance: Pap done with reflex HPV 2) Follow up one year or sooner as needed rto annual and prn Feliberto Melchor MD documented in this encounterPromed[facility]05-14-[facility]24 Note* Letter - Coordinator, Mammography - 01/22/2024 8:00 AM EDT January 22, 2024 PID: [id number] Ivan Khan [address] [place] [id number] Dear Ms. Khan, We are pleased to inform you that the results of your recent breast imaging exam on 01/21/2024 are normal. Early detection of cancer is very important. We also understand recommendations regarding breast cancer screening are controversial. Please discuss with your primary care provider which strategy is best for you and whether a mammogram is right for you. Your imaging studies and report will be kept on file at [facility] as part of your permanent medical record and are available for your continuing care. Thank you for allowing us to help in meeting your health care needs. Sincerely, Dr. Yates Interpreting Radiologist [facility] (Normal over 40) [facility]05-14-2024 Miscellaneous Notes* Letter - [facility] Mammography - 01/22/2024 8:00 AM EDT January 22, 2024 PID: [id number] Ivan Khan [address] [place] [address] Dear Ms. Khan, We are pleased to inform you that the results of your recent breast imaging exam on 01/21/2024 are normal. Early detection of cancer is very important. We also understand recommendations regarding breast cancer screening are controversial. Please discuss with your primary care provider which strategy is best for you and whether a mammogram is right for you. Your imaging studies and report will be kept on file at [facility] as part of your permanent medical record and are available for your continuing care. Thank you for allowing us to help in meeting your health care needs. Sincerely, Dr. Yates Interpreting Radiologist [facility] (Normal over 40) documented in this encounterPromedica Fostoria [facility]05-13-2024 History of Present illness Narrative* Trip Sanchez Mammo Tech - 01/21/2024 12:50 PM EDT Radiology Service Progress Note PATIENT NAME: Ivan Khan DATE OF SERVICE: January 21, 2024 TIME: 1:15 PM PATIENT IDENTITY VERIFICATION COMPLETED USING TWO (2) IDENTIFIERS: Name and Date of confirmedby patient verbally. FALL SCREENING: Has the patient had 2 falls in the last year or 1 fall with injury or currently using an Ambulatory Assistive Device (Walker, Cane, Wheelchair, Crutches, etc.)? No PATIENT GENDER DATA: Female. status: : No status: NO. PATIENT RELEVANT IMPLANT DATA REVIEWED: Not Applicable PATIENT PRESENTS WITH AN IMPLANTABLE OR ATTACHED DIRECTOR LOSS PREVENTION: No RADIOLOGY DEPARTMENT: Mammography PERIPHERAL IV DATA: Not applicable SIGNED BY: Gómez Bowling January 21, 2024 1:15 PM documented in this encounterPromedica Fostoria [facility]05-13-2024 NoteHNO ID: [id number] Author: TRIP SANCHEZ Mammo Tech Service: ? Author Type: It Quality Assurance Analyst Type: Progress Notes Filed: 01/21/2024 13:15 Note Text: Radiology Service Progress Note PATIENT NAME: Ivan Khan DATE OF SERVICE: January 21, 2024 TIME: 1:15 PM PATIENT IDENTITY VERIFICATION COMPLETED USING TWO (2) IDENTIFIERS: Name and Date of confirmed by patient verbally. FALL SCREENING: Has the patient had 2 falls in the last year or 1 fall with injury or currently using an Ambulatory Assistive Device (Walker, Cane, Wheelchair, Crutches, etc.)? No PATIENT GENDER DATA: Female. status: : No status: NO. PATIENT RELEVANT IMPLANT DATA REVIEWED: Not Applicable PATIENT PRESENTS WITH AN IMPLANTABLE OR ATTACHED DIRECTOR LOSS PREVENTION: No RADIOLOGY DEPARTMENT: Mammography PERIPHERAL IV DATA: Not applicable SIGNED BY: Gómez Bowling January 21, 2024 1:15 [facility]05-10-2024 History of Present illness Narrative* Woodrow Mancilla RT(R) - 01/18/2024 3:10 PM EDT Radiology Service Progress Note PATIENT NAME: Ivan Khan DATE OF SERVICE: January 18, 2024 TIME: 3:09 PM PATIENT IDENTITY VERIFICATION COMPLETED USING TWO (2) IDENTIFIERS: Name and Date of confirmedby patient verbally. FALL SCREENING: Has the patient had 2 falls in the last year or 1 fall with injury or currently using an Ambulatory Assistive Device (Walker, Cane, Wheelchair, Crutches, etc.)? No PATIENT GENDER DATA: Female. status: : No status: NO. PATIENT RELEVANT IMPLANT DATA REVIEWED: Not Applicable PATIENT PRESENTS WITH AN IMPLANTABLE OR ATTACHED DIRECTOR LOSS PREVENTION: No RADIOLOGY DEPARTMENT: General X-ray: Exam(s) Completed: Abdomen X-Ray: Abdomen with Upright PERIPHERAL IV DATA: Not applicable SIGNED BY: RT Lynsey(R) January 18, 2024 3:09 PM documented in this encounterProm[facility] NoteHNO ID: [id number] Author: WOODROW MANCILLA RT(Ebonie) Service: Radiology Author Type: Technologist Type: Progress Notes Filed: 01/18/2024 15:18 Note Text: Radiology Service Progress Note PATIENT NAME: Ivan Khan DATE OF SERVICE: January 18, 2024 TIME: 3:09 PM PATIENT IDENTITY VERIFICATION COMPLETED USING TWO (2) IDENTIFIERS: Name and Date of confirmed by patient verbally. FALL SCREENING: Has the patient had 2 falls in the last year or 1 fall with injury or currently using an Ambulatory Assistive Device (Walker, Cane, Wheelchair, Crutches, etc.)? No PATIENT GENDER DATA: Female. status: : No status: NO. PATIENT RELEVANT IMPLANT DATA REVIEWED: Not Applicable PATIENT PRESENTS WITH AN IMPLANTABLE OR ATTACHED DIRECTOR LOSS PREVENTION: No RADIOLOGY DEPARTMENT: General X-ray: Exam(s) Completed: Abdomen X-Ray: Abdomen with Upright PERIPHERAL IV DATA: Not applicable SIGNED BY: RT Lynsey(R) January 18, 2024 3:09 [facility]05-10-2024 Nurse Note* Luly Prado MA - 01/18/2024 11:32 AM EDT H Pylori Breath test Results - NEGATIVE [facility]05-10-[facility]24 Nurse Note* Luly Prado MA - 01/18/2024 11:32 AM EDT H Pylori Breath test Results - NEGATIVE documented in this encounterPromed[facility] History and physical note * Delmi Da Silva APRN.CNP - 01/18/2024 11:00 AM EDT ESTABLISHED PATIENT VISIT REASON FOR VISIT: follow up HPI: Ivan Khan is a 58 year old female who presents for follow up for constipation. She is currentlytaking MiraLAX twice daily, senna 2 tablets twice daily, and Linzess 145 mcg 1-2 times a week as needed. She endorses with this regimen, she has bowel movements daily (3-4 times), these are always liquid, loose, and mushy. She denies any blood or black stool. She has tried decreasing MiraLAX in thepast, and instantly has abdominal bloating and feels constipated. She will also get abdominal pain this is offering her lower abdomen that radiates to her back. This pain often improves after multiple bowel movements. She reports that her symptoms started after her . She endorsesa 10 pound weight gain. She has recently experienced increase in heartburn, she takes Tums with some improvement. Patient denies dysphagia,, regurgitation, early satiety, nausea, vomiting, changes inappetite, change in bowel habits, unintentional weight loss or GI bleeding. Last EGD - 2015 Last colonoscopy -2021 known FHx of GI tract disease or malignancy. -daughter - celiac -son -Crohns Prior abdominopelvic surgeries include lap [place], hysterectomy Past Clinical Work-up: Last OV 10/19/23- Ly ASSESSMENT/PLAN Patient is a 58 year old year old femalewith PMH significant for GERD, fibromylagia, OA, dysthymic d/o, hx of diverticulosis and diverticulitis, hx of cdiff x 3-responded to therapy per pt who presents for follow up constipation, abd pain as described above. will switch to linzess 145 mcg daily -continue current bowel regimen until that gets approved other than the fiber for now. -low residue diet in case she is having a mild diverticulitis flare. Will hold on abx though unlesssymptoms worsen, then would repeat imaging to confirm prior to treatment given her hx of recurrent cdiff. -check abd XR to assess stool burden. -follow up in 3 months 07/06/23 CT ABD/PEL W IVCON No acute process in the abdomen or pelvis. Inflammatory changes in the sigmoid colon, noted on the prior study, are no longer seen. 06/22/23 last OV notes as follows Ivan Khan is a 58 year old female with PMH significant for GERD, fibromylagia, OA, dysthymic d/o, hx of diverticulosis and diverticulitis, hx of cdiff x 3-responded to therapy per pt who presentsfor constipation, diarrhea, generalized abdominal pain. Has been taking miralax and senna. Feels like she is going more frequently than previously but still has days where she does not go at all. Stools are still loose but pt taking miralax. Abd pain is better but still present. No new complaints otherwise. -continue miralax BID -increase senna to 2 tabs in the morning and 1 tab at night. -fiber rich diet -repeat CT to rule out smoldering diverticulitis, stricture, other 01/31/23 XR ABDOMEN 1V SUPINE Nonobstructive bowel gas pattern. 01/24/23 CTAP w/IV cpntrast was done for lower abdominal pain and h/o diverticulitis No acute abnormalities 02/17/22 Colonoscopy was done for Abdominal pain in the left lower quadrant, Abnormal CT of the GI tract, per Vero Hill MD Diverticulosis in the sigmoid colon. Non-bleeding external and internal hemorrhoids. No specimens collected. 12/17/15 EGD/colonoscopy were done per Dr. Morgan for epigastric pain, GERD and change in bowel habits Normal examined duodenum. Gastritis. Biopsied. Normal esophagus The entire examined colon is normal on direct and retroflexion views. The entire examined colon is normal. Biopsied. Diverticulosis in the sigmoid colon Path as follows: 1. Gastric antrum, biopsy Reactive gastropathy. 2. Cecum and sigmoid colon, biopsies No significant pathologic change. - No evidence of lymphocytic or collagenous colitis 10/28/15 path from cholecystectomy Gallbladder, cholecystectomy - Gallbladder parenchyma with mild chronic inflammation. ALLERGIES Allergen Reactions Augmentin [Amoxicil* Rash Elavil [Amitriptyli* Intolerance Woke up with panic attacks Morphine Vomiting Penicillins Other: See Comments augmentin cross sensitivity PAST MEDICAL HISTORY Diagnosis Date Acute gastritis Carpal tunnel syndrome Degenerative arthritis of right knee Dysmenorrhea Dysthymic disorder Depression (non-psychotic) Esophageal reflux Fibromyalgia 2006 Headache(784.0) Knee pain Rt. Meniscus tear Rt knee Tenosynovitis of elbow right Tinnitus PAST SURGICAL HISTORY Procedure Laterality Date ABDOMINAL SURGERY HX ARTHRP INTERPOS INTERCARPAL/METACARPAL JOINTS Right 12/28/2017 Right thumb, CMC arthroplasty with ligament reconstruction and tendon interposition ARTHRP KNE CONDYLE&PLATU MEDIAL&LAT COMPARTMENTS Right 2011 Knee replacement, total COLONOSCOPY 02/17/2022 repeat in 10 years COLONOSCOPY W/BIOPSY 12/17/2015 Normal; Diverticulosis sigmoid colon EGD TRANSORAL BIOPSY SINGLE/MULTIPLE 09/28/2015 EGD TRANSORAL BIOPSY SINGLE/MULTIPLE 12/17/2015 Minimal gastritis JOINT REPLACEMENT HX LAPS SURG CHOLECYSTECTOMY W/CHOLANGIOGRAPHY 10/26/2015 Normal IOC NEUROPLASTY &/TRANSPOS MEDIAN NRV CARPAL TUNNE 12/1977 Carpal tunnel decomp right PAST SURGICAL HISTORY OF 1995 Right knee arthroscopy PAST SURGICAL HISTORY OF sinus surgery PAST SURGICAL HISTORY OF right elbow- tennis elbow VAGINAL HYSTERECTOMY VAGINAL HYSTERECTOMY UTERUS 250 GM/< 2000 FAMILY HISTORY Problem Relation Age of Onset Breast Cancer Mother None Father Breast Cancer Sister Fibromyalgia, Mental Health Issues other (Gall Bladder) Brother None Brother No Ocular Disease No Family History Colon Cancer No Family History Social History Tobacco Use Smoking status: Former Packs/day: 0.50 Years: 15.00 Additional pack years: 0.00 Total pack years: 7.50 Types: Cigarettes Quit date: 10/11/2015 Years since quittin.2 Smokeless tobacco: Former Quit date: 08/10/2013 Vaping Use Vaping Use: Never used Substance Use Topics Alcohol use: No Comment: occasionally Drug use: No Current Outpatient Medications Medication Sig pantoprazole DR (PROTONIX) 40 mg tablet Take 1 tablet by mouth once daily. HYDROcodone-acetaminophen (NORCO) 5-325 mg per tablet Take 1 tablet by mouth two times a day as needed. clonazePAM (KLONOPIN) 0.5 mg tablet May take 1-2 tablets by mouth at bedtime as needed (insomnia and anxiety). May also take 1 tablet two times a day as needed (insomnia and anxiety). Do all this for30 days. cyclobenzaprine (FLEXERIL) 10 mg tablet Take 1 tablet by mouth two times a day as needed for musclespasm. furosemide (LASIX) 20 mg tablet Take 1-2 tablets by mouth once daily. As directed for fluid retention predniSONE (DELTASONE) 10 mg tablet Take 2 pills as directed for flare up of back pain. buPROPion SR (WELLBUTRIN SR) 150 mg 12 hr tablet Take 1 tablet by mouth two times a day. etodolac (LODINE-XL) 500 mg 24 hr tablet Take 1 tablet by mouth once daily. Psyllium Husk-Aspartame (METAMUCIL SUGAR-FREE, ASPART,) 3.4 gram/5.8 gram powd Take 1 Capful by mouth two times a day. senna (SENOKOT) 8.6 mg tab Take 2 tablets by mouth two times a day. ketoconazole (NIZORAL) 2 % cream Apply 1 application to affected area once daily. Treat for 1 more week after rash resolves linaclotide (LINZESS) 145 mcg capsule Take 1 capsule by mouth daily at 6 am. iv contrast (will be provided with radiology test) CT ABD/PEL -Inject, intravenously, once for 1 dose.No IV access, insert saline lock prior to the beginning of sedation, infusion, injection of imaging exam. Discontinue saline lock post exam. If Pt. has a central line or IVAD, may access for administration according to line specific nursing protocol. Once exam is complete flush line and de-accessaccording to line specific nursing protocol in the CT contrast administration guidelines link. dicyclomine (BENTYL) 20 mg tablet Take 1 tablet by mouth before meals and at bedtime. As directed fluticasone (FLONASE) 50 mcg/actuation nasal spray Use 2 Sprays in each nostril once daily. As directed for nasal and/or sinus congestion. Rinse mouth after use. calcium carbonate/vitamin D3 (CALCIUM + D ORAL) Take by mouth once daily. cholecalciferol, vitamin D3, (VITAMIN D3 ORAL) Take by mouth once daily. cyanocobalamin, vitamin B-12, (VITAMIN B-12 ORAL) Take by mouth once daily. TENS UNIT ELECTRODES (TENS UNITS ELECTRODES) 2X2 pads Use electrodes with pads with TENS as directed for back pain. Dispense 1 set monthly pregabalin 75 mg capsule Take 2 capsules by mouth twice daily. No current facility-administered medications for this visit. REVIEW OF SYSTEMS CONSTITUTIONAL: Negative for unintentional weight loss, malaise or fevers HEENT: Negative for frequent/significant headaches, changes in hearing/vision, nose bleeds or othernasal problems RESPIRATORY: Negative for cough, hemoptysis, wheezing or dyspnea CARDIOVASCULAR: Negative for chest pain, palpitations, syncope or lightheadedness GI: See HPI NEURO: Negative for encephalopathy, tremor or gait abnormality PSYCH: Negative for new changes in mood or affect I have confirmed and edited, if necessary, the PFSH obtained by others. PHYSICAL EXAM: BP 109/68 (BP Site: Left Arm) Pulse 75 Ht 162.6 cm (5' 4) Wt 73.9 kg (163 lb) BMI 27.98 kg/m Gen: Comfortable in NAD Head: Normocephalic, atraumatic Skin: No jaundice, rashes or skin lesions Eyes: Sclera anicteric, conjunctiva pink Lungs: unlabored breathing Abd: Soft, non-distended, non-tender, bowel sounds present, no palpable masses or organomegaly Rectal Exam: Examination deferred by patient Neuro: Alert and oriented, no tremor or gross focal motor deficits Psych: Congruent mood and affect, appropriate insight and judgement ASSESSMENT/PLAN: Ms. Khan is a 58 year old female with a past medical history of Fibromyalgia, gastritis, history of C. difficile, GERD, headaches who presents for follow-up for constipation. Her current bowel regimen as described above offers for daily bowel movements however they are always liquid and loose. When she has decreased any of these treatments, she immediately has increased abdominal bloating and pain. Abdominal x-ray was ordered a couple months ago to assess stool burden, she has not completed this. I encouraged her to complete this today. Celiac serologies (family history-daughter) ordered today. We discussed repeating EGD for other causes of GI symptoms, she is hesitant about proceeding with procedure today. In office breath test performed for H. pylori (this was negative). We will trial pantoprazole 40 mg to be taken daily 30 minutes before meal to see if this offers her any improvement. We discussed following antireflux regimen. We may consider SIBO testing or possible EGD if no improvement. We will follow-up in 2 to 3 months to see if there is any symptom improvement. She agrees with this plan, and verbalizes understanding. 1. Family history of celiac disease - ICD9: V18.59, ICD10: Z83.79 (primary diagnosis) - CELIAC SCREEN WITH REFLEX 2. Abdominal bloating - ICD9: 787.3, ICD10: R14.0 - CELIAC SCREEN WITH REFLEX - BREATH TEST FOR HELICOBACTER PYLORI - PANTOPRAZOLE 40 MG TABLET,DELAYED RELEASE Delmi Da Silva APRN.CELINA This note was dictated using [employer] speech recognition software and may contain some errors that were a result of the program not accurately transcribing what was dictated. [facility]05-10-[facility]24 History and physical note* Delmi Da Silva, YANELIS.[employer] - 01/18/2024 11:00 AM EDT ESTABLISHED PATIENT VISIT REASON FOR VISIT: follow up HPI: Ivan Khan is a 58 year old female who presents for follow up for constipation. She is currentlytaking MiraLAX twice daily, senna 2 tablets twice daily, and Linzess 145 mcg 1-2 times a week as needed. She endorses with this regimen, she has bowel movements daily (3-4 times), these are always liquid, loose, and mushy. She denies any blood or black stool. She has tried decreasing MiraLAX in thepast, and instantly has abdominal bloating and feels constipated. She will also get abdominal pain this is offering her lower abdomen that radiates to her back. This pain often improves after multiple bowel movements. She reports that her symptoms started after her . She endorsesa 10 pound weight gain. She has recently experienced increase in heartburn, she takes Tums with some improvement. Patient denies dysphagia,, regurgitation, early satiety, nausea, vomiting, changes inappetite, change in bowel habits, unintentional weight loss or GI bleeding. Last EGD - 2015 Last colonoscopy -2021 known FHx of GI tract disease or malignancy. -daughter - celiac -son -Crohns Prior abdominopelvic surgeries include lap [place], hysterectomy Past Clinical Work-up: Last OV 10/19/23- Ly ASSESSMENT/PLAN Patient is a 58 year old year old femalewith PMH significant for GERD, fibromylagia, OA, dysthymic d/o, hx of diverticulosis and diverticulitis, hx of cdiff x 3-responded to therapy per pt who presents for follow up constipation, abd pain as described above. will switch to linzess 145 mcg daily -continue current bowel regimen until that gets approved other than the fiber for now. -low residue diet in case she is having a mild diverticulitis flare. Will hold on abx though unlesssymptoms worsen, then would repeat imaging to confirm prior to treatment given her hx of recurrent cdiff. -check abd XR to assess stool burden. -follow up in 3 months 07/06/23 CT ABD/PEL W IVCON No acute process in the abdomen or pelvis. Inflammatory changes in the sigmoid colon, noted on the prior study, are no longer seen. 06/22/23 last OV notes as follows Ivan Khan is a 58 year old female with PMH significant for GERD, fibromylagia, OA, dysthymic d/o, hx of diverticulosis and diverticulitis, hx of cdiff x 3-responded to therapy per pt who presentsfor constipation, diarrhea, generalized abdominal pain. Has been taking miralax and senna. Feels like she is going more frequently than previously but still has days where she does not go at all. Stools are still loose but pt taking miralax. Abd pain is better but still present. No new complaints otherwise. -continue miralax BID -increase senna to 2 tabs in the morning and 1 tab at night. -fiber rich diet -repeat CT to rule out smoldering diverticulitis, stricture, other 01/31/23 XR ABDOMEN 1V SUPINE Nonobstructive bowel gas pattern. 01/24/23 CTAP w/IV cpntrast was done for lower abdominal pain and h/o diverticulitis No acute abnormalities 02/17/22 Colonoscopy was done for Abdominal pain in the left lower quadrant, Abnormal CT of the GI tract, per Vero Hill MD Diverticulosis in the sigmoid colon. Non-bleeding external and internal hemorrhoids. No specimens collected. 12/17/15 EGD/colonoscopy were done per Dr. Morgan for epigastric pain, GERD and change in bowel habits Normal examined duodenum. Gastritis. Biopsied. Normal esophagus The entire examined colon is normal on direct and retroflexion views. The entire examined colon is normal. Biopsied. Diverticulosis in the sigmoid colon Path as follows: 1. Gastric antrum, biopsy Reactive gastropathy. 2. Cecum and sigmoid colon, biopsies No significant pathologic change. - No evidence of lymphocytic or collagenous colitis 10/28/15 path from cholecystectomy Gallbladder, cholecystectomy - Gallbladder parenchyma with mild chronic inflammation. ALLERGIES Allergen Reactions Augmentin [Amoxicil* Rash Elavil [Amitriptyli* Intolerance Woke up with panic attacks Morphine Vomiting Penicillins Other: See Comments augmentin cross sensitivity PAST MEDICAL HISTORY Diagnosis Date Acute gastritis Carpal tunnel syndrome Degenerative arthritis of right knee Dysmenorrhea Dysthymic disorder Depression (non-psychotic) Esophageal reflux Fibromyalgia 2006 Headache(784.0) Knee pain Rt. Meniscus tear Rt knee Tenosynovitis of elbow right Tinnitus PAST SURGICAL HISTORY Procedure Laterality Date ABDOMINAL SURGERY HX ARTHRP INTERPOS INTERCARPAL/METACARPAL JOINTS Right 12/28/2017 Right thumb, CMC arthroplasty with ligament reconstruction and tendon interposition ARTHRP KNE CONDYLE&PLATU MEDIAL&LAT COMPARTMENTS Right 2012 Knee replacement, total COLONOSCOPY 02/17/2022 repeat in 10 years COLONOSCOPY W/BIOPSY 12/17/2015 Normal; Diverticulosis sigmoid colon EGD TRANSORAL BIOPSY SINGLE/MULTIPLE 09/28/2015 EGD TRANSORAL BIOPSY SINGLE/MULTIPLE 12/17/2015 Minimal gastritis JOINT REPLACEMENT HX LAPS SURG CHOLECYSTECTOMY W/CHOLANGIOGRAPHY 10/26/2015 Normal IOC NEUROPLASTY &/TRANSPOS MEDIAN NRV CARPAL TUNNE 12/1977 Carpal tunnel decomp right PAST SURGICAL HISTORY OF 1995 Right knee arthroscopy PAST SURGICAL HISTORY OF sinus surgery PAST SURGICAL HISTORY OF right elbow- tennis elbow VAGINAL HYSTERECTOMY VAGINAL HYSTERECTOMY UTERUS 250 GM/< 2000 FAMILY HISTORY Problem Relation Age of Onset Breast Cancer Mother None Father Breast Cancer Sister Fibromyalgia, Mental Health Issues other (Gall Bladder) Brother None Brother No Ocular Disease No Family History Colon Cancer No Family History Social History Tobacco Use Smoking status: Former Packs/day: 0.50 Years: 15.00 Additional pack years: 0.00 Total pack years: 7.50 Types: Cigarettes Quit date: 10/11/2015 Years since quittin.2 Smokeless tobacco: Former Quit date: 08/10/2013 Vaping Use Vaping Use: Never used Substance Use Topics Alcohol use: No Comment: occasionally Drug use: No Current Outpatient Medications Medication Sig pantoprazole DR (PROTONIX) 40 mg tablet Take 1 tablet by mouth once daily. HYDROcodone-acetaminophen (NORCO) 5-325 mg per tablet Take 1 tablet by mouth two times a day as needed. clonazePAM (KLONOPIN) 0.5 mg tablet May take 1-2 tablets by mouth at bedtime as needed (insomnia and anxiety). May also take 1 tablet two times a day as needed (insomnia and anxiety). Do all this for30 days. cyclobenzaprine (FLEXERIL) 10 mg tablet Take 1 tablet by mouth two times a day as needed for musclespasm. furosemide (LASIX) 20 mg tablet Take 1-2 tablets by mouth once daily. As directed for fluid retention predniSONE (DELTASONE) 10 mg tablet Take 2 pills as directed for flare up of back pain. buPROPion SR (WELLBUTRIN SR) 150 mg 12 hr tablet Take 1 tablet by mouth two times a day. etodolac (LODINE-XL) 500 mg 24 hr tablet Take 1 tablet by mouth once daily. Psyllium Husk-Aspartame (METAMUCIL SUGAR-FREE, ASPART,) 3.4 gram/5.8 gram powd Take 1 Capful by mouth two times a day. senna (SENOKOT) 8.6 mg tab Take 2 tablets by mouth two times a day. ketoconazole (NIZORAL) 2 % cream Apply 1 application to affected area once daily. Treat for 1 more week after rash resolves linaclotide (LINZESS) 145 mcg capsule Take 1 capsule by mouth daily at 6 am. iv contrast (will be provided with radiology test) CT ABD/PEL -Inject, intravenously, once for 1 dose.No IV access, insert saline lock prior to the beginning of sedation, infusion, injection of imaging exam. Discontinue saline lock post exam. If Pt. has a central line or IVAD, may access for administration according to line specific nursing protocol. Once exam is complete flush line and de-accessaccording to line specific nursing protocol in the CT contrast administration guidelines link. dicyclomine (BENTYL) 20 mg tablet Take 1 tablet by mouth before meals and at bedtime. As directed fluticasone (FLONASE) 50 mcg/actuation nasal spray Use 2 Sprays in each nostril once daily. As directed for nasal and/or sinus congestion. Rinse mouth after use. calcium carbonate/vitamin D3 (CALCIUM + D ORAL) Take by mouth once daily. cholecalciferol, vitamin D3, (VITAMIN D3 ORAL) Take by mouth once daily. cyanocobalamin, vitamin B-12, (VITAMIN B-12 ORAL) Take by mouth once daily. TENS UNIT ELECTRODES (TENS UNITS ELECTRODES) 2X2 pads Use electrodes with pads with TENS as directed for back pain. Dispense 1 set monthly pregabalin 75 mg capsule Take 2 capsules by mouth twice daily. No current facility-administered medications for this visit. REVIEW OF SYSTEMS CONSTITUTIONAL: Negative for unintentional weight loss, malaise or fevers HEENT: Negative for frequent/significant headaches, changes in hearing/vision, nose bleeds or othernasal problems RESPIRATORY: Negative for cough, hemoptysis, wheezing or dyspnea CARDIOVASCULAR: Negative for chest pain, palpitations, syncope or lightheadedness GI: See HPI NEURO: Negative for encephalopathy, tremor or gait abnormality PSYCH: Negative for new changes in mood or affect I have confirmed and edited, if necessary, the PFSH obtained by others. PHYSICAL EXAM: BP 109/68 (BP Site: Left Arm) Pulse 75 Ht 162.6 cm (5' 4) Wt 73.9 kg (163 lb) BMI 27.98 kg/m Gen: Comfortable in NAD Head: Normocephalic, atraumatic Skin: No jaundice, rashes or skin lesions Eyes: Sclera anicteric, conjunctiva pink Lungs: unlabored breathing Abd: Soft, non-distended, non-tender, bowel sounds present, no palpable masses or organomegaly Rectal Exam: Examination deferred by patient Neuro: Alert and oriented, no tremor or gross focal motor deficits Psych: Congruent mood and affect, appropriate insight and judgement ASSESSMENT/PLAN: Ms. Khan is a 58 year old female with a past medical history of Fibromyalgia, gastritis, history of C. difficile, GERD, headaches who presents for follow-up for constipation. Her current bowel regimen as described above offers for daily bowel movements however they are always liquid and loose. When she has decreased any of these treatments, she immediately has increased abdominal bloating and pain. Abdominal x-ray was ordered a couple months ago to assess stool burden, she has not completed this. I encouraged her to complete this today. Celiac serologies (family history-daughter) ordered today. We discussed repeating EGD for other causes of GI symptoms, she is hesitant about proceeding with procedure today. In office breath test performed for H. pylori (this was negative). We will trial pantoprazole 40 mg to be taken daily 30 minutes before meal to see if this offers her any improvement. We discussed following antireflux regimen. We may consider SIBO testing or possible EGD if no improvement. We will follow-up in 2 to 3 months to see if there is any symptom improvement. She agrees with this plan, and verbalizes understanding. 1. Family history of celiac disease - ICD9: V18.59, ICD10: Z83.79 (primary diagnosis) - CELIAC SCREEN WITH REFLEX 2. Abdominal bloating - ICD9: 787.3, ICD10: R14.0 - CELIAC SCREEN WITH REFLEX - BREATH TEST FOR HELICOBACTER PYLORI - PANTOPRAZOLE 40 MG TABLET,DELAYED RELEASE Delmi Da Silva APRN.CNP This note was dictated using [employer] speech recognition software and may contain some errors that were a result of the program not accurately transcribing what was dictated. documented in this encounterPromedica [facility]05-10-[facility]24 Instructions* Patient Instructions* Delmi Da Silva APRN.CNP - 01/18/2024 9:30 AM EDT Thank you for seeing me in clinic today. It was very nice to meet you! As we discussed, my recommendations are as follows: Get abdominal XR 2. Celiac blood work 3. Start pantoprazole 40 mg daily- take 30 minutes before meals If you have any questions about the above treatment plan, please do not hesitate to send me a [employer] message or call. Delmi Da Silva APRN.CNP documented in this encounterPromedica [facility]ost[facility]05-06-2024 Telephone encounter Note * Telephone Encounter - Haley Silveira MA - 01/14/2024 1:51 PM EDT Order pended, please file if agreeable. Haley Silveira MA [facility]05-06-[facility] Miscellaneous Notes* Telephone Encounter - Haley Silveira MA - 01/14/2024 1:51 PM EDT Order pended, please file if agreeable. Haley Silveira MA documented in this encounterPromedica Fost[facility]03-19-2024 NoteHNO ID: [id number] Author: KATEY CHESTER MD Service: ? Author Type: Physician Type: Progress Notes Filed: 12/01/2023 17:43 Note Text: This note was created using NoteWriter. Subjective Ivan Khan is a 58 year old female. Chief complaint Request for medication refills History of present illness - Reports feeling emotionally low due to the three-year anniversary of 's - Reports job loss after shoulder surgery in September - Reports financial difficulties due to job loss, but now receiving long-term disability payments - Reports bloating and weight gain - Reports trying alkaline water for two weeks - Reports skin inflammation and itching; has tried steroid cream for rash but only helps some for the itching but rash does not resolve. Past medical history - Reports chronic SI joint pain and back pain - Reports psoriasis Past surgical history Shoulder surgery in September Social history - Reports being single income family - Reports weekly visits to father - Reports interest in crafting Current medications - Clonazepam, Flexeril, Lasix, Lodine, Wellbutrin, Flonase, Linzess, Prednisone, Pregabalin - [id number]: Metamucil, Senokot - Psoriasis cream Review of Systems Objective BP 92/66 Pulse 84 Ht 163.8 cm (5' 4.5) Wt 71.2 kg (157 lb) SpO2 98% BMI 26.53 kg/m? Physical Exam Constitutional: Appearance: Normal appearance. HENT: Head: Normocephalic. Eyes: Conjunctiva/sclera: Conjunctivae normal. Cardiovascular: Rate and Rhythm: Normal rate and regular rhythm. Heart sounds: Normal heart sounds. Pulmonary: Effort: Pulmonary effort is normal. Breath sounds: Normal breath sounds. Musculoskeletal: Right lower leg: No edema. Left lower leg: No edema. Skin: General: Skin is warm and dry. Neurological: General: No focal deficit present. Mental Status: She is alert and oriented to person, place, and time. Psychiatric: Mood and Affect: Mood normal. Behavior: Behavior normal. Thought Content: Thought content normal. Judgment: Judgment normal. Assessment and Plan Encounter Diagnosis ICD-10-CM 1. Chronic midline low back pain with sciatica, sciatica laterality unspecified M54.40 HYDROcodone-acetaminophen (NORCO) 5-325 mg per tablet G89.29 cyclobenzaprine (FLEXERIL) 10 mg tablet 2. Insomnia, unspecified type G47.00 clonazePAM (KLONOPIN) 0.5 mg tablet Medications still helping 3. Bereavement reaction F43.20 clonazePAM (KLONOPIN) 0.5 mg tablet Z63.4 Today is anniversary of 's . Doing okay considering.Continue present management 4. Anxiety F41.9 clonazePAM (KLONOPIN) 0.5 mg tablet Stable on current meds 5. Constipation, unspecified constipation type K59.00 Psyllium Husk-Aspartame (METAMUCIL SUGAR-FREE, ASPART,) 3.4 gram/5.8 gram powd senna (SENOKOT) 8.6 mg tab Following with GI though had to switch providers since hers left the Clinic.Doing fair on current meds 6. Cervicalgia M54.2 cyclobenzaprine (FLEXERIL) 10 mg tablet Pain better since not working now 7. Fluid retention R60.9 furosemide (LASIX) 20 mg tablet Controlled with as needed Lasix 8. Chronic SI joint pain M53.3 HYDROcodone-acetaminophen (NORCO) 5-325 mg per tablet G89.29 predniSONE (DELTASONE) 10 mg tablet Pain es better now since not working. Medication management still effective. 9. Dysthymic disorder F34.1 buPROPion SR (WELLBUTRIN SR) 150 mg 12 hr tablet Stable overalll. See above 10. Sternal pain R07.89 etodolac (LODINE-XL) 500 mg 24 hr tablet sternomanubrial junction and sternocostal margin 11. Rash R21 ketoconazole (NIZORAL) 2 % cream Treat for possible fungal superinfection over psoriasis type rash Plan - Recommendation to explore job services for training opportunities - Recommendation to explore [employer] as a potential business - Recommendation to try antifungal cream for skin inflammation - Recommendation to try coconut oil for skin irritation - Continue current medication management as note above. - Emotional support given. Does have support from family. Also supportive of father ( (her mom) had recently too. Prescription - Refills for Clonazepam, Flexeril, Lasix, Lodine, Wellbutrin, Linzess, Prednisone - Antifungal cream Appointments Next appointment in July I spent a total of 31 minutes on the date of the service which included [id number] patient care, completing clinical documentation, obtaining and/or reviewing separately obtained history, performing a medically appropriate examination, counseling and educating the patient/family/caregiver, and ordering medications, tests, or procedures. Note drafted by Breanne ureña. Note reviewed, edited, and signed by the visit provider.[facility]03[facility] History of Present illness Narrative* Katey Chester MD - 11/27/2023 10:43 AM EDT This note was created using [employer] Expert[employer]. Subjective Ivan Khan is a 58 year old female. Chief complaint Request for medication refills History of present illness - Reports feeling emotionally low due to the three-year anniversary of 's - Reports job loss after shoulder surgery in September - Reports financial difficulties due to job loss, but now receiving long-term disability payments - Reports bloating and weight gain - Reports trying alkaline water for two weeks - Reports skin inflammation and itching; has tried steroid cream for rash but only helps some for the itching but rash does not resolve. Past medical history - Reports chronic SI joint pain and back pain - Reports psoriasis Past surgical history Shoulder surgery in September Social history - Reports being single income family - Reports weekly visits to father - Reports interest in crafting Current medications - Clonazepam, Flexeril, Lasix, Lodine, Wellbutrin, Flonase, Linzess, Prednisone, Pregabalin - [id number]-aleukva: Metamucil, Senokot - Psoriasis cream Review of Systems Objective BP 92/66 Pulse 84 Ht 163.8 cm (5' 4.5) Wt 71.2 kg (157 lb) SpO2 98% BMI 26.53 kg/m Physical Exam Constitutional: Appearance: Normal appearance. HENT: Head: Normocephalic. Eyes: Conjunctiva/sclera: Conjunctivae normal. Cardiovascular: Rate and Rhythm: Normal rate and regular rhythm. Heart sounds: Normal heart sounds. Pulmonary: Effort: Pulmonary effort is normal. Breath sounds: Normal breath sounds. Musculoskeletal: Right lower leg: No edema. Left lower leg: No edema. Skin: General: Skin is warm and dry. Neurological: General: No focal deficit present. Mental Status: She is alert and oriented to person, place, and time. Psychiatric: Mood and Affect: Mood normal. Behavior: Behavior normal. Thought Content: Thought content normal. Judgment: Judgment normal. Assessment and Plan Encounter Diagnosis ICD-10-CM 1. Chronic midline low back pain with sciatica, sciatica laterality unspecified M54.40 HYDROcodone-acetaminophen (NORCO) 5-325 mg per tablet G89.29 cyclobenzaprine (FLEXERIL) 10 mg tablet 2. Insomnia, unspecified type G47.00 clonazePAM (KLONOPIN) 0.5 mg tablet Medications still helping 3. Bereavement reaction F43.20 clonazePAM (KLONOPIN) 0.5 mg tablet Z63.4 Today is anniversary of 's . Doing okay considering.Continue present management 4. Anxiety F41.9 clonazePAM (KLONOPIN) 0.5 mg tablet Stable on current meds 5. Constipation, unspecified constipation type K59.00 Psyllium Husk-Aspartame (METAMUCIL SUGAR-FREE, ASPART,) 3.4 gram/5.8 gram powd senna (SENOKOT) 8.6 mg tab Following with GI though had to switch providers since hers left the Clinic.Doing fair on current meds 6. Cervicalgia M54.2 cyclobenzaprine (FLEXERIL) 10 mg tablet Pain better since not working now 7. Fluid retention R60.9 furosemide (LASIX) 20 mg tablet Controlled with as needed Lasix 8. Chronic SI joint pain M53.3 HYDROcodone-acetaminophen (NORCO) 5-325 mg per tablet G89.29 predniSONE (DELTASONE) 10 mg tablet Pain es better now since not working. Medication management still effective. 9. Dysthymic disorder F34.1 buPROPion SR (WELLBUTRIN SR) 150 mg 12 hr tablet Stable overalll. See above 10. Sternal pain R07.89 etodolac (LODINE-XL) 500 mg 24 hr tablet sternomanubrial junction and sternocostal margin 11. 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 - Emotional support given. Does have support from family. Also supportive of father ( (her mom)had recently too. Prescription - Refills for Clonazepam, Flexeril, Lasix, Lodine, Wellbutrin, Linzess, Prednisone - Antifungal cream Appointments Next appointment in July I spent a total of 31 minutes on the date of the service which included chua-sj-[id number] patient care, completing clinical documentation, obtaining and/or reviewing separately obtained history, performing a medically appropriate examination, counseling and educating the patient/family/caregiver, and ordering medications, tests, or procedures. Note drafted by [employer]. Note reviewed, edited, and signed by the visit provider. documented in this encounterPromedica [facility]02-13-2024 Miscellaneous Notes* Telephone Encounter - Dawood Hall LPN - 10/23/2023 1:04 PM EST PA alcides Cantrell approved until 10/17/24. Medicaid # [id number] Dawood Hall LPN * Telephone Encounter - Dawood Hall LPN - 10/23/2023 11:32 AM EST PA alcides Cantrell initiated through [facility] PEDRO:[id number] Dawood Hall LPN documented in this encounterPromedica [facility]02-09-2024 History of Present illness Narrative* Carolyn Hoyos DO - 10/19/2023 11:00 AM EST Chief Compliant: follow up constipation, abd pain. HPI: Ivan Khan is a 58 year old female with PMH significant for GERD, fibromylagia, OA, dysthymic d/o, hx of diverticulosis and diverticulitis, hx of cdiff x 3-responded to therapy per pt who presentsfor follow up constipation, abd pain. Reviewed her CT abd/pel from 07/02. She reports was doing well actually until the last 4-5 days started having lower abd pain-mostly in the LLQ. Having bm on themiralax BID, senna 2 tabs BID and add metamucil but more incomplete also in this time. Feels different than her diverticulitis pain. No fevers, chills, nausea, vomiting, signs of bleeding. Took one of her dghts linzess tabs which she did feel helped her. No new complaints otherwise. 07/06/23 CT ABD/PEL W IVCON No acute process in the abdomen or pelvis. Inflammatory changes in the sigmoid colon, noted on the prior study, are no longer seen. 06/22/23 last OV notes as follows Ivan Khan is a 58 year old female with PMH significant for GERD, fibromylagia, OA, dysthymic d/o, hx of diverticulosis and diverticulitis, hx of cdiff x 3-responded to therapy per pt who presentsfor constipation, diarrhea, generalized abdominal pain. Has been taking miralax and senna. Feels like she is going more frequently than previously but still has days where she does not go at all. Stools are still loose but pt taking miralax. Abd pain is better but still present. No new complaints otherwise. -continue miralax BID -increase senna to 2 tabs in the morning and 1 tab at night. -fiber rich diet -repeat CT to rule out smoldering diverticulitis, stricture, other 01/31/23 XR ABDOMEN 1V SUPINE Nonobstructive bowel gas pattern. 01/24/23 CTAP w/IV cpntrast was done for lower abdominal pain and h/o diverticulitis No acute abnormalities 02/17/22 Colonoscopy was done for Abdominal pain in the left lower quadrant, Abnormal CT of the GI tract, per Vero Hill MD Diverticulosis in the sigmoid colon. Non-bleeding external and internal hemorrhoids. No specimens collected. 12/17/15 EGD/colonoscopy were done per Dr. Morgan for epigastric pain, GERD and change in bowel habits Normal examined duodenum. Gastritis. Biopsied. Normal esophagus The entire examined colon is normal on direct and retroflexion views. The entire examined colon is normal. Biopsied. Diverticulosis in the sigmoid colon Path as follows: 1. Gastric antrum, biopsy Reactive gastropathy. 2. Cecum and sigmoid colon, biopsies No significant pathologic change. - No evidence of lymphocytic or collagenous colitis 10/28/15 path from cholecystectomy Gallbladder, cholecystectomy - Gallbladder parenchyma with mild chronic inflammation. Component Latest Ref Rng & Units 01/31/2023 03/21/2023 C. difficile PCR Negative for C. difficile toxin by PCR Positive for C. difficile toxin by PCR (A) Positive for C. difficile toxin by PCR (A) Occult Blood, Stool Negative Negative C. difficile Toxin EIA Negative for C. difficile toxin C. difficile toxin NOT DETECTED by EIA. C. difficile toxin NOT DETECTED by EIA. Component Latest Ref Rng & Units 11/28/2022 05/16/2023 WBC 3.70 - 11.00 k/uL 7.95 10.13 RBC 3.90 - 5.20 m/uL 4.33 4.93 Hemoglobin 11.5 - 15.5 g/dL 12.4 13.9 Hematocrit 36.0 - 46.0 % 38.3 43.0 MCV 80.0 - 100.0 fL 88.5 87.2 MCH 26.0 - 34.0 pg 28.6 28.2 MCHC 30.5 - 36.0 g/dL 32.4 32.3 RDW-CV 11.5 - 15.0 % 12.7 12.9 Platelet Count 150 - 400 k/uL 304 342 MPV 9.0 - 12.7 fL 9.5 10.2 NRBC /100 WBC 0.0 Absolute nRBC <0.01 k/uL <0.01 <0.01 Neut% % 65.5 Abs Neut (ANC) 1.45 - 7.50 k/uL 6.64 Lymph% % 27.6 Abs Lymph 1.00 - 4.00 k/uL 2.80 [place]% % 4.3 Abs [place] <0.87 k/uL 0.44 Eosin% % 0.9 Abs Eosin <0.46 k/uL 0.09 Baso% % 1.7 Abs Baso <0.11 k/uL 0.17 (H) Platelet Estimate Adequate Red Cell Morph Reviewed: see results of individual morphologies Ovalocytes Few DTYPE Manual Protein, Total 6.3 - 8.0 g/dL 6.7 7.1 Albumin 3.9 - 4.9 g/dL 4.2 4.4 Calcium 8.5 - 10.2 mg/dL 9.2 9.7 Bilirubin, Total 0.2 - 1.3 mg/dL 0.4 0.3 Alkaline Phosphatase 34 - 123 U/L 70 87 AST 13 - 35 U/L 19 17 ALT 7 - 38 U/L 14 10 Glucose 74 - 99 mg/dL 111 (H) 103 (H) BUN 7 - 21 mg/dL 9 12 Creatinine 0.58 - 0.96 mg/dL 0.67 0.71 Sodium 136 - 144 mmol/L 138 137 Potassium 3.7 - 5.1 mmol/L 3.9 4.4 Chloride 97 - 105 mmol/L 101 103 CO2 22 - 30 mmol/L 27 23 Anion Gap 9 - 18 mmol/L 10 11 eGFR >=60 mL/min/1.73m 101 98 Cholesterol, Total <200 mg/dL 186 Triglyceride <150 mg/dL 104 HDL Cholesterol >39 mg/dL 85 Non HDL Cholesterol <130 mg/dL 101 Fasting Time hrs 12 VLDL Cholesterol <30 mg/dL 21 TC:HDL Ratio <5.10 2.19 LDL Cholesterol <100 mg/dL 80 LDL:HDL Ratio <2.54 0.94 Hemoglobin A1C 4.3 - 5.6 % 5.1 Estimated Average Glucose mg/dL 100 TSH 0.270 - 4.200 mIU/L 0.460 Free T4 0.9 - 1.7 ng/dL 1.3 Free T3 2.3 - 4.1 pg/mL 3.0 linaclotide (LINZESS) 145 mcg capsule Take 1 capsule by mouth daily at 6 am. clonazePAM (KLONOPIN) 0.5 mg tablet May take 1-2 tablets by mouth at bedtime as needed (insomnia and anxiety). May also take 1 tablet two times a day as needed (insomnia and anxiety). Do all this for30 days. iv contrast (will be provided with radiology test) CT ABD/PEL -Inject, intravenously, once for 1 dose.No IV access, insert saline lock prior to the beginning of sedation, infusion, injection of imaging exam. Discontinue saline lock post exam. If Pt. has a central line or IVAD, may access for administration according to line specific nursing protocol. Once exam is complete flush line and de-accessaccording to line specific nursing protocol in the CT contrast administration guidelines link. (Patient not taking: Reported on 08/03/2023) enteric contrast (will be provided with radiology test) For CT ABD/PEL W IVCON Routine order Administer, As Directed One Time Only, via Oral, Rectal, both Oral and Rectal, Enteric Tube, Stoma or Indwelling Catheter, Enteric Contrast as designated per enteric contrast guidelines (Patient not taking:Reported on 08/03/2023) cyclobenzaprine (FLEXERIL) 10 mg tablet Take 1 tablet by mouth two times a day as needed for musclespasm. dicyclomine (BENTYL) 20 mg tablet Take 1 tablet by mouth before meals and at bedtime. As directed etodolac (LODINE-XL) 500 mg 24 hr tablet Take 1 tablet by mouth once daily. buPROPion SR (WELLBUTRIN SR) 150 mg 12 hr tablet Take 1 tablet by mouth twice daily. fluticasone (FLONASE) 50 mcg/actuation nasal spray Use 2 Sprays in each nostril once daily. As directed for nasal and/or sinus congestion. Rinse mouth after use. predniSONE (DELTASONE) 10 mg tablet Take 2 pills as directed for flare up of back pain. furosemide (LASIX) 20 mg tablet Take 1-2 tablets by mouth once daily. As directed for fluid retention calcium carbonate/vitamin D3 (CALCIUM + D ORAL) Take by mouth once daily. cholecalciferol, vitamin D3, (VITAMIN D3 ORAL) Take by mouth once daily. cyanocobalamin, vitamin B-12, (VITAMIN B-12 ORAL) Take by mouth once daily. TENS UNIT ELECTRODES (TENS UNITS ELECTRODES) 2X2 pads Use electrodes with pads with TENS as directed for back pain. Dispense 1 set monthly pregabalin 75 mg capsule Take 2 capsules by mouth twice daily. PAST MEDICAL HISTORY Diagnosis Date Acute gastritis Carpal tunnel syndrome Degenerative arthritis of right knee Dysmenorrhea Dysthymic disorder Depression (non-psychotic) Esophageal reflux Fibromyalgia 2006 Headache(784.0) Knee pain Rt. Meniscus tear Rt knee Tenosynovitis of elbow right Tinnitus PAST SURGICAL HISTORY Procedure Laterality Date ABDOMINAL SURGERY HX ARTHRP INTERPOS INTERCARPAL/METACARPAL JOINTS Right 12/28/2017 Right thumb, CMC arthroplasty with ligament reconstruction and tendon interposition ARTHRP KNE CONDYLE&PLATU MEDIAL&LAT COMPARTMENTS Right 2011 Knee replacement, total COLONOSCOPY 02/17/2022 repeat in 10 years COLONOSCOPY W/BIOPSY 12/17/2015 Normal; Diverticulosis sigmoid colon EGD TRANSORAL BIOPSY SINGLE/MULTIPLE 09/28/2015 EGD TRANSORAL BIOPSY SINGLE/MULTIPLE 12/17/2015 Minimal gastritis JOINT REPLACEMENT HX LAPS SURG CHOLECYSTECTOMY W/CHOLANGIOGRAPHY 10/26/2015 Normal IOC NEUROPLASTY &/TRANSPOS MEDIAN NRV CARPAL TUNNE 12/1977 Carpal tunnel decomp right PAST SURGICAL HISTORY OF 1995 Right knee arthroscopy PAST SURGICAL HISTORY OF sinus surgery PAST SURGICAL HISTORY OF right elbow- tennis elbow VAGINAL HYSTERECTOMY VAGINAL HYSTERECTOMY UTERUS 250 GM/< 2000 REVIEW OF SYSTEMS: General:No weight loss, malaise or fevers Respiratory: Negative for cough, hemoptysis, wheezing or shortness of breath Cardiovascular: Negative for chest pain, leg swelling or palpitations Gastrointestinal: as per HPI, otherwise negative Genitourinary: No history of dysuria, frequency or incontinence Musculoskeletal: Negative for joint pain or swelling, back pain or muscle pain Neurologic:Negative for focal numbness or weakness, headaches and dizziness or syncope. Skin:Negative for lesions, rash, and itching Psychiatric: Negative for sleep disturbance, mood disorder and recent psychosocial stressors. Hematologic/Lymph:Negative for prolonged bleeding, bruising easily or swollen nodes Endocrine: Negative for cold or heat intolerance, polyuria, polydipsia and goiter PHYSICAL EXAMINATION: BP 103/62 Pulse 77 Ht 5' 4.5 (1.64m) Wt 151 lb (68.5kg) BMI 25.53 kg/(m^2). General appearance: Well appearing, alert, in no acute distress, well-hydrated, well nourished. Skin: Skin color, texture, turgor normal, no suspicious rashes or lesions Head: Normocephalic, no masses, lesions, tenderness or abnormalities Eyes: Anicteric sclera. Extraocular movements are intact. Ears: External ears normal, Nose/Sinuses: Nares normal, no drainage or sinus tenderness Neck: Supple, no adenopathy; Lungs: Lungs clear to auscultation. Heart: RRR without murmur, gallop, or rubs. Abdomen: Abdomen soft, non-tender. Bowel sounds normal. No masses, organomegaly Extremities: No deformities, edema, skin discoloration, clubbing or cyanosis. Musculoskeletal: No joint swelling, deformity, or tenderness Neuro: Gait normal. No focal deficits. Sensation grossly intact. ASSESSMENT/PLAN Patient is a 58 year old year old femalewith PMH significant for GERD, fibromylagia, OA, dysthymic d/o, hx of diverticulosis and diverticulitis, hx of cdiff x 3-responded to therapy per pt who presents for follow up constipation, abd pain as described above. I have personally reviewed the labs, current meds, allergies, PMH, PSH, FH, and SH that was documented by the RN and changes made as needed. Problem List Items Addressed This Visit None Visit Diagnoses Chronic constipation - Primary Relevant Orders XR ABDOMEN 2V ROUTINE SUPINE W UPRIGHT/DECUB/CTL Lower abdominal pain History of diverticulitis of colon -will switch to linzess 145 mcg daily -continue current bowel regimen until that gets approved other than the fiber for now. -low residue diet in case she is having a mild diverticulitis flare. Will hold on abx though unlesssymptoms worsen, then would repeat imaging to confirm prior to treatment given her hx of recurrent cdiff. -check abd XR to assess stool burden. -follow up in 3 months. Carolyn Hoyos DO Follow Up: Return in about 3 months (around 01/17/2024). documented in this encounterPromedica F[facility]02-[facility]24 NoteHNO ID: [id number] Author: CAROLYN HOYOS DO Service: ? Author Type: Physician Type: Progress Notes Filed: 10/19/2023 12:21 Note Text: Chief Compliant: follow up constipation, abd pain. HPI: Ivan Khan is a 58 year old female with PMH significant for GERD, fibromylagia, OA, dysthymic d/o, hx of diverticulosis and diverticulitis, hx of cdiff x 3-responded to therapy per pt who presents for follow up constipation, abd pain. Reviewed her CT abd/pel from 07/02. She reports was doing well actually until the last 4-5 days started having lower abd pain-mostly in the LLQ. Having bm on the miralax BID, senna 2 tabs BID and add metamucil but more incomplete also in this time. Feels different than her diverticulitis pain. No fevers, chills, nausea, vomiting, signs of bleeding. Took one of her dghts linzess tabs which she did feel helped her. No new complaints otherwise. 07/06/23 CT ABD/PEL W IVCON No acute process in the abdomen or pelvis. Inflammatory changes in the sigmoid colon, noted on the prior study, are no longer seen. 06/22/23 last OV notes as follows Ivan Khan is a 58 year old female with PMH significant for GERD, fibromylagia, OA, dysthymic d/o, hx of diverticulosis and diverticulitis, hx of cdiff x 3-responded to therapy per pt who presents for constipation, diarrhea, generalized abdominal pain. Has been taking miralax and senna. Feels like she is going more frequently than previously but still has days where she does not go at all. Stools are still loose but pt taking miralax. Abd pain is better but still present. No new complaints otherwise. -continue miralax BID -increase senna to 2 tabs in the morning and 1 tab at night. -fiber rich diet -repeat CT to rule out smoldering diverticulitis, stricture, other 01/31/23 XR ABDOMEN 1V SUPINE Nonobstructive bowel gas pattern. 01/24/23 CTAP w/IV cpntrast was done for lower abdominal pain and h/o diverticulitis No acute abnormalities 02/17/22 Colonoscopy was done for Abdominal pain in the left lower quadrant, Abnormal CT of the GI tract, per Vero Hill MD Diverticulosis in the sigmoid colon. Non-bleeding external and internal hemorrhoids. No specimens collected. 12/17/15 EGD/colonoscopy were done per Dr. Morgan for epigastric pain, GERD and change in bowel habits Normal examined duodenum. Gastritis. Biopsied. Normal esophagus The entire examined colon is normal on direct and retroflexion views. The entire examined colon is normal. Biopsied. Diverticulosis in the sigmoid colon Path as follows: 1. Gastric antrum, biopsy Reactive gastropathy. 2. Cecum and sigmoid colon, biopsies No significant pathologic change. - No evidence of lymphocytic or collagenous colitis 10/28/15 path from cholecystectomy Gallbladder, cholecystectomy - Gallbladder parenchyma with mild chronic inflammation. Component Latest Ref Rng AND Units 01/31/2023 03/21/2023 C. difficile PCR Negative for C. difficile toxin by PCR Positive for C. difficile toxin by PCR (A) Positive for C. difficile toxin by PCR (A) Occult Blood, Stool Negative Negative C. difficile Toxin EIA Negative for C. difficile toxin C. difficile toxin NOT DETECTED by EIA. C. difficile toxin NOT DETECTED by EIA. Component Latest Ref Rng AND Units 11/28/2022 05/16/2023 WBC 3.70 - 11.00 k/uL 7.95 10.13 RBC 3.90 - 5.20 m/uL 4.33 4.93 Hemoglobin 11.5 - 15.5 g/dL 12.4 13.9 Hematocrit 36.0 - 46.0 % 38.3 43.0 MCV 80.0 - 100.0 fL 88.5 87.2 MCH 26.0 - 34.0 pg 28.6 28.2 MCHC 30.5 - 36.0 g/dL 32.4 32.3 RDW-CV 11.5 - 15.0 % 12.7 12.9 Platelet Count 150 - 400 k/uL 304 342 MPV 9.0 - 12.7 fL 9.5 10.2 NRBC /100 WBC 0.0 Absolute nRBC <0.01 k/uL <0.01 <0.01 Neut% % 65.5 Abs Neut (ANC) 1.45 - 7.50 k/uL 6.64 Lymph% % 27.6 Abs Lymph 1.00 - 4.00 k/uL 2.80 [place]% % 4.3 Abs [place] <0.87 k/uL 0.44 Eosin% % 0.9 Abs Eosin <0.46 k/uL 0.09 Baso% % 1.7 Abs Baso <0.11 k/uL 0.17 (H) Platelet Estimate Adequate Red Cell Morph Reviewed: see results of individual morphologies Ovalocytes Few DTYPE Manual Protein, Total 6.3 - 8.0 g/dL 6.7 7.1 Albumin 3.9 - 4.9 g/dL 4.2 4.4 Calcium 8.5 - 10.2 mg/dL 9.2 9.7 Bilirubin, Total 0.2 - 1.3 mg/dL 0.4 0.3 Alkaline Phosphatase 34 - 123 U/L 70 87 AST 13 - 35 U/L 19 17 ALT 7 - 38 U/L 14 10 Glucose 74 - 99 mg/dL 111 (H) 103 (H) BUN 7 - 21 mg/dL 9 12 Creatinine 0.58 - 0.96 mg/dL 0.67 0.71 Sodium 136 - 144 mmol/L 138 137 Potassium 3.7 - 5.1 mmol/L 3.9 4.4 Chloride 97 - 105 mmol/L 101 103 CO2 22 - 30 mmol/L 27 23 Anion Gap 9 - 18 mmol/L 10 11 eGFR >=60 mL/min/1.73mA? 101 98 Cholesterol, Total <200 mg/dL 186 Triglyceride <150 mg/dL 104 HDL Cholesterol >39 mg/dL 85 Non HDL Cholesterol <130 mg/dL 101 Fasting Time hrs 12 VLDL Cholesterol <30 mg/dL 21 TC:HDL Ratio <5.10 2.19 LDL Cholesterol <100 mg/dL 80 LDL:HDL Ratio <2.54 0.94 Hemoglobin A1C 4.3 - 5.6 % 5.1 Estimated Average Glucose mg/dL 100 TSH 0.270 - 4.200 (more content not included)...[facility] 08-03-2023 Miscellaneous Notes* Telephone Encounter - Radha Grullon LPN - 08/03/2023 12:43 PM EST Forms completed at [facility] today and faxed to number provided. Radha Grullon LPN * Telephone Encounter - Radha Grullon LPN - 07/20/2023 4:17 PM EST Type of form: FMLA Form received via [employer] When form is completed, Fax form to [place] [phone] Form has been forwarded to Physician Desk: Dr. Chester to address when back in office. Radha Grullon LPN documented in this encounterPromed[facility]11-24-[facility] Miscellaneous Notes* Telephone Encounter - Radha Grullon LPN - 08/03/2023 12:41 PM EST Patient had OV with PCP and forms completed and faxed to number provided. Radha Grullon LPN * Telephone Encounter - Rosana Self [facility] - 07/30/2023 9:00 AM EST Please also see dated 07/20. Forms were placed on providers desk but no documentation on if forms were faxed back. Have these forms been received by provider? documented in this encounterPromedica [facility]11-24-2023 NoteHNO ID: [id number] Author: Katey Chester MD Service: ? Author Type: Physician Type: Progress Notes Filed: 09/07/2023 1:38 AM Note Text: This note was created using [employer]cordiar[employer]. Subjective Ivan Khan is a 58 year old female. Patient presents with: F/U 4 month SUBJECTIVE: Ivan Khan is a 58 year old year old lady here today for 4 month follow up appointment for review of medical conditions. [place] paperwork reviewed. Will fax as directed. Still waiting to get back to work after healing from shoulder surgery. Plans for Will travel. Ongoing GI issues going back and forth between diarrhea and constipation. Working with GI--trying to get appointment. PAST MEDICAL HISTORY Diagnosis Date Acute gastritis Carpal tunnel syndrome Degenerative arthritis of right knee Dysmenorrhea Dysthymic disorder Depression (non-psychotic) Esophageal reflux Fibromyalgia 2007 Headache(784.0) Knee pain Rt. Meniscus tear Rt knee Tenosynovitis of elbow right Tinnitus Current Outpatient Medications Medication Sig cyclobenzaprine (FLEXERIL) 10 mg tablet Take 1 tablet by mouth two times a day as needed for muscle spasm. clonazePAM (KLONOPIN) 0.5 mg tablet May take 1-2 tablets by mouth at bedtime as needed (insomnia and anxiety). May also take 1 tablet two times a day as needed (insomnia and anxiety). Do all this for 30 days. dicyclomine (BENTYL) 20 mg tablet Take 1 tablet by mouth before meals and at bedtime. As directed etodolac (LODINE-XL) 500 mg 24 hr tablet Take 1 tablet by mouth once daily. buPROPion SR (WELLBUTRIN SR) 150 mg 12 hr tablet Take 1 tablet by mouth twice daily. fluticasone (FLONASE) 50 mcg/actuation nasal spray Use 2 Sprays in each nostril once daily. As directed for nasal and/or sinus congestion. Rinse mouth after use. predniSONE (DELTASONE) 10 mg tablet Take 2 pills as directed for flare up of back pain. furosemide (LASIX) 20 mg tablet Take 1-2 tablets by mouth once daily. As directed for fluid retention calcium carbonate/vitamin D3 (CALCIUM + D ORAL) Take by mouth once daily. cholecalciferol, vitamin D3, (VITAMIN D3 ORAL) Take by mouth once daily. cyanocobalamin, vitamin B-12, (VITAMIN B-12 ORAL) Take by mouth once daily. TENS UNIT ELECTRODES (TENS UNITS ELECTRODES) 2X2 pads Use electrodes with pads with TENS as directed for back pain. Dispense 1 set monthly pregabalin 75 mg capsule Take 2 capsules by mouth twice daily. iv contrast (will be provided with radiology test) CT ABD/PEL -Inject, intravenously, once for 1 dose.No IV access, insert saline lock prior to the beginning of sedation, infusion, injection of imaging exam. Discontinue saline lock post exam. If Pt. has a central line or IVAD, may access for administration according to line specific nursing protocol. Once exam is complete flush line and de-access according to line specific nursing protocol in the CT contrast administration guidelines link. (Patient not taking: Reported on 08/03/2023) enteric contrast (will be provided with radiology test) For CT ABD/PEL W IVCON Routine order Administer, As Directed One Time Only, via Oral, Rectal, both Oral and Rectal, Enteric Tube, Stoma or Indwelling Catheter, Enteric Contrast as designated per enteric contrast guidelines (Patient not taking: Reported on 08/03/2023) No current facility-administered medications for this visit. Review of Systems Objective BP 122/80 Pulse 73 Temp 36.3 ?C (97.4 ?F) Resp 18 Wt 70.3 kg (155 lb) SpO2 100% BMI 26.61 kg/m? Last 5 Encounter Wt Readings: Date: Wt: 08/03/2023 70.3 kg (155 lb) 06/22/2023 70.3 kg (155 lb) 05/25/2023 70.3 kg (155 lb) 03/28/2023 68.9 kg (152 lb) 01/31/2023 68.5 kg (151 lb) Last 1 Waist Readings: Date: Waist: 04/26/15 38 (96 cm.) Estimated body mass index is 26.61 kg/m? as calculated from the following: Height as of 01/16/22: 162.6 cm (5' 4). Weight as of this encounter: 70.3 kg (155 lb). Last 5 Encounter BP Readings: Date: BP: 08/03/2023 122/80 06/22/2023 135/84 05/25/2023 121/81 03/28/2023 110/60 01/31/2023 110/70 Physical Exam Constitutional: Appearance: Normal appearance. HENT: Head: Normocephalic. Eyes: Conjunctiva/sclera: Conjunctivae normal. Cardiovascular: Rate and Rhythm: Normal rate and regular rhythm. Heart sounds: Normal heart sounds. Pulmonary: Effort: Pulmonary effort is normal. Breath sounds: Normal breath sounds. Abdominal: General: Abdomen is flat. Bowel sounds are normal. Palpations: Abdomen is soft. Musculoskeletal: Right lower leg: No edema. Left lower leg: No edema. Skin: General: Skin is warm and dry. Neurological: General: No focal deficit present. Mental Status: She is alert and oriented to person, place, and time. Psychiatric: Mood and Affect: Mood normal. Behavior: Behavior normal. Thought Content: Thought content normal. Judgment: Judgment normal. Assessment (more content not included)...[facility]10-27-2023 Miscellaneous Notes* Telephone Encounter - Kerrie Pizano RN - 07/06/2023 3:05 PM EDT Patient aware of results and/or instructions per Dr. Soha Pizano RN * Telephone Encounter - Kerrie Pizano RN - 07/06/2023 3:05 PM EDT ----- Message from Carolyn Hoyos DO sent at 07/06/2023 1:58 PM EDT ----- Please review results of CT with pt which reveal no acute abnormalities and resolution of previous inflammation seen in the sigmoid colon. Thanks cl documented in this encounterPromed[facility]10-25-2023 History of Present illness Narrative* Reef Jazmin Bell, RT(R) - 07/04/2023 3:20 PM EDT Radiology Service Progress Note DATE OF SERVICE: July 04, 2023 TIME: 3:58 PM PATIENT IDENTITY VERIFICATION COMPLETED USING TWO (2) STANDARD IDENTIFIERS: Name and Date of confirmed by patient verbally. FALL SCREENING: Has the patient had 2 falls in the last year or 1 fall with injury or currently using an Ambulatory Assistive Device (Walker, Cane, Wheelchair, Crutches, etc.)? No PATIENT GENDER DATA: Female. status: : No status: NO. PATIENT RELEVANT IMPLANT DATA REVIEWED: Yes ALLERGIES: Reviewed and unchanged CONTRAST ALLERGY: NO. EXAM: CT -CONTRAST INDUCED NEPHROPATHY RISK FACTORS: Not applicable CREATININE: Creatinine Date Value Ref Range Status 05/16/2023 0.71 0.58 - 0.96 mg/dL Final 11/28/2022 0.67 0.58 - 0.96 mg/dL Final 01/11/2022 0.72 0.58 - 0.96 mg/dL Final Estimated Glomerular Filtration Rate Date Value Ref Range Status 05/16/2023 98 >=60 mL/min/1.73m Final Comment: Estimated Glomerular Filtration Rate (eGFR) is calculated using the 2020 CKD-EPI creatinine equation. This equation utilizes serum creatinine, sex, and age as parameters. The creatinine assay has traceable calibration to isotope dilution- mass spectrometry. Refer to KDIGO guidelines for clinical interpretation. In patients with unstable renal function, e.g. those with acute kidney injury, the eGFRmay not accurately reflect actual GFR. eGFR- Date Value Ref Range Status 10/20/2021 >60 Final P.O.C.T. RESULTS: POC done: Yes, See Lab Tab July 04, 2023 TREATMENT: N/A PERIPHERAL IV DATA: Ambulatory: A peripheral IV was started in the Left antecubital site with a Angio cath: 22 gauge. RADIOLOGY DEPARTMENT: CT; Exam(s) Completed: Abdomen/Pelvis SIGNATURE: RT Rebecca(R) PATIENT NAME: Ivan Khan DATE: July 04, 2023 TIME: 3:58 PM documented in this encounterPromedica [facility]10-25-2023 NoteHNO ID: [id number] Author: Jazmin Avelar RT(R) Service: ? Author Type: It Quality Assurance Analyst Type: Progress Notes Filed: 07/04/2023 3:58 PM Note Text: Radiology Service Progress Note DATE OF SERVICE: July 04, 2023 TIME: 3:58 PM PATIENT IDENTITY VERIFICATION COMPLETED USING TWO (2) STANDARD IDENTIFIERS: Name and Date of confirmed by patient verbally. FALL SCREENING: Has the patient had 2 falls in the last year or 1 fall with injury or currently using an Ambulatory Assistive Device (Walker, Cane, Wheelchair, Crutches, etc.)? No PATIENT GENDER DATA: Female. status: : No status: NO. PATIENT RELEVANT IMPLANT DATA REVIEWED: Yes ALLERGIES: Reviewed and unchanged CONTRAST ALLERGY: NO. EXAM: CT -CONTRAST INDUCED NEPHROPATHY RISK FACTORS: Not applicable CREATININE: Creatinine Date Value Ref Range Status 05/16/2023 0.71 0.58 - 0.96 mg/dL Final 11/28/2022 0.67 0.58 - 0.96 mg/dL Final 01/11/2022 0.72 0.58 - 0.96 mg/dL Final Estimated Glomerular Filtration Rate Date Value Ref Range Status 05/16/2023 98 >=60 mL/min/1.73m? Final Comment: Estimated Glomerular Filtration Rate (eGFR) is calculated using the 2020 CKD-EPI creatinine equation. This equation utilizes serum creatinine, sex, and age as parameters. The creatinine assay has traceable calibration to isotope dilution-mass spectrometry. Refer to KDIGO guidelines for clinical interpretation. In patients with unstable renal function, e.g. those with acute kidney injury, the eGFR may not accurately reflect actual GFR. eGFR- Date Value Ref Range Status 10/20/2021 >60 Final P.O.C.T. RESULTS: POC done: Yes, See Lab Tab July 04, 2023 TREATMENT: N/A PERIPHERAL IV DATA: Ambulatory: A peripheral IV was started in the Left antecubital site with a Angio cath: 22 gauge. RADIOLOGY DEPARTMENT: CT; Exam(s) Completed: Abdomen/Pelvis SIGNATURE: RT Rebecca(R) PATIENT NAME: Ivan Khan DATE: July 04, 2023 TIME: 3:58 [facility]10-13-2023 History of Present illness Narrative* Carolyn Hoyos DO - 06/22/2023 12:20 PM EDT Chief Compliant: follow up irregular bm and abd pain. HPI: Ivan Khan is a 58 year old female with PMH significant for GERD, fibromylagia, OA, dysthymic d/o, hx of diverticulosis and diverticulitis, hx of cdiff x 3-responded to therapy per pt who presentsfor constipation, diarrhea, generalized abdominal pain. Has been taking miralax and senna. Feels like she is going more frequently than previously but still has days where she does not go at all. Stools are still loose but pt taking miralax. Abd pain is better but still present. No new complaints otherwise. 05/25/23 last office visit notes as follows: Patient is a 58 year old year old female with PMH significant for GERD, fibromylagia, OA, dysthymicd/o, hx of diverticulosis and diverticulitis, hx of cdiff x 3-responded to therapy per pt who presents for constipation, diarrhea, generalized abdominal pain as described above. -increase miralax to BID -continue senna daily -fiber rich diet and increased water intake -follow up in 6 weeks. If not better, will consider repeat imaging. May also need repeat colonoscopy but pt reluctant. 01/31/23 XR ABDOMEN 1V SUPINE Nonobstructive bowel gas pattern. 01/24/23 CTAP w/IV cpntrast was done for lower abdominal pain and h/o diverticulitis No acute abnormalities 02/17/22 Colonoscopy was done for Abdominal pain in the left lower quadrant, Abnormal CT of the GI tract, per Vero Hill MD Diverticulosis in the sigmoid colon. Non-bleeding external and internal hemorrhoids. No specimens collected. 12/17/15 EGD/colonoscopy were done per Dr. Morgan for epigastric pain, GERD and change in bowel habits Normal examined duodenum. Gastritis. Biopsied. Normal esophagus The entire examined colon is normal on direct and retroflexion views. The entire examined colon is normal. Biopsied. Diverticulosis in the sigmoid colon Path as follows: 1. Gastric antrum, biopsy Reactive gastropathy. 2. Cecum and sigmoid colon, biopsies No significant pathologic change. - No evidence of lymphocytic or collagenous colitis 10/28/15 path from cholecystectomy Gallbladder, cholecystectomy - Gallbladder parenchyma with mild chronic inflammation. Component Latest Ref Rng & Units 01/31/2023 03/21/2023 C. difficile PCR Negative for C. difficile toxin by PCR Positive for C. difficile toxin by PCR (A) Positive for C. difficile toxin by PCR (A) Occult Blood, Stool Negative Negative C. difficile Toxin EIA Negative for C. difficile toxin C. difficile toxin NOT DETECTED by EIA. C. difficile toxin NOT DETECTED by EIA. Component Latest Ref Rng & Units 11/28/2022 03/28/2023 05/16/2023 WBC 3.70 - 11.00 k/uL 7.95 10.13 RBC 3.90 - 5.20 m/uL 4.33 4.93 Hemoglobin 11.5 - 15.5 g/dL 12.4 13.9 Hematocrit 36.0 - 46.0 % 38.3 43.0 MCV 80.0 - 100.0 fL 88.5 87.2 MCH 26.0 - 34.0 pg 28.6 28.2 MCHC 30.5 - 36.0 g/dL 32.4 32.3 RDW-CV 11.5 - 15.0 % 12.7 12.9 Platelet Count 150 - 400 k/uL 304 342 MPV 9.0 - 12.7 fL 9.5 10.2 NRBC /100 WBC 0.0 Absolute nRBC <0.01 k/uL <0.01 <0.01 Neut% % 65.5 Abs Neut (ANC) 1.45 - 7.50 k/uL 6.64 Lymph% % 27.6 Abs Lymph 1.00 - 4.00 k/uL 2.80 [place]% % 4.3 Abs [place] <0.87 k/uL 0.44 Eosin% % 0.9 Abs Eosin <0.46 k/uL 0.09 Baso% % 1.7 Abs Baso <0.11 k/uL 0.17 (H) Platelet Estimate Adequate Red Cell Morph Reviewed: see results of individual morphologies Ovalocytes Few DTYPE Manual Protein, Total 6.3 - 8.0 g/dL 6.7 7.1 Albumin 3.9 - 4.9 g/dL 4.2 4.4 Calcium 8.5 - 10.2 mg/dL 9.2 9.7 Bilirubin, Total 0.2 - 1.3 mg/dL 0.4 0.3 Alkaline Phosphatase 34 - 123 U/L 70 87 AST 13 - 35 U/L 19 17 ALT 7 - 38 U/L 14 10 Glucose 74 - 99 mg/dL 111 (H) 103 (H) BUN 7 - 21 mg/dL 9 12 Creatinine 0.58 - 0.96 mg/dL 0.67 0.71 Sodium 136 - 144 mmol/L 138 137 Potassium 3.7 - 5.1 mmol/L 3.9 4.4 Chloride 97 - 105 mmol/L 101 103 CO2 22 - 30 mmol/L 27 23 Anion Gap 9 - 18 mmol/L 10 11 eGFR >=60 mL/min/1.73m 101 98 Cholesterol, Total <200 mg/dL 186 Triglyceride <150 mg/dL 104 HDL Cholesterol >39 mg/dL 85 Non HDL Cholesterol <130 mg/dL 101 Fasting Time hrs 12 VLDL Cholesterol <30 mg/dL 21 TC:HDL Ratio <5.10 2.19 LDL Cholesterol <100 mg/dL 80 LDL:HDL Ratio <2.54 0.94 Hemoglobin A1C 4.3 - 5.6 % 5.1 Estimated Average Glucose mg/dL 100 Hemoglobin A1C (POCT) 4.2 - 5.6 % 5.4 TSH 0.270 - 4.200 mIU/L 0.460 Free T4 0.9 - 1.7 ng/dL 1.3 Free T3 2.3 - 4.1 pg/mL 3.0 buPROPion SR (WELLBUTRIN SR) 150 mg 12 hr tablet Take 1 tablet by mouth twice daily. calcium carbonate/vitamin D3 (CALCIUM + D ORAL) Take by mouth once daily. cholecalciferol, vitamin D3, (VITAMIN D3 ORAL) Take by mouth once daily. clonazePAM (KLONOPIN) 0.5 mg tablet May take 1-2 tablets by mouth at bedtime as needed (insomnia and anxiety). May also take 1 tablet two times a day as needed (insomnia and anxiety). Do all this for30 days. cyanocobalamin, vitamin B-12, (VITAMIN B-12 ORAL) Take by mouth once daily. cyclobenzaprine (FLEXERIL) 10 mg tablet Take 1 tablet by mouth two times a day as needed for musclespasm. dicyclomine (BENTYL) 20 mg tablet Take 1 tablet by mouth before meals and at bedtime. As directed enteric contrast (will be provided with radiology test) For CT ABD/PEL W IVCON Routine order Administer, As Directed One Time Only, via Oral, Rectal, both Oral and Rectal, Enteric Tube, Stoma or Indwelling Catheter, Enteric Contrast as designated per enteric contrast guidelines etodolac (LODINE-XL) 500 mg 24 hr tablet Take 1 tablet by mouth once daily. fluticasone (FLONASE) 50 mcg/actuation nasal spray Use 2 Sprays in each nostril once daily. As directed for nasal and/or sinus congestion. Rinse mouth after use. furosemide (LASIX) 20 mg tablet Take 1-2 tablets by mouth once daily. As directed for fluid retention iv contrast (will be provided with radiology test) CT ABD/PEL -Inject, intravenously, once for 1 dose.No IV access, insert saline lock prior to the beginning of sedation, infusion, injection of imaging exam. Discontinue saline lock post exam. If Pt. has a central line or IVAD, may access for administration according to line specific nursing protocol. Once exam is complete flush line and de-accessaccording to line specific nursing protocol in the CT contrast administration guidelines link. predniSONE (DELTASONE) 10 mg tablet Take 2 pills as directed for flare up of back pain. pregabalin 75 mg capsule Take 2 capsules by mouth twice daily. TENS UNIT ELECTRODES (TENS UNITS ELECTRODES) 2X2 pads Use electrodes with pads with TENS as directed for back pain. Dispense 1 set monthly PAST MEDICAL HISTORY Diagnosis Date Acute gastritis Carpal tunnel syndrome Degenerative arthritis of right knee Dysmenorrhea Dysthymic disorder Depression (non-psychotic) Esophageal reflux Fibromyalgia 2006 Headache(784.0) Knee pain Rt. Meniscus tear Rt knee Tenosynovitis of elbow right Tinnitus PAST SURGICAL HISTORY Procedure Laterality Date ABDOMINAL SURGERY HX ARTHRP INTERPOS INTERCARPAL/METACARPAL JOINTS Right 12/28/2017 Right thumb, CMC arthroplasty with ligament reconstruction and tendon interposition ARTHRP KNE CONDYLE&PLATU MEDIAL&LAT COMPARTMENTS Right 2011 Knee replacement, total COLONOSCOPY 02/17/2022 repeat in 10 years COLONOSCOPY W/BIOPSY 12/17/2015 Normal; Diverticulosis sigmoid colon EGD TRANSORAL BIOPSY SINGLE/MULTIPLE 09/28/2015 EGD TRANSORAL BIOPSY SINGLE/MULTIPLE 12/17/2015 Minimal gastritis JOINT REPLACEMENT HX LAPS SURG CHOLECYSTECTOMY W/CHOLANGIOGRAPHY 10/26/2015 Normal IOC NEUROPLASTY &/TRANSPOS MEDIAN NRV CARPAL TUNNE 12/1977 Carpal tunnel decomp right PAST SURGICAL HISTORY OF 1995 Right knee arthroscopy PAST SURGICAL HISTORY OF sinus surgery PAST SURGICAL HISTORY OF right elbow- tennis elbow VAGINAL HYSTERECTOMY VAGINAL HYSTERECTOMY UTERUS 250 GM/< 1999 REVIEW OF SYSTEMS: General:No weight loss, malaise or fevers Respiratory: Negative for cough, hemoptysis, wheezing or shortness of breath Cardiovascular: Negative for chest pain, leg swelling or palpitations Gastrointestinal: as per HPI, otherwise negative Genitourinary: No history of dysuria, frequency or incontinence Musculoskeletal: Negative for joint pain or swelling, back pain or muscle pain Neurologic:Negative for focal numbness or weakness, headaches and dizziness or syncope. Skin:Negative for lesions, rash, and itching Psychiatric: Negative for sleep disturbance, mood disorder and recent psychosocial stressors. Hematologic/Lymph:Negative for prolonged bleeding, bruising easily or swollen nodes Endocrine: Negative for cold or heat intolerance, polyuria, polydipsia and goiter PHYSICAL EXAMINATION: BP 135/84 Pulse 77 Wt 155 lb (70.3kg) General appearance: Well appearing, alert, in no acute distress, well-hydrated, well nourished. Skin: Skin color, texture, turgor normal, no suspicious rashes or lesions Head: Normocephalic, no masses, lesions, tenderness or abnormalities Eyes: Anicteric sclera. Extraocular movements are intact. Ears: External ears normal, Nose/Sinuses: Nares normal, no drainage or sinus tenderness Neck: Supple, no adenopathy; Lungs: Lungs clear to auscultation. Heart: RRR without murmur, gallop, or rubs. Abdomen: Abdomen soft, non-tender. Bowel sounds normal. No masses, organomegaly Extremities: No deformities, edema, skin discoloration, clubbing or cyanosis. Musculoskeletal: No joint swelling, deformity, or tenderness Neuro: Gait normal. No focal deficits. Sensation grossly intact. ASSESSMENT/PLAN Patient is a 58 year old year old female with PMH significant for GERD, fibromylagia, OA, dysthymicd/o, hx of diverticulosis and diverticulitis, hx of cdiff x 3-responded to therapy per pt who presents for constipation, diarrhea, generalized abdominal pain. Improved with miralax and senna but still having episodes of constipation and abd pain. No new complaints otherwise. I have personally reviewed the labs, current meds, allergies, PMH, PSH, FH, and SH that was documented by the RN and changes made as needed. Problem List Items Addressed This Visit None Visit Diagnoses Lower abdominal pain - Primary Relevant Orders CT ABD/PEL W IVCON History of diverticulitis of colon Relevant Orders CT ABD/PEL W IVCON Alternating constipation and diarrhea -continue miralax BID -increase senna to 2 tabs in the morning and 1 tab at night. -fiber rich diet -repeat CT to rule out smoldering diverticulitis, stricture, other. Carolyn Hoyos DO Follow Up: Return in about 3 months (around 09/22/2023). documented in this encounterPromedica F[facility]10-13-2023 NoteHNO ID: [id number] Author: Carolyn Hoyos DO Service: ? Author Type: Physician Type: Progress Notes Filed: 06/25/2023 3:30 PM Note Text: Chief Compliant: follow up irregular bm and abd pain. HPI: Ivan Khan is a 58 year old female with PMH significant for GERD, fibromylagia, OA, dysthymic d/o, hx of diverticulosis and diverticulitis, hx of cdiff x 3-responded to therapy per pt who presents for constipation, diarrhea, generalized abdominal pain. Has been taking miralax and senna. Feels like she is going more frequently than previously but still has days where she does not go at all. Stools are still loose but pt taking miralax. Abd pain is better but still present. No new complaints otherwise. 05/25/23 last office visit notes as follows: Patient is a 58 year old year old female with PMH significant for GERD, fibromylagia, OA, dysthymic d/o, hx of diverticulosis and diverticulitis, hx of cdiff x 3-responded to therapy per pt who presents for constipation, diarrhea, generalized abdominal pain as described above. -increase miralax to BID -continue senna daily -fiber rich diet and increased water intake -follow up in 6 weeks. If not better, will consider repeat imaging. May also need repeat colonoscopy but pt reluctant. 01/31/23 XR ABDOMEN 1V SUPINE Nonobstructive bowel gas pattern. 5/17/23 CTAP w/IV cpntrast was done for lower abdominal pain and h/o diverticulitis No acute abnormalities 02/17/22 Colonoscopy was done for Abdominal pain in the left lower quadrant, Abnormal CT of the GI tract, per Vero Hill MD Diverticulosis in the sigmoid colon. Non-bleeding external and internal hemorrhoids. No specimens collected. 12/17/15 EGD/colonoscopy were done per Dr. Morgan for epigastric pain, GERD and change in bowel habits Normal examined duodenum. Gastritis. Biopsied. Normal esophagus The entire examined colon is normal on direct and retroflexion views. The entire examined colon is normal. Biopsied. Diverticulosis in the sigmoid colon Path as follows: 1. Gastric antrum, biopsy Reactive gastropathy. 2. Cecum and sigmoid colon, biopsies No significant pathologic change. - No evidence of lymphocytic or collagenous colitis 10/28/15 path from cholecystectomy Gallbladder, cholecystectomy - Gallbladder parenchyma with mild chronic inflammation. Component Latest Ref Rng AND Units 01/31/2023 03/21/2023 C. difficile PCR Negative for C. difficile toxin by PCR Positive for C. difficile toxin by PCR (A) Positive for C. difficile toxin by PCR (A) Occult Blood, Stool Negative Negative C. difficile Toxin EIA Negative for C. difficile toxin C. difficile toxin NOT DETECTED by EIA. C. difficile toxin NOT DETECTED by EIA. Component Latest Ref Rng AND Units 11/28/2022 03/28/2023 05/16/2023 WBC 3.70 - 11.00 k/uL 7.95 10.13 RBC 3.90 - 5.20 m/uL 4.33 4.93 Hemoglobin 11.5 - 15.5 g/dL 12.4 13.9 Hematocrit 36.0 - 46.0 % 38.3 43.0 MCV 80.0 - 100.0 fL 88.5 87.2 MCH 26.0 - 34.0 pg 28.6 28.2 MCHC 30.5 - 36.0 g/dL 32.4 32.3 RDW-CV 11.5 - 15.0 % 12.7 12.9 Platelet Count 150 - 400 k/uL 304 342 MPV 9.0 - 12.7 fL 9.5 10.2 NRBC /100 WBC 0.0 Absolute nRBC <0.01 k/uL <0.01 <0.01 Neut% % 65.5 Abs Neut (ANC) 1.45 - 7.50 k/uL 6.64 Lymph% % 27.6 Abs Lymph 1.00 - 4.00 k/uL 2.80 [place]% % 4.3 Abs [place] <0.87 k/uL 0.44 Eosin% % 0.9 Abs Eosin <0.46 k/uL 0.09 Baso% % 1.7 Abs Baso <0.11 k/uL 0.17 (H) Platelet Estimate Adequate Red Cell Morph Reviewed: see results of individual morphologies Ovalocytes Few DTYPE Manual Protein, Total 6.3 - 8.0 g/dL 6.7 7.1 Albumin 3.9 - 4.9 g/dL 4.2 4.4 Calcium 8.5 - 10.2 mg/dL 9.2 9.7 Bilirubin, Total 0.2 - 1.3 mg/dL 0.4 0.3 Alkaline Phosphatase 34 - 123 U/L 70 87 AST 13 - 35 U/L 19 17 ALT 7 - 38 U/L 14 10 Glucose 74 - 99 mg/dL 111 (H) 103 (H) BUN 7 - 21 mg/dL 9 12 Creatinine 0.58 - 0.96 mg/dL 0.67 0.71 Sodium 136 - 144 mmol/L 138 137 Potassium 3.7 - 5.1 mmol/L 3.9 4.4 Chloride 97 - 105 mmol/L 101 103 CO2 22 - 30 mmol/L 27 23 Anion Gap 9 - 18 mmol/L 10 11 eGFR >=60 mL/min/1.73mA? 101 98 Cholesterol, Total <200 mg/dL 186 Triglyceride <150 mg/dL 104 HDL Cholesterol >39 mg/dL 85 Non HDL Cholesterol <130 mg/dL 101 Fasting Time hrs 12 VLDL Cholesterol <30 mg/dL 21 TC:HDL Ratio <5.10 2.19 LDL Cholesterol <100 mg/dL 80 LDL:HDL Ratio <2.54 0.94 Hemoglobin A1C 4.3 - 5.6 % 5.1 Estimated Average Glucose mg/dL 100 Hemoglobin A1C (POCT) 4.2 - 5.6 % 5.4 TSH 0.270 - 4.200 mIU/L 0.460 Free T4 0.9 - 1.7 ng/dL 1.3 Free T3 2.3 - 4.1 pg/mL 3.0 buPROPion SR (WELLBUTRIN SR) 150 mg 12 hr tablet Take 1 tablet by mouth twice daily. calcium carbonate/vitamin D3 (CALCIUM + D ORAL) Take by mouth once daily. cholecalciferol, vitamin D3, (VITAMIN D3 ORAL) Take by mouth once daily. clonazePAM (KLONOPIN) 0.5 mg tablet May take 1-2 tablets by mouth at bedtime as needed (insomnia and anxiety). May also take 1 tablet two times a day as (more content not included)...[facility]09-15-2023 History of Present illness Narrative* Carolyn Hoyos DO - 05/25/2023 9:20 AM EDT Chief Compliant: Consultation requested by Dr. Katey Chester MD for an opinion regarding irregularbm. My final recommendations will be communicated back to the requesting physician by way of sharedMedical record or letter to requesting physician via US mail. HPI: Ivan Khan is a 58 year old female with PMH significant for GERD, fibromylagia, OA, dysthymic d/o, hx of diverticulosis and diverticulitis, hx of cdiff x 3-responded to therapy per pt who presentsfor constipation, diarrhea, generalized abdominal pain. Pt reports that her bm have been very irregular since she has had diverticulitis and cdiff x 3 in the last yr. Ranges from constipation for several days followed by diarrhea for several days. Has associated lower abd pain-more so with the constipation. No fevers, chills, nausea, vomiting, dysphagia, sob, cp, palpitations, signs of bleeding. Has lost some wt since onset of symptoms-about 10 lbs since 11/30. Not eating as much due to symptoms. No fam hx of GI malignancy. Reviewed her most recent labs, imaging. Had colonoscopy in 03/01-reviewed below. Taking bentyl 4 times per day, miralax once daily, and senna with incomplete relief in symptoms. 03/28/23 consult to GI placed per Katey Chester MD for h/o c-diff, constipation, diarrhea, generalized abdominal pain Dicyclomine has been helping. Vancomycin had helped for first 2 days. Still on med. Diarrhea and constipation back and forth. If does not eat, does not get pain. If eats, gets constipation. Feels better when has diarrhea actually. Drinking bone broth from online tolerated. Has lost weight since November (about 10 pound). 01/31/23 XR ABDOMEN 1V SUPINE Nonobstructive bowel gas pattern. 01/24/23 CTAP w/IV cpntrast was done for lower abdominal pain and h/o diverticulitis No acute abnormalities 02/17/22 Colonoscopy was done for Abdominal pain in the left lower quadrant, Abnormal CT of the GI tract, per Vero Hill MD Diverticulosis in the sigmoid colon. Non-bleeding external and internal hemorrhoids. No specimens collected. 12/17/15 EGD/colonoscopy were done per Dr. Morgan for epigastric pain, GERD and change in bowel habits Normal examined duodenum. Gastritis. Biopsied. Normal esophagus The entire examined colon is normal on direct and retroflexion views. The entire examined colon is normal. Biopsied. Diverticulosis in the sigmoid colon Path as follows: 1. Gastric antrum, biopsy Reactive gastropathy. 2. Cecum and sigmoid colon, biopsies No significant pathologic change. - No evidence of lymphocytic or collagenous colitis 10/28/15 path from cholecystectomy Gallbladder, cholecystectomy - Gallbladder parenchyma with mild chronic inflammation. Component Latest Ref Rng & Units 01/31/2023 03/21/2023 C. difficile PCR Negative for C. difficile toxin by PCR Positive for C. difficile toxin by PCR (A) Positive for C. difficile toxin by PCR (A) Occult Blood, Stool Negative Negative C. difficile Toxin EIA Negative for C. difficile toxin C. difficile toxin NOT DETECTED by EIA. C. difficile toxin NOT DETECTED by EIA. 01/12/23 treated with Flagyl and Cipro x 7 days 01/31/23 treated with Dificid x 10 days 03/23/23 treated with Vancomycin lq 125 mg QID X 14 days Component Latest Ref Rng & Units 11/28/2022 05/16/2023 WBC 3.70 - 11.00 k/uL 7.95 10.13 RBC 3.90 - 5.20 m/uL 4.33 4.93 Hemoglobin 11.5 - 15.5 g/dL 12.4 13.9 Hematocrit 36.0 - 46.0 % 38.3 43.0 MCV 80.0 - 100.0 fL 88.5 87.2 MCH 26.0 - 34.0 pg 28.6 28.2 MCHC 30.5 - 36.0 g/dL 32.4 32.3 RDW-CV 11.5 - 15.0 % 12.7 12.9 Platelet Count 150 - 400 k/uL 304 342 MPV 9.0 - 12.7 fL 9.5 10.2 NRBC /100 WBC 0.0 Absolute nRBC <0.01 k/uL <0.01 <0.01 Neut% % 65.5 Abs Neut (ANC) 1.45 - 7.50 k/uL 6.64 Lymph% % 27.6 Abs Lymph 1.00 - 4.00 k/uL 2.80 [place]% % 4.3 Abs [place] <0.87 k/uL 0.44 Eosin% % 0.9 Abs Eosin <0.46 k/uL 0.09 Baso% % 1.7 Abs Baso <0.11 k/uL 0.17 (H) Platelet Estimate Adequate Red Cell Morph Reviewed: see results of individual morphologies Ovalocytes Few DTYPE Manual Protein, Total 6.3 - 8.0 g/dL 6.7 7.1 Albumin 3.9 - 4.9 g/dL 4.2 4.4 Calcium 8.5 - 10.2 mg/dL 9.2 9.7 Bilirubin, Total 0.2 - 1.3 mg/dL 0.4 0.3 Alkaline Phosphatase 34 - 123 U/L 70 87 AST 13 - 35 U/L 19 17 ALT 7 - 38 U/L 14 10 Glucose 74 - 99 mg/dL 111 (H) 103 (H) BUN 7 - 21 mg/dL 9 12 Creatinine 0.58 - 0.96 mg/dL 0.67 0.71 Sodium 136 - 144 mmol/L 138 137 Potassium 3.7 - 5.1 mmol/L 3.9 4.4 Chloride 97 - 105 mmol/L 101 103 CO2 22 - 30 mmol/L 27 23 Anion Gap 9 - 18 mmol/L 10 11 eGFR >=60 mL/min/1.73m 101 98 TSH 0.270 - 4.200 mIU/L 0.460 Free T4 0.9 - 1.7 ng/dL 1.3 Free T3 2.3 - 4.1 pg/mL 3.0 ALLERGIES Allergen Reactions Augmentin [Amoxicil* Rash Elavil [Amitriptyli* Intolerance Woke up with panic attacks Morphine Vomiting Penicillins Other: See Comments augmentin cross sensitivity dicyclomine (BENTYL) 20 mg tablet Take 1 tablet by mouth before meals and at bedtime. As directed clonazePAM (KLONOPIN) 0.5 mg tablet May take 1-2 tablets by mouth at bedtime as needed (insomnia and anxiety). May also take 1 tablet twice daily as needed (insomnia and anxiety). Do all this for 60 days. Do not start before April 16, 2023. etodolac (LODINE-XL) 500 mg 24 hr tablet Take 1 tablet by mouth once daily. cyclobenzaprine (FLEXERIL) 10 mg tablet Take 1 tablet by mouth twice daily as needed for muscle spasm. buPROPion SR (WELLBUTRIN SR) 150 mg 12 hr tablet Take 1 tablet by mouth twice daily. fluticasone (FLONASE) 50 mcg/actuation nasal spray Use 2 Sprays in each nostril once daily. As directed for nasal and/or sinus congestion. Rinse mouth after use. predniSONE (DELTASONE) 10 mg tablet Take 2 pills as directed for flare up of back pain. furosemide (LASIX) 20 mg tablet Take 1-2 tablets by mouth once daily. As directed for fluid retention calcium carbonate/vitamin D3 (CALCIUM + D ORAL) Take by mouth once daily. cholecalciferol, vitamin D3, (VITAMIN D3 ORAL) Take by mouth once daily. cyanocobalamin, vitamin B-12, (VITAMIN B-12 ORAL) Take by mouth once daily. TENS UNIT ELECTRODES (TENS UNITS ELECTRODES) 2X2 pads Use electrodes with pads with TENS as directed for back pain. Dispense 1 set monthly pregabalin 75 mg capsule Take 2 capsules by mouth twice daily. HISTORIES: FAMILY HISTORY Problem Relation Age of Onset Breast Cancer Mother None Father Breast Cancer Sister Fibromyalgia, Mental Health Issues other (Gall Bladder) Brother None Brother No Ocular Disease No Family History Colon Cancer No Family History PAST MEDICAL HISTORY Diagnosis Date Acute gastritis Carpal tunnel syndrome Degenerative arthritis of right knee Dysmenorrhea Dysthymic disorder Depression (non-psychotic) Esophageal reflux Fibromyalgia 2006 Headache(784.0) Knee pain Rt. Meniscus tear Rt knee Tenosynovitis of elbow right Tinnitus PAST SURGICAL HISTORY Procedure Laterality Date ABDOMINAL SURGERY HX ARTHRP INTERPOS INTERCARPAL/METACARPAL JOINTS Right 12/28/2017 Right thumb, CMC arthroplasty with ligament reconstruction and tendon interposition ARTHRP KNE CONDYLE&PLATU MEDIAL&LAT COMPARTMENTS Right 2011 Knee replacement, total COLONOSCOPY 02/17/2022 repeat in 10 years COLONOSCOPY W/BIOPSY 12/17/2015 Normal; Diverticulosis sigmoid colon EGD TRANSORAL BIOPSY SINGLE/MULTIPLE 09/28/2015 EGD TRANSORAL BIOPSY SINGLE/MULTIPLE 12/17/2015 Minimal gastritis JOINT REPLACEMENT HX LAPS SURG CHOLECYSTECTOMY W/CHOLANGIOGRAPHY 10/26/2015 Normal IOC NEUROPLASTY &/TRANSPOS MEDIAN NRV CARPAL TUNNE 12/1977 Carpal tunnel decomp right PAST SURGICAL HISTORY OF 1995 Right knee arthroscopy PAST SURGICAL HISTORY OF sinus surgery PAST SURGICAL HISTORY OF right elbow- tennis elbow VAGINAL HYSTERECTOMY VAGINAL HYSTERECTOMY UTERUS 250 GM/< 2000 Social History Tobacco Use Smoking status: Former Packs/day: 0.50 Years: 15.00 Additional pack years: 0.00 Total pack years: 7.50 Types: Cigarettes Quit date: 10/11/2015 Years since quittin.6 Smokeless tobacco: Former Quit date: 08/10/2013 Vaping Use Vaping Use: Never used Substance Use Topics Alcohol use: No Comment: occasionally Drug use: No REVIEW OF SYSTEMS: General:No weight loss, malaise or fevers Respiratory: Negative for cough, hemoptysis, wheezing or shortness of breath Cardiovascular: Negative for chest pain, leg swelling or palpitations Gastrointestinal: as per HPI, otherwise negative Genitourinary: No history of dysuria, frequency or incontinence Musculoskeletal: Negative for joint pain or swelling, back pain or muscle pain Neurologic:Negative for focal numbness or weakness, headaches and dizziness or syncope. Skin:Negative for lesions, rash, and itching Psychiatric: Negative for sleep disturbance, mood disorder and recent psychosocial stressors. Hematologic/Lymph:Negative for prolonged bleeding, bruising easily or swollen nodes Endocrine: Negative for cold or heat intolerance, polyuria, polydipsia and goiter PHYSICAL EXAMINATION: BP 121/81 Pulse 66 Wt 155 lb (70.3kg) General appearance: Well appearing, alert, in no acute distress, well-hydrated, well nourished. Skin: Skin color, texture, turgor normal, no suspicious rashes or lesions Head: Normocephalic, no masses, lesions, tenderness or abnormalities Eyes: Anicteric sclera. Extraocular movements are intact. Ears: External ears normal, Nose/Sinuses: Nares normal, no drainage or sinus tenderness Neck: Supple, no adenopathy; Lungs: Lungs clear to auscultation. Heart: RRR without murmur, gallop, or rubs. Abdomen: Abdomen soft, non-tender. Bowel sounds normal. No masses, organomegaly Extremities: No deformities, edema, skin discoloration, clubbing or cyanosis. Musculoskeletal: No joint swelling, deformity, or tenderness Neuro: Gait normal. No focal deficits. Sensation grossly intact. ASSESSMENT/PLAN Patient is a 58 year old year old female with PMH significant for GERD, fibromylagia, OA, dysthymicd/o, hx of diverticulosis and diverticulitis, hx of cdiff x 3-responded to therapy per pt who presents for constipation, diarrhea, generalized abdominal pain as described above. I have personally reviewed the labs, current meds, allergies, PMH, PSH, FH, and SH that was documented by the RN and changes made as needed. Problem List Items Addressed This Visit None Visit Diagnoses C. difficile diarrhea Constipation, unspecified constipation type Generalized abdominal pain Can e mostly lower abdominal pain; when gets more severe, then generalized abdominal pain. Happens when gets constipation between bouts of diarrhea -increase miralax to BID -continue senna daily -fiber rich diet and increased water intake -follow up in 6 weeks. If not better, will consider repeat imaging. May also need repeat colonoscopy but pt reluctant. Carolyn Hoyos DO Follow Up: Return in about 6 weeks (around 07/06/2023). documented in this encounterProm[facility] NoteHNO ID: [id number] Author: Carolyn Hoyos DO Service: ? Author Type: Physician Type: Progress Notes Filed: 05/25/2023 2:49 PM Note Text: Chief Compliant: Consultation requested by Dr. Katey Chester MD for an opinion regarding irregular bm. My final recommendations will be communicated back to the requesting physician by way of shared Medical record or letter to requesting physician via US mail. HPI: Ivan Khan is a 58 year old female with PMH significant for GERD, fibromylagia, OA, dysthymic d/o, hx of diverticulosis and diverticulitis, hx of cdiff x 3-responded to therapy per pt who presents for constipation, diarrhea, generalized abdominal pain. Pt reports that her bm have been very irregular since she has had diverticulitis and cdiff x 3 in the last yr. Ranges from constipation for several days followed by diarrhea for several days. Has associated lower abd pain-more so with the constipation. No fevers, chills, nausea, vomiting, dysphagia, sob, cp, palpitations, signs of bleeding. Has lost some wt since onset of symptoms-about 10 lbs since 11/30. Not eating as much due to symptoms. No fam hx of GI malignancy. Reviewed her most recent labs, imaging. Had colonoscopy in 03/01-reviewed below. Taking bentyl 4 times per day, miralax once daily, and senna with incomplete relief in symptoms. 03/28/23 consult to GI placed per Katey Chester MD for h/o c-diff, constipation, diarrhea, generalized abdominal pain Dicyclomine has been helping. Vancomycin had helped for first 2 days. Still on med. Diarrhea and constipation back and forth. If does not eat, does not get pain. If eats, gets constipation. Feels better when has diarrhea actually. Drinking bone broth from online tolerated. Has lost weight since November (about 10 pound). 01/31/23 XR ABDOMEN 1V SUPINE Nonobstructive bowel gas pattern. 01/24/23 CTAP w/IV cpntrast was done for lower abdominal pain and h/o diverticulitis No acute abnormalities 02/17/22 Colonoscopy was done for Abdominal pain in the left lower quadrant, Abnormal CT of the GI tract, per Vero Hill MD Diverticulosis in the sigmoid colon. Non-bleeding external and internal hemorrhoids. No specimens collected. 12/17/15 EGD/colonoscopy were done per Dr. Morgan for epigastric pain, GERD and change in bowel habits Normal examined duodenum. Gastritis. Biopsied. Normal esophagus The entire examined colon is normal on direct and retroflexion views. The entire examined colon is normal. Biopsied. Diverticulosis in the sigmoid colon Path as follows: 1. Gastric antrum, biopsy Reactive gastropathy. 2. Cecum and sigmoid colon, biopsies No significant pathologic change. - No evidence of lymphocytic or collagenous colitis 10/28/15 path from cholecystectomy Gallbladder, cholecystectomy - Gallbladder parenchyma with mild chronic inflammation. Component Latest Ref Rng AND Units 01/31/2023 03/21/2023 C. difficile PCR Negative for C. difficile toxin by PCR Positive for C. difficile toxin by PCR (A) Positive for C. difficile toxin by PCR (A) Occult Blood, Stool Negative Negative C. difficile Toxin EIA Negative for C. difficile toxin C. difficile toxin NOT DETECTED by EIA. C. difficile toxin NOT DETECTED by EIA. 01/12/23 treated with Flagyl and Cipro x 7 days 01/31/23 treated with Dificid x 10 days 03/23/23 treated with Vancomycin lq 125 mg QID X 14 days Component Latest Ref Rng AND Units 11/28/2022 05/16/2023 WBC 3.70 - 11.00 k/uL 7.95 10.13 RBC 3.90 - 5.20 m/uL 4.33 4.93 Hemoglobin 11.5 - 15.5 g/dL 12.4 13.9 Hematocrit 36.0 - 46.0 % 38.3 43.0 MCV 80.0 - 100.0 fL 88.5 87.2 MCH 26.0 - 34.0 pg 28.6 28.2 MCHC 30.5 - 36.0 g/dL 32.4 32.3 RDW-CV 11.5 - 15.0 % 12.7 12.9 Platelet Count 150 - 400 k/uL 304 342 MPV 9.0 - 12.7 fL 9.5 10.2 NRBC /100 WBC 0.0 Absolute nRBC <0.01 k/uL <0.01 <0.01 Neut% % 65.5 Abs Neut (ANC) 1.45 - 7.50 k/uL 6.64 Lymph% % 27.6 Abs Lymph 1.00 - 4.00 k/uL 2.80 [place]% % 4.3 Abs [place] <0.87 k/uL 0.44 Eosin% % 0.9 Abs Eosin <0.46 k/uL 0.09 Baso% % 1.7 Abs Baso <0.11 k/uL 0.17 (H) Platelet Estimate Adequate Red Cell Morph Reviewed: see results of individual morphologies Ovalocytes Few DTYPE Manual Protein, Total 6.3 - 8.0 g/dL 6.7 7.1 Albumin 3.9 - 4.9 g/dL 4.2 4.4 Calcium 8.5 - 10.2 mg/dL 9.2 9.7 Bilirubin, Total 0.2 - 1.3 mg/dL 0.4 0.3 Alkaline Phosphatase 34 - 123 U/L 70 87 AST 13 - 35 U/L 19 17 ALT 7 - 38 U/L 14 10 Glucose 74 - 99 mg/dL 111 (H) 103 (H) BUN 7 - 21 mg/dL 9 12 Creatinine 0.58 - 0.96 mg/dL 0.67 0.71 Sodium 136 - 144 mmol/L 138 137 Potassium 3.7 - 5.1 mmol/L 3.9 4.4 Chloride 97 - 105 mmol/L 101 103 CO2 22 - 30 mmol/L 27 23 Anion Gap 9 - 18 mmol/L 10 11 eGFR >=60 mL/min/1.73mA? 101 98 TSH 0.270 - 4.200 mIU/L 0.460 Free T4 0.9 - 1.7 ng/dL 1.3 Free T3 2.3 - 4.1 pg/mL 3.0 ALLERGIES Allergen Reactions Augmentin [Amoxicil* Rash Elavil [Amitriptyli* Intolerance Woke up with panic at (more content not included)...[facility] 05-23-2023 Miscellaneous Notes* Telephone Encounter - Josh Allison APRN.CNP - 05/23/2023 7:58 AM EDT GI eval this week. * Telephone Encounter - Katey Chester MD - 05/13/2023 10:30 PM EDT Did we receive [facility] paperwork to complete? Needs appointment so can complete it if so--can do F2F or VV. See MyChart reply * Telephone Encounter - Katey Chester MD - 05/03/2023 11:52 PM EDT See MyChart reply documented in this encounterProm[facility]08-29-2023 Miscellaneous Notes* Telephone Encounter - Lupe Wise LPN - 05/08/2023 4:18 PM EDT TC to Ivan, she does not use [employer] for Dicyclomine. Asking for RX to go to [facility]. Patient has been identified by name and date of : Yes Patient phones for refill(s): Requested Prescriptions Pending Prescriptions Disp Refills dicyclomine (BENTYL) 20 mg tablet 360 tablet 3 Sig: Take 1 tablet by mouth before meals and at bedtime. As directed Date of last office visit in primary care: 03/28/2023 4 month follow-up: 08/03/2023 Last 2 Encounter Wt Readings: Date: Wt: 03/28/2023 68.9 kg (152 lb) 01/31/2023 68.5 kg (151 lb) Previous labs/tests for medication: Not applicable Please advise. Thank you. Lupe Wise LPN documented in this encounterPromed[facility]07-19-2023 NoteHNO ID: [id number] Author: Katey Chester MD Service: ? Author Type: Physician Type: Progress Notes Filed: 05/01/2023 11:41 PM Note Text: This note was created using [employer]. Subjective Ivan Khan is a 57 year old female. Patient presents with: 4 month follow up SUBJECTIVE: Ivan Khan is a 57 year old year old lady here today for 4 month follow up month follow up appointment for review of medical conditions. Dicyclomine has been helping. Vancomycin had helped for first 2 days. Still on med. Diarrhea and constipation back and forth. If does not eat, does not get pain. If eats, gets constipation. Feels better when has diarrhea actually. Drinking bone broth from online tolerated. Has lost weight since November (about 10 pound). Has not heard back from online scheduling about appointment with Dr. Davalos at [place]. Able to stay hydrated. No fevers. No blood in stool. Still off work since recovering from shoulder surgery. PAST MEDICAL HISTORY Diagnosis Date Acute gastritis Carpal tunnel syndrome Degenerative arthritis of right knee Dysmenorrhea Dysthymic disorder Depression (non-psychotic) Esophageal reflux Fibromyalgia 2007 Headache(784.0) Knee pain Rt. Meniscus tear Rt knee Tenosynovitis of elbow right Tinnitus Current Outpatient Medications Medication Sig Vancomycin HCl (FIRVANQ) 50 mg/mL oral liquid Take 2.5 mL by mouth four times daily for 14 days. dicyclomine (BENTYL) 20 mg tablet Take 1 tablet by mouth before meals and at bedtime. clonazePAM (KLONOPIN) 0.5 mg tablet May take 1-2 tablets by mouth at bedtime as needed (insomnia and anxiety). May also take 1 tablet twice daily as needed (insomnia and anxiety). Do all this for 60 days. etodolac (LODINE-XL) 500 mg 24 hr tablet Take 1 tablet by mouth once daily. cyclobenzaprine (FLEXERIL) 10 mg tablet Take 1 tablet by mouth twice daily as needed for muscle spasm. buPROPion SR (WELLBUTRIN SR) 150 mg 12 hr tablet Take 1 tablet by mouth twice daily. fluticasone (FLONASE) 50 mcg/actuation nasal spray Use 2 Sprays in each nostril once daily. As directed for nasal and/or sinus congestion. Rinse mouth after use. predniSONE (DELTASONE) 10 mg tablet Take 2 pills as directed for flare up of back pain. furosemide (LASIX) 20 mg tablet Take 1-2 tablets by mouth once daily. As directed for fluid retention calcium carbonate/vitamin D3 (CALCIUM + D ORAL) Take by mouth once daily. cholecalciferol, vitamin D3, (VITAMIN D3 ORAL) Take by mouth once daily. cyanocobalamin, vitamin B-12, (VITAMIN B-12 ORAL) Take by mouth once daily. TENS UNIT ELECTRODES (TENS UNITS ELECTRODES) 2X2 pads Use electrodes with pads with TENS as directed for back pain. Dispense 1 set monthly pregabalin 75 mg capsule Take 2 capsules by mouth twice daily. No current facility-administered medications for this visit. Review of Systems Objective BP 110/60 Pulse 78 Temp 36.6 ?C (97.8 ?F) Resp 18 Wt 68.9 kg (152 lb) SpO2 99% BMI 26.09 kg/m? Physical Exam Constitutional: Appearance: Normal appearance. HENT: Head: Normocephalic. Eyes: Conjunctiva/sclera: Conjunctivae normal. Cardiovascular: Rate and Rhythm: Normal rate and regular rhythm. Heart sounds: Normal heart sounds. Pulmonary: Effort: Pulmonary effort is normal. Breath sounds: Normal breath sounds. Skin: General: Skin is warm and dry. Neurological: General: No focal deficit present. Mental Status: She is alert and oriented to person, place, and time. Psychiatric: Mood and Affect: Mood normal. Behavior: Behavior normal. Thought Content: Thought content normal. Judgment: Judgment normal. Last labs: Component Latest Ref Rng AND Units 11/01/2020 10/20/2021 01/11/2022 11/28/2022 WBC 3.70 - 11.00 k/uL 8.21 9.57 11.12 (H) 7.95 RBC 3.90 - 5.20 m/uL 4.75 4.30 4.57 4.33 Hemoglobin 11.5 - 15.5 g/dL 13.2 12.1 12.6 12.4 Hematocrit 36.0 - 46.0 % 41.7 37.9 40.8 38.3 MCV 80.0 - 100.0 fL 87.8 88.1 89.3 88.5 MCH 26.0 - 34.0 pg 27.8 28.1 27.6 28.6 MCHC 30.5 - 36.0 g/dL 31.7 31.9 30.9 32.4 RDW-CV 11.5 - 15.0 % 13.3 14.1 13.0 12.7 Platelet Count 150 - 400 k/uL 303 337 394 304 MPV 9.0 - 12.7 fL 9.6 9.4 10.1 9.5 Neut% % 49.7 Abs Neut (ANC) 1.45 - 7.50 k/uL 5.52 Lymph% % 41.0 Abs Lymph 1.00 - 4.00 k/uL 4.56 (H) [place]% % 5.8 Abs [place] <0.87 k/uL 0.65 Eosin% % 1.5 Abs Eosin <0.46 k/uL 0.17 Baso% % 1.6 Abs Baso <0.11 k/uL 0.18 (H) Immature Gran % % 0.4 IMMATURE GRANS (ABS) <0.10 k/uL 0.04 NRBC /100 WBC 0.0 Absolute nRBC <0.01 k/uL <0.01 <0.01 <0.01 <0.01 DTYPE Auto Protein, Total 6.3 - 8.0 g/dL 6.4 6.4 6.8 6.7 Albumin 3.9 - 4.9 g/dL 4.2 4.4 4.1 4.2 Calcium 8.5 - 10.2 mg/dL 9.6 9.6 9.8 9.2 Bilirubin, Total 0.2 - 1.3 mg/dL 0.3 0.3 0.3 0.4 Alkaline Phosphatase 34 - 123 U/L 63 63 53 70 AST 13 - 35 U/L 14 22 27 19 Glucose 74 - 99 mg/dL 98 104 (H) 86 111 (H) BUN 7 - 21 mg/dL 10 9 8 9 Creatinine 0.58 - 0. (more content not included)...[facility] 03-28-2023 History of Present illness Narrative* Katey Chester MD - 03/28/2023 8:58 AM EDT This note was created using [employer]. Subjective Ivan Khan is a 57 year old female. Patient presents with: 4 month follow up SUBJECTIVE: Ivan Khan is a 57 year old year old lady here today for 4 month follow up month follow up appointment for review of medical conditions. Dicyclomine has been helping. Vancomycin had helped for first 2 days. Still on med. Diarrhea and constipation back and forth. If does not eat, does not get pain. If eats, gets constipation. Feels better when has diarrhea actually. Drinking bone broth from online tolerated. Has lost weight since November (about 10 pound). Has not heard back from online scheduling about appointment with Dr. Davalos at [place]. Able to stay hydrated. No fevers. No blood in stool. Still off work since recovering from shoulder surgery. PAST MEDICAL HISTORY Diagnosis Date Acute gastritis Carpal tunnel syndrome Degenerative arthritis of right knee Dysmenorrhea Dysthymic disorder Depression (non-psychotic) Esophageal reflux Fibromyalgia 2006 Headache(784.0) Knee pain Rt. Meniscus tear Rt knee Tenosynovitis of elbow right Tinnitus Current Outpatient Medications Medication Sig Vancomycin HCl (FIRVANQ) 50 mg/mL oral liquid Take 2.5 mL by mouth four times daily for 14 days. dicyclomine (BENTYL) 20 mg tablet Take 1 tablet by mouth before meals and at bedtime. clonazePAM (KLONOPIN) 0.5 mg tablet May take 1-2 tablets by mouth at bedtime as needed (insomnia and anxiety). May also take 1 tablet twice daily as needed (insomnia and anxiety). Do all this for 60 days. etodolac (LODINE-XL) 500 mg 24 hr tablet Take 1 tablet by mouth once daily. cyclobenzaprine (FLEXERIL) 10 mg tablet Take 1 tablet by mouth twice daily as needed for muscle spasm. buPROPion SR (WELLBUTRIN SR) 150 mg 12 hr tablet Take 1 tablet by mouth twice daily. fluticasone (FLONASE) 50 mcg/actuation nasal spray Use 2 Sprays in each nostril once daily. As directed for nasal and/or sinus congestion. Rinse mouth after use. predniSONE (DELTASONE) 10 mg tablet Take 2 pills as directed for flare up of back pain. furosemide (LASIX) 20 mg tablet Take 1-2 tablets by mouth once daily. As directed for fluid retention calcium carbonate/vitamin D3 (CALCIUM + D ORAL) Take by mouth once daily. cholecalciferol, vitamin D3, (VITAMIN D3 ORAL) Take by mouth once daily. cyanocobalamin, vitamin B-12, (VITAMIN B-12 ORAL) Take by mouth once daily. TENS UNIT ELECTRODES (TENS UNITS ELECTRODES) 2X2 pads Use electrodes with pads with TENS as directed for back pain. Dispense 1 set monthly pregabalin 75 mg capsule Take 2 capsules by mouth twice daily. No current facility-administered medications for this visit. Review of Systems Objective BP 110/60 Pulse 78 Temp 36.6 C (97.8 F) Resp 18 Wt 68.9 kg (152 lb) SpO2 99% BMI 26.09 kg/m Physical Exam Constitutional: Appearance: Normal appearance. HENT: Head: Normocephalic. Eyes: Conjunctiva/sclera: Conjunctivae normal. Cardiovascular: Rate and Rhythm: Normal rate and regular rhythm. Heart sounds: Normal heart sounds. Pulmonary: Effort: Pulmonary effort is normal. Breath sounds: Normal breath sounds. Skin: General: Skin is warm and dry. Neurological: General: No focal deficit present. Mental Status: She is alert and oriented to person, place, and time. Psychiatric: Mood and Affect: Mood normal. Behavior: Behavior normal. Thought Content: Thought content normal. Judgment: Judgment normal. Last labs: Component Latest Ref Rng & Units 11/01/2020 10/20/2021 01/11/2022 11/28/2022 WBC 3.70 - 11.00 k/uL 8.21 9.57 11.12 (H) 7.95 RBC 3.90 - 5.20 m/uL 4.75 4.30 4.57 4.33 Hemoglobin 11.5 - 15.5 g/dL 13.2 12.1 12.6 12.4 Hematocrit 36.0 - 46.0 % 41.7 37.9 40.8 38.3 MCV 80.0 - 100.0 fL 87.8 88.1 89.3 88.5 MCH 26.0 - 34.0 pg 27.8 28.1 27.6 28.6 MCHC 30.5 - 36.0 g/dL 31.7 31.9 30.9 32.4 RDW-CV 11.5 - 15.0 % 13.3 14.1 13.0 12.7 Platelet Count 150 - 400 k/uL 303 337 394 304 MPV 9.0 - 12.7 fL 9.6 9.4 10.1 9.5 Neut% % 49.7 Abs Neut (ANC) 1.45 - 7.50 k/uL 5.52 Lymph% % 41.0 Abs Lymph 1.00 - 4.00 k/uL 4.56 (H) [place]% % 5.8 Abs [place] <0.87 k/uL 0.65 Eosin% % 1.5 Abs Eosin <0.46 k/uL 0.17 Baso% % 1.6 Abs Baso <0.11 k/uL 0.18 (H) Immature Gran % % 0.4 IMMATURE GRANS (ABS) <0.10 k/uL 0.04 NRBC /100 WBC 0.0 Absolute nRBC <0.01 k/uL <0.01 <0.01 <0.01 <0.01 DTYPE Auto Protein, Total 6.3 - 8.0 g/dL 6.4 6.4 6.8 6.7 Albumin 3.9 - 4.9 g/dL 4.2 4.4 4.1 4.2 Calcium 8.5 - 10.2 mg/dL 9.6 9.6 9.8 9.2 Bilirubin, Total 0.2 - 1.3 mg/dL 0.3 0.3 0.3 0.4 Alkaline Phosphatase 34 - 123 U/L 63 63 53 70 AST 13 - 35 U/L 14 22 27 19 Glucose 74 - 99 mg/dL 98 104 (H) 86 111 (H) BUN 7 - 21 mg/dL 10 9 8 9 Creatinine 0.58 - 0.96 mg/dL 0.74 0.77 0.72 0.67 Sodium 136 - 144 mmol/L 139 140 141 138 Potassium 3.7 - 5.1 mmol/L 4.2 3.7 4.1 3.9 Chloride 97 - 105 mmol/L 103 101 102 101 CO2 22 - 30 mmol/L 28 28 30 27 Anion Gap 9 - 18 mmol/L 8 (L) 11 9 10 ALT 7 - 38 U/L 11 16 23 14 eGFR- >60 >60 eGFR-All Other Races . >60 >60 eGFR >=60 mL/min/1.73m 98 101 Cholesterol, Total <200 mg/dL 186 Triglyceride <150 mg/dL 104 HDL Cholesterol >39 mg/dL 85 Non HDL Cholesterol <130 mg/dL 101 Fasting Time hrs 12 VLDL Cholesterol <30 mg/dL 21 TC:HDL Ratio <5.10 2.19 LDL Cholesterol <100 mg/dL 80 LDL:HDL Ratio <2.54 0.94 Total Cholesterol, Nonfasting <200 mg/dL 169 Triglycerides, Nonfasting <150 mg/dL 54 HDL Cholesterol, Nonfasting >39 mg/dL 103 LDL Cholesterol, Nonfasting <100 mg/dL 55 Non HDL Cholesterol, Nonfasting <130 mg/dL 66 VLDL Cholesterol, Nonfasting <30 mg/dL 11 Total Chol/HDL Ratio, Nonfasting <5.10 mg/dL 1.64 LDL/HDL Ratio, Nonfasting <2.54 mg/dL 0.53 Hemoglobin A1C (POCT) (%) Date Value 03/28/2023 5.4 Component Latest Ref Rng & Units 01/31/2023 03/21/2023 C. difficile PCR Negative for C. difficile toxin by PCR Positive for C. difficile toxin by PCR (A) Positive for C. difficile toxin by PCR (A) Occult Blood, Stool Negative Negative C. difficile Toxin EIA Negative for C. difficile toxin C. difficile toxin NOT DETECTED by EIA. C. difficile toxin NOT DETECTED by EIA. Assessment and Plan Encounter Diagnosis ICD-10-CM 1. Elevated fasting blood sugar R73.01 HEMOGLOBIN A1C (POC) 2. C. difficile diarrhea A04.72 CONSULT TO GASTROENTEROLOGY 3. Anxiety F41.9 clonazePAM (KLONOPIN) 0.5 mg tablet 4. Constipation, unspecified constipation type K59.00 CONSULT TO GASTROENTEROLOGY 5. Insomnia, unspecified type G47.00 clonazePAM (KLONOPIN) 0.5 mg tablet 6. Bereavement reaction F43.20 clonazePAM (KLONOPIN) 0.5 mg tablet Z63.4 7. Generalized abdominal pain R10.84 CONSULT TO GASTROENTEROLOGY Can e mostly lower abdominal pain; when gets more severe, then generalized abdominal pain. Happens when gets constipation between bouts of diarrhea Above issues addressed with patient. Patient involved in shared decision making for management of medical issues. History and medications reviewed. Epic updated as needed Refills and/or prescriptions taken care of and meds adjusted as indicated after reviewed history, exam and labs. Health Maintenance reviewed. Updated record and/or ordered tests as recorded. Encouraged on efforts at healthy diet and regular exercise and adequate sleep. Further evaluation and treatment as indicated. I spent a total of 35 minutes on the date of the service which included preparing to see the patient, [id number] patient care, completing clinical documentation, performing a medically appropriate examination, counseling and educating the patient/family/caregiver, ordering medications, tests, or p rocedures, independently interpreting results (not separately reported), and communicating results to the patient/family/caregiver. Katey Chester MD documented in this encounterPromed[facility]07-17-[facility]23 Miscellaneous Notes* Telephone Encounter - Josh Allison APRN.CNP - 03/26/2023 12:44 PM EDT See separate encounter documented in this encounterPromedica [facility]07-14-2023 Miscellaneous Notes* Telephone Encounter - Josh Allison APRN.CNP - 03/23/2023 12:27 PM EDT documented in this encounterPromedica [facility]06-01-2023 Miscellaneous Notes* Telephone Encounter - Ashlyn Ryanne Alfred LPN - 02/08/2023 9:08 AM EDT Spoke with the pharmacy and pt has refills on her Flexeril there. Pt was notified. Ashlynbrenton Pearl Tima CORDOBA documented in this encounterPromedica Fost[facility]05-31-2023 Miscellaneous Notes* Telephone Encounter - Aura Alvarez LPN - 02/07/2023 11:50 AM EDT Last office visit: 01/31/23 Next appointment scheduled: 03/28/23 Patient phones requesting refills as follows: Requested Prescriptions Pending Prescriptions Disp Refills etodolac (LODINE-XL) 500 mg 24 hr tablet 30 tablet 11 Sig: Take 1 tablet by mouth once daily. Aura Alvarez LPN documented in this encounterPromedica Fostoria [facility]05-24-2023 History of Present illness Narrative* Woodrow Mancilla RT(R) - 01/31/2023 8:20 AM EDT Radiology Service Progress Note PATIENT NAME: Ivan Khan DATE OF SERVICE: January 31, 2023 TIME: 8:05 AM PATIENT IDENTITY VERIFICATION COMPLETED USING TWO (2) IDENTIFIERS: Name and Date of confirmedby patient verbally. FALL SCREENING: Has the patient had 2 falls in the last year or 1 fall with injury or currently using an Ambulatory Assistive Device (Walker, Cane, Wheelchair, Crutches, etc.)? No PATIENT GENDER DATA: Female. status: : No status: NO. PATIENT RELEVANT IMPLANT DATA REVIEWED: Not Applicable RADIOLOGY DEPARTMENT: General X-ray: Exam(s) Completed: Abdomen X-Ray: Abdomen PERIPHERAL IV DATA: Not applicable SIGNED BY: RT Lynsey(R) January 31, 2023 8:05 AM documented in this encounterPromedica Fost[facility]05-08-2023 Note ORIGINAL EXAMINATION: MRI OF THE LEFT SHOULDER WITHOUT CONTRAST01/15/2023 9:22 am TECHNIQUE: Multiplanar multisequence MRI of the left shoulder was performed without the administration of intravenous contrast. COMPARISON: None HISTORY: ORDERING SYSTEM PROVIDED HISTORY: Reason for Exam: LEFT SHOULDER SPRAIN. FINDINGS: MUSCLES AND TENDONS: Low-grade partial articular sided tearing is noted of the far anterior and anterior supraspinatus tendon with retraction to the humeral head vertex. Intermediate grade partial articular sided tearing is noted of the mid supraspinatus tendon extending to the anterior infraspinatus tendon with retraction to the level of the humeral head vertex. These findings are superimposed upon mild tendinosis. For the remainder of the infraspinatus tendon appears intact. The teres minor tendon is intact. The subscapularis tendon is intact. The tendon of the long head of the biceps is intact and is seated within the bicipital groove distally. No significant rotator cuff muscle atrophy is evident. No mass is evident at the suprascapular notch, spinoglenoid notch, or the quadrilateral space. OSSEOUS STRUCTURES AND JOINTS: No displaced glenoid labral tear is evident on this non-arthrographic examination. There is suspicion for a tear of the posterosuperior through posteroinferior labrum. Scattered labral degeneration. There is no significant degenerative change of the glenohumeral joint. There is very mild degenerative change of the acromioclavicular joint with capsular distension and minimal reactive marrow edema. The acromion is Type I in morphology with mild lateral downsloping. There is no significant glenohumeral joint effusion. No fracture or dislocation is evident. Cystic changes are seen at the greater tubercle of the humerus. Marrow edema is noted of the coracoid process at the origin of the short head biceps/coracobrachialis tendons with surrounding soft tissue edema, nonspecific. Bone marrow signal intensity is otherwise within normal limits. No visualized marrow replacing osseous lesions. SOFT TISSUES: There is small volume of fluid in the subacromial subdeltoid bursa. There is no significant volume of fluid in the subcoracoid bursa. Associated soft tissues of the shoulder are grossly unremarkable. IMPRESSION: 1. Partial tearing of the supraspinatus and infraspinatus tendons superimposed upon tendinosis with retraction. Mild subacromial-subdeltoid bursitis. 2. Suspicion for posterosuperior through posteroinferior labral tear. Consider confirmation with MR arthrogram. 3. Nonspecific bone marrow edema of the coracoid process of the scapula without macrotrabecular fracture. Surrounding soft tissue edema. An osseous contusion or stress related changes are considered. Interpreted by: Anthony Flores DO Preliminary Report By: Anthony Flores DO Electronically signed By Anthony Flores DO Dictated Date: 01/15/2023 9:50:45 AM Prelim Date: 01/15/2023 10:02:34 AM Sign Date: 01/15/2023 10:02:34 AM Ordering Provider: DILCIA VALDERRAMA [facility]05-08-2023 Note ORIGINAL EXAMINATION: MRI OF THE LEFT SHOULDER WITHOUT CONTRAST01/15/2023 9:22 am TECHNIQUE: Multiplanar multisequence MRI of the left shoulder was performed without the administration of intravenous contrast. COMPARISON: None HISTORY: ORDERING SYSTEM PROVIDED HISTORY: Reason for Exam: LEFT SHOULDER SPRAIN. FINDINGS: MUSCLES AND TENDONS: Low-grade partial articular sided tearing is noted of the far anterior and anterior supraspinatus tendon with retraction to the humeral head vertex. Intermediate grade partial articular sided tearing is noted of the mid supraspinatus tendon extending to the anterior infraspinatus tendon with retraction to the level of the humeral head vertex. These findings are superimposed upon mild tendinosis. For the remainder of the infraspinatus tendon appears intact. The teres minor tendon is intact. The subscapularis tendon is intact. The tendon of the long head of the biceps is intact and is seated within the bicipital groove distally. No significant rotator cuff muscle atrophy is evident. No mass is evident at the suprascapular notch, spinoglenoid notch, or the quadrilateral space. OSSEOUS STRUCTURES AND JOINTS: No displaced glenoid labral tear is evident on this non-arthrographic examination. There is suspicion for a tear of the posterosuperior through posteroinferior labrum. Scattered labral degeneration. There is no significant degenerative change of the glenohumeral joint. There is very mild degenerative change of the acromioclavicular joint with capsular distension and minimal reactive marrow edema. The acromion is Type I in morphology with mild lateral downsloping. There is no significant glenohumeral joint effusion. No fracture or dislocation is evident. Cystic changes are seen at the greater tubercle of the humerus. Marrow edema is noted of the coracoid process at the origin of the short head biceps/coracobrachialis tendons with surrounding soft tissue edema, nonspecific. Bone marrow signal intensity is otherwise within normal limits. No visualized marrow replacing osseous lesions. SOFT TISSUES: There is small volume of fluid in the subacromial subdeltoid bursa. There is no significant volume of fluid in the subcoracoid bursa. Associated soft tissues of the shoulder are grossly unremarkable. IMPRESSION: 1. Partial tearing of the supraspinatus and infraspinatus tendons superimposed upon tendinosis with retraction. Mild subacromial-subdeltoid bursitis. 2. Suspicion for posterosuperior through posteroinferior labral tear. Consider confirmation with MR arthrogram. 3. Nonspecific bone marrow edema of the coracoid process of the scapula without macrotrabecular fracture. Surrounding soft tissue edema. An osseous contusion or stress related changes are considered. Interpreted by: Anthony Flores DO Preliminary Report By: Anthony Flores DO Electronically signed By Anthony Flores DO Dictated Date: 01/15/2023 9:50:45 AM Prelim Date: 01/15/2023 10:02:34 AM Sign Date: 01/15/2023 10:02:34 AM Ordering Provider: [facility]05-05-2023 History of Present illness Narrative* Josh Allison APRN.[facility] - 01/12/2023 2:22 PM EDT SUBJECTIVE Ivan Khan is a 57 year old female here today for acute concerns. Chief Complaint Patient presents with: Abdominal Pain HPI Ivan Khan is a 57 year old female established patient who presents today acutely for concerns of abdominal issues. Onset initially was about 2 weeks ago. History of diverticulitis. Last episode was several months ago. Gets issues with constipation when this occurs. Having constipation but did have a bowel movement last evening. No blood in her stool. No nausea or vomiting. Appetite is decreased. Pain is more mild today. Her medications were reviewed today and her list is now up to date. Medications Current Outpatient Medications Medication Sig cyclobenzaprine (FLEXERIL) 10 mg tablet Take 1 tablet by mouth twice daily as needed for muscle spasm. buPROPion SR (WELLBUTRIN SR) 150 mg 12 hr tablet Take 1 tablet by mouth twice daily. clonazePAM (KLONOPIN) 0.5 mg tablet May take 1-2 tablets by mouth at bedtime as needed (insomnia and anxiety). May also take 1 tablet twice daily as needed (insomnia and anxiety). Do all this for 60 days. fluticasone (FLONASE) 50 mcg/actuation nasal spray Use 2 Sprays in each nostril once daily. As directed for nasal and/or sinus congestion. Rinse mouth after use. predniSONE (DELTASONE) 10 mg tablet Take 2 pills as directed for flare up of back pain. etodolac (LODINE-XL) 500 mg 24 hr tablet Take 1 tablet by mouth once daily. furosemide (LASIX) 20 mg tablet Take 1-2 tablets by mouth once daily. As directed for fluid retention calcium carbonate/vitamin D3 (CALCIUM + D ORAL) Take by mouth once daily. cholecalciferol, vitamin D3, (VITAMIN D3 ORAL) Take by mouth once daily. cyanocobalamin, vitamin B-12, (VITAMIN B-12 ORAL) Take by mouth once daily. pregabalin 75 mg capsule Take 2 capsules by mouth twice daily. metroNIDAZOLE (FLAGYL) 500 mg tablet Take 1 tablet by mouth twice daily for 7 days. ciprofloxacin HCl (CIPRO) 500 mg tablet Take 1 tablet by mouth twice daily for 7 days. TENS UNIT ELECTRODES (TENS UNITS ELECTRODES) 2X2 pads Use electrodes with pads with TENS as directed for back pain. Dispense 1 set monthly No current facility-administered medications for this visit. ALLERGIES Allergen Reactions Augmentin [Amoxicil* Rash Elavil [Amitriptyli* Intolerance Woke up with panic attacks Morphine Vomiting Penicillins Other: See Comments augmentin cross sensitivity ACTIVE PROBLEM LIST Vitreous Floaters of Both Eyes - 07/25/2018 Punctate Keratitis, Bilateral - 07/25/2018 Presbyopia - 07/25/2018 Primary Osteoarthritis of First Carpometacarpal Joint of Right Hand - 12/13/2017 Primary Osteoarthritis of First Carpometacarpal Joint of Left Hand - 12/13/2017 Pain of Right Thumb - 12/13/2017 Fibromyalgia Backache, Unspecified - 11/13/2013 History of Total Knee Arthroplasty - 09/05/2012 History of Tobacco Use - 07/22/2012 Esophageal Reflux Dysthymic Disorder Comment: Depression (non-psychotic) Social History Tobacco Use Smoking status: Former Packs/day: 0.50 Years: 15.00 Pack years: 7.50 Types: Cigarettes Quit date: 10/11/2015 Years since quittin.2 Smokeless tobacco: Former Quit date: 08/10/2013 Vaping Use Vaping Use: Never used Substance Use Topics Alcohol use: No Comment: occasionally Drug use: No Review of Systems Constitutional: Positive for appetite change. Negative for diaphoresis, fatigue and fever. Respiratory: Negative. Cardiovascular: Negative. OBJECTIVE There were no vitals taken for this visit. Physical Exam Vitals and nursing note reviewed. Constitutional: General: She is awake. She is not in acute distress. Appearance: Normal appearance. She is well-developed and well-groomed. She is not ill-appearing, toxic-appearing or diaphoretic. HENT: Head: Normocephalic. Right Ear: External ear normal. Left Ear: External ear normal. Nose: Nose normal. Eyes: General: Vision grossly intact. Conjunctiva/sclera: Conjunctivae normal. Pupils: Pupils are equal, round, and reactive to light. Neck: Vascular: No JVD. Trachea: Trachea normal. Cardiovascular: Rate and Rhythm: Normal rate and regular rhythm. Pulses: Normal pulses. Heart sounds: Normal heart sounds. No murmur heard. Pulmonary: Effort: Pulmonary effort is normal. No accessory muscle usage, prolonged expiration or respiratory distress. Breath sounds: Normal breath sounds. Abdominal: General: Bowel sounds are normal. Palpations: Abdomen is soft. Tenderness: There is no abdominal tenderness. Musculoskeletal: Cervical back: Neck supple. Skin: General: Skin is warm and dry. Capillary Refill: Capillary refill takes less than 2 seconds. Neurological: General: No focal deficit present. Mental Status: She is alert and oriented to person, place, and time. Mental status is at baseline. Psychiatric: Attention and Perception: Attention and perception normal. Mood and Affect: Mood and affect normal. Speech: Speech normal. Behavior: Behavior normal. Behavior is cooperative. Thought Content: Thought content normal. Cognition and Memory: Cognition and memory normal. Judgment: Judgment normal. ASSESSMENT/PLAN: 1. Diverticulitis - ICD9: 562.11, ICD10: K57.92 Symptoms improving but with going in to the weekend will send in for cipro and flagyl in case symptoms worsen. - METRONIDAZOLE 500 MG TABLET - CIPROFLOXACIN 500 MG TABLET Portions of this note have been entered by ancillary staff. I have reviewed and when necessary edited, so that they are an adequate record of my encounter with this patient Please note that parts of this document were created using voice recognition software and therefore may contain grammatical errors. Patient verbalizes understanding of instructions from today's visit and in agreement with treatmentplan. Questions answered. Agrees to call the office if questions, concerns of issues with acute symptoms not improving or if they worsen. Return if symptoms worsen or fail to improve, for Keep next scheduled appointment.. Josh Allison APRN-CELINA documented in this encounterPromedica Fost[facility]05-05-2023 Miscellaneous Notes* Telephone Encounter - Aura Alvarez LPN - 01/12/2023 11:15 AM EDT Patient scheduled 01/12/2023 with Josh Allison * Telephone Encounter - Josh Allison APRN.CNP - 01/12/2023 9:53 AM EDT Looks like she has seen general surgery, Dr. Hill, in the past. Recommend either an in office or virtual visit either with internal med or general surgery to discuss further and decide on treatment and next steps. documented in this encounterPromedica [facility]ost[facility]04-21-2023 Miscellaneous Notes* Letter - Mammography Coordinator - 12/29/2022 9:53 AM EDT January 01, 2023 PID: [id number] Ivan Khan [address] [place] [address] Dear Ms. Khan, We are pleased to inform you that the results of your recent breast imaging exam on 12/28/2022 are normal. Early detection of cancer is very important. We also understand recommendations regarding breast cancer screening are controversial. Please discuss with your primary care provider which strategy is best for you and whether a mammogram is right for you. Your imaging studies and report will be kept on file at [facility] as part of your permanent medical record and are available for your continuing care. Thank you for allowing us to help in meeting your health care needs. Sincerely, Dr. North Interpreting Radiologist [facility] (Normal over 40) documented in this encounterPromedica Fostoria [facility]04-20-2023 History of Present illness Narrative* Oly Al RT(R) - 12/28/2022 12:30 PM EDT Radiology Service Progress Note PATIENT NAME: Ivan Khan DATE OF SERVICE: December 28, 2022 TIME: 12:25 PM PATIENT IDENTITY VERIFICATION COMPLETED USING TWO (2) IDENTIFIERS: Name and Date of confirmedby patient verbally. FALL SCREENING: Has the patient had 2 falls in the last year or 1 fall with injury or currently using an Ambulatory Assistive Device (Walker, Cane, Wheelchair, Crutches, etc.)? No PATIENT GENDER DATA: Female. status: : No status: NO. PATIENT RELEVANT IMPLANT DATA REVIEWED: Not Applicable RADIOLOGY DEPARTMENT: Mammography PERIPHERAL IV DATA: Not applicable SIGNED BY: RT Cristobal(Ebonie) December 28, 2022 12:25 PM documented in this encounterPromedica Fost[facility]03-22-2023 History of Present illness Narrative* Katey Chester MD - 11/29/2022 8:40 AM EDT This note was created using NoteWriter. Subjective Ivan Khan is a 57 year old female. Patient presents with: F/U 4 month SUBJECTIVE: Ivan Khan is a 57 year old year old here today for 4 month follow up appointment for review of medical conditions. Noted issues with shoulders due to work. BWC covering. 15 weeks off minimum for right shoulder. Having sinus tenderness and pain the past 3 to 4 weeks. Just not resolving. Feels like prior sinusitis. Yellow drainage and some bleeding. Does have cold and allergy meds--helps some. Staying away from red meat to prevent diverticulitis. Also taking Miralax daily. Anxiety--fair control with current meds. No adverse effects from clonazepam. Depression stable with bupropion. PAST MEDICAL HISTORY Diagnosis Date Acute gastritis Carpal tunnel syndrome Degenerative arthritis of right knee Dysmenorrhea Dysthymic disorder Depression (non-psychotic) Esophageal reflux Fibromyalgia 2006 Headache(784.0) Knee pain Rt. Meniscus tear Rt knee Tenosynovitis of elbow right Tinnitus Current Outpatient Medications Medication Sig clonazePAM (KLONOPIN) 0.5 mg tablet May take 1-2 tablets by mouth at bedtime as needed (insomnia and anxiety). May also take 1 tablet twice daily as needed (insomnia and anxiety). Do all this for 60 days. fluticasone (FLONASE) 50 mcg/actuation nasal spray Use 2 Sprays in each nostril once daily. As directed for nasal and/or sinus congestion. Rinse mouth after use. predniSONE (DELTASONE) 10 mg tablet Take 2 pills as directed for flare up of back pain. etodolac (LODINE-XL) 500 mg 24 hr tablet Take 1 tablet by mouth once daily. furosemide (LASIX) 20 mg tablet Take 1-2 tablets by mouth once daily. As directed for fluid retention calcium carbonate/vitamin D3 (CALCIUM + D ORAL) Take by mouth once daily. cholecalciferol, vitamin D3, (VITAMIN D3 ORAL) Take by mouth once daily. cyanocobalamin, vitamin B-12, (VITAMIN B-12 ORAL) Take by mouth once daily. TENS UNIT ELECTRODES (TENS UNITS ELECTRODES) 2X2 pads Use electrodes with pads with TENS as directed for back pain. Dispense 1 set monthly pregabalin 75 mg capsule Take 2 capsules by mouth twice daily. cyclobenzaprine (FLEXERIL) 10 mg tablet Take 1 tablet by mouth twice daily as needed for muscle spasm. buPROPion SR (WELLBUTRIN SR) 150 mg 12 hr tablet Take 1 tablet by mouth twice daily. peg 3350-Electrolytes (GOLYTELY) 236-22.74-6.74 -5.86 gram suspension Refer to printed prep instructions from your provider. (Patient not taking: Reported on 11/29/2022) No current facility-administered medications for this visit. Review of Systems Objective BP 118/62 Pulse 86 Temp 36.7 C (98 F) Resp 18 Wt 70.3 kg (155 lb) SpO2 97% BMI 26.61 kg/m Last 5 Encounter Wt Readings: Date: Wt: 11/29/2022 70.3 kg (155 lb) 07/28/2022 68.9 kg (152 lb) 03/20/2022 69.4 kg (153 lb) 01/16/2022 71.9 kg (158 lb 9.6 oz) 01/11/2022 72.6 kg (160 lb) Last 1 Waist Readings: Date: Waist: 04/26/15 38 (96 cm.) Estimated body mass index is 26.61 kg/m as calculated from the following: Height as of 01/16/22: 162.6 cm (5' 4). Weight as of this encounter: 70.3 kg (155 lb). Last 5 Encounter BP Readings: Date: BP: 11/29/2022 118/62 07/28/2022 112/70 03/20/2022 122/78 02/17/2022 146/67 01/16/2022 130/82 Physical Exam Constitutional: Appearance: Normal appearance. HENT: Head: Normocephalic. Comments: Tenderness over maxillary sinuses Eyes: Conjunctiva/sclera: Conjunctivae normal. Cardiovascular: Rate and Rhythm: Normal rate and regular rhythm. Heart sounds: Normal heart sounds. Pulmonary: Effort: Pulmonary effort is normal. Breath sounds: Normal breath sounds. Musculoskeletal: Right lower leg: Edema present. Left lower leg: Edema present. Skin: General: Skin is warm and dry. Neurological: General: No focal deficit present. Mental Status: She is alert and oriented to person, place, and time. Psychiatric: Mood and Affect: Mood normal. Behavior: Behavior normal. Thought Content: Thought content normal. Judgment: Judgment normal. Component Latest Ref Rng & Units 10/20/2021 01/11/2022 11/28/2022 WBC 3.70 - 11.00 k/uL 9.57 11.12 (H) 7.95 RBC 3.90 - 5.20 m/uL 4.30 4.57 4.33 Hemoglobin 11.5 - 15.5 g/dL 12.1 12.6 12.4 Hematocrit 36.0 - 46.0 % 37.9 40.8 38.3 MCV 80.0 - 100.0 fL 88.1 89.3 88.5 MCH 26.0 - 34.0 pg 28.1 27.6 28.6 MCHC 30.5 - 36.0 g/dL 31.9 30.9 32.4 RDW-CV 11.5 - 15.0 % 14.1 13.0 12.7 Platelet Count 150 - 400 k/uL 337 394 304 MPV 9.0 - 12.7 fL 9.4 10.1 9.5 Neut% % 49.7 Abs Neut (ANC) 1.45 - 7.50 k/uL 5.52 Lymph% % 41.0 Abs Lymph 1.00 - 4.00 k/uL 4.56 (H) [place]% % 5.8 Abs [place] <0.87 k/uL 0.65 Eosin% % 1.5 Abs Eosin <0.46 k/uL 0.17 Baso% % 1.6 Abs Baso <0.11 k/uL 0.18 (H) Immature Gran % % 0.4 IMMATURE GRANS (ABS) <0.10 k/uL 0.04 NRBC /100 WBC 0.0 Absolute nRBC <0.01 k/uL <0.01 <0.01 <0.01 DTYPE Auto Protein, Total 6.3 - 8.0 g/dL 6.4 6.8 6.7 Albumin 3.9 - 4.9 g/dL 4.4 4.1 4.2 Calcium 8.5 - 10.2 mg/dL 9.6 9.8 9.2 Bilirubin, Total 0.2 - 1.3 mg/dL 0.3 0.3 0.4 Alkaline Phosphatase 34 - 123 U/L 63 53 70 AST 13 - 35 U/L 22 27 19 Glucose 74 - 99 mg/dL 104 (H) 86 111 (H) BUN 7 - 21 mg/dL 9 8 9 Creatinine 0.58 - 0.96 mg/dL 0.77 0.72 0.67 Sodium 136 - 144 mmol/L 140 141 138 Potassium 3.7 - 5.1 mmol/L 3.7 4.1 3.9 Chloride 97 - 105 mmol/L 101 102 101 CO2 22 - 30 mmol/L 28 30 27 Anion Gap 9 - 18 mmol/L 11 9 10 ALT 7 - 38 U/L 16 23 14 eGFR- >60 eGFR-All Other Races . >60 eGFR >=60 mL/min/1.73m 98 101 Cholesterol, Total <200 mg/dL 186 Triglyceride <150 mg/dL 104 HDL Cholesterol >39 mg/dL 85 Non HDL Cholesterol <130 mg/dL 101 Fasting Time hrs 12 VLDL Cholesterol <30 mg/dL 21 TC:HDL Ratio <5.10 2.19 LDL Cholesterol <100 mg/dL 80 LDL:HDL Ratio <2.54 0.94 Total Cholesterol, Nonfasting <200 mg/dL 169 Triglycerides, Nonfasting <150 mg/dL 54 HDL Cholesterol, Nonfasting >39 mg/dL 103 LDL Cholesterol, Nonfasting <100 mg/dL 55 Non HDL Cholesterol, Nonfasting <130 mg/dL 66 VLDL Cholesterol, Nonfasting <30 mg/dL 11 Total Chol/HDL Ratio, Nonfasting <5.10 mg/dL 1.64 LDL/HDL Ratio, Nonfasting <2.54 mg/dL 0.53 Lipase 16 - 61 U/L 22 Amylase 30 - 104 U/L 67 Assessment and Plan Encounter Diagnosis ICD-10-CM 1. Encounter for immunization Z23 2. Acute non-recurrent maxillary sinusitis J01.00 azithromycin (ZITHROMAX Z-DENNIS) 250 mg tablet yellow drainage with sinus pain and pressure 3. Cervicalgia M54.2 cyclobenzaprine (FLEXERIL) 10 mg tablet 4. Chronic midline low back pain with sciatica, sciatica laterality unspecified M54.40 cyclobenzaprine (FLEXERIL) 10 mg tablet G89.29 5. Dysthymic disorder F34.1 buPROPion SR (WELLBUTRIN SR) 150 mg 12 hr tablet Ongoing stressors noted with shoulder issues--getting better 6. Insomnia, unspecified type G47.00 clonazePAM (KLONOPIN) 0.5 mg tablet 7. Anxiety F41.9 clonazePAM (KLONOPIN) 0.5 mg tablet 8. Bereavement reaction F43.20 clonazePAM (KLONOPIN) 0.5 mg tablet Z63.4 Above issues addressed with patient. Patient involved in shared decision making for management of medical issues. History and medications reviewed. Epic updated as needed Refills and/or prescriptions taken care of and meds adjusted as indicated after reviewed history, exam and labs. Health Maintenance reviewed. Updated record and/or ordered tests as recorded. Encouraged on efforts at healthy diet and regular exercise and adequate sleep. Stable with control of anxiety. At this time benefits outweigh risks. Continue to monitor for adverse effects and indications for decreasing dose or tapering off. No signs of diversion or abuse of medication(s); no adverse effects. Continue present management. Katey Chester MD documented in this encounterPromedica [facility]03-20-2023 Miscellaneous Notes* Telephone Encounter - Katey Chester MD - 11/27/2022 3:05 PM EDT Filed orders * Telephone Encounter - Radha Grullon LPN - 11/27/2022 2:38 PM EDT Patient at [facility] lab to have labs drawn. States was to have orders placed in 07/2022. None noted. Waiting for orders. Call ext [phone] or teams message Luly Garner with response at the lab. Radha Grullon LPN documented in this encounterPromedica Fost[facility]07-20-2022 Miscellaneous Notes* Telephone Encounter - Dianne Bruce Ma - 03/29/2022 1:15 PM EDT Copy sent to [facility], original mailed to patient * Telephone Encounter - Dianne Bruce Ma - 03/21/2022 12:59 PM EDT FMLa paperwork completed by Dr. Chester and faxed 03/20 documented in this encounterPromedica [facility]07-11-2022 History of Present illness Narrative* Katey Chester MD - 03/20/2022 9:42 AM EDT This note was created using BioTrove. Subjective Ivan Khan is a 56 year old female. Patient presents with: Follow Up SUBJECTIVE: Ivan Khan is a 56 year old year old lady here today for follow up appointment for review of medical conditions. Noted back issues with work. Flexeril still helps. Noted stressors. PAST MEDICAL HISTORY Diagnosis Date Acute gastritis Carpal tunnel syndrome Degenerative arthritis of right knee Dysmenorrhea Dysthymic disorder Depression (non-psychotic) Esophageal reflux Fibromyalgia 2006 Headache(784.0) Knee pain Rt. Meniscus tear Rt knee Tenosynovitis of elbow right Tinnitus Current Outpatient Medications Medication Sig clonazePAM (KLONOPIN) 0.5 mg tablet May take 1-2 tablets by mouth at bedtime as needed (insomnia and anxiety). May also take 1 tablet twice daily as needed (insomnia and anxiety). Do all this for 60 days. predniSONE (DELTASONE) 10 mg tablet Take 2 pills as directed for flare up of back pain. peg 3350-Electrolytes (GOLYTELY) 236-22.74-6.74 -5.86 gram suspension Refer to printed prep instructions from your provider. [START ON 03/25/2022] sertraline (ZOLOFT) 50 mg tablet Take 1 tablet by mouth once daily. etodolac (LODINE-XL) 500 mg 24 hr tablet Take 1 tablet by mouth once daily. cyclobenzaprine (FLEXERIL) 10 mg tablet Take 1 tablet by mouth twice daily as needed for muscle spasm. furosemide (LASIX) 20 mg tablet Take 1-2 tablets by mouth once daily. As directed for fluid retention buPROPion SR (WELLBUTRIN SR) 150 mg 12 hr tablet Take 1 tablet by mouth twice daily. fluticasone (FLONASE) 50 mcg/actuation nasal spray Use 2 Sprays in each nostril once daily. As directed for nasal and/or sinus congestion. Rinse mouth after use. calcium carbonate/vitamin D3 (CALCIUM + D ORAL) Take by mouth once daily. cholecalciferol, vitamin D3, (VITAMIN D3 ORAL) Take by mouth once daily. cyanocobalamin, vitamin B-12, (VITAMIN B-12 ORAL) Take by mouth once daily. TENS UNIT ELECTRODES (TENS UNITS ELECTRODES) 2X2 pads Use electrodes with pads with TENS as directed for back pain. Dispense 1 set monthly pregabalin 75 mg capsule Take 2 capsules by mouth twice daily. No current facility-administered medications for this visit. Review of Systems Objective BP 122/78 Pulse 86 Wt 69.4 kg (153 lb) SpO2 98% BMI 26.26 kg/m Last 5 Encounter Wt Readings: Date: Wt: 03/20/2022 69.4 kg (153 lb) 01/16/2022 71.9 kg (158 lb 9.6 oz) 01/11/2022 72.6 kg (160 lb) 01/06/2022 71.7 kg (158 lb) 11/25/2021 73.5 kg (162 lb) Last 1 Waist Readings: Date: Waist: 04/26/15 38 (96 cm.) Estimated body mass index is 26.26 kg/m as calculated from the following: Height as of 01/16/22: 162.6 cm (5' 4). Weight as of this encounter: 69.4 kg (153 lb). Last 5 Encounter BP Readings: Date: BP: 03/20/2022 122/78 02/17/2022 146/67 01/16/2022 130/82 01/11/2022 122/76 01/06/2022 122/68 Physical Exam Constitutional: Appearance: Normal appearance. HENT: Head: Normocephalic. Eyes: Conjunctiva/sclera: Conjunctivae normal. Cardiovascular: Rate and Rhythm: Normal rate and regular rhythm. Heart sounds: Normal heart sounds. Pulmonary: Effort: Pulmonary effort is normal. Breath sounds: Normal breath sounds. Skin: General: Skin is warm and dry. Neurological: General: No focal deficit present. Mental Status: She is alert and oriented to person, place, and time. Psychiatric: Mood and Affect: Mood normal. Behavior: Behavior normal. Thought Content: Thought content normal. Judgment: Judgment normal. Assessment and Plan ASSESSMENT/PLAN: 1. Cervicalgia - ICD9: 723.1, ICD10: M54.2 (primary diagnosis) - CYCLOBENZAPRINE 10 MG TABLET 2. Chronic midline low back pain with sciatica, sciatica laterality unspecified - ICD9: 724.2, 724.3, 338.29, ICD10: M54.40, G89.29 - CYCLOBENZAPRINE 10 MG TABLET 3. Bereavement - ICD9: V62.82, ICD10: Z63.4 FMLA form completed to extend another year 4. Anxiety - ICD9: 300.00, ICD10: F41.9 FMLA form completed to extend another year 5. Need for vaccination - ICD9: V05.9, ICD10: Z23 - ZOSTER VACC RECOMBINANT,IM Katey Chester MD documented in this encounterPromedica [facility]06-07-2022 Miscellaneous Notes* Telephone Encounter - Ashlyn Alfred LPN - 02/14/2022 8:57 AM EDT Spoke with pt and she states was on a different job and needed to take more than she usually takes.Back to now. Will discuss further at her next apt. Ashlyn Alfred LPN * Telephone Encounter - Katey Chester MD - 02/14/2022 1:15 AM EDT Needs to discuss how often she is needing to take the prednisone since filled bother the RX and therefill since November. Usually, RX lasts more than a couple months. Gave RX without refills so can clarify if having more severe so can make referral to pain management or PT or spine center as indicated If just needed to have on hand just in case, can wait to discuss at upcoming appointment. But if has been needing to take routinely, will need to discuss weaning off pain med gradually. The following approved medication requests have been transmitted electronically. 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 She has had abdominal pain, presently she states that the pain is 2-3 out of 10. She denies previous episodes to this. She had a previous colonoscopy in 2015. She notes no colon cancer in her immediate family. She was seen at [facility] for abdominal pain. [facility] encounters - -12/21/2021 - CT scan - acute sigmoid diverticulitis -12/28/2021 -normal WBC, no left shift PAST MEDICAL HISTORY Diagnosis Date Acute gastritis Carpal tunnel syndrome Degenerative arthritis of right knee Dysmenorrhea Dysthymic disorder Depression (non-psychotic) Esophageal reflux Fibromyalgia 2006 Headache(784.0) Knee pain Rt. Meniscus tear Rt knee Tenosynovitis of elbow right Tinnitus PAST SURGICAL HISTORY Procedure Laterality Date ARTHRP INTERPOS INTERCARPAL/METACARPAL JOINTS Right 12/28/2017 Right thumb, CMC arthroplasty with ligament reconstruction and tendon interposition ARTHRP KNE CONDYLE&PLATU MEDIAL&LAT COMPARTMENTS Right 2011 Knee replacement, total COLONOSCOPY W/BIOPSY 12/17/2015 Normal; Diverticulosis sigmoid colon EGD TRANSORAL BIOPSY SINGLE/MULTIPLE 09/28/15 EGD TRANSORAL BIOPSY SINGLE/MULTIPLE 12/17/2015 Minimal gastritis LAPS SURG CHOLECYSTECTOMY W/CHOLANGIOGRAPHY 10/26/15 Normal IOC NEUROPLASTY &/TRANSPOS MEDIAN NRV CARPAL TUNNE 12/1977 Carpal tunnel decomp right PAST SURGICAL HISTORY OF 1995 Right knee arthroscopy PAST SURGICAL HISTORY OF sinus surgery PAST SURGICAL HISTORY OF right elbow- tennis elbow VAGINAL HYSTERECTOMY UTERUS 250 GM/< 2000 Current Outpatient Medications Medication Sig ciprofloxacin HCl (CIPRO) 500 mg tablet Take 1 tablet by mouth twice daily for 7 days. metroNIDAZOLE (FLAGYL) 500 mg tablet Take 1 tablet by mouth every 8 hours for 7 days. [START ON 03/25/2022] sertraline (ZOLOFT) 50 mg tablet Take 1 tablet by mouth once daily. [START ON 03/05/2022] etodolac (LODINE-XL) 500 mg 24 hr tablet Take 1 tablet by mouth once daily. cyclobenzaprine (FLEXERIL) 10 mg tablet Take 1 tablet by mouth twice daily as needed for muscle spasm. predniSONE (DELTASONE) 10 mg tablet Take 2 pills as directed for flare up of back pain. clonazePAM (KLONOPIN) 0.5 mg tablet May take 1-2 tablets by mouth at bedtime as needed (insomnia and anxiety). May also take 1 tablet twice daily as needed (insomnia and anxiety). Do all this for 60 days. furosemide (LASIX) 20 mg tablet Take 1-2 tablets by mouth once daily. As directed for fluid retention buPROPion SR (WELLBUTRIN SR) 150 mg 12 hr tablet Take 1 tablet by mouth twice daily. fluticasone (FLONASE) 50 mcg/actuation nasal spray Use 2 Sprays in each nostril once daily. As directed for nasal and/or sinus congestion. Rinse mouth after use. calcium carbonate/vitamin D3 (CALCIUM + D ORAL) Take by mouth once daily. cholecalciferol, vitamin D3, (VITAMIN D3 ORAL) Take by mouth once daily. cyanocobalamin, vitamin B-12, (VITAMIN B-12 ORAL) Take by mouth once daily. TENS UNIT ELECTRODES (TENS UNITS ELECTRODES) 2X2 pads Use electrodes with pads with TENS as directed for back pain. Dispense 1 set monthly pregabalin 75 mg capsule Take 2 capsules by mouth twice daily. peg 3350-Electrolytes (GOLYTELY) 236-22.74-6.74 -5.86 gram suspension Refer to printed prep instructions from your provider. ALLERGIES: Augmentin [Amoxicillin-Pot Clavulanate], Elavil [Amitriptyline], Morphine, and Penicillins PERSONAL HISTORY: Social History Tobacco Use Smoking status: Former Smoker Packs/day: 0.50 Years: 15.00 Pack years: 7.50 Types: Cigarettes Quit date: 10/11/2015 Years since quittin.2 Smokeless tobacco: Former User Quit date: 08/10/2013 Vaping Use Vaping Use: Never used Substance Use Topics Alcohol use: No Drug use: No FAMILY HISTORY Problem Relation Age of Onset Breast Cancer Mother None Father other (Gall Bladder) Brother Breast Cancer Sister Fibromyalgia, Mental Health Issues None Brother No Ocular Disease No Family History The review of systems data was entered by the nurse and reviewed by ny Nursing Notes: Rosibel Slater RN 01/16/2022 9:14 AM Signed REVIEW OF SYSTEMS: General: The patient denies fatigue, denies weight loss, denies weight gain, denies feeling hot, and denies feelings of cold. Eyes: The patient denies glaucoma, denies eye injury/surgery, wears glasses or contacts. Ear/Nose/Throat: The patient denies allergies, denies hayfever, denies ear infections, and denies bloody noses. Cardiovascular: The patient denies chest pain, denies heart disease, denies high blood pressure,denies cardiac stent, denies prior heart attack, denies irregular heart beat, denies high cholesterol, denies poor circulation, denies heart failure, other cardiac issues, denies claudication, denies cold feet, denies peripheral arterial stent. Respiratory: The patient denies tuberculosis, denies pneumonia, denies frequent cough, denies pulmonary embolism, denies shortness of breath, and denies coughing up blood. Gastrointestinal: The patient denies difficulty swallowing, denies acid reflux, denies ulcers, denies vomiting, denies jaundice/hepatitis, NOTES gallbladder problems, denies black or tarry stools, denies hemorrhoids, denies bleeding from rectum, NOTES diverticulitis, denies constipation, denies diarrhea, denies loss of stool control, and denies hernias. Kidney/Bladder: The patient denies kidney stones, denies urine infections, and denies bloody urine. Skin: The patient denies a history of skin cancer, denies bleeding/changing moles, and denies a history of skin rash. Neurologic: The patient denies a history of epilepsy/convulsions, denies headaches, denies head/spinal injuries, and denies stroke/TIA. Psychiatric: The patient denies psychiatric medications, NOTES depression, and denies voices, denies substance abuse. Endocrine: The patient denies thyroid disorders, diabetes, and denies hormonal problems. Hematologic: The patient denies a history of bruising, denies bleeding, and denies anemia, denies blood clots. Infections: The patient denies a history of measles and mumps, denies rheumatic fever, and denies sexually transmitted diseases. Musculoskeletal: The patient denies back pain/injury, denies back problems, NOTES sciatica, NOTES knee/foot trouble, denies arthritis, or denies gout. When was patient's last Mammogram screening? 2021 Last Colonoscopy: 2021 Rosibel Slater RN PHYSICAL EXAMINATION: General: The patient is 56 year old female, well nourished, well hydrated in no acute distress. Thepatient is oriented to time, place, and person. VITALS: Blood pressure 130/82, pulse 84, temperature 36.7 C (98.1 F), height 162.6 cm (5' 4), weight 71.9 kg (158 lb 9.6 oz), SpO2 98 %. Body mass index is 27.22 kg/m . Head: Normal cephalic, atraumatic Eyes: pupils are equally round, sclera are clear/anicteric Neck is supple with no tracheal deviation Respiratory: Normal respiratory excursion and pattern. Abdominal exam: benign Extremities: no clubbing, cyanosis or edema. Neuro: non focal Psych: normal mood Assessment IMPRESSION: left lower quadrant abdominal pain, acute diverticulitis. PLAN: I have discussed the above with the patient. I have recommended low residue diet for 4-6 weeks or until pain completely abates. I have discussed surgical treatment of diverticular disease, that is colon resection, patient is not interested in this. I have offered colonoscopy possible biopsies I have explained the procedure to the patient. I have counseled the patient as to the risks of the procedure, including but not limited to: infection, bleeding, perforation of the GI tract, injury to any intraabdominal organs such as the liver/spleen, inability to complete the procedure, complications of anesthesia, etc. the patient understands. I have explained to the patient the difference between IV conscious sedation and MAC anesthesia - and I have offered either, according to the patient's wishes. I have explained that with IV conscioussedation there is no anesthesia provider available and therefore there is a limitation of the amount of IV medications that can be given and that the patient may wake up in the middle of the procedure and/or experience pain/discomfort during the procedure. Further discussion was done and the patient was given the opportunity to ask questions and all questions were answered. The patient chooses IVconscious sedation. Patient was counseled that if there are changes in his/her medical condition, to let the office know if surgery should proceed. If there are changes in patient's medical condition from time of this encounter to the day of the procedure that preclude anesthesia, patient may have procedure cancelled for patient's safety. The patient wishes to proceed. I have answered all questions to the patient s satisfaction and the patient has no further questions. I have confirmed and edited as necessary, the PFSH and ROS obtained by others. Consultation requested by Heidy Price for an opinion regarding patient's presentation of left lower quadrant abdominal pain and diverticulitis. My final recommendations will be communicated back to the requesting physician by way of shared Medical record or letter to requesting physician via US mail. . Diagnoses: (R10.32) Left lower quadrant abdominal pain (primary encounter diagnosis) (K57.92) Diverticulitis Return to Clinic: The patient will be scheduled for colonoscopy at [facility] on February 17. I have personally reviewed the colon cleansing instructions with the patient. Medical Decision Making: Problems: Low: Acute, uncomplicated illness or injury Data: Unique source(s) for external note(s) reviewed: 1 Unique test result(s) reviewed: 1 Risk: Low: Low risk from testing/treatment Medical Decision Making Level: 3 - Low Vero Hill MD documented in this encounterPromedica [facility]05-09-[facility]22 Miscellaneous Notes* Telephone Encounter - Rabia Chopra - 01/16/2022 11:36 AM EDT 02/17 [facility] documented in this encounterPromedica Fost[facility]05-09-2022 Instructions* Patient Instructions* Vero Hill MD - 01/16/2022 9:23 AM EDT Images from the original note were not included. Bowel Preparation Instructions for: Golytely, Nulytely, Trilyte or Colyte (polyethylene glycol 3350and electrolytes) IF YOU DO NOT FOLLOW THESE DIRECTIONS, YOUR COLONOSCOPY WILL BE CANCELLED. Pedro Instructions: Your bowel must be empty so that your doctor can clearly view your colon. Follow all of the instructions in this handout EXACTLY as they are written. Do NOT eat any solid food the ENTIRE day before your colonoscopy. Drink only clear liquids. Buy your bowel preparation at least 5 days before your colonoscopy. TRANSPORTATION on the Day of Your Exam A responsible person MUST be present with you at Check In prior to your colonoscopy and REMAIN in the endoscopy area until you are discharged. You are NOT ALLOWED to drive, take a taxi or bus, or leave the Endoscopy Center ALONE. If you do not have a responsible pickup driver (family member or friend) with you to take you home, your exam cannot be done with sedation and will be cancelled. Please bring a list of all of your current medications, including any Over-the Counter medications with you. Medications If you take insulin, diabetic medications or blood thinners such as Coumadin (warfarin), Plavix (clopidogrel), Ticlid (ticlopidine hydrochloride), Agrylin (anagrelide), Xarelto (Rivaroxaban), Pradaxa(Dabigatran), Eliquis (Apixaban), and Effient (Prasugrel). You MUST call the doctors who orders those medicines for instructions on altering the dosage before your colonoscopy. All other medications should be taken the day of the exam with a sip of water including ASPIRIN. Five (5) Days Before Your Colonoscopy Do NOT take medicines that stop diarrhea - such as Imodium, Kaopectate, or Pepto Bismol. Do NOT take fiber supplements - such as Metamucil, Citrucel, or Perdiem. Do NOT take products that contain iron - such as multi-vitamins (the label lists what is in the products). Do NOT take Vitamin E. Buy the prescription bowel preparation solution at your local pharmacy or drugstore pharmacy. 08/2019 Bowel Preparation Instructions for: Golytely, Nulytely, Trilyte or Colyte (polyethylene glycol 3350and electrolytes) Three (3) Days Before Your Colonoscopy Do NOT eat high-fiber foods - such as popcorn, beans, seeds (flax, sunflower, quinoa), multigrain bread, nuts, salad/vegetables, or fresh and dried fruit. One (1) Day Before Your Colonoscopy Only drink clear liquids the ENTIRE DAY before your colonoscopy. Do NOT eat any solid foods. Drink at least 8 ounces of clear liquids every hour after waking up. The clear liquids you can drink include: Clear Liquid (NO RED LIQUIDS) DO NOT DRINK Gatorade, Pedialyte or Powerade Clear broth or bouillon Coffee or tea (no milk or non-dairy creamer) Carbonated and non-carbonated soft drinks Ace-Aid or other fruit flavored drinks Strained fruit juices (no pulp) Jell-O, popsicles, hard candy Water Alcohol Milk or non-dairy creamers Noodles or vegetables in soup Juice with pulp Liquid you cannot see through The bowel preparation solution will be consumed in two parts. Mix the solution the evening before your colonoscopy and refrigerate before drinking. You may add the flavor pack that came with the bowel preparation. Do NOT add ice, sugar or any other flavorings to the solution. Part 1 At 6:00 PM - Evening before your colonoscopy Drink an 8-oz glass of bowel preparation every 10 minutes for a total of 8 glasses. You may continue to drink clear liquids until midnight. Part 2 On the day of your colonoscopy you may drink clear liquids up to (three) 3 hours before your procedure. 4 1/2 hours before your colonoscopy Drink an 8-oz glass of bowel preparation every 10 minutes for a total of 8 glasses. Fifteen (15) minutes later, drink an 8-oz glass of clear liquids every 15 minutes for a total of 2 glasses. You may continue to drink clear liquids up to (three) 3 hours before your exam. 3 08/2019 documented in this encounterPromedica F[facility]05-09-2022 Nurse Note* Rosibel Slater RN - 01/16/2022 9:09 AM EDT REVIEW OF SYSTEMS: General: The patient denies fatigue, denies weight loss, denies weight gain, denies feeling hot, and denies feelings of cold. Eyes: The patient denies glaucoma, denies eye injury/surgery, wears glasses or contacts. Ear/Nose/Throat: The patient denies allergies, denies hayfever, denies ear infections, and denies bloody noses. Cardiovascular: The patient denies chest pain, denies heart disease, denies high blood pressure,denies cardiac stent, denies prior heart attack, denies irregular heart beat, denies high cholesterol, denies poor circulation, denies heart failure, other cardiac issues, denies claudication, denies cold feet, denies peripheral arterial stent. Respiratory: The patient denies tuberculosis, denies pneumonia, denies frequent cough, denies pulmonary embolism, denies shortness of breath, and denies coughing up blood. Gastrointestinal: The patient denies difficulty swallowing, denies acid reflux, denies ulcers, denies vomiting, denies jaundice/hepatitis, NOTES gallbladder problems, denies black or tarry stools, denies hemorrhoids, denies bleeding from rectum, NOTES diverticulitis, denies constipation, denies diarrhea, denies loss of stool control, and denies hernias. Kidney/Bladder: The patient denies kidney stones, denies urine infections, and denies bloody urine. Skin: The patient denies a history of skin cancer, denies bleeding/changing moles, and denies a history of skin rash. Neurologic: The patient denies a history of epilepsy/convulsions, denies headaches, denies head/spinal injuries, and denies stroke/TIA. Psychiatric: The patient denies psychiatric medications, NOTES depression, and denies voices, denies substance abuse. Endocrine: The patient denies thyroid disorders, diabetes, and denies hormonal problems. Hematologic: The patient denies a history of bruising, denies bleeding, and denies anemia, denies blood clots. Infections: The patient denies a history of measles and mumps, denies rheumatic fever, and denies sexually transmitted diseases. Musculoskeletal: The patient denies back pain/injury, denies back problems, NOTES sciatica, NOTES knee/foot trouble, denies arthritis, or denies gout. When was patient's last Mammogram screening? 2021 Last Colonoscopy: 2021 Rosibel Slater RN documented in this encounterPromedica [facility]05-06-2022 Miscellaneous Notes* Telephone Encounter - Suma Tineo LPN - 01/13/2022 9:22 AM EDT Patient notified of results, verbalizes understanding of instructions. Suma Tineo LPN * Telephone Encounter - Liyah Garcia APRN.CNP - 01/13/2022 9:18 AM EDT Can you please call the patient and let her know that I reviewed her lab results. Labs were all relatively normal however her white blood cell count is just mildly elevated, this is more than likely due to the diverticulitis. I would recommend that she continue to take antibiotics as prescribed. Please let me know if she has any questions. Thank you. Liyah Garcia APRN.CNP documented in this [facility]05-05-2022 Miscellaneous Notes* Telephone Encounter - Liyah Garcia APRN.CNP - 01/12/2022 3:10 PM EDT See Office note from yesterday. Liyah Garcia APRN.CNP * Telephone Encounter - Eliza Lee RN - 01/11/2022 10:00 AM EDT Patient reports she was recently treated with 10 days of AB (flagyl & cipro) for diverticulitis. [place] good for 4 days after completing AB's (last dose last or Sun). Saw Kurtis Moody, last Sunday for f/u. Has appt scheduled with surgery for colonoscopy on 02-08. Sunday pain returned and continues at 7/10, sometimes sharp pains but constant ache. Lower abdomen clear across abdomen. Feels bloated . Sunday ate hamburger, Sunday ate grilled chicken. Now decreased diet to yogart and applesauce. Last BM, small amount yesterday. No blood in stools. Having urinary frequency of clear light yellow urine. No fever. Scheduled same day appt with Real Estate Salesperson for evaluation (no appts this week in [place]). documented in this encounterPromedica [facility]05-04-2022 Instructions* Patient Instructions* Liyah Garcia APRN.CNP - 01/11/2022 11:34 AM EDT 1.) get labs completed. 2.) Start Cipro and Flagyl, take with food. Continue with probiotic. 3.) Continue to eat a bland diet. 4.) Red flag symptoms go to ER. 5.) Follow up pending test results or sooner as needed. Check with front counter clerk about moving up appointments for general surgery and gastroenterology. documented in this encounterPromedica [facility]05-04-2022 History of Present illness Narrative* Liyah Garcia APRN.CNP - 01/11/2022 11:20 AM EDT This is a 56 year old female who presents today with: Patient presents with: Acute Visit: Lower abdominal pain HISTORY OF PRESENT ILLNESS: Ivan Khan is a 56 year old female. Patient presents with: Acute Visit: Lower abdominal pain Patient of Dr. Chester here in office for complaints of abdominal pain. Was seen by Erlin Price for hospital follow-up for diverticulitis at the end of December. Patient was[facility] ER with Cipro and Flagyl, completed treatment and symptoms improved. Consult was placed for gastroenterology needs to schedule. Appointment with general surgery in February to discuss the need for possible colonoscopy. Lower abdominal pain started about 4 days after completing antibiotics (this past Sunday). Pain is sharp and constant. Nothing makes the pain better or worse. Has been eating a soft bland diet. No N/V. One episode of diarrhea. BM's every day but smaller due to decreased diet. No fever/chills. PAST MEDICAL HISTORY: PAST MEDICAL HISTORY Diagnosis Date Acute gastritis Carpal tunnel syndrome Degenerative arthritis of right knee Dysmenorrhea Dysthymic disorder Depression (non-psychotic) Esophageal reflux Fibromyalgia 2006 Headache(784.0) Knee pain Rt. Meniscus tear Rt knee Tenosynovitis of elbow right Tinnitus PAST SURGICAL HISTORY Procedure Laterality Date ARTHRP INTERPOS INTERCARPAL/METACARPAL JOINTS Right 12/28/2017 Right thumb, [facility] arthroplasty with ligament reconstruction and tendon interposition ARTHRP KNE CONDYLE&PLATU MEDIAL&LAT COMPARTMENTS Right 2012 Knee replacement, total COLONOSCOPY W/BIOPSY 12/17/2015 Normal; Diverticulosis sigmoid colon EGD TRANSORAL BIOPSY SINGLE/MULTIPLE 09/28/15 EGD TRANSORAL BIOPSY SINGLE/MULTIPLE 12/17/2015 Minimal gastritis LAPS SURG CHOLECYSTECTOMY W/CHOLANGIOGRAPHY 10/26/15 Normal IOC NEUROPLASTY &/TRANSPOS MEDIAN NRV CARPAL TUNNE 12/1977 Carpal tunnel decomp right PAST SURGICAL HISTORY OF 1995 Right knee arthroscopy PAST SURGICAL HISTORY OF sinus surgery PAST SURGICAL HISTORY OF right elbow- tennis elbow VAGINAL HYSTERECTOMY UTERUS 250 GM/< 2000 ALLERGIES Augmentin [Amoxicillin-Pot Clavulanate], Elavil [Amitriptyline], Morphine, and Penicillins MEDICATIONS Current Outpatient Medications Medication Sig [START ON 03/25/2022] sertraline (ZOLOFT) 50 mg tablet Take 1 tablet by mouth once daily. [START ON 03/05/2022] etodolac (LODINE-XL) 500 mg 24 hr tablet Take 1 tablet by mouth once daily. cyclobenzaprine (FLEXERIL) 10 mg tablet Take 1 tablet by mouth twice daily as needed for muscle spasm. predniSONE (DELTASONE) 10 mg tablet Take 2 pills as directed for flare up of back pain. clonazePAM (KLONOPIN) 0.5 mg tablet May take 1-2 tablets by mouth at bedtime as needed (insomnia and anxiety). May also take 1 tablet twice daily as needed (insomnia and anxiety). Do all this for 60 days. furosemide (LASIX) 20 mg tablet Take 1-2 tablets by mouth once daily. As directed for fluid retention buPROPion SR (WELLBUTRIN SR) 150 mg 12 hr tablet Take 1 tablet by mouth twice daily. fluticasone (FLONASE) 50 mcg/actuation nasal spray Use 2 Sprays in each nostril once daily. As directed for nasal and/or sinus congestion. Rinse mouth after use. calcium carbonate/vitamin D3 (CALCIUM + D ORAL) Take by mouth once daily. cholecalciferol, vitamin D3, (VITAMIN D3 ORAL) Take by mouth once daily. cyanocobalamin, vitamin B-12, (VITAMIN B-12 ORAL) Take by mouth once daily. TENS UNIT ELECTRODES (TENS UNITS ELECTRODES) 2X2 pads Use electrodes with pads with TENS as directed for back pain. Dispense 1 set monthly pregabalin 75 mg capsule Take 2 capsules by mouth twice daily. No current facility-administered medications for this visit. FAMILY HISTORY Problem Relation Age of Onset Breast Cancer Mother None Father other (Gall Bladder) Brother Breast Cancer Sister Fibromyalgia, Mental Health Issues None Brother No Ocular Disease No Family History Social History Tobacco Use Smoking status: Former Smoker Packs/day: 0.50 Years: 15.00 Pack years: 7.50 Types: Cigarettes Quit date: 10/11/2015 Years since quittin.2 Smokeless tobacco: Former User Quit date: 08/10/2013 Substance Use Topics Alcohol use: No Drug use: No REVIEW OF SYSTEMS GENERAL: No weight loss, malaise or fevers/chills HEENT: Negative for frequent or significant headaches, No changes in hearing or vision. NECK: Negative for lumps, goiter, pain and significant neck swelling RESPIRATORY: Negative for cough, hemoptysis, wheezing, dyspnea or shortness of breath CARDIOVASCULAR: Negative for chest pain, leg swelling, orthopnea, or palpitations GI: + abdominal pain : No history of dysuria, frequency or incontinence MUSCULOSKELETAL: Negative for joint pain or swelling. SKIN: Negative for lesions, rash, and itching ENDOCRINE: Negative for cold or heat intolerance, polyuria, polydipsia and goiter NEURO: No history of headaches, syncope, paralysis, seizures or tremors MOOD: Negative for depression, anxiety, or suicidal ideation. EXAM: BP 122/76 Pulse 81 Resp 16 Wt 72.6 kg (160 lb) SpO2 98% BMI 27.46 kg/m PHYSICAL EXAM: General Appearance: Well appearing, alert, in no acute distress, well-hydrated, well nourished. Skin: Skin color, texture, turgor normal, no suspicious rashes or lesions. Head: Normocephalic, no masses, lesions, tenderness or abnormalities. Eyes: Anicteric sclera. Extraocular movements are intact. Lungs: Lungs clear to auscultation. No wheezing, rhonchi, rales. Heart: RRR without murmur, gallop, or rubs. No ectopy. Abdomen: Abdomen soft. Bowel sounds normal. No masses, organomegaly, Negative CVA tenderness. + Lower abdominal tenderness with palpation, Negative Psoas and Mendoza's test Extremities: No deformities, edema, skin discoloration, clubbing or cyanosis. Good capillary refill. Peripheral Pulses: Normal, Capillary refill <2secs, strong peripheral pulses, Pulses palpable. ASSESSMENT/PLAN: 1. Diverticulitis - ICD9: 562.11, ICD10: K57.92 - Start 2nd round of Antibiotics, allergy to PCN Medications. - Continue with bland diet. - Get labs completed. - Attempt to move up appointments with GI and General Surgery. - Red flag symptoms given to this patient, she verbalizes understanding when to seek emergency care. - CIPROFLOXACIN 500 MG TABLET - METRONIDAZOLE 500 MG TABLET - CBC + DIFF - COMP METABOLIC PANEL - LIPASE BLD - AMYLASE BLD Pending test results or sooner as needed. Discussed treatment plan and patient voices understanding. Patient's questions answered appropriately. Medications and potential side effects were discussed and patient voices understanding. Liyah Garcia APRN.CELINA This note was partially generated using [employer] voice recognition system. Note was reviewed for accuracy. There may be minor misspellings or grammar miscues with [employer] voice recognition. documented in this encounterPromedica Fostoria [facility]04-29-2022 History of Present illness Narrative* Heidy Price APRN.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 ERECTOR APPRENTICE - 01/06/2022 10:01 AM EDT SUBJECTIVE: COVID-19 VACCINE(3 - Booster for Pfizer series) due on 06/21/2021 GER[place]IA Khan is a 56 year old female. Presents today for emergency department follow-up visit. [facility]. Found to have acute sigmoid diverticulitis on CT of abdomen and pelvis on December 21, 2021. She returned to the emergency department on December 28, 2021 for persistent abdominal pain. She was treated with metronidazole 500 mg twice daily, Cipro 500 mg twice daily, both x10 days. Tramadol 50 mg as needed pain. Return visit on December 28 for pain, treated withoxycodone acetaminophen. Today notes feeling improved. Has not had abdominal pain for the last couple of days. Notes that she completed the 10 days of medication. Notes has decreased oral intake lately, notes she is almost afraid to eat due to the previous abdominal pain. Has been able to manage a mild diet and maintain fluid intake. Notes appetite is overall decreased. No nausea vomiting diarrhea constipation BRBPR or black or tarry stools is noted. She notes mood currently is stable on medication. No voiced SI HI. Notes several family members dying over the last year or so, taking medications routinely. Currently taking one half tab of bupropion, full tablet of Zoloft as ordered. Reaches out to counseling as needed. Review of Systems Constitutional: Negative. Gastrointestinal: Positive for abdominal pain. Objective BP 122/68 Pulse 84 Resp 16 Wt 71.7 kg (158 lb) BMI 27.12 kg/m Physical Exam Vitals and nursing note reviewed. Constitutional: Appearance: Normal appearance. HENT: Head: Normocephalic and atraumatic. Eyes: Conjunctiva/sclera: Conjunctivae normal. Cardiovascular: Rate and Rhythm: Normal rate and regular rhythm. Heart sounds: Normal heart sounds. Pulmonary: Effort: Pulmonary effort is normal. Breath sounds: Normal breath sounds. Abdominal: General: Bowel sounds are normal. Palpations: Abdomen is soft. Musculoskeletal: Right lower leg: No edema. Left lower leg: No edema. Skin: General: Skin is warm and dry. Neurological: General: No focal deficit present. Mental Status: She is alert and oriented to person, place, and time. ALLERGIES Allergen Reactions Augmentin [Amoxicil* Rash Elavil [Amitriptyli* Intolerance Woke up with panic attacks Morphine Vomiting Penicillins Other: See Comments augmentin cross sensitivity MEDICATIONS cyclobenzaprine (FLEXERIL) 10 mg tablet, Take 1 tablet by mouth twice daily as needed for muscle spasm. predniSONE (DELTASONE) 10 mg tablet, Take 2 pills as directed for flare up of back pain. clonazePAM (KLONOPIN) 0.5 mg tablet, May take 1-2 tablets by mouth at bedtime as needed (insomnia and anxiety). May also take 1 tablet twice daily as needed (insomnia and anxiety). Do all this for 60days. furosemide (LASIX) 20 mg tablet, Take 1-2 tablets by mouth once daily. As directed for fluid retention buPROPion SR (WELLBUTRIN SR) 150 mg 12 hr tablet, Take 1 tablet by mouth twice daily. sertraline (ZOLOFT) 50 mg tablet, Take 1 tablet by mouth once daily. etodolac (LODINE-XL) 500 mg 24 hr tablet, Take 1 tablet by mouth once daily. fluticasone (FLONASE) 50 mcg/actuation nasal spray, Use 2 Sprays in each nostril once daily. As directed for nasal and/or sinus congestion. Rinse mouth after use. calcium carbonate/vitamin D3 (CALCIUM + D ORAL), Take by mouth once daily. cholecalciferol, vitamin D3, (VITAMIN D3 ORAL), Take by mouth once daily. cyanocobalamin, vitamin B-12, (VITAMIN B-12 ORAL), Take by mouth once daily. TENS UNIT ELECTRODES (TENS UNITS ELECTRODES) 2X2 pads, Use electrodes with pads with TENS as directed for back pain. Dispense 1 set monthly pregabalin 75 mg capsule, Take 2 capsules by mouth twice daily. PAST MEDICAL HISTORY Diagnosis Date Acute gastritis Carpal tunnel syndrome Degenerative arthritis of right knee Dysmenorrhea Dysthymic disorder Depression (non-psychotic) Esophageal reflux Fibromyalgia 2006 Headache(784.0) Knee pain Rt. Meniscus tear Rt knee Tenosynovitis of elbow right Tinnitus Social History Tobacco Use Smoking status: Former Smoker Packs/day: 0.50 Years: 15.00 Pack years: 7.50 Types: Cigarettes Quit date: 10/11/2015 Years since quittin.2 Smokeless tobacco: Former User Quit date: 08/10/2013 Substance Use Topics Alcohol use: No Drug use: No ASSESSMENT/PLAN: 1. Diverticulitis - ICD9: 562.11, ICD10: K57.92 (primary diagnosis) Continue with mild diet, advance as tolerated. Schedule appointment for colonoscopy in 6 to 8 weeksin follow-up of diverticulitis. - CONSULT TO GASTROENTEROLOGY - CONSULT TO GENERAL SURGERY Heidy Price APRN.CNS Medical Decision Making: Problems: Low: Acute, uncomplicated illness or injury Data: Independent interpretation of test from other physician/QHCP Risk: Moderate: Drug management Medical Decision Making Level: 4 - Moderate documented in this encounterPromedica Fostoria [facility]04-13-2022 Miscellaneous Notes* Telephone Encounter - Barbra Bennett APRN.CNP - 12/21/2021 5:35 PM EDT Patient should go to urgent care for further evaluation Barbra Bennett APRN.CNP documented in this encounterPromedica Fostoria [facility]03-29-2022 Miscellaneous Notes* Telephone Encounter - Ricky Marshall Ma - 12/06/2021 9:55 AM EDT ELEONORA: 11/25/2021 Last refill: 07/20/2021 QTY: 40 Refills: 5 Patient's request for medication is as follows: Pending Prescriptions Disp Refills CYCLOBENZAPRINE 10 MG TABLET 40 tablet 5 Sig: Take 1 tablet by mouth twice daily as needed for muscle spasm. ALAINA: No Please approve the above prescription(s) to electronically send to pharmacy. Ricky Marshall Ma documented in this encounterPromedica Fostoria [facility]03-02-2016 History of Past illness Narrative* Problem Noted Date Resolved Date Chronic cholecystitis without calculus 6 12/17/2017 Pain of upper abdomen 09/23/2015 12/17/2017 Dermatofibroma of left lower leg 01/08/2014 04/26/2015 Viral wart, Right thumb at prox mid lateral aspe ct 01/04/2014 04/26/2015 Back pain 10/17/2013 04/26/2015 Enthesopathy of ankle and tarsus, unspecified 04/26/2015 Foot pain 10/02/2013 04/26/2015 Right knee meniscal tear 03/18/2012 015 Degenerative arthritis of right knee 01/08/2012 04/26/2015 Knee pain 12/14/2011 04/26/2015 Acute gastritis 04/26/2015 Dysmenorrhea 04/23/2012 documented as of this encounter (statuses as of 12/06/2021) [facility] History of Past illness Narrative* Problem Noted Date Resolved Date Chronic cholecystitis without calculus 6 12/17/2017 Pain of upper abdomen 09/23/2015 12/17/2017 Dermatofibroma of left lower leg 01/08/2014 04/26/2015 Viral wart, Right thumb at prox mid lateral aspe ct 01/04/2014 04/26/2015 Back pain 10/17/2013 04/26/2015 Enthesopathy of ankle and tarsus, unspecified 04/26/2015 Foot pain 10/02/2013 04/26/2015 Right knee meniscal tear 03/18/2012 015 Degenerative arthritis of right knee 01/08/2012 04/26/2015 Knee pain 12/14/2011 04/26/2015 Acute gastritis 04/26/2015 Dysmenorrhea 04/23/2012 documented as of this encounter (statuses as of 12/22/2021) [facility] History of Past illness Narrative* Problem Noted Date Resolved Date Chronic cholecystitis without calculus 6 12/17/2017 Pain of upper abdomen 09/23/2015 12/17/2017 Dermatofibroma of left lower leg 01/08/2014 04/26/2015 Viral wart, Right thumb at prox mid lateral aspe ct 01/04/2014 04/26/2015 Back pain 10/17/2013 04/26/2015 Enthesopathy of ankle and tarsus, unspecified 04/26/2015 Foot pain 10/02/2013 04/26/2015 Right knee meniscal tear 03/18/2012 015 Degenerative arthritis of right knee 01/08/2012 04/26/2015 Knee pain 12/14/2011 04/26/2015 Acute gastritis 04/26/2015 Dysmenorrhea 04/23/2012 documented as of this encounter (statuses as of 01/06/2022) [facility] History of Past illness Narrative* Problem Noted Date Resolved Date Chronic cholecystitis without calculus 6 12/17/2017 Pain of upper abdomen 09/23/2015 12/17/2017 Dermatofibroma of left lower leg 01/08/2014 04/26/2015 Viral wart, Right thumb at prox mid lateral aspe ct 01/04/2014 04/26/2015 Back pain 10/17/2013 04/26/2015 Enthesopathy of ankle and tarsus, unspecified 04/26/2015 Foot pain 10/02/2013 04/26/2015 Right knee meniscal tear 03/18/2012 015 Degenerative arthritis of right knee 01/08/2012 04/26/2015 Knee pain 12/14/2011 04/26/2015 Acute gastritis 04/26/2015 Dysmenorrhea 04/23/2012 documented as of this encounter (statuses as of 01/11/2022) [facility] History of Past illness Narrative* Problem Noted Date Resolved Date Chronic cholecystitis without calculus 6 12/17/2017 Pain of upper abdomen 09/23/2015 12/17/2017 Dermatofibroma of left lower leg 01/08/2014 04/26/2015 Viral wart, Right thumb at prox mid lateral aspe ct 01/04/2014 04/26/2015 Back pain 10/17/2013 04/26/2015 Enthesopathy of ankle and tarsus, unspecified 04/26/2015 Foot pain 10/02/2013 04/26/2015 Right knee meniscal tear 03/18/2012 015 Degenerative arthritis of right knee 01/08/2012 04/26/2015 Knee pain 12/14/2011 04/26/2015 Acute gastritis 04/26/2015 Dysmenorrhea 04/23/2012 documented as of this encounter (statuses as of 01/12/2022) [facility] History of Past illness Narrative* Problem Noted Date Resolved Date Chronic cholecystitis without calculus 6 12/17/2017 Pain of upper abdomen 09/23/2015 12/17/2017 Dermatofibroma of left lower leg 01/08/2014 04/26/2015 Viral wart, Right thumb at prox mid lateral aspe ct 01/04/2014 04/26/2015 Back pain 10/17/2013 04/26/2015 Enthesopathy of ankle and tarsus, unspecified 04/26/2015 Foot pain 10/02/2013 04/26/2015 Right knee meniscal tear 03/18/2012 015 Degenerative arthritis of right knee 01/08/2012 04/26/2015 Knee pain 12/14/2011 04/26/2015 Acute gastritis 04/26/2015 Dysmenorrhea 04/23/2012 documented as of this encounter (statuses as of 01/13/2022) [facility] History of Past illness Narrative* Problem Noted Date Resolved Date Chronic cholecystitis without calculus 6 12/17/2017 Pain of upper abdomen 09/23/2015 12/17/2017 Dermatofibroma of left lower leg 01/08/2014 04/26/2015 Viral wart, Right thumb at prox mid lateral aspe ct 01/04/2014 04/26/2015 Back pain 10/17/2013 04/26/2015 Enthesopathy of ankle and tarsus, unspecified 04/26/2015 Foot pain 10/02/2013 04/26/2015 Right knee meniscal tear 03/18/2012 015 Degenerative arthritis of right knee 01/08/2012 04/26/2015 Knee pain 12/14/2011 04/26/2015 Acute gastritis 04/26/2015 Dysmenorrhea 04/23/2012 documented as of this encounter (statuses as of 01/17/2022) [facility] History of Past illness Narrative* Problem Noted Date Resolved Date Chronic cholecystitis without calculus 6 12/17/2017 Pain of upper abdomen 09/23/2015 12/17/2017 Dermatofibroma of left lower leg 01/08/2014 04/26/2015 Viral wart, Right thumb at prox mid lateral aspe ct 01/04/2014 04/26/2015 Back pain 10/17/2013 04/26/2015 Enthesopathy of ankle and tarsus, unspecified 04/26/2015 Foot pain 10/02/2013 04/26/2015 Right knee meniscal tear 03/18/2012 015 Degenerative arthritis of right knee 01/08/2012 04/26/2015 Knee pain 12/14/2011 04/26/2015 Acute gastritis 04/26/2015 Dysmenorrhea 04/23/2012 documented as of this encounter (statuses as of 02/14/2022) [facility] History of Past illness Narrative* Problem Noted Date Resolved Date Chronic cholecystitis without calculus 6 12/17/2017 Pain of upper abdomen 09/23/2015 12/17/2017 Dermatofibroma of left lower leg 01/08/2014 04/26/2015 Viral wart, Right thumb at prox mid lateral aspe ct 01/04/2014 04/26/2015 Back pain 10/17/2013 04/26/2015 Enthesopathy of ankle and tarsus, unspecified 04/26/2015 Foot pain 10/02/2013 04/26/2015 Right knee meniscal tear 03/18/2012 015 Degenerative arthritis of right knee 01/08/2012 04/26/2015 Knee pain 12/14/2011 04/26/2015 Acute gastritis 04/26/2015 Dysmenorrhea 04/23/2012 documented as of this encounter (statuses as of 03/15/2022) [facility] History of Past illness Narrative* Problem Noted Date Resolved Date Chronic cholecystitis without calculus 6 12/17/2017 Pain of upper abdomen 09/23/2015 12/17/2017 Dermatofibroma of left lower leg 01/08/2014 04/26/2015 Viral wart, Right thumb at prox mid lateral aspe ct 01/04/2014 04/26/2015 Back pain 10/17/2013 04/26/2015 Enthesopathy of ankle and tarsus, unspecified 04/26/2015 Foot pain 10/02/2013 04/26/2015 Right knee meniscal tear 03/18/2012 015 Degenerative arthritis of right knee 01/08/2012 04/26/2015 Knee pain 12/14/2011 04/26/2015 Acute gastritis 04/26/2015 Dysmenorrhea 04/23/2012 documented as of this encounter (statuses as of 03/21/2022) [facility] History of Past illness Narrative* Problem Noted Date Resolved Date Chronic cholecystitis without calculus 6 12/17/2017 Pain of upper abdomen 09/23/2015 12/17/2017 Dermatofibroma of left lower leg 01/08/2014 04/26/2015 Viral wart, Right thumb at prox mid lateral aspe ct 01/04/2014 04/26/2015 Back pain 10/17/2013 04/26/2015 Enthesopathy of ankle and tarsus, unspecified 04/26/2015 Foot pain 10/02/2013 04/26/2015 Right knee meniscal tear 03/18/2012 015 Degenerative arthritis of right knee 01/08/2012 04/26/2015 Knee pain 12/14/2011 04/26/2015 Acute gastritis 04/26/2015 Dysmenorrhea 04/23/2012 documented as of this encounter (statuses as of 03/29/2022) [facility] History of Past illness Narrative* Problem Noted Date Resolved Date Chronic cholecystitis without calculus 6 12/17/2017 Pain of upper abdomen 09/23/2015 12/17/2017 Dermatofibroma of left lower leg 01/08/2014 04/26/2015 Viral wart, Right thumb at prox mid lateral aspe ct 01/04/2014 04/26/2015 Back pain 10/17/2013 04/26/2015 Enthesopathy of ankle and tarsus, unspecified 04/26/2015 Foot pain 10/02/2013 04/26/2015 Right knee meniscal tear 03/18/2012 015 Degenerative arthritis of right knee 01/08/2012 04/26/2015 Knee pain 12/14/2011 04/26/2015 Acute gastritis 04/26/2015 Dysmenorrhea 04/23/2012 documented as of this encounter (statuses as of 10/17/2022) [facility] History of Past illness Narrative* Problem Noted Date Resolved Date Chronic cholecystitis without calculus 6 12/17/2017 Pain of upper abdomen 09/23/2015 12/17/2017 Dermatofibroma of left lower leg 01/08/2014 04/26/2015 Viral wart, Right thumb at prox mid lateral aspe ct 01/04/2014 04/26/2015 Back pain 10/17/2013 04/26/2015 Enthesopathy of ankle and tarsus, unspecified 04/26/2015 Foot pain 10/02/2013 04/26/2015 Right knee meniscal tear 03/18/2012 015 Degenerative arthritis of right knee 01/08/2012 04/26/2015 Knee pain 12/14/2011 04/26/2015 Acute gastritis 04/26/2015 Dysmenorrhea 04/23/2012 documented as of this encounter (statuses as of 11/28/2022) [facility] History of Past illness Narrative* Problem Noted Date Resolved Date Chronic cholecystitis without calculus 6 12/17/2017 Pain of upper abdomen 09/23/2015 12/17/2017 Dermatofibroma of left lower leg 01/08/2014 04/26/2015 Viral wart, Right thumb at prox mid lateral aspe ct 01/04/2014 04/26/2015 Back pain 10/17/2013 04/26/2015 Enthesopathy of ankle and tarsus, unspecified 04/26/2015 Foot pain 10/02/2013 04/26/2015 Right knee meniscal tear 03/18/2012 015 Degenerative arthritis of right knee 01/08/2012 04/26/2015 Knee pain 12/14/2011 04/26/2015 Acute gastritis 04/26/2015 Dysmenorrhea 04/23/2012 documented as of this encounter (statuses as of 01/01/2023) [facility] History of Past illness Narrative* Problem Noted Date Resolved Date Chronic cholecystitis without calculus 6 12/17/2017 Pain of upper abdomen 09/23/2015 12/17/2017 Dermatofibroma of left lower leg 01/08/2014 04/26/2015 Viral wart, Right thumb at prox mid lateral aspe ct 01/04/2014 04/26/2015 Back pain 10/17/2013 04/26/2015 Enthesopathy of ankle and tarsus, unspecified 04/26/2015 Foot pain 10/02/2013 04/26/2015 Right knee meniscal tear 03/18/2012 015 Degenerative arthritis of right knee 01/08/2012 04/26/2015 Knee pain 12/14/2011 04/26/2015 Acute gastritis 04/26/2015 Dysmenorrhea 04/23/2012 documented as of this encounter (statuses as of 01/02/2023) [facility] History of Past illness Narrative* Problem Noted Date Resolved Date Chronic cholecystitis without calculus 6 12/17/2017 Pain of upper abdomen 09/23/2015 12/17/2017 Dermatofibroma of left lower leg 01/08/2014 04/26/2015 Viral wart, Right thumb at prox mid lateral aspe ct 01/04/2014 04/26/2015 Back pain 10/17/2013 04/26/2015 Enthesopathy of ankle and tarsus, unspecified 04/26/2015 Foot pain 10/02/2013 04/26/2015 Right knee meniscal tear 03/18/2012 015 Degenerative arthritis of right knee 01/08/2012 04/26/2015 Knee pain 12/14/2011 04/26/2015 Acute gastritis 04/26/2015 Dysmenorrhea 04/23/2012 documented as of this encounter (statuses as of 01/12/2023) [facility] History of Past illness Narrative* Problem Noted Date Resolved Date Chronic cholecystitis without calculus 6 12/17/2017 Pain of upper abdomen 09/23/2015 12/17/2017 Dermatofibroma of left lower leg 01/08/2014 04/26/2015 Viral wart, Right thumb at prox mid lateral aspe ct 01/04/2014 04/26/2015 Back pain 10/17/2013 04/26/2015 Enthesopathy of ankle and tarsus, unspecified 04/26/2015 Foot pain 10/02/2013 04/26/2015 Right knee meniscal tear 03/18/2012 015 Degenerative arthritis of right knee 01/08/2012 04/26/2015 Knee pain 12/14/2011 04/26/2015 Acute gastritis 04/26/2015 Dysmenorrhea 04/23/2012 documented as of this encounter (statuses as of 01/12/2023) [facility] History of Past illness Narrative* Problem Noted Date Resolved Date Chronic cholecystitis without calculus 6 12/17/2017 Pain of upper abdomen 09/23/2015 12/17/2017 Dermatofibroma of left lower leg 01/08/2014 04/26/2015 Viral wart, Right thumb at prox mid lateral aspe ct 01/04/2014 04/26/2015 Back pain 10/17/2013 04/26/2015 Enthesopathy of ankle and tarsus, unspecified 04/26/2015 Foot pain 10/02/2013 04/26/2015 Right knee meniscal tear 03/18/2012 015 Degenerative arthritis of right knee 01/08/2012 04/26/2015 Knee pain 12/14/2011 04/26/2015 Acute gastritis 04/26/2015 Dysmenorrhea 04/23/2012 documented as of this encounter (statuses as of 02/07/2023) [facility] History of Past illness Narrative* Problem Noted Date Resolved Date Chronic cholecystitis without calculus 6 12/17/2017 Pain of upper abdomen 09/23/2015 12/17/2017 Dermatofibroma of left lower leg 01/08/2014 04/26/2015 Viral wart, Right thumb at prox mid lateral aspe ct 01/04/2014 04/26/2015 Back pain 10/17/2013 04/26/2015 Enthesopathy of ankle and tarsus, unspecified 04/26/2015 Foot pain 10/02/2013 04/26/2015 Right knee meniscal tear 03/18/2012 015 Degenerative arthritis of right knee 01/08/2012 04/26/2015 Knee pain 12/14/2011 04/26/2015 Acute gastritis 04/26/2015 Dysmenorrhea 04/23/2012 documented as of this encounter (statuses as of 02/08/2023) [facility] History of Past illness Narrative* Problem Noted Date Diagnosed Date Resolved Date Chronic cholecystitis without calculus 11/10/2015 12/17/2017 Pain of upper abdomen 09/23/20152017 Dermatofibroma of left lower leg 01/08/2014 04/26/2015 Viral wart, Right thumb at p tyrese mid lateral aspect 01/04/2014 04/26/2015 Back pain 10/17/2013 04/26/2015 Enthesopathy of ankle and tarsus, unspecified 10/02/19 14 04/26/2015 Foot pain 10/02/2013 04/26/2015 Right knee meniscal tear 03/18/2012 Degenerative arthritis of right knee 01/08/2012 04/26/2015 Knee pain 12/14/2011 04/26/2015 Acute gastritis 04/26/2015 Dysmenorrhea 04/23/2012 documented as of this encounter (statuses as of 03/23/2023) [facility] History of Past illness Narrative* Problem Noted Date Diagnosed Date Resolved Date Chronic cholecystitis without calculus 11/10/2015 12/17/2017 Pain of upper abdomen 09/23/20152017 Dermatofibroma of left lower leg 01/08/2014 04/26/2015 Viral wart, Right thumb at p tyrese mid lateral aspect 01/04/2014 04/26/2015 Back pain 10/17/2013 04/26/2015 Enthesopathy of ankle and tarsus, unspecified 10/02/19 14 04/26/2015 Foot pain 10/02/2013 04/26/2015 Right knee meniscal tear 03/18/2012 Degenerative arthritis of right knee 01/08/2012 04/26/2015 Knee pain 12/14/2011 04/26/2015 Acute gastritis 04/26/2015 Dysmenorrhea 04/23/2012 documented as of this encounter (statuses as of 03/26/2023) [facility] History of Past illness Narrative* Problem Noted Date Diagnosed Date Resolved Date Chronic cholecystitis without calculus 11/10/2015 12/17/2017 Pain of upper abdomen 09/23/20152017 Dermatofibroma of left lower leg 01/08/2014 04/26/2015 Viral wart, Right thumb at p tyrese mid lateral aspect 01/04/2014 04/26/2015 Back pain 10/17/2013 04/26/2015 Enthesopathy of ankle and tarsus, unspecified 10/02/19 14 04/26/2015 Foot pain 10/02/2013 04/26/2015 Right knee meniscal tear 03/18/2012 Degenerative arthritis of right knee 01/08/2012 04/26/2015 Knee pain 12/14/2011 04/26/2015 Acute gastritis 04/26/2015 Dysmenorrhea 04/23/2012 documented as of this encounter (statuses as of 05/02/2023) [facility] History of Past illness Narrative* Problem Noted Date Diagnosed Date Resolved Date Chronic cholecystitis without calculus 11/10/2015 12/17/2017 Pain of upper abdomen 09/23/20152017 Dermatofibroma of left lower leg 01/08/2014 04/26/2015 Viral wart, Right thumb at p tyrese mid lateral aspect 01/04/2014 04/26/2015 Back pain 10/17/2013 04/26/2015 Enthesopathy of ankle and tarsus, unspecified 10/02/19 14 04/26/2015 Foot pain 10/02/2013 04/26/2015 Right knee meniscal tear 03/18/2012 Degenerative arthritis of right knee 01/08/2012 04/26/2015 Knee pain 12/14/2011 04/26/2015 Acute gastritis 04/26/2015 Dysmenorrhea 04/23/2012 documented as of this encounter (statuses as of 05/09/2023) [facility] History of Past illness Narrative* Problem Noted Date Diagnosed Date Resolved Date Chronic cholecystitis without calculus 11/10/2015 12/17/2017 Pain of upper abdomen 09/23/20152017 Dermatofibroma of left lower leg 01/08/2014 04/26/2015 Viral wart, Right thumb at p tyrese mid lateral aspect 01/04/2014 04/26/2015 Back pain 10/17/2013 04/26/2015 Enthesopathy of ankle and tarsus, unspecified 10/02/19 14 04/26/2015 Foot pain 10/02/2013 04/26/2015 Right knee meniscal tear 03/18/2012 Degenerative arthritis of right knee 01/08/2012 04/26/2015 Knee pain 12/14/2011 04/26/2015 Acute gastritis 04/26/2015 Dysmenorrhea 04/23/2012 documented as of this encounter (statuses as of 05/23/2023) [facility] History of Past illness Narrative* Problem Noted Date Diagnosed Date Resolved Date Chronic cholecystitis without calculus 11/10/2015 12/17/2017 Pain of upper abdomen 09/23/20152017 Dermatofibroma of left lower leg 01/08/2014 04/26/2015 Viral wart, Right thumb at p tyrese mid lateral aspect 01/04/2014 04/26/2015 Back pain 10/17/2013 04/26/2015 Enthesopathy of ankle and tarsus, unspecified 10/02/19 14 04/26/2015 Foot pain 10/02/2013 04/26/2015 Right knee meniscal tear 03/18/2012 Degenerative arthritis of right knee 01/08/2012 04/26/2015 Knee pain 12/14/2011 04/26/2015 Acute gastritis 04/26/2015 Dysmenorrhea 04/23/2012 documented as of this encounter (statuses as of 05/25/2023) [facility] History of Past illness Narrative* Problem Noted Date Diagnosed Date Resolved Date Chronic cholecystitis without calculus 11/10/2015 12/17/2017 Pain of upper abdomen 09/23/20152017 Dermatofibroma of left lower leg 01/08/2014 04/26/2015 Viral wart, Right thumb at p tyrese mid lateral aspect 01/04/2014 04/26/2015 Back pain 10/17/2013 04/26/2015 Enthesopathy of ankle and tarsus, unspecified 10/02/19 14 04/26/2015 Foot pain 10/02/2013 04/26/2015 Right knee meniscal tear 03/18/2012 Degenerative arthritis of right knee 01/08/2012 04/26/2015 Knee pain 12/14/2011 04/26/2015 Acute gastritis 04/26/2015 Dysmenorrhea 04/23/2012 documented as of this encounter (statuses as of 06/26/2023) [facility] History of Past illness Narrative* Problem Noted Date Diagnosed Date Resolved Date Chronic cholecystitis without calculus 11/10/2015 12/17/2017 Pain of upper abdomen 09/23/20152017 Dermatofibroma of left lower leg 01/08/2014 04/26/2015 Viral wart, Right thumb at p tyrese mid lateral aspect 01/04/2014 04/26/2015 Back pain 10/17/2013 04/26/2015 Enthesopathy of ankle and tarsus, unspecified 10/02/19 14 04/26/2015 Foot pain 10/02/2013 04/26/2015 Right knee meniscal tear 03/18/2012 Degenerative arthritis of right knee 01/08/2012 04/26/2015 Knee pain 12/14/2011 04/26/2015 Acute gastritis 04/26/2015 Dysmenorrhea 04/23/2012 documented as of this encounter (statuses as of 07/06/2023) [facility] History of Past illness Narrative* Problem Noted Date Diagnosed Date Resolved Date Chronic cholecystitis without calculus 11/10/2015 12/17/2017 Pain of upper abdomen 09/23/20152017 Dermatofibroma of left lower leg 01/08/2014 04/26/2015 Viral wart, Right thumb at p tyrese mid lateral aspect 01/04/2014 04/26/2015 Back pain 10/17/2013 04/26/2015 Enthesopathy of ankle and tarsus, unspecified 10/02/19 14 04/26/2015 Foot pain 10/02/2013 04/26/2015 Right knee meniscal tear 03/18/2012 Degenerative arthritis of right knee 01/08/2012 04/26/2015 Knee pain 12/14/2011 04/26/2015 Acute gastritis 04/26/2015 Dysmenorrhea 04/23/2012 documented as of this encounter (statuses as of 07/15/2023) [facility] History of Past illness Narrative* Problem Noted Date Diagnosed Date Resolved Date Chronic cholecystitis without calculus 11/10/2015 12/17/2017 Pain of upper abdomen 09/23/20152017 Dermatofibroma of left lower leg 01/08/2014 04/26/2015 Viral wart, Right thumb at p tyrese mid lateral aspect 01/04/2014 04/26/2015 Back pain 10/17/2013 04/26/2015 Enthesopathy of ankle and tarsus, unspecified 10/02/19 14 04/26/2015 Foot pain 10/02/2013 04/26/2015 Right knee meniscal tear 03/18/2012 Degenerative arthritis of right knee 01/08/2012 04/26/2015 Knee pain 12/14/2011 04/26/2015 Acute gastritis 04/26/2015 Dysmenorrhea 04/23/2012 documented as of this encounter (statuses as of 07/15/2023) [facility] History of Past illness Narrative* Problem Noted Date Diagnosed Date Resolved Date Chronic cholecystitis without calculus 11/10/2015 12/17/2017 Pain of upper abdomen 09/23/20152017 Dermatofibroma of left lower leg 01/08/2014 04/26/2015 Viral wart, Right thumb at p tyrese mid lateral aspect 01/04/2014 04/26/2015 Back pain 10/17/2013 04/26/2015 Enthesopathy of ankle and tarsus, unspecified 10/02/19 14 04/26/2015 Foot pain 10/02/2013 04/26/2015 Right knee meniscal tear 03/18/2012 Degenerative arthritis of right knee 01/08/2012 04/26/2015 Knee pain 12/14/2011 04/26/2015 Acute gastritis 04/26/2015 Dysmenorrhea 04/23/2012 documented as of this encounter (statuses as of 07/15/2023) [facility] History of Past illness Narrative* Problem Noted Date Diagnosed Date Resolved Date Chronic cholecystitis without calculus 11/10/2015 12/17/2017 Pain of upper abdomen 09/23/20152017 Dermatofibroma of left lower leg 01/08/2014 04/26/2015 Viral wart, Right thumb at p tyrese mid lateral aspect 01/04/2014 04/26/2015 Back pain 10/17/2013 04/26/2015 Enthesopathy of ankle and tarsus, unspecified 10/02/19 14 04/26/2015 Foot pain 10/02/2013 04/26/2015 Right knee meniscal tear 03/18/2012 Degenerative arthritis of right knee 01/08/2012 04/26/2015 Knee pain 12/14/2011 04/26/2015 Acute gastritis 04/26/2015 Dysmenorrhea 04/23/2012 documented as of this encounter (statuses as of 08/03/2023) [facility] History of Past illness Narrative* Problem Noted Date Diagnosed Date Resolved Date Chronic cholecystitis without calculus 11/10/2015 12/17/2017 Pain of upper abdomen 09/23/20152017 Dermatofibroma of left lower leg 01/08/2014 04/26/2015 Viral wart, Right thumb at p tyrese mid lateral aspect 01/04/2014 04/26/2015 Back pain 10/17/2013 04/26/2015 Enthesopathy of ankle and tarsus, unspecified 10/02/19 14 04/26/2015 Foot pain 10/02/2013 04/26/2015 Right knee meniscal tear 03/18/2012 Degenerative arthritis of right knee 01/08/2012 04/26/2015 Knee pain 12/14/2011 04/26/2015 Acute gastritis 04/26/2015 Dysmenorrhea 04/23/2012 documented as of this encounter (statuses as of 10/19/2023) [facility] History of Past illness Narrative* Problem Noted Date Diagnosed Date Resolved Date Chronic cholecystitis without calculus 11/10/2015 12/17/2017 Pain of upper abdomen 09/23/20152017 Dermatofibroma of left lower leg 01/08/2014 04/26/2015 Viral wart, Right thumb at p tyrese mid lateral aspect 01/04/2014 04/26/2015 Back pain 10/17/2013 04/26/2015 Enthesopathy of ankle and tarsus, unspecified 10/02/19 14 04/26/2015 Foot pain 10/02/2013 04/26/2015 Right knee meniscal tear 03/18/2012 Degenerative arthritis of right knee 01/08/2012 04/26/2015 Knee pain 12/14/2011 04/26/2015 Acute gastritis 04/26/2015 Dysmenorrhea 04/23/2012 documented as of this encounter (statuses as of 10/23/2023) [facility] History of Past illness Narrative* Problem Noted Date Diagnosed Date Resolved Date Chronic cholecystitis without calculus 11/10/2015 12/17/2017 Pain of upper abdomen 09/23/20152017 Dermatofibroma of left lower leg 01/08/2014 04/26/2015 Viral wart, Right thumb at p tyrese mid lateral aspect 01/04/2014 04/26/2015 Back pain 10/17/2013 04/26/2015 Enthesopathy of ankle and tarsus, unspecified 10/02/19 14 04/26/2015 Foot pain 10/02/2013 04/26/2015 Right knee meniscal tear 03/18/2012 Degenerative arthritis of right knee 01/08/2012 04/26/2015 Knee pain 12/14/2011 04/26/2015 Acute gastritis 04/26/2015 Dysmenorrhea 04/23/2012 documented as of this encounter (statuses as of 12/01/2023) [facility] No data available for this section [facility] Evaluation note* Diagnosis Cervicalgia Chronic midline low back pain with sciatica, sciatica laterality unspecified documented in this encounter [facility] noteNo assessment information availableW[facility] Work Phone: Evaluation note* Diagnosis Diverticulitis- Primary Diverticulitis of colon (without mention of hemorrhage) Sternal pain Chest pain, unspecified documented in this encounter [facility] Diagnosis Diverticulitis- Primary Diverticulitis of colon (without mention of hemorrhage) documented [facility] this [facility] Diagnosis Left lower quadrant abdominal pain- Primary Diverticulitis Diverticulitis of colon (without mention of hemorrhage) [facility] Diagnosis Chronic SI joint pain Disorders of sacrum Insomnia, unspecified type Anxiety Anxiety state, unspecified Bereavement reaction Adjustment disorder with depressed mood [facility]* Diagnosis Cervicalgia- Primary Chronic midline low back pain with sciatica, sciatica laterality unspecified Bereavement Adjustment disorder with depressed mood Anxiety Anxiety state, unspecified Need for vaccination Need for prophylactic vaccination and inoculation against unspecified single disease documented in this encounter [facility] note* Diagnosis Encounter for screening mammogram for breast cancer- Primary documented in this encounter [facility] note* Diagnosis Encounter for long-term current use of medication- Primary documented in this encounter [facility] note* Diagnosis Encounter for immunization- Primary Need for other specified prophylactic vaccination against single bacterial disease Acute non-recurrent maxillary sinusitis Cervicalgia Chronic midline low back pain with sciatica, sciatica laterality unspecified Dysthymic disorder Insomnia, unspecified type Anxiety Anxiety state, unspecified Bereavement reaction Adjustment disorder with depressed mood Elevated fasting glucose Impaired fasting glucose documented in this encounter [facility] note* Diagnosis Diverticulitis- Primary Diverticulitis of colon (without mention of hemorrhage) documented in this encounter [facility] note* Diagnosis Sternal pain Chest pain, unspecified documented in this encounter [facility] note* Diagnosis Cervicalgia Chronic midline low back pain with sciatica, sciatica laterality unspecified documented in this encounter [facility] note* Diagnosis C. difficile diarrhea- Primary Intestinal infection due to clostridium difficile documented in this encounter [facility] note* Diagnosis Elevated fasting blood sugar- Primary Impaired fasting glucose C. difficile diarrhea Intestinal infection due to clostridium difficile Anxiety Anxiety state, unspecified Constipation, unspecified constipation type Insomnia, unspecified type Bereavement reaction Adjustment disorder with depressed mood Generalized abdominal pain Abdominal pain, generalized documented in this encounter [facility] note* Diagnosis Alternating constipation and diarrhea- Primary Other symptoms involving digestive system Leg swelling Swelling of limb documented in this encounter [facility] note* Diagnosis C. difficile diarrhea Intestinal infection due to clostridium difficile Constipation, unspecified constipation type Generalized abdominal pain Abdominal pain, generalized documented in this encounter [facility] note* Diagnosis Lower abdominal pain- Primary Abdominal pain, other specified site History of diverticulitis of colon Personal history of other diseases of digestive system Alternating constipation and diarrhea Other symptoms involving digestive system documented [facility] this [facility] Diagnosis Lower abdominal pain Abdominal pain, other specified site History of diverticulitis of colon Personal history of other diseases of digestive system documented in this [facility] Diagnosis Encounter for screening mammogram for breast cancer [facility] Diagnosis Chronic constipation- Primary Unspecified constipation Lower abdominal pain Abdominal pain, other specified site History of diverticulitis of colon Personal history of other diseases of digestive system documented in this encounter [facility] Diagnosis Chronic midline low back pain with sciatica, sciatica laterality unspecified- Primary Insomnia, unspecified type Bereavement reaction Adjustment disorder with depressed mood Anxiety Anxiety state, unspecified Constipation, unspecified constipation type Cervicalgia Fluid retention Other fluid overload Chronic SI joint pain Disorders of sacrum Dysthymic disorder Sternal pain Chest pain, unspecified Rash Rash and other nonspecific skin eruption documented in this encounter [facility] note* Diagnosis Family history of celiac disease- Primary Family history of other digestive disorders Abdominal bloating Flatulence, eructation, and gas pain Abdominal bloating Flatulence, eructation, and gas pain documented in this encounter [facility]* Diagnosis Abdominal bloating Flatulence, eructation, and gas pain [facility]* Diagnosis Encounter for screening mammogram for breast cancer- Primary documented [facility] this [facility] Diagnosis Chronic constipation Unspecified constipation documented in this encounter [facility]* Diagnosis Encounter for screening mammogram for breast cancer [facility]* Diagnosis Encounter for gynecological examination (general) (routine) without abnormal findings- Primary Encounter for screening mammogram for breast cancer Encounter for screening for malignant neoplasm of vagina Special screening for malignant neoplasms, vagina documented in this encounter [facility]* Diagnosis Rash Rash and other nonspecific skin eruption documented in this encounter [facility] note* Diagnosis Chronic SI joint pain Disorders of sacrum documented in this encounter [facility]* Diagnosis Diarrhea, unspecified type Diverticulitis Diverticulitis of colon (without mention of hemorrhage) [facility] this [facility] Diagnosis Chronic SI joint pain Disorders of sacrum [facility]* Diagnosis Insomnia, unspecified type Anxiety Anxiety state, unspecified Bereavement reaction Adjustment disorder with depressed mood documented in this encounter [facility]* Diagnosis Dysthymic disorder Sternal pain Chest pain, unspecified [facility] Dis[facility] instructions Additional Instructions History exam concerns for rotator cuff strain with biceps tendinitis. Continue Tylenol every 6 hours. May use ibuprofen 600 mg every 6 hours also for additional pain control. Work restrictions as given. Follow-up with occupational health.[facility] Work Phone: Hospital Discharge instructions No data available for this section [facility] Progress note No data available for this section [facility] Reason for referral (narrative)* Outpatient Procedure (Routine) - Pending Review Specialty Diagnoses / Procedures Referred By Lima de paz Referred To Contact [facility] Diagnoses Diverticulitis Left lower quadrant abdominal pain Procedures COLONOSCOPY DIAGNOSTIC COLONOSCOPY FLX DX W/COLLJ SPEC WHEN Vero Brweer MD [address] [place] [address] [facility] [place] [address] [place] [id number] Referral ID Status Reason Start Date Expiration Date Visits Requested Visits Authorized [id number] Pending Review Auto-Generat ed Referral 01/16/2022 01/16/2023 1 1 [facility] for referral (narrative)* Diagnostic Procedure Only (Routine) - Pending Review Specialty Diagnoses / Procedures Referred By Lima de paz Referred To Contact [facility] Diagnoses Encounter for screening mammogram for breast cancer Procedures YOANA SCREENING SCREENING MAMMOGRAPHY BI 2-VIEW BREAST INC Josh Schmitz APRN.MANAGER INVE[employer]MENT BANKING [address] [place] [address] [facility] [address] [place] [address] [place] [address] Referral ID Status Reason Start Date Expiration Date Visits Requested Visits Authorized [id number] Pending Review Auto-Generat ed Referral 10/17/2022 11/16/2023 1 1 [facility] for referral (narrative)* Diagnostic Procedure Only (Routine) - Closed Specialty Diagnoses / Procedures Referred By Contac t Referred To Contact [facility] Diagnoses Encounter for screening mammogram for breast cancer Procedures YOANA SCREENING SCREENING MAMMOGRAPHY BI 2-VIEW BREAST INC CAD Josh Allison APRN.CNP [address] [place] [address] [facility] [address] [place] [address] Referral ID Status Reason Start Date Expiration Date V isits Requested Visits Authorized [id number] Closed Auto-Generate d Referral 10/17/2022 11/16/2023 1 1 [facility] for referral (narrative)* Diagnostic Procedure Only (Routine) - Pending Review Specialty Diagnoses / Procedures Referred By Contac t Referred To Contact XR IMAGING Diagnoses Chronic constipation Procedures XR ABDOMEN 2V ROUTINE SUPINE W UPRIGHT/DECUB/CTL RADIOLOGIC EXAM ABDOMEN 2 [place] [address] [place] [id number] [facility] [place] [address] Referral ID Status Reason Start Date Expiration Date Visits Requested Visits Authorized [id number] Pending Review Auto-Generat ed Referral 10/19/2023 11/17/2024 1 1 * Medication Prior Authorization - Authorized Specialty Diagnoses / Procedures Referred By Warner[place] [address] [place] [phone] Referral ID Status Reason Start Date Expiration Date V isits Requested Visits Authorized [id number] Authorized 10/19/2023 10/17/2024 1 1 [facility] for referral (narrative)* Diagnostic Procedure Only (Routine) - Pending Review Specialty Diagnoses / Procedures Referred By Lima t Referred To Contact [facility] Diagnoses Encounter for screening mammogram for breast cancer Procedures YOANA SCREENING SCREENING MAMMOGRAPHY BI 2-VIEW BREAST INC CAD Josh Allison APRN.MANAGER [employer]ING [address] [place] [address] [facility] [address] [place] [address] Referral ID Status Reason Start Date Expiration Date Visits Requested Visits Authorized [id number] Pending Review Auto-Generat ed Referral 01/18/2024 02/12/2025 1 1 [facility] for referral (narrative)* Diagnostic Procedure Only (Routine) - Pending Review Specialty Diagnoses / Procedures Referred By Lima t Referred To Contact [facility] Diagnoses Encounter for gynecological examination (general) (routine) without abnormal findings Encounter for screening mammogram for breast cancer Procedures YOANA SCREENING SCREENING MAMMOGRAPHY BI 2-VIEW BREAST INC CAD Feliberto Melchor MD [address] [place] [address] [facility] [address] [place] [address] Referral ID Status Reason Start Date Expiration Date Visits Requested Visits Authorized [id number] Pending Review Auto-Generat ed Referral 01/28/2024 02/26/2025 1 1 [facility] for referral (narrative)* Diagnostic Procedure Only (Routine) - Closed Specialty Diagnoses / Procedures Referred By Lima t Referred To Contact XR IMAGING Diagnoses Diarrhea, unspecified type Diverticulitis Procedures XR ABDOMEN 1V SUPINE RADIOLOGIC EXAM ABDOMEN 1 VIEW Josh Allison APRN.MANAGER [employer]ING [address] [place] [address] [place] [address] Referral ID Status Reason Start Date Expiration Date V isits Requested Visits Authorized [id number] Closed Auto-Generate d Referral 01/31/2023 03/01/2024 1 1 [facility] for visit Narrative* Diagnostic Procedure Only (Routine) - Closed Specialty Diagnoses / Procedures Referred By Lima t Referred To Contact [facility] Diagnoses Encounter for screening mammogram for breast cancer Procedures YOANA SCREENING SCREENING MAMMOGRAPHY BI 2-VIEW BREAST INC CAD Josh Allison APRN.MANAGER [employer]ING [address] [place] [address] [facility] [address] [place] [address] Referral ID Status Reason Start Date Expiration Date V isits Requested Visits Authorized [id number] Closed Auto-Generate d Referral 10/17/2022 11/16/2023 1 1 [facility] for visit Narrative* Diagnostic Procedure Only (Routine) - Closed Specialty Diagnoses / Procedures Referred By Contac t Referred To Contact XR IMAGING Diagnoses Chronic constipation Procedures XR ABDOMEN 2V ROUTINE SUPINE W UPRIGHT/DECUB/CTL RADIOLOGIC EXAM ABDOMEN 2 VIEWS S[place], [place] [address] [place] [address] [place] [address] Referral ID Status Reason Start Date Expiration Date V isits Requested Visits Authorized [id number] Closed Auto-Generate d Referral 01/18/2024 09/09/2024 1 1 [facility] for visit Narrative* Diagnostic Procedure Only (Routine) - Closed Specialty Diagnoses / Procedures Referred By Contac t Referred To Contact [facility] Diagnoses Encounter for screening mammogram for breast cancer Procedures YOANA SCREENING SCREENING MAMMOGRAPHY BI 2-VIEW BREAST INC CAD Josh Allison APRN.MANAGER [employer]ING [address] [place] [address] [facility] [address] [place] [address] Referral ID Status Reason Start Date Expiration Date V isits Requested Visits Authorized [id number] Closed Auto-Generate d Referral 01/18/2024 02/12/2025 1 1 [facility] for visit Narrative* Diagnostic Procedure Only (Routine) - Closed Specialty Diagnoses / Procedures Referred By Contac t Referred To Contact XR IMAGING Diagnoses Diarrhea, unspecified type Diverticulitis Procedures XR ABDOMEN 1V SUPINE RADIOLOGIC EXAM ABDOMEN 1 VIEW Josh Allison APRN.MANAGER [employer]ING [address] [place] [address] [place] [address] Referral ID Status Reason Start Date Expiration Date V isits Requested Visits Authorized [id number] Closed Auto-Generate d Referral 01/31/2023 03/01/2024 1 1 [facility] Summary Purpose Family History No Family History Records FoundNo Family History Records FoundNo Family History Records FoundNo Family History Records Found No data available for this section No Family History Records Found Advance Directives Documents on File Type Date Recorded Patient Director Drug Safety Expl anation Advance Directive(s) 12/28/2017 6:53 AM Advance Directive(s) 12/17/2015 7:48 AM Advance Directive(s) 12/02/2015 5:06 PM Advance Directive(s) 11/25/2015 5:58 PM Advance Directive Response Recorded Date/ Time Name of Medical Power of Thread Spinner Unknown December 21, 2021 3:20pm Living Will No December 28, 2021 2:35am Power of Thread Spinner No December 28 2:35am Documents on File Type Date Recorded Patient Director Drug Safety Expl anation Advance Directive(s) 12/28/2017 6:53 AM Advance Directive(s) 12/17/2015 7:48 AM Advance Directive(s) 12/02/2015 5:06 PM Advance Directive(s) 11/25/2015 5:58 PM Documents on File Type Date Recorded Patient Director Drug Safety Expl anation Advance Directive(s) 02/17/2022 6:54 AM Advance Directive(s) 12/28/2017 6:53 AM Advance Directive(s) 12/17/2015 7:48 AM Advance Directive(s) 12/02/2015 5:06 PM Advance Directive(s) 11/25/2015 5:58 PM Advance Directive Response Recorded Date/ Time Living Will No May 17 6:19am Power of Thread Spinner No May 17, 2022 6:19am Chief Complaint and Reason for Visit Chief Complaint ABD abdominal pain Chief Complaint right shoulder pain Reason for Referral Specialty Diagnoses / Procedures Referred By Lima de paz Referred To Contact General Surgery Diagnoses Diverticulitis Procedures CONSULT TO GENERAL SURGERY OFFICE/OUTPATIENT [facility] 60-74 MINUTES Hien Pricei, ELECTRIC STOVE INSTALLER.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 ERECTOR APPRENTICE [address] [place] [address] Referral ID Status Reason Start Date Expiration Date Visits Requested Visits Authorized [id number] Authorized PCP Requested Referral 01/06/2022 01/06/2023 1 1 Specialty Diagnoses / Procedures Referred By Contac t Referred To Contact Gastroenterology Diagnoses Diverticulitis Procedures CONSULT TO GASTROENTEROLOGY OFFICE/OUTPATIENT [facility] 60-74 MINUTES PriceHien perezi, ELECTRIC STOVE INSTALLER.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 ERECTOR APPRENTICE [address] [place] [phone] Referral ID Status Reason Start Date Expiration Date Visits Requested Visits Authorized [id number] Authorized PCP Requested Referral 01/06/2022 01/06/2023 1 1 Specialty Diagnoses / Procedures Referred By Contac t Referred To Contact Gastroenterology Diagnoses C. difficile diarrhea Constipation, unspecified constipation type Generalized abdominal pain Procedures CONSULT TO GASTROENTEROLOGY OFFICE/OUTPATIENT [facility] 60-74 MINUTES Katey Chester MD [address] [place] [phone] Referral ID Status Reason Start Date Expiration Date Visits Requested Visits Authorized [id number] Authorized PCP Requested Referral 03/28/2023 03/27/2024 1 1 Specialty Diagnoses / Procedures Referred By Contac t Referred To Contact CT IMAGING Diagnoses Lower abdominal pain History of diverticulitis of colon Procedures CT ABD/PEL W IVCON CT ABD & PELVIS W/CONTRAST Carolyn Hoyos, [address] [place] [phone] [place] [address] Referral ID Status Reason Start Date Expiration Date Visits Requested Visits Authorized [id number] Pending Review Auto-Generat ed Referral 07/21/2024 1 1 Referral ID Status Reason Start Date Expiration Date V isits Requested Visits Authorized [id number] Closed Auto-Generate d Referral 06/28/2023 07/28/2023 2 2 Specialty Diagnoses / Procedures Referred By Contac t Referred To Contact Diagnoses Fluid retention Katey Chester MD [address] [place] [address] Referral ID Status Reason Start Date Expiration Date Visits Re quested Visits Authorized [id number] Closed 1 1 Health Concerns Infection Onset Date Last Indicated Resolved Time C. difficile 01/31/2023 01/31/2023 Infection Onset Date Last Indicated Resolved Time C. difficile 03/21/2023 03/21/2023 Infection Onset Date Last Indicated Resolved Time C. difficile 01/31/2023 01/31/2023 03/02/2023 8:51 PM EDT C. difficile 03/21/2023 03/21/2023 Infection Onset Date Last Indicated Resolved Time C. difficile 03/21/2023 03/21/2023 04/20/2023 8:52 PM EDT Infection Onset Date Last Indicated Resolved Time C. difficile 03/21/2023 03/21/2023 04/20/2023 8:52 PM EDT Additional Source Comments INFORMATION SOURCE (unrecogn ized section and content) DATE CREATED AUTHOR 03/30/2018 [facility] DATE CREATED AUTHOR AUTHOR'S ORGANIZ ATION 01/25/2023 [facility] DATE CREATED AUTHOR AUTHOR'S ORGANIZ ATION 03/10/2023 [facility] ([place]) DATE CREATED AUTHOR AUTHOR'S ORGANIZ ATION 02/13/2024 [facility] DATE CREATED AUTHOR AUTHOR'S ORGANIZ ATION 11/09/2024 [facility] Source Comments (unrecognize d section and content) In the event this informatio n is protected by the Federal Confidentiality of Alcohol and Drug Abuse Patient Records regulations: The Federal rules restrict any use of the information to criminally investigate or prosecute any alcohol or drug abuse patient.[facility] event this information is protected by the Federal Confidentiality of Alcohol and Drug Abuse Patient Records regulations: The Federal rules restrict any use of the information to criminally investigate or prosecute any alcohol or drug abuse patient.[facility] the event this information is protected by the Federal Confidentiality of Alcohol and Drug Abuse Patient Records regulations: The Federal rules restrict any use of the information to criminally investigate or prosecute any alcohol or drug abuse patient.[facility] the event this information is protected by the Federal Confidentiality of Alcohol and Drug Abuse Patient Records regulations: The Federal rules restrict any use of the information to criminally investigate or prosecute any alcohol or drug abuse patient.[facility] the event this information is protected by the Federal Confidentiality of Alcohol and Drug Abuse Patient Records regulations: The Federal rules restrict any use of the information to criminally investigate or prosecute any alcohol or drug abuse patient.[facility] the event this information is protected by the Federal Confidentiality of Alcohol and Drug Abuse Patient Records regulations: The Federal rules restrict any use of the information to criminally investigate or prosecute any alcohol or drug abuse patient.[facility] the event this information is protected by the Federal Confidentiality of Alcohol and Drug Abuse Patient Records regulations: The Federal rules restrict any use of the information to criminally investigate or prosecute any alcohol or drug abuse patient.[facility] the event this information is protected by the Federal Confidentiality of Alcohol and Drug Abuse Patient Records regulations: The Federal rules restrict any use of the information to criminally investigate or prosecute any alcohol or drug abuse patient.[facility] the event this information is protected by the Federal Confidentiality of Alcohol and Drug Abuse Patient Records regulations: The Federal rules restrict any use of the information to criminally investigate or prosecute any alcohol or drug abuse patient.[facility] the event this information is protected by the Federal Confidentiality of Alcohol and Drug Abuse Patient Records regulations: The Federal rules restrict any use of the information to criminally investigate or prosecute any alcohol or drug abuse patient.[facility] the event this information is protected by the Federal Confidentiality of Alcohol and Drug Abuse Patient Records regulations: The Federal rules restrict any use of the information to criminally investigate or prosecute any alcohol or drug abuse patient.[facility] the event this information is protected by the Federal Confidentiality of Alcohol and Drug Abuse Patient Records regulations: The Federal rules restrict any use of the information to criminally investigate or prosecute any alcohol or drug abuse patient.[facility] the event this information is protected by the Federal Confidentiality of Alcohol and Drug Abuse Patient Records regulations: The Federal rules restrict any use of the information to criminally investigate or prosecute any alcohol or drug abuse patient.[facility] the event this information is protected by the Federal Confidentiality of Alcohol and Drug Abuse Patient Records regulations: The Federal rules restrict any use of the information to criminally investigate or prosecute any alcohol or drug abuse patient.[facility] the event this information is protected by the Federal Confidentiality of Alcohol and Drug Abuse Patient Records regulations: The Federal rules restrict any use of the information to criminally investigate or prosecute any alcohol or drug abuse patient.[facility] the event this information is protected by the Federal Confidentiality of Alcohol and Drug Abuse Patient Records regulations: The Federal rules restrict any use of the information to criminally investigate or prosecute any alcohol or drug abuse patient.[facility]In the event this information is protected by the Federal Confidentiality of Alcohol and Drug Abuse Patient Records regulations: The Federal rules restrict any use of the information to criminally investigate or prosecute any alcohol or drug abuse patient.[facility] HospitalIn the event this information is protected by the Federal Confidentiality of Alcohol and Drug Abuse Patient Records regulations: The Federal rules restrict any use of the information to criminally investigate or prosecute any alcohol or drug abuse patient.[facility] HospitalIn the event this information is protected by the Federal Confidentiality of Alcohol and Drug Abuse Patient Records regulations: The Federal rules restrict any use of the information to criminally investigate or prosecute any alcohol or drug abuse patient.[facility] HospitalIn the event this information is protected by the Federal Confidentiality of Alcohol and Drug Abuse Patient Records regulations: The Federal rules restrict any use of the information to criminally investigate or prosecute any alcohol or drug abuse patient.[facility] HospitalIn the event this information is protected by the Federal Confidentiality of Alcohol and Drug Abuse Patient Records regulations: The Federal rules restrict any use of the information to criminally investigate or prosecute any alcohol or drug abuse patient.[facility] HospitalIn the event this information is protected by the Federal Confidentiality of Alcohol and Drug Abuse Patient Records regulations: The Federal rules restrict any use of the information to criminally investigate or prosecute any alcohol or drug abuse patient.[facility] HospitalIn the event this information is protected by the Federal Confidentiality of Alcohol and Drug Abuse Patient Records regulations: The Federal rules restrict any use of the information to criminally investigate or prosecute any alcohol or drug abuse patient.[facility] HospitalIn the event this information is protected by the Federal Confidentiality of Alcohol and Drug Abuse Patient Records regulations: The Federal rules restrict any use of the information to criminally investigate or prosecute any alcohol or drug abuse patient.[facility] HospitalIn the event this information is protected by the Federal Confidentiality of Alcohol and Drug Abuse Patient Records regulations: The Federal rules restrict any use of the information to criminally investigate or prosecute any alcohol or drug abuse patient.[facility] HospitalIn the event this information is protected by the Federal Confidentiality of Alcohol and Drug Abuse Patient Records regulations: The Federal rules restrict any use of the information to criminally investigate or prosecute any alcohol or drug abuse patient.[facility] HospitalIn the event this information is protected by the Federal Confidentiality of Alcohol and Drug Abuse Patient Records regulations: The Federal rules restrict any use of the information to criminally investigate or prosecute any alcohol or drug abuse patient.[facility] HospitalIn the event this information is protected by the Federal Confidentiality of Alcohol and Drug Abuse Patient Records regulations: The Federal rules restrict any use of the information to criminally investigate or prosecute any alcohol or drug abuse patient.[facility] HospitalIn the event this information is protected by the Federal Confidentiality of Alcohol and Drug Abuse Patient Records regulations: The Federal rules restrict any use of the information to criminally investigate or prosecute any alcohol or drug abuse patient.[facility] HospitalIn the event this information is protected by the Federal Confidentiality of Alcohol and Drug Abuse Patient Records regulations: The Federal rules restrict any use of the information to criminally investigate or prosecute any alcohol or drug abuse patient.[facility] HospitalIn the event this information is protected by the Federal Confidentiality of Alcohol and Drug Abuse Patient Records regulations: The Federal rules restrict any use of the information to criminally investigate or prosecute any alcohol or drug abuse patient.[facility] HospitalIn the event this information is protected by the Federal Confidentiality of Alcohol and Drug Abuse Patient Records regulations: The Federal rules restrict any use of the information to criminally investigate or prosecute any alcohol or drug abuse patient.[facility] HospitalIn the event this information is protected by the Federal Confidentiality of Alcohol and Drug Abuse Patient Records regulations: The Federal rules restrict any use of the information to criminally investigate or prosecute any alcohol or drug abuse patient.[facility] HospitalIn the event this information is protected by the Federal Confidentiality of Alcohol and Drug Abuse Patient Records regulations: The Federal rules restrict any use of the information to criminally investigate or prosecute any alcohol or drug abuse patient.[facility] HospitalIn the event this information is protected by the Federal Confidentiality of Alcohol and Drug Abuse Patient Records regulations: The Federal rules restrict any use of the information to criminally investigate or prosecute any alcohol or drug abuse patient.[facility] HospitalIn the event this information is protected by the Federal Confidentiality of Alcohol and Drug Abuse Patient Records regulations: The Federal rules restrict any use of the information to criminally investigate or prosecute any alcohol or drug abuse patient.[facility] HospitalIn the event this information is protected by the Federal Confidentiality of Alcohol and Drug Abuse Patient Records regulations: The Federal rules restrict any use of the information to criminally investigate or prosecute any alcohol or drug abuse patient.[facility] HospitalIn the event this information is protected by the Federal Confidentiality of Alcohol and Drug Abuse Patient Records regulations: The Federal rules restrict any use of the information to criminally investigate or prosecute any alcohol or drug abuse patient.[facility] HospitalIn the event this information is protected by the Federal Confidentiality of Alcohol and Drug Abuse Patient Records regulations: The Federal rules restrict any use of the information to criminally investigate or prosecute any alcohol or drug abuse patient.[facility] HospitalIn the event this information is protected by the Federal Confidentiality of Alcohol and Drug Abuse Patient Records regulations: The Federal rules restrict any use of the information to criminally investigate or prosecute any alcohol or drug abuse patient.[facility] HospitalIn the event this information is protected by the Federal Confidentiality of Alcohol and Drug Abuse Patient Records regulations: The Federal rules restrict any use of the information to criminally investigate or prosecute any alcohol or drug abuse patient.[facility] HospitalIn the event this information is protected by the Federal Confidentiality of Alcohol and Drug Abuse Patient Records regulations: The Federal rules restrict any use of the information to criminally investigate or prosecute any alcohol or drug abuse patient.[facility] HospitalIn the event this information is protected by the Federal Confidentiality of Alcohol and Drug Abuse Patient Records regulations: The Federal rules restrict any use of the information to criminally investigate or prosecute any alcohol or drug abuse patient.[facility] HospitalIn the event this information is protected by the Federal Confidentiality of Alcohol and Drug Abuse Patient Records regulations: The Federal rules restrict any use of the information to criminally investigate or prosecute any alcohol or drug abuse patient.[facility] HospitalIn the event this information is protected by the Federal Confidentiality of Alcohol and Drug Abuse Patient Records regulations: The Federal rules restrict any use of the information to criminally investigate or prosecute any alcohol or drug abuse patient.[facility] HospitalIn the event this information is protected by the Federal Confidentiality of Alcohol and Drug Abuse Patient Records regulations: The Federal rules restrict any use of the information to criminally investigate or prosecute any alcohol or drug abuse patient.[facility] HospitalIn the event this information is protected by the Federal Confidentiality of Alcohol and Drug Abuse Patient Records regulations: The Federal rules restrict any use of the information to criminally investigate or prosecute any alcohol or drug abuse patient.[facility] HospitalIn the event this information is protected by the Federal Confidentiality of Alcohol and Drug Abuse Patient Records regulations: The Federal rules restrict any use of the information to criminally investigate or prosecute any alcohol or drug abuse patient.[facility] HospitalIn the event this information is protected by the Federal Confidentiality of Alcohol and Drug Abuse Patient Records regulations: The Federal rules restrict any use of the information to criminally investigate or prosecute any alcohol or drug abuse patient.[facility] HospitalIn the event this information is protected by the Federal Confidentiality of Alcohol and Drug Abuse Patient Records regulations: The Federal rules restrict any use of the information to criminally investigate or prosecute any alcohol or drug abuse patient.[facility] HospitalIn the event this information is protected by the Federal Confidentiality of Alcohol and Drug Abuse Patient Records regulations: The Federal rules restrict any use of the information to criminally investigate or prosecute any alcohol or drug abuse patient.[facility] HospitalIn the event this information is protected by the Federal Confidentiality of Alcohol and Drug Abuse Patient Records regulations: The Federal rules restrict any use of the information to criminally investigate or prosecute any alcohol or drug abuse patient.[facility] Reason for Visit (unrecogniz ed section and content) Reason Comments Radiology CT Specialty Diagnoses / Procedures Referred By Contac t Referred To Contact CT IMAGING Diagnoses Lower abdominal pain History of diverticulitis of colon Procedures CT ABD/PEL W IVCON CT ABD & PELVIS W/[place] [address] [place] [address] [place] [address] Referral ID Status Reason Start Date Expiration Date V isits Requested Visits Authorized [id number] Closed Auto-Generate d Referral 06/28/2023 07/28/2023 2 2 Reason Onset Date Comments Refill Request 12/06/2021 Reason Comments Hospital F/U Reason Comments Acute Visit Lower abdominal pain Reason Comments Lower abdominal pain Reason Comments Results Reason Comments Consult abd pain Specialty Diagnoses / Procedures Referred By Contac t Referred To Contact General Surgery Diagnoses Diverticulitis Procedures CONSULT TO GENERAL SURGERY OFFICE/OUTPATIENT [facility] MDM 60-74 MINUTES Heidy Price APRN.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 ERECTOR APPRENTICE [address] [place] [address] Referral ID Status Reason Start Date Expiration Date V isits Requested Visits Authorized [id number] Closed PCP Requested Referral 01/06/2022 01/06/2023 1 1 Reason Onset Date Comments Refill Request 02/12/2022 Reason Comments 02/17 COLON ASC Reason Comments Follow Up Reason Comments Orders Reason Comments F/U 4 month Reason Comments Abdominal Pain Reason Onset Date Comments Refill Request 02/07/2023 Reason Comments 4 month follow up Established Patient Reason Onset Date Comments Refill Request 05/08/2023 Reason Comments New Patient Evaluation Specialty Diagnoses / Procedures Referred By Contac t Referred To Contact Gastroenterology Diagnoses C. difficile diarrhea Constipation, unspecified constipation type Generalized abdominal pain Procedures CONSULT TO GASTROENTEROLOGY OFFICE/OUTPATIENT [facility] MDM 60-74 MINUTES Katey Chester MD [address] [place] [address] Referral ID Status Reason Start Date Expiration Date V isits Requested Visits Authorized [id number] Closed PCP Requested Referral 03/28/2023 03/27/2024 1 1 Reason Comments Recheck Reason Comments Insurance Authorization [employer]-APPROVED Reason Comments Follow Up Reason Comments H. Pylori Breath Test Reason Comments Yearly Exam Reason Onset Date Comments Refill Request 02/22/2024 Reason Onset Date Comments Refill Request 02/25/2024 Reason Onset Date Comments Refill Request 04/27/2024 Pantoprazole 40m g Reason Onset Date Comments Refill Request 10/22/2024 Reason Onset Date Comments Refill Request 10/23/2024 Reason Onset Date Comments Refill Request 11/30/2024 Care Teams (unrecognized sec tion and content) Training Developer Relationship Specialty Start Date End Date Katey Chester MD [facility] [place] [address] PCP - General 07/04/02 Training Developer Relationship Specialty Start Date End Date Katey Chester MD [address] [place] [id number] PCP - General 07/04/02 Training Developer Relationship Specialty Start Date End Date Katey Chester MD [address] [place] [address] PCP - General 07/04/02 Training Developer Relationship Specialty Start Date End Date Katey Chester MD [facility] [place] [address] PCP - General 07/04/02 Training Developer Relationship Specialty Start Date End Date Kaety Chester MD [address] [place] [address] PCP - General 07/04/02 Training Developer Relationship Specialty Start Date End Date Katey Chester MD [address] [place] [address] PCP - General 07/04/02 Training Developer Relationship Specialty Start Date End Date Katey Chester MD [address] [facility] [address] PCP - General 07/04/02 Training Developer Relationship Specialty Start Date End Date Katey Chester MD [address] [place] [address], [place] [address] PCP - General 07/04/02 Training Developer Relationship Specialty Start Date End Date Katey Chester MD [address] [place] [address], [place] [address] PCP - General 07/04/02 Training Developer Relationship Specialty Start Date End Date Katey Chester MD [address] [place] [address], [place] [address] PCP - General 07/04/02 Training Developer Relationship Specialty Start Date End Date Katey Chester MD [address] [place] [address], [place] [address] PCP - General 07/04/02 Training Developer Relationship Specialty Start Date End Date Katey Chester MD [address] [place] [address], [place] [address] PCP - General 07/04/02 Training Developer Relationship Specialty Start Date End Date Katey Chester MD [address] [place] [address], [place] [address] PCP - General 07/04/02 Training Developer Relationship Specialty Start Date End Date Katey Chester MD [address] [place] [address], [place] [address] PCP - General 07/04/02 Training Developer Relationship Specialty Start Date End Date Katey Chester MD [address] [place] [address], [place] [address] PCP - General 07/04/02 Training Developer Relationship Specialty Start Date End Date Katey Chester MD [address] [place] [address] PCP - General 07/04/02 Training Developer Relationship Specialty Start Date End Date Katey Chester MD [address] [place] [address] PCP - General 07/04/02 Training Developer Relationship Specialty Start Date End Date Katey Chester MD [address] [place] [address] PCP - General 07/04/02 Training Developer Relationship Specialty Start Date End Date Katey Chester MD [address] [place] [address] PCP - General 07/04/02 Training Developer Relationship Specialty Start Date End Date Katey Chester MD [address] [place] [address] PCP - General 07/04/02 Training Developer Relationship Specialty Start Date End Date Katey Chester MD [address] [place] [address] PCP - General 07/04/02 Training Developer Relationship Specialty Start Date End Date Katey Chester MD [address] [place] [address] PCP - General 07/04/02 Training Developer Relationship Specialty Start Date End Date Katey Chester MD [address] [place] [address] PCP - General 07/04/02 Training Developer Relationship Specialty Start Date End Date Katey Chester MD [address] [place] [address] PCP - General 07/04/02 Training Developer Relationship Specialty Start Date End Date Katey Chester MD [address] [place] [address] PCP - General 07/04/02 Training Developer Relationship Specialty Start Date End Date Katey Chester MD [address] [place] [address] PCP - General 07/04/02 Training Developer Relationship Specialty Start Date End Date Katey Chester MD [address] [place] [address] PCP - General 07/04/02 Training Developer Relationship Specialty Start Date End Date Katey Chester MD [address] [place] [address] PCP - General 07/04/02 Training Developer Relationship Specialty Start Date End Date Katey Chester MD [address] [place] [address] PCP - General 07/04/02 Training Developer Relationship Specialty Start Date End Date Katey Chester MD [address] [place] [address] PCP - General 07/04/02 Training Developer Relationship Specialty Start Date End Date Katey Chester MD [address] [place] [address] PCP - General 07/04/02 Training Developer Relationship Specialty Start Date End Date Katey Chester MD [address] [place] [address] PCP - General 07/04/02 Training Developer Relationship Specialty Start Date End Date Katey Chester MD [address] [place] [address] PCP - General 07/04/02 Training Developer Relationship Specialty Start Date End Date Katey Chester MD [address] [place] [address] PCP - General 07/04/02 Training Developer Relationship Specialty Start Date End Date Katey Chester MD [address] [place] [address] PCP - General 07/04/02 Training Developer Relationship Specialty Start Date End Date Katey Chester MD [address] [place] [address] PCP - General 07/04/02 Training Developer Relationship Specialty Start Date End Date Katey Chester MD [address] [place] [address] PCP - General 07/04/02 Training Developer Relationship Specialty Start Date End Date Katey Chester MD [address] [place] [address] PCP - General 07/04/02 Training Developer Relationship Specialty Start Date End Date Katey Chester MD [address] [facility] [address] PCP - General 07/04/02 Hiedy Price, ELECTRIC STOVE INSTALLER.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 ERECTOR APPRENTICE [address] [facility] [place] [address] Land Leasing Examiner Internal Medicine 08/18/24 Josh Allison ELECTRIC STOVE INSTALLER.MANAGER INVESTMENT BANKING [address] [place] [address] Land Leasing Examiner Internal Medicine 08/18/24 Training Developer Relationship Specialty Start Date End Date Katey Chester MD [address] [facility] [address] PCP - General 07/04/02 Heidy Price, ELECTRIC STOVE INSTALLER.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 ERECTOR APPRENTICE [address] [facility] [address] Land Leasing Examiner Internal Medicine 08/18/24 Josh Allison ELECTRIC STOVE INSTALLER.MANAGER INVESTMENT BANKING [address] [facility] [place] [address] Land Leasing Examiner Internal Medicine 08/18/24 Training Developer Relationship Specialty Start Date End Date Katey Chester MD [address] [facility] [address] PCP - General 07/04/02 Heidy Price, ELECTRIC STOVE INSTALLER.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 ERECTOR APPRENTICE [address] [facility] [address] Land Leasing Examiner Internal Medicine 08/18/24 Josh Allison ELECTRIC STOVE INSTALLER.MANAGER INVESTMENT BANKING [address] [place] [address] [facility] Internal Medicine 08/18/24 Training Developer Relationship Specialty Start Date End Date Katey Chester MD [address] [place], [place] [address] PCP - General 07/04/02 Heidy Price APRN.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 ERECTOR APPRENTICE [address] [place], [place] [address] [facility] Internal [facility] 08/18/24 Goals (unrecognized section and content) Goals may be documented in a n alternate sectionGoals may be documented in an alternate section No data available for this section No data available for this section No data available for this section FOR RECORDS PERTAINING TO PATIENTS WHO ARE OR HAVE BEEN ENROLLED IN A CHEMICAL DEPENDENCY/SUBSTANCEABUSE PROGRAM, SOME INFORMATION MAY BE OMITTED. This clinical summary was aggregated from multiple sources. Caution should be exercised in using it in the provision of clinical care. This summary normalizes information from multiple sources, and as a consequence, information in this document may materially change the coding, format and clinical context of patient data. In addition, data may be omitted in some cases. CLINICAL DECISIONS SHOULD BE BASED ON THE PRIMARY CLINICAL RECORDS. [facility] [employer] [facility]. provides no warranty or guarantee of the accuracy or completeness of information in this document.
--- NOTE | 2025-03-01 14:14 | RAD_ITS ---
PROCEDURE: WRIST MIN 3 VIEWS 03/01/2025 REASON FOR EXAM: INJURY/PAIN TECHNIQUE: WRIST MIN 3 VIEWS COMPARISON: Right wrist radiographs 07/09/2018. FINDINGS: Bones: Acute extra-articular fracture deformity of the distal right radius and ulna. The radial fracture is comminuted with mild dorsal angulation and impaction. Subtle ulnar styloid fracture. No obvious carpal fracture, however visualization is limited by severe osteopenia. Joints: Normal alignment. Moderate degenerative changes. Soft tissues: Soft tissue swelling. RAD/Wrist min 3 Views IMPRESSION: Acute right distal radial and ulnar fracture (Colles fracture). Soft tissue sw elling. Reading Location: [id number]
[2025-03-01] MEDS: Ondansetron 4 MG/2 ML Vial IV (14:19)
[2025-03-01] MEDS: Morphine 4 MG/ML Syringe IM (14:20)
[2025-03-01 15:30] VITALS: BP 125/68; PULSE 79; RESP 16; O2SAT 99
--- NOTE | 2025-03-01 16:40 | RAD_ITS ---
PROCEDURE: WRIST MIN 3 VIEWS 03/01/2025 REASON FOR EXAM: RIGHT WRIST REDUCTION TECHNIQUE: 4 fluoroscopic images of the wrist. COMPARISON: Prior examination at 1431 hrs. FINDINGS: 4 intraoperative fluoroscopic images are submitted for interpretation. Metallic hardware is seen projecting over the distal radius. Previously described distal radial fracture again seen. There is narrowing of the carpometacarpal articulations. Fluoroscopy time: 4 seconds, 0.0205 mGy RAD/Wrist min 3 Views IMPRESSION: Intraoperative fluoroscopy. [facility]
[2025-03-01 17:00] VITALS: BP 143/85; PULSE 71; RESP 16; O2SAT 97
--- NOTE | 2025-03-01 17:25 | RAD_ITS ---
PROCEDURE: WRIST MIN 3 VIEWS 03/01/2025 REASON FOR EXAM: POSTREDUCTION TECHNIQUE: WRIST MIN 3 VIEWS COMPARISON: Earlier in the day on 03/01/2025 RAD/Wrist min 3 Views IMPRESSION: Interval casting material placement, which limits evaluation of underlying osse ous and soft tissue structures. Again seen is acute right distal radial and ulnar fracture fractures, in significantly improv ed alignment. Kkgd-[id number]-[id number] diffuse soft tissue swelling is noted. Reading Location: [id number]
--- NOTE | 2025-03-01 17:35 | EDS_ITS ---
HPI History of Present Illness Chief Complaint: Upper Extremity Injury Detail of Chief Complaint: Injury right wrist Informant: patient Occured/Mechanism Mechanism/Context: Yes blunt trauma, Yes fall and Yes same level fall Onset/Context/Timing Onset: Today and Hours Timing: Continuous Quality of Pain: Aching and Throbbing Location: Right wrist Current Severity: Mild Maximum Severity: Severe Worsened by: Any movement Relieved by: Nothing Associated Symptoms Associated Symptoms: Positive for Loss of Funtion; Negative for Parasthesia or Weakness Narrative Narrative: Patient is a 59-year-old [id number] female. She presents because of injury to right wrist. She fell on her outstretched extremity. She denies injury to her left upper extremity or her lower extremities. Denies head trauma. She denies neck pain. She denies paresthesia, anesthesia or motor weakness to her right upper extremity. She has never injured this extremity in the past. Prior similar symptoms: No Recent Illness/Hospitalization: No PFSH [facility] Medical History Normal colonoscopy Anxiety and depression Home Medications ?Medication ?Instructions ?Recorded ?Last Taken ?Type bupropion HCl 150 mg tablet,12 hr 150 mg PO BID 09/13/13 08:00 History sustained-release meloxicam 15 mg tablet 15 mg PO DAILY PRN PRN Pain 09/13/13 09/13/13 08:00 History pregabalin 75 mg capsule 75 mg PO BID 09/13/13 08:00 History cyclobenzaprine 10 mg tablet 10 mg PO BID PRN PRN Musc le Spasm 10/19/13 Unknown History furosemide 40 mg tablet 40 mg PO DAILY PRN DIURETIC 07/09/18 Unknown History hydrocodone-acetaminophen 5-325mg 1 ea PO Q6H PRN Pain 07/09/18 Unknown History 5mg-325mg biotin 1 mg capsule 1 mg PO DAILY 07/11/18 Unkno wn History calcium carbonate 260 mg PO TID 07/11/18 Unkno wn History cholecalciferol (vitamin D3) 25 1,000 unit PO DAILY Unknown History mcg (1,000 unit) capsule ciprofloxacin HCl 500 mg tablet 500 mg PO BID #20 TABL ETS 12/21/21 Unknown Rx metronidazole 500 mg tablet 500 mg PO Q12H #20 tabs Unknown Rx tramadol 50 mg tablet 50 mg PO Q4H PRN PRN Pain 2 days 12/21/21 Unknown Rx #10 tabs oxycodone-acetaminophen 5 mg-325 1 tab PO Q6H PRN PRN Pain 3 days 12/28/21 Unknown Rx mg tablet #12 TABLETS hydrocodone-acetaminophen 5-325mg 1 tab PO Q6H PRN PRN Pain 3 days 03/01/25 Unknown Rx 5mg-325mg #10 TABLETS Allergy/AdvReac Type Severity Reaction Status Date / Time amoxicillin trihydrate (From Allergy Rash Verified 03/01/25 13:25 Augmentin) Penicillins Allergy Rash Verified 03/01/25 13:25 potassium clavulanate (From Allergy Rash Verified 03/01/25 13:25 Augmentin) morphine AdvReac Nausea/Vom/ Verified 03/01/25 13:25 Diarrhea Surgical History History of hysterectomy History of knee replacement history of thumb joint replacement Social History Smoking Status: Former smoker alcohol intake: never substance use type: does not use ROS ROS ED Eyes Eyes: Denies blurry vision or change in vision ENT ENT ED: Denies ear pain, rhinorrhea or sore throat Cardiovascular Cardiovascular: Denies chest pain or palpitations Respiratory/Chest Respiratory/Chest: Denies cough, dyspnea or dyspnea on exertion Gastrointestinal Gastrointestinal: Denies nausea or vomiting Integumentary Denies rash Neurologic Neurologic: Denies paresthesias or weakness Hematologic/Lymphatic Hematologic/Lymphatic: Denies easy bruising EXAM Physical Exam Const Vital Signs: 03/01/25 13:25 03/01/25 15:30 03/01/25 17:00 Temperature 98.0 F Temperature Source Oral Pulse Rate 58 L 79 71 Respiratory Rate 16 16 16 Blood Pressure 120/68 125/68 H 143/85 H Blood Pressure Mean 85 87 104 Pulse Ox 99 99 97 Oxygen Delivery Method Room Air Room Air Room Air Positive well nourished and well developed General Appearance ED: well developed; Negative for NAD HEENT Reports moist mucous membranes normocephalic and atraumatic Eyes PERRL and EOMs intact bilaterally Neck full ROM and supple Resp normal respiratory effort Cardio regular rate and regular rhythm Extremity Negative for normal to inspection or full ROM Extremity Narrative: Patient has a silver fork deformity of the right wrist. Median, radial and ulnar function intact. Capillary refill is normal. There is no evidence of subungual hematoma of any digit. There is no abrasions or lacerations noted. There is no pain ovation of the lateral medial epicondyle, olecranon process or radial head. There is no pain ovation over the proximal humerus, AC joint or clavicle. Neuro oriented x3, CN's II-XII intact bilaterally, no focal motor deficits and no sensory deficits noted Sensorium / Orientation: alert Psych mental status grossly normal Skin General Skin Exam: Negative for petechiae Lesions: no lesions Rashes: no rashes MDM MDM MDM Narrative Medical decision making narrative: Patient has obvious deformity wrist will obtain x-ray to determine if fracture is extra-articular intra-articular and if there is associated displacement, angulation or dislocation. IV was established. She was given IV morphine for her pain. She had significant improvement. Patient had a hematoma block placed by me. Total of 10 cc of 1% lidocaine was infiltrated into the fracture site. Patient then was placed in finger traps and weights were added every 10 minutes. Reduction was undertaken while still in the finger traps. Hand radiology assist with C arm to find the fracture site since I was having difficulty and after weights were added an additional film was taken to determine if patient would need further reduction. Crossfire reveals anatomical alignment. Patient was removed from finger traps. She was placed in an AP short arm plaster splint that was fabricated by mo. Patient tolerated the procedure well. She was discharged to follow-up with Dr. Nikita Cristina. She was also prescribed pain medicine. Radiography Diagnostic Testing: Clinical Impression(s) from Imaging Studies Wrist X-Ray 03/01/25 14:14 IMPRESSION: Acute right distal radial and ulnar fracture (Colles fracture). Soft tissue swelling. Reading Location: [id number] Procedures Upper Extremity Splints Upper Extremity Splint: Plaster Splint Fabrication: Fabricated Location: Right Discharge Plan Triage Chief Complaint: Upper Extremity Injury ED Provider: Franklin Bruce Dx/Rx/DC Orders Clinical Impression: Intra-articular fracture of distal end of right radius with volar angulation, Injury due to fall Instructions: ED Fracture, Wrist, General Prescriptions: New hydrocodone-acetaminophen 5-325 mg tablet 1 tab PO Q6H PRN PRN (Reason: Pain) 3 Days Qty: 10 0RF No Action calcium carbonate 260 mg calcium (648 mg) tablet 260 mg PO TID cholecalciferol (vitamin D3) 1,000 unit capsule 1,000 unit PO DAILY biotin 1 mg capsule 1 mg PO DAILY bupropion HCl 150 MG tablet sustained-release 12 hr 150 mg PO BID meloxicam 15 MG tablet 15 mg PO DAILY PRN PRN (Reason: Pain) pregabalin 75 MG capsule 75 mg PO BID cyclobenzaprine 10 MG tablet 10 mg PO BID PRN PRN (Reason: Muscle Spasm) furosemide 40 MG tablet 40 mg PO DAILY PRN (Reason: DIURETIC) hydrocodone-acetaminophen 1 EACH tablet 1 ea PO Q6H PRN (Reason: Pain) metronidazole [metronidazole] 500 MG tablet 500 mg PO Q12H Qty: 20 0RF ciprofloxacin HCl [ciprofloxacin HCl] 500 MG tablet 500 mg PO BID Qty: 20 0RF tramadol 50 MG tablet 50 mg PO Q4H PRN PRN (Reason: Pain) 2 Days Qty: 10 0RF oxycodone-acetaminophen [oxycodone-acetaminophen] 1 TABLET tablet 1 tab PO Q6H PRN PRN (Reason: Pain) 3 Days Qty: 12 0RF Primary Care Provider: Ingrid Trejo Referrals: Ingrid Trejo MD [Primary Care Provider] - Nikita Cristina MD [Med Staff - Active Staff] - 5-7 Days Activity Restrictions/Additional Instructions: 1. Keep splint [place] clean and dry. 2. Keep wrist elevated is much as possible. 3. Take pain medicine as prescribed. 4. Apply ice 6-10 times per day Print Language: Cymraes Disposition Disposition: Home, Self Care
[2025-03-01] MEDS: Morphine 4 MG/ML Syringe IV (17:58)
[2025-03-01] MEDS: Lidocaine 1% (20 ml mdv) 20 ML Vial 10 ML INFILT (17:59)
[2025-03-01 18:00] VITALS: BP 136/66; PULSE 89; RESP 14; TEMP 37.1; O2SAT 99
== END 2025-03-01 18:57 | disposition home or self-care (01) ==
PROVIDERS: Emergency Provider Emergency Medicine; PCP Internal Medicine; Visit Provider Emergency Medicine
DX: S52.571A Other intraarticular fracture of lower end of right radius, initial encounter for closed fracture (principal); W18.30XA Fall on same level, unspecified, initial encounter; Z87.891 Personal history of nicotine dependence
CPT/HCPCS: 73110; 76000; 96372; 96374; 96375; 96376; 99283; A4216; J2405

== ENCOUNTER 2025-05-12 09:00 | Outpatient (RCR) | payer MEDICARE, SELFPAY ==
--- NOTE | 2025-04-16 11:43 | HP.OTEVAL ---
Patient's Visit Information Visit Information Visit Information: IVAN KHAN is a 59 year old F, referred to Occupational Therapy by Dr. Nikita Cristina MD, with a diagnosis of right distal radius fracture, DRUJ instability. Date of Evaluation: 04/16/25 Occupational Therapist: Nell Whitfield Subjective Subjective: Patient arrived 6 weeks and 5 days s/p R distal radius fracture. Patient had non operative mgmt and was casted until 04/07/25. Patient wears a removable brace during the day. Patient does not wear brace at night, reports it's more uncomfortable to wear at night than not. But pain is causing her to wake up. Patient is caring for her 8 month old grandson during the day. Patient lives with her daughter and grandson. Patient does not work but does drive. Patient is independently completing daily self care but her daughter is helping more with the home mgmt things and opening containers/jars/cooking. 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 Pain R ulna: Current Pain Intensity: 5 Pain Intensity Range: 10 ROM Shoulder: B WNL Elbow: B WNL Forearm: L WNL, R supination 75, R pronation 80 Wrist: R flexion 45, extension 60; L flexion 65, extension 70 ROM Comments: finger ROM intact bilaterally Strength Special Education Superintendent: L rn oncology research 50 Lateral Pinch: L 16 Tripod Pinch: L 14 Tip-to-Tip Pinch: L 11 Edema Wrist: R wrist 17cm, L 15cm Quick DASH-Disab of Arm,Shoulder& Hand Quick DASH Score: 75.0000 Goals Goal:: Patient will improve fxnal use of R wrist ROM for completion of daily activities evidenced by improved AROM wrist flexion by 5 deg, and extension by 5 deg. Goal:: Patient will reduce wrist swelling by 1 cm by d/c to decrease pain and stiffness for fxnal use. Goal:: Patient will be indep with HEP for improved fxn of R hand/wrist. Rehabilitation General Assessment: Patient arrives 6 weeks and 5 days s/p R distal radius fx, out of the cast and wearing a day time splint most of the time. Patient's biggest complaint is instability with ulna with reported pain in TFCC and DRUJ regions. Palpated patients R ulna with notable instability and piano perez presentation. Patient reports she often holds her wrist to prevent the ulna from moving and popping especially with forearm rotation. Patient would benefit from skilled OT services to conservative mgmt to improve wrist stability and ROM from wrist fx with use of bracing, exercises, and modalities as needed. Patient to f/u with Dr. Cristina in 6 weeks to determine if hand therapy is improving wrist stability and if not, may need further imaging and intervention at that point. Rehabilitation Potential: Fair Anticipated Interventions Anticipated Interventions: A/AAROM/PROM, Strengthening, Edema Control and Home Program Visit Plan Frequency: 1-2x /Week Duration: 6 Weeks General Plan: 1-2x/week for 6 weeks working on wrist stabilizing exercises to address instability in radial-ulnar joints and TFCC region bullseye brace for R ulna (provided info that date) - provided strapping this date to wear over R wrist and ulna in the meantime (Kaycee Denise Jeremias) provided yellow sponge for hand squeezes began wrist flexion/extension AROM with gentle overpressure TEXT: Thank you for the opportunity to evaluate your patient. For Medicare and Medicare HMO plans, please review the plan of care and approve it. It will need to be FAXED BACK to us at [phone] for Medicare purposes. Please let me know if there are questions or concerns regarding this plan of care. Physician Signature: Date:
== END 2025-05-12 19:00 | disposition home or self-care (01) ==
LOC: OT 09:00
PROVIDERS: PCP Internal Medicine; Referring Provider Orthopaedic Surgery Sports Medicine; Visit Provider Orthopaedic Surgery Sports Medicine
DX: S52.501D Unspecified fracture of the lower end of right radius, subsequent encounter for closed fracture with routine healing (principal)
CPT/HCPCS: 97035; 97110; 97140; 97165; 97530